=== PATIENT | female | born 1945 | race Caucasian/White ===

== ENCOUNTER 2018-10-23 18:37 | Observation (INO) | payer OTHER ==
--- OUTSIDE RECORDS SUMMARY | 2018-10-23 18:40 | XMS REPORT ---
:1945 [facility] Address [address] [place] [address] [address]. S[address]iqi [address] [place] [address] Care Team Providers Name Role Phone JOSE FRANCISCO WHITLOCK Unavailable Unavailable Problems This patient has no known problems. Allergies, Adverse Reactions, Alerts This patient has no known allergies or adverse reactions. Medications This patient has no known medications. Results Test Description Test Time Test Comments Text Results Atomic Results Result Comments BASIC METABOLIC PANEL 2016-12-08 06:09:00 Test Item Value Reference Range Comments SODIUM (BEAKER) (test 140 meq/L 136-145 pwwd=537) POTASSIUM (BEAKER) (test 4.0 meq/L 3.5-5.1 becy=193) CHLORIDE (BEAKER) (test 106 meq/L 98-107 txru=348) CO2 (BEAKER) (test oqdf=805) 26 meq/L 22-29 BLOOD UREA NITROGEN (BEAKER) 11 mg/dL 7-21 (test gbqz=500) CREATININE (BEAKER) (test 0.87 mg/dL 0.57-1.25 hixf=361) GLUCOSE RANDOM (BEAKER) 85 mg/dL 70-105 (test suax=531) CALCIUM (BEAKER) (test 8.7 mg/dL 8.4-10.2 dkrl=139) EGFR (BEAKER) (test 64 mL/min/1.73 sq m ESTIMATED GFR IS NOT kvbo=5425) ACCURATE CREATININE CLEARANCE IN PREDICTING GLOMERULAR FILTRATION RATE. ESTIMATED GFR IS NOT APPLICABLE FOR DIALYSIS PATIENTS. TSH/FREE T4 IF [id number] 06:06:00 Test Item Value Reference Range Comments THYROID STIMULATING HORMONE (BEAKER) (test 0.78 uIU/mL 0.35-4.94 aoco=636) CBC W/PLT COUNT & AUTO [id number] 05:30:00 Test Item Value Reference Range Comments WHITE BLOOD CELL COUNT (BEAKER) (test tylr=762) 5.9 K/ L 4.0-10.0 RED BLOOD CELL COUNT (BEAKER) (test rsit=131) 3.66 M/ L 4.00-5.00 HEMOGLOBIN (BEAKER) (test ksmy=362) 11.9 GM/DL 12.0-15.0 HEMATOCRIT (BEAKER) (test sdiv=136) 35.5 % 36.0-45.0 MEAN CORPUSCULAR VOLUME (BEAKER) (test fmkm=237) 97.0 fL 82.0-99.0 MEAN CORPUSCULAR HEMOGLOBIN (BEAKER) (test 32.5 pg 27.0-33.0 dynj=575) MEAN CORPUSCULAR HEMOGLOBIN CONC (BEAKER) (test 33.5 GM/DL 32.0-36.0 azwb=855) RED CELL DISTRIBUTION WIDTH (BEAKER) (test 12.5 % 10.3-14.2 oepz=865) PLATELET COUNT (BEAKER) (test qbta=413) 309 K/CU MM 150-430 MEAN PLATELET VOLUME (BEAKER) (test hrvm=259) 6.3 fL 6.5-10.5 NUCLEATED RED BLOOD CELLS (BEAKER) (test 0 /100 WBC 0-0 aisn=538) NEUTROPHILS RELATIVE PERCENT (BEAKER) (test 49 % eppu=354) LYMPHOCYTES RELATIVE PERCENT (BEAKER) (test 33 % bonf=407) MONOCYTES RELATIVE PERCENT (BEAKER) (test 11 % mgga=580) EOSINOPHILS RELATIVE PERCENT (BEAKER) (test 6 % gjmv=895) BASOPHILS RELATIVE PERCENT (BEAKER) (test 1 % tcsw=138) NEUTROPHILS ABSOLUTE COUNT (BEAKER) (test 2.92 K/ L 1.80-8.00 ymsn=915) LYMPHOCYTES ABSOLUTE COUNT (BEAKER) (test 1.93 K/ L 1.48-4.50 fmsb=257) MONOCYTES ABSOLUTE COUNT (BEAKER) (test 0.65 K/ L 0.00-1.30 ppeq=996) EOSINOPHILS ABSOLUTE COUNT (BEAKER) (test 0.34 K/ L 0.00-0.50 pyqy=993) BASOPHILS ABSOLUTE COUNT (BEAKER) (test 0.07 K/ L 0.00-0.20 umkb=143) 0.00SEDIMENTATION [id number] 14:36:00 Test Item Value Reference Range Comments SEDIMENTATION RATE, ERYTHROCYTE (BEAKER) (test 20 mm/HR 0-40 ndsl=926) VITAMIN [id number] 11:02:00 Test Item Value Reference Range Comments VITAMIN B12 (BEAKER) (test nkrm=619) 219 pg/mL 213-816 HEMOGLOBIN [id number] 08:55:00 Test Item Value Reference Range Comments HEMOGLOBIN A1C (BEAKER) (test dncb=915) 5.3 % 4.3-6.1 LIPID [id number] 06:23:00 Test Item Value Reference Range Comments TRIGLYCERIDES (BEAKER) (test jemc=542) 56 mg/dL CHOLESTEROL (BEAKER) (test phgh=882) 140 mg/dL HDL CHOLESTEROL (BEAKER) (test aaoz=664) 56 mg/dL LDL CHOLESTEROL CALCULATED (BEAKER) (test 73 mg/dL rnmj=874) Triglyceride Reference Range: Low Risk <150 Borderline 150- 199 High Risk 200-499 Very High Risk >=500Cholesterol Reference Range: Low Risk <200 Borderline 200-239 High Risk > 240HDL Cholesterol Reference Range: Low Risk >=60 High Risk <40LDL Cholesterol Reference Range: Optimal <100 Near Optimal 100-129 Borderline 130-159 High 160-189 Very High >=190BASIC METABOLIC [id number] 06:23:00 Test Item Value Reference Range Comments SODIUM (BEAKER) (test 139 meq/L 136-145 zddg=328) POTASSIUM (BEAKER) (test 4.0 meq/L 3.5-5.1 jsgd=590) CHLORIDE (BEAKER) (test 108 meq/L 98-107 mvki=292) CO2 (BEAKER) (test 24 meq/L 22-29 roke=136) BLOOD UREA NITROGEN 15 mg/dL 7-21 (BEAKER) (test ezug=414) CREATININE (BEAKER) (test 0.85 mg/dL 0.57-1.25 pjck=523) GLUCOSE RANDOM (BEAKER) 86 mg/dL 70-105 (test thnp=912) CALCIUM (BEAKER) (test 8.6 mg/dL 8.4-10.2 wryw=640) EGFR (BEAKER) (test 66 mL/min/1.73 sq m ESTIMATED GFR IS NOT onxr=4944) ACCURATE CREATININE CLEARANCE IN PREDICTING GLOMERULAR FILTRATION RATE. ESTIMATED GFR IS NOT APPLICABLE FOR DIALYSIS PATIENTS. CBC W/PLT COUNT & AUTO [id number] 06:08:00 Test Item Value Reference Range Comments WHITE BLOOD CELL COUNT (BEAKER) (test krdz=353) 6.8 K/ L 4.0-10.0 RED BLOOD CELL COUNT (BEAKER) (test oiph=122) 4.01 M/ L 4.00-5.00 HEMOGLOBIN (BEAKER) (test wnex=371) 12.3 GM/DL 12.0-15.0 HEMATOCRIT (BEAKER) (test zwga=209) 38.9 % 36.0-45.0 MEAN CORPUSCULAR VOLUME (BEAKER) (test rtxd=281) 97.0 fL 82.0-99.0 MEAN CORPUSCULAR HEMOGLOBIN (BEAKER) (test 30.8 pg 27.0-33.0 dnze=467) MEAN CORPUSCULAR HEMOGLOBIN CONC (BEAKER) (test 31.8 GM/DL 32.0-36.0 rsqx=994) RED CELL DISTRIBUTION WIDTH (BEAKER) (test 12.5 % 10.3-14.2 birz=807) PLATELET COUNT (BEAKER) (test vvzy=185) 322 K/CU MM 150-430 MEAN PLATELET VOLUME (BEAKER) (test crpl=798) 6.5 fL 6.5-10.5 NUCLEATED RED BLOOD CELLS (BEAKER) (test 0 /100 WBC 0-0 lvyr=368) NEUTROPHILS RELATIVE PERCENT (BEAKER) (test 50 % inhr=494) LYMPHOCYTES RELATIVE PERCENT (BEAKER) (test 32 % padl=463) MONOCYTES RELATIVE PERCENT (BEAKER) (test 12 % bktl=459) EOSINOPHILS RELATIVE PERCENT (BEAKER) (test 5 % uoxi=682) BASOPHILS RELATIVE PERCENT (BEAKER) (test 1 % ayce=722) NEUTROPHILS ABSOLUTE COUNT (BEAKER) (test 3.42 K/ L 1.80-8.00 uhql=835) LYMPHOCYTES ABSOLUTE COUNT (BEAKER) (test 2.19 K/ L 1.48-4.50 npha=890) MONOCYTES ABSOLUTE COUNT (BEAKER) (test 0.80 K/ L 0.00-1.30 ggrr=134) EOSINOPHILS ABSOLUTE COUNT (BEAKER) (test 0.33 K/ L 0.00-0.50 djpf=693) BASOPHILS ABSOLUTE COUNT (BEAKER) (test 0.07 K/ L 0.00-0.20 gzxx=672) 0.00
--- OUTSIDE RECORDS SUMMARY | 2018-10-23 18:40 | XMS REPORT | Clinical Summary ---
:1945 Author Organization [facility] Address [address] [place] [address] Care Team Providers Name Role Phone Unavailable Primary Care Provider Unavailable Allergies Active Allergy Reactions Severity Noted Date Comments Codeine 12/07/2016 Pt hallucinates Meperidine 12/07/2016 Pt hallucinates Latex Itching 12/07/2016 Sulfa (Sulfonamide Other (See Comments) 12/07/2016 Pt gets really sick Antibiotics) Diazepam 12/07/2016 Pt tremors Medications Medication Sig Dispensed Refills Start Date End Date Status atorvastatin (LIPITOR) Take 20 mg by 0 Active 20 MG tabletIndications: mouth daily. hyperlipidemia pantoprazole (PROTONIX) Take 40 mg by 0 Active 40 MG tabletIndications: mouth 2 (two) gastroesophageal reflux times daily. disease spironolactone Take 25 mg by 0 Active (ALDACTONE) 25 MG mouth 2 (two) tabletIndications: times daily. hypertension rivaroxaban (XARELTO) 20 Take 20 mg by 0 Active mg Tab mouth daily. tabletIndications: deep venous thrombosis citalopram (CELEXA) 20 Take 20 mg by 0 Active MG tabletIndications: mouth daily. Anxiety with Depression metoprolol (TOPROL-XL) Take 25 mg by 0 Active 25 MG 24 hr mouth 2 (two) tabletIndications: times daily. hypertension cetirizine (ZYRTEC) 10 Take 10 mg by 0 Active MG tabletIndications: mouth daily. Urticaria fluticasone (FLONASE) 50 1 spray by 0 Active mcg/actuation nasal Nasal route 2 sprayIndications: (two) times allergies daily. aspirin 81 MG chewable Take 1 tablet 30 tablet 1 12/08/2016 12/08/2017 tablet (81 mg total) by mouth daily. 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 TIA (transient ischemic attack) 12/07/2016 Atrial flutter 12/07/2016 COPD (chronic obstructive pulmonary disease) 12/07/2016 Vision loss, right eye 12/07/2016 Family History Medical History Relation Name Comments Hyperlipidemia Father Stroke Father Cancer Mother Osteoarthritis Mother Heart failure Sister Hyperlipidemia Sister Thyroid disease Sister Relation Name Status Comments Father Mother Sister Social History Tobacco Use Types Packs/Day Years Used Date Former Smoker Cigarettes Quit: 12/07/2008 Smokeless Tobacco: Never Used Alcohol Use Drinks/Week oz/Week Comments No Sex Assigned at Date Recorded Not on file Job Start Date Occupation Industry Not on file Not on file Not on file Travel History Travel Start Travel End No recent travel history available. Last Filed Vital Signs Not on file Plan of Treatment Not on file Results Not on fileafter 10/22/2017 Insurance Payer Benefit Plan / Group Subscriber ID Type Phone Address [employer] xxxxxxxx Maps Contracted Advance Directives For more information, please contact:[address] [phone] Code Status Date Activated Date Inactivated Comments Full Code 12/07/2016 2:16 AM 12/08/2016 9:06 PM This code status was determined by: Patient
--- NOTE | 2018-10-23 19:42 | RAD REPORT ---
EXAM DESCRIPTION: Tiff Single View10/23/2018 7:32 pm CLINICAL HISTORY: Chest pain COMPARISON: 2016 FINDINGS: The lungs appear clear of acute infiltrate. The heart is borderline enlarged Moderate hiatal hernia IMPRESSION: No acute abnormalities displayed
[2018-10-23 19:58] LABS: Protime INR 1.17
[2018-10-23 20:15] LABS: ALT/SGPT 15 U/L (12-78); AST/SGOT 13 U/L (15-37); Albumin 3.3 g/dL (3.4-5.0); Alkaline Phosphatase 69 U/L (45-117); BUN Blood Urea Nitrogen 18 mg/dL (7-18); Bicarbonate 30 mmol/L (21-32); Bilirubin Direct < 0.1 mg/dL (0-0.2); Bilirubin Total 0.3 mg/dL (0.2-1.0); Glucose Level 92 mg/dL (74-106); Magnesium 2.3 mg/dL (1.8-2.4); NT PRO-BNP 484 pg/mL (<450); Potassium 4.1 mmol/L (3.5-5.1); Protein, Total 6.8 g/dL (6.4-8.2); Sodium Level 143 mmol/L (136-145); Troponin (Emerg Dept Use Only) < 0.02 ng/mL (0.0-0.045)
[2018-10-23 20:19] LABS: Absolute Lymphocytes (CBC) 1.5 K/uL (0.7-4.9); Absolute Monocytes 0.8 K/uL (0.1-1.3); Absolute Neutrophil 3.2 K/uL (1.8-8.0); Basophils % 2.5 % (0-1.3); Eosinophils % 4.2 % (0-4.4); Hematocrit 37.4 % (36.0-45.0); Lymphocytes % 25.3 % (15.3-44.8); MPV 7.5 fL (7.6-11.3); Monocytes % 12.8 % (3.3-12.3); RBC Red Blood Cell Count 4.22 M/uL (3.86-4.86)
--- NOTE | 2018-10-23 20:48 | ER ---
Nurse's Notes [facility] Name: Hina Messina Age: 73 yrs Sex: Female : 1945 Arrival Date: 10/23/2018 Time: 18:38 Bed 5 Private MD: Diagnosis: Chest pain, unspecified;Chronic obstructive pulmonary disease, unspecified Presentation: 10/23 18:38 Presenting complaint: Patient states: SUBSTERNAL CHEST PAIN RADIATING TO LUE FOR 10 bp MINUTES, NOW RESOLVED. Transition of care: patient was not received from another setting of care. Onset of symptoms was October 23, 2018 at 18:00. Risk Assessment: Do you want to hurt yourself or someone else? Patient reports no desire to harm self or others. Initial Sepsis Screen: Does the patient meet any 2 criteria? No. Patient's initial sepsis screen is negative. Does the patient have a suspected source of infection? No. Patient's initial sepsis screen is negative. Care prior to arrival: Glucose check: 126 Oxygen administered. via nasal cannula. 18:38 Method Of Arrival: EMS: [facility] bp 18:38 Acuity: KESHAV 2 bp Triage Assessment: 18:41 General: Appears in no apparent distress. comfortable, Behavior is calm, cooperative, bp appropriate for age. Pain: Denies pain. EENT: No deficits noted. Neuro: Level of Consciousness is awake, alert, obeys commands, Oriented to person, place, time, situation, Appropriate for age. Cardiovascular: No deficits noted. Respiratory: Breath sounds with crackles. GI: No signs and/or symptoms were reported involving the gastrointestinal system. : No signs and/or symptoms were reported regarding the genitourinary system. Derm: No deficits noted. Musculoskeletal: Circulation, motion, and sensation intact. Range of motion: intact in all extremities. Historical: - Allergies: 18:41 Codeine; bp 18:41 Demerol; bp 18:41 Latex, Natural Rubber; bp 18:41 Sulfa (Sulfonamide Antibiotics); bp 18:41 Valium; bp - Home Meds: 18:41 xaralto 20mg [Active]; spironolactone 25 mg Oral tab 1 tab once daily [Active]; bp pantoprazole 40 mg Oral TbEC 1 tab once daily [Active]; metoprolol tartrate 25 mg Oral tab 1 tab 2 times per day [Active]; citalopram 20 mg tab once daily [Active]; cetirizine 10 mg Oral tab 1 tab once daily [Active]; anora 2 puffs BID [Active]; - PMHx: 18:41 Anemia; COPD; GERD; Hyperlipidemia; Hypertension; Microcytic anemia; SVT; Atrial Fib; bp - Immunization history:: Adult Immunizations up to date. - Social history:: Smoking status: Patient/guardian denies using tobacco, but has a distant history of tobacco abuse. - Ebola Screening: : No symptoms or risks identified at this time. Screenin:45 Abuse screen: Denies threats or abuse. Denies injuries from another. Nutritional bp screening: No deficits noted. Tuberculosis screening: No symptoms or risk factors identified. Fall Risk None identified. Assessment: 18:45 General: SEE TRIAGE NOTE. bp 18:51 Pain: Pain does not radiate. Pain began suddenly, 30 min ago. tw2 19:15 General: Appears in no apparent distress. comfortable, Behavior is calm, cooperative, lp1 appropriate for age. Pain: Denies pain. Neuro: Level of Consciousness is awake, alert, obeys commands, Oriented to person, place, time, situation. Cardiovascular: Patient's skin is warm and dry. Respiratory: Airway is patent Respiratory effort is even, unlabored, Respiratory pattern is regular, symmetrical, Breath sounds are clear bilaterally. GI: No signs and/or symptoms were reported involving the gastrointestinal system. : No signs and/or symptoms were reported regarding the genitourinary system. EENT: No signs and/or symptoms were reported regarding the EENT system. Derm: Skin is intact, Skin is dry, Skin is normal. 20:30 Reassessment: Patient appears in no apparent distress at this time. Patient denies pain lp1 at this time. Patient states feeling better. 21:30 Reassessment: No changes from previously documented assessment. Patient aware of lp1 pending admission. Vital Signs: 18:41 BP 113 / 84; Pulse 84; Resp 14; Temp 98; Pulse Ox 98% on 3 lpm NC; bp 18:41 Weight 74.84 kg; Height 5 ft. 3 in. (160.02 cm); bp 19:15 BP 125 / 80; Pulse 77; Resp 20; Pulse Ox 97% on 3 lpm NC; Pain 0/10; lp1 20:00 BP 133 / 89; Pulse 72; Resp 20; Pulse Ox 97% on 3 lpm NC; lp1 21:00 BP 142 / 67; Pulse 68; Resp 17; Pulse Ox 97% on 3 lpm NC; lp1 22:10 BP 144 / 75; Pulse 63; Resp 17; Temp 98.4(O); Pulse Ox 99% on 3 lpm NC; Pain 0/10; lp1 18:41 Body Mass Index 29.23 (74.84 kg, 160.02 cm) bp ED Course: 18:38 Patient arrived in ED. bp 18:39 Triage completed. bp 18:44 Arm band placed on. bp 18:45 Patient has correct armband on for positive identification. Bed in low position. Call bp light in reach. Side rails up X2. Pulse ox on. NIBP on. 18:52 Patient maintains SpO2 saturation greater than 95% on room air. tw2 18:55 EKG done, by ED staff. jb1 18:58 Ez Kaplan, RN is Primary Nurse. bp 19:08 Manjit Up MD is Attending Physician. tw4 19:34 XRAY Chest (1 view) In Process Unspecified. EDMS 19:35 Inserted saline lock: 22 gauge in right antecubital area, using aseptic technique. lp1 Blood collected. 20:18 No provider procedures requiring assistance completed. lp1 20:45 Cristofer Dempsey MD is Hospitalizing Provider. tw4 22:06 Patient admitted, IV remains in place. lp1 Administered Medications: No medications were administered Outcome: 20:47 Decision to Hospitalize by Provider. tw4 22:06 Condition: stable lp1 22:06 Instructed on the need for admit. 22:18 Admitted to Med/surg accompanied by nurse, via wheelchair, room 204, with oxygen, with lp1 chart, Report called to JOEL Anton 22:40 Patient left the ED. lp1 Signatures: Dispatcher [employer] EDMS Alonso Whitley jb1 Felicitas Casillas, RN RN lp1 Franci Aguero RN RN tw2 Ez Kaplan, RN RN Manjit Holcomb MD MD tw4 Corrections: (The following items were deleted from the chart) 23:27 23:27 Patient left the ED. lp1 lp1
--- NOTE | 2018-10-23 20:49 | EDPHYS ---
Physician Documentation [facility] Name: Hina Messina Age: 73 yrs Sex: Female : 1945 Arrival Date: 10/23/2018 Time: 18:38 Bed 5 Private MD: ED Physician Manjit Up HPI: 10/24 06:22 This 73 yrs old Female presents to ER via EMS with complaints of Chest Pain. tw4 06:22 The patient or guardian reports chest pain that is located primarily in the anterior tw4 chest wall, left. Onset: today. The pain radiates to the left arm. Associated signs and symptoms: The patient has no apparent associated signs or symptoms. The chest pain is described as dull, a heaviness. Duration: The patient or guardian reports a single episode, that is now resolved. Modifying factors: The symptoms are alleviated by nothing. the symptoms are aggravated by nothing. Severity of pain: At its worst the pain was moderate in the emergency department the pain has improved. The patient has not experienced similar symptoms in the past. Historical: - Allergies: 10/23 18:41 Codeine; bp 18:41 Demerol; bp 18:41 Latex, Natural Rubber; bp 18:41 Sulfa (Sulfonamide Antibiotics); bp 18:41 Valium; bp - Home Meds: 18:41 xaralto 20mg [Active]; spironolactone 25 mg Oral tab 1 tab once daily [Active]; bp pantoprazole 40 mg Oral TbEC 1 tab once daily [Active]; metoprolol tartrate 25 mg Oral tab 1 tab 2 times per day [Active]; citalopram 20 mg tab once daily [Active]; cetirizine 10 mg Oral tab 1 tab once daily [Active]; anora 2 puffs BID [Active]; - PMHx: 18:41 Anemia; COPD; GERD; Hyperlipidemia; Hypertension; Microcytic anemia; SVT; Atrial Fib; bp - Immunization history:: Adult Immunizations up to date. - Social history:: Smoking status: Patient/guardian denies using tobacco, but has a distant history of tobacco abuse. - Ebola Screening: : No symptoms or risks identified at this time. ROS: 10/24 06:22 Constitutional: Negative for fever, chills, and weight loss, Eyes: Negative for injury, tw4 pain, redness, and discharge, Respiratory: Negative for shortness of breath, cough, wheezing, and pleuritic chest pain, Abdomen/GI: Negative for abdominal pain, nausea, vomiting, diarrhea, and constipation, Back: Negative for injury and pain, MS/Extremity: Negative for injury and deformity, Skin: Negative for injury, rash, and discoloration, Neuro: Negative for headache, weakness, numbness, tingling, and seizure. Cardiovascular: Positive for chest pain, Negative for edema, orthopnea, palpitations, paroxysmal nocturnal dyspnea. Exam: 06:22 Constitutional: This is a well developed, well nourished patient who is awake, alert, tw4 and in no acute distress. Head/Face: Normocephalic, atraumatic. Chest/axilla: Normal chest wall appearance and motion. Nontender with no deformity. No lesions are appreciated. Cardiovascular: Regular rate and rhythm with a normal S1 and S2. No gallops, murmurs, or rubs. Normal PMI, no JVD. No pulse deficits. Respiratory: Lungs have equal breath sounds bilaterally, clear to auscultation and percussion. No rales, rhonchi or wheezes noted. No increased work of breathing, no retractions or nasal flaring. Abdomen/GI: Soft, non-tender, with normal bowel sounds. No distension or tympany. No guarding or rebound. No evidence of tenderness throughout. Back: No spinal tenderness. No costovertebral tenderness. Full range of motion. MS/ Extremity: Pulses equal, no cyanosis. Neurovascular intact. Full, normal range of motion. Neuro: Awake and alert, GCS 15, oriented to person, place, time, and situation. Cranial nerves II-XII grossly intact. Motor strength 5/5 in all extremities. Sensory grossly intact. Cerebellar exam normal. Normal gait. Vital Signs: 0607 18:41 BP 113 / 84; Pulse 84; Resp 14; Temp 98; Pulse Ox 98% on 3 lpm NC; bp 18:41 Weight 74.84 kg; Height 5 ft. 3 in. (160.02 cm); bp 19:15 BP 125 / 80; Pulse 77; Resp 20; Pulse Ox 97% on 3 lpm NC; Pain 0/10; lp1 20:00 BP 133 / 89; Pulse 72; Resp 20; Pulse Ox 97% on 3 lpm NC; lp1 21:00 BP 142 / 67; Pulse 68; Resp 17; Pulse Ox 97% on 3 lpm NC; lp1 22:10 BP 144 / 75; Pulse 63; Resp 17; Temp 98.4(O); Pulse Ox 99% on 3 lpm NC; Pain 0/10; lp1 18:41 Body Mass Index 29.23 (74.84 kg, 160.02 cm) bp MDM: 19:08 Patient medically screened. 10/24 06:22 Differential diagnosis: abnormal EKG, acute myocardial infarction, gastroesophageal tw4 reflux disease (GERD), hiatal hernia, pulmonary embolus. CARLEE Risk Score: 1 - patient's age is greater or equal to 65 years, 1 - Recent [<24hrs] Severe Angina, TOTAL SCORE = 2. Data reviewed: vital signs, nurses notes. Data interpreted: Pulse oximetry: Interpretation: normal. Counseling: I had a detailed discussion with the patient and/or guardian regarding: the historical points, exam findings, and any diagnostic results supporting the discharge/admit diagnosis, lab results, radiology results. Physician consultation: Cristofer Dempsey MD was contacted at 20:10, regarding admission, to the telemetry unit. patient's condition, and will see patient in inpatient room. 10/23 19:08 Order name: Basic Metabolic Panel; Complete Time: 20:42 10/23 20:42 Interpretation: Normal except: CL 109; GFR 64. 10/23 19:08 Order name: CBC with Diff; Complete Time: 20:42 10/23 20:42 Interpretation: Normal except: MCV 88.6; MCH 28.5; PLT 480. 10/23 19:08 Order name: LFT's; Complete Time: 20:42 10/23 20:42 Interpretation: Normal except: AST 13; ALB 3.3; A/G 0.9. 10/23 19:08 Order name: Magnesium; Complete Time: 20:43 10/23 20:43 Interpretation: MG 2.3. 10/23 19:08 Order name: NT PRO-BNP; Complete Time: 20:42 10/23 20:43 Interpretation: Normal except: NT PRO-BNP 484. 10/23 19:08 Order name: PT-INR; Complete Time: 20:43 tw4 10/23 20:43 Interpretation: Normal except: PT 13.7. tw4 10/23 19:08 Order name: Troponin (emerg Dept Use Only); Complete Time: 20:43 tw4 10/23 20:43 Interpretation: Normal except: TROPED < 0.02. tw4 10/23 22:02 Order name: Basic Metabolic Panel EDMS 10/23 22:02 Order name: Basic Metabolic Panel EDMS 10/23 22:02 Order name: CBC with Automated Diff EDMS 10/23 22:02 Order name: CBC with Automated Diff EDMS 10/23 22:02 Order name: Troponin I EDMS 10/23 22:02 Order name: Troponin I EDMS 10/23 22:02 Order name: Troponin I EDMS 10/23 19:08 Order name: XRAY Chest (1 view); Complete Time: 20:43 tw4 10/23 19:08 Order name: EKG; Complete Time: 19:11 tw4 10/23 19:08 Order name: Cardiac monitoring; Complete Time: 19:11 tw4 10/23 19:08 Order name: EKG - Nurse/Tech; Complete Time: 19:11 tw4 10/23 19:08 Order name: IV Saline Lock; Complete Time: 20:18 tw4 10/23 19:08 Order name: Labs collected and sent; Complete Time: 20:19 tw4 10/23 19:08 Order name: O2 Per Protocol; Complete Time: 19:11 tw4 10/23 19:08 Order name: O2 Sat Monitoring; Complete Time: 19:11 tw4 10/23 22:02 Order name: EKG Electrocardiogram EDOH 10/23 22:02 Order name: EKG Electrocardiogram EDOH 10/23 22:02 Order name: EKG Electrocardiogram EDOH 10/23 22:02 Order name: EKG Electrocardiogram EDOH 10/23 22:27 Order name: Heart Healthy EDOH Administered Medications: No medications were administered Disposition: 10/23/18 20:47 Hospitalization ordered by Cristofer Dempsey for Observation. Preliminary diagnosis are Chest pain, unspecified, Chronic obstructive pulmonary disease, unspecified. - Bed requested for Telemetry/MedSurg (Inpatient). - Status is Observation. lp1 - Condition is Stable. - Problem is new. - Symptoms have improved. UTI on Admission? No Signatures: Dispatcher [employer] EDMS Maria Elena Herman RN RN fc Felicitas Casillas, RN RN lp1 Ez Kaplan, RN RN Manjit Up MD MD tw4 Corrections: (The following items were deleted from the chart) 10/23 21:51 20:47 Hospitalization Ordered by Cristofer Dempsey MD for Observation. Preliminary diagnosis fc is Chest pain, unspecified; Chronic obstructive pulmonary disease, unspecified. Bed requested for Telemetry/MedSurg (observation). Status is Observation. Condition is Stable. Problem is new. Symptoms have improved. UTI on Admission? No. tw4 21:55 21:51 10/23/2018 20:47 Hospitalization Ordered by Cristofer Dempsey MD for Observation. fc Preliminary diagnosis is Chest pain, unspecified; Chronic obstructive pulmonary disease, unspecified. Bed requested for Telemetry/MedSurg (observation). Status is Observation. Condition is Stable. Problem is new. Symptoms have improved. UTI on Admission? No. fc 23:27 21:55 10/23/2018 20:47 Hospitalization Ordered by Cristofer Dempsey MD for Observation. lp1 Preliminary diagnosis is Chest pain, unspecified; Chronic obstructive pulmonary disease, unspecified. Bed requested for Telemetry/MedSurg (Inpatient). Status is Observation. Condition is Stable. Problem is new. Symptoms have improved. UTI on Admission? No. fc
[2018-10-23] MEDS ORDERED: ACETAMINOPHEN 500 MG TAB PO PRN (21:51)
[2018-10-23 22:58] VITALS: BMI 30.2
[2018-10-24 00:36] LABS: Urine Appearance CLEAR; Urine Bilirubin NEGATIVE (NEG); Urine Blood NEGATIVE (NEG); Urine Color YELLOW; Urine Glucose NEGATIVE (NEG); Urine Protein NEGATIVE (NEG); Urine Specific Gravity 1.025 (1.005-1.030); Urine Urobilinogen 0.2 mg/dL (0.2-1.0)
[2018-10-24 00:43] LABS: Urine Microscopic Reflex ORDER UMIC
[2018-10-24 01:14] LABS: Urine Bacteria <20 /HPF (<20); Urine Culture Reflex Order REFLEXED; Urine RBC <5 /HPF (NONE SEEN)
[2018-10-24 05:01] LABS: Absolute Lymphocytes (CBC) 1.8 K/uL (0.7-4.9); Absolute Monocytes 0.6 K/uL (0.1-1.3); Absolute Neutrophil 2.5 K/uL (1.8-8.0); Hematocrit 34.1 % (36.0-45.0); Lymphocytes % 33.4 % (15.3-44.8); MPV 7.4 fL (7.6-11.3); Monocytes % 11.7 % (3.3-12.3); RBC Red Blood Cell Count 3.88 M/uL (3.86-4.86)
[2018-10-24 05:11] LABS: Potassium 3.7 mmol/L (3.5-5.1)
[2018-10-24 07:59] VITALS: O2SAT 96
[2018-10-24 08:26] VITALS: BP 124/86; TEMP 97.8
[2018-10-24] MEDS ORDERED: ASPIRIN EC 81 MG TAB PO SCH (09:00)
--- NOTE | 2018-10-24 09:01 | EKG ---
Test Date: 2018-10-23 Test Time: 18:48:54 Tax Manager Public: PRINCESS MEASUREMENT RESULTS: Intervals: Rate: 83 ND: 152 QRSD: 82 QT: 368 QTc: 432 [place]: P: 38 ND: 152 QRS: 2 T: -31 INTERPRETIVE STATEMENTS: Normal sinus rhythm ST & T wave abnormality, consider inferior ischemia ST & T wave abnormality, consider anterolateral ischemia Abnormal ECG Compared to ECG 12/06/2016 19:32:03 No significant changes Electronically Signed On 10-24-18 09:00:40 CDT by Edward Sherwood
[2018-10-24] MEDS ORDERED: HOME MED 1 EA UNK (Albuterol Sulfate [Proair Respiclick] 2 PUFF) IH PRN (10:08)
--- NOTE | 2018-10-24 10:36 | P.SSS ---
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 She was sitting in her chair. Suddenly felt left arm/shoulder pain for 10 min. Stated it was excruciating. Lasted for 10min. The patient has not had any similar pain before. She has not had it since then. However she was scared enough to call EMS. Was brought to the ER. Her pain had resolved. She had no changes on her EKG. She has had 3 negative troponins. The patient states she was recently in Dr. Sherwood's office. Had a echocardiogram. Which he stated was looking good. Allergies codeine [Codeine] Allergy (Mild, Verified 01/29/12 19:01) Hives/Rash diazepam [From Valium] Allergy (Mild, Verified 01/29/12 19:00) Hives/Rash meperidine HCl [From Demerol] Allergy (Mild, Verified 01/29/12 19:01) Hives Sulfa (Sulfonamide Antibiotics) [Sulfa(Sulfonamide Antibiotics)] Allergy (Mild, Verified 01/29/12 19:01) Nausea/Vomiting latex Allergy (Verified 09/24/15 15:49) Hives/Rash Latex, Natural Rubber Allergy (Verified 10/24/18 09:41) Itching codeine Allergy (Uncoded 08/18/14 21:21) Unknown Latex, Natural Allergy (Uncoded 10/31/15 21:18) Unknown Home Medications: Acetaminophen [Tylenol Extra Strength] 500 mg PO BID 10/23/18 Albuterol Sulfate [Proair Respiclick] 2 puff IH Q4HP PRN 10/23/18 Cetirizine HCl [Zyrtec*] 5 mg PO DAILY 10/23/18 Fluticasone [Flonase 50MCG Nasal [place]*] 1 spray JENNY DAILY 10/23/18 Metoprolol Tartrate [Lopressor*] 25 mg PO BID 10/23/18 Rivaroxaban [Xarelto] 20 mg PO BEDTIME 10/23/18 Umeclidinium Brm/Vilanterol Tr [Anoro Ellipta 62.5-25 Mcg INH] 1 puff IH DAILY 10/23/18 Citalopram Hydrobromide [Celexa] 20 mg PO DAILY 10/24/18 - Past Medical/Surgical History Has patient received pneumonia vaccine in the past: Yes Diabetic: No -: HYPERTENSION -: HYPERLIPIDEMIA -: GERD -: RENAL FAILURE -: HYSTERECTOMY -: APPENDECTOMY - Family History Father -: Stroke Mother -: Cancer - Social History Smoking Status: Former smoker Alcohol use: No CD- Drugs: No Caffeine use: Yes Place of Residence: Home Review of Systems 10-point ROS is otherwise unremarkable Respiratory: SOB with Excertion (This is a chronic problem due to copd, she is at baseline) Physical Examination - Vital Signs Temperature: 97.8 F Blood Pressure: 124/86 Pulse: 67 Respirations: 19 Pulse Ox (%): 96 - Physical Exam General: Alert, In no apparent distress HEENT: Atraumatic, PERRLA, Mucous membr. moist/pink, EOMI, Sclerae nonicteric Neck: Supple, 2+ carotid pulse no bruit, No LAD, Without JVD or thyroid abnormality Respiratory: Clear to auscultation bilaterally, Normal air movement Cardiovascular: Regular rate/rhythm, Normal S1 S2 Gastrointestinal: Normal bowel sounds, No tenderness Musculoskeletal: No tenderness Integumentary: No rashes Neurological: Normal gait, Normal speech, Normal strength at 5/5 x4 extr, Normal tone, Normal affect Lymphatics: No axilla or inguinal lymphadenopathy - Studies Laboratory Data (last 24 hrs) 10/23/18 19:35: PT 13.7 H, INR 1.17 10/23/18 19:35: WBC 5.9, Hgb 12.0, Hct 37.4, Plt Count 480 H 10/23/18 19:35: Sodium 143, Potassium 4.1, BUN 18, Creatinine 0.86, Glucose 92, Magnesium 2.3, Total Bilirubin 0.3, AST 13 L, ALT 15, Alkaline Phosphatase 69 - Diagnosis (Problem(s)) (1) Chest pain at rest Current Visit: Yes Status: Acute Plan: Patient is not having an acute event. Will discharge her home. She says she has been having some shoulder and neck pain since a fall a few months ago. Will have her follow up with Dr. Sherwood. If she is cleared by him from a cardiac standpoint. We can refer to PT. This could also be atelectasis or arthritis. (2) Supraventricular tachycardia Onset Date: 09/25/15 Current Visit: No Status: Acute (3) COPD (chronic obstructive pulmonary disease) Onset Date: 11/01/15 Current Visit: No Status: Chronic Plan: she is at her baseline. continue her inhaler. She has not been very active due to her shoulder pain. Will refer to PT and pulmonary rehab after she see's Dr. Sherwood. Qualifiers: Treatment Summary: Placed in observation. She has 3 negative troponins. We can discharge her have her follow up with Dr. Ricketts. For outpatient testing. If cleared she can follow up with me. Will refer to PT and pulmonary rehab as stated above - Disposition Disposition: ROUTINE DISCHARGE Condition: GOOD Diet: Regular Activity: Ad diaz Physician Review: Patient Assessed, Agree with Above Assessment and Plan Critical Care: No Time Spent Managing Pts Care (In Minutes): 40
[2018-10-24] MEDS ORDERED: ACETAMINOPHEN 500 MG TAB PO SCH (21:00)
[2018-10-24] MEDS ORDERED: METOPROLOL TAR 25 MG TAB PO SCH (21:00)
[2018-10-24] MEDS ORDERED: RIVAROXABAN 20 MG TABLET PO SCH (21:00)
[2018-10-25] MEDS ORDERED: CETIRIZINE HCL 5 MG TABLET PO SCH (09:00)
[2018-10-25] MEDS ORDERED: CITALOPRAM 10 MG TABLET PO SCH (09:00)
[2018-10-25] MEDS ORDERED: HOME MED 1 EA UNK (Umeclidinium Brm/Vilanterol Tr [Anoro Ellipta 62.5-25 Mcg Inh] 1 PUFF) IH SCH (09:00)
[2018-10-25] MEDS ORDERED: FLUTICASONE 50MCG NASAL SPRAY NAS SCH (09:00)
== END 2018-10-24 12:03 | disposition home or self-care (01) ==
LOC: ER 18:37 → 2ND 21:46
PROVIDERS: ADMIT Internal Medicine; ATTEND Internal Medicine
DX: R07.9 Chest pain, unspecified (principal); I47.1 Supraventricular tachycardia; J44.9 Chronic obstructive pulmonary disease, unspecified; E78.5 Hyperlipidemia, unspecified; I10 Essential (primary) hypertension; R94.31 Abnormal electrocardiogram [ECG] [EKG]; D64.9 Anemia, unspecified; K21.9 Gastro-esophageal reflux disease without esophagitis; I48.91 Unspecified atrial fibrillation; K44.9 Diaphragmatic hernia without obstruction or gangrene; Z79.01 Long term (current) use of anticoagulants; Z79.899 Other long term (current) drug therapy; Z87.891 Personal history of nicotine dependence
CPT/HCPCS: 93005; 87088; 85025 ×2; 87086; 80048 ×2; 36415; 83735; 85610; 80076; 84484 ×3; 83880; 71045; 99285; G0378 ×2; 81003; 81015

== ENCOUNTER 2019-01-04 12:13 | Emergency (ER) | payer OTHER ==
--- OUTSIDE RECORDS SUMMARY | 2019-01-04 12:20 | XMS REPORT | Clinical Summary ---
:1945 Author Organization [facility] Address [address] [place] [address] Care Team Providers Name Role Phone Unavailable Primary Care Provider Unavailable Allergies Active Allergy Reactions Severity Noted Date Comments Codeine 12/07/2016 Pt hallucinates Meperidine 12/07/2016 Pt hallucinates Latex Itching 12/07/2016 Sulfa (Sulfonamide Other (See Comments) 12/07/2016 Pt gets really sick Antibiotics) Diazepam 12/07/2016 Pt tremors Medications Medication Sig Dispensed Refills Start Date End Date Status atorvastatin (LIPITOR) 20 Take 20 mg by 0 Active MG tabletIndications: mouth daily. hyperlipidemia pantoprazole (PROTONIX) 40 Take 40 mg by 0 Active MG tabletIndications: mouth 2 (two) gastroesophageal reflux times daily. disease spironolactone (ALDACTONE) Take 25 mg by 0 Active 25 MG tabletIndications: mouth 2 (two) hypertension times daily. rivaroxaban (XARELTO) 20 Take 20 mg by 0 Active mg Tab tabletIndications: mouth daily. deep venous thrombosis citalopram (CELEXA) 20 MG Take 20 mg by 0 Active tabletIndications: Anxiety mouth daily. with Depression metoprolol (TOPROL-XL) 25 Take 25 mg by 0 Active MG 24 hr mouth 2 (two) tabletIndications: times daily. hypertension cetirizine (ZYRTEC) 10 MG Take 10 mg by 0 Active tabletIndications: mouth daily. urticaria fluticasone (FLONASE) 50 1 spray by 0 Active mcg/actuation nasal Nasal route 2 sprayIndications: (two) times allergies daily. Active Problems Problem Noted Date Right [...] Not on file Results Not on fileafter 01/03/2018 Insurance Payer Benefit Plan / Group Subscriber ID Type Phone Address [employer] xxxxxxxx Maps Contracted Advance Directives For more information, please contact:[address] [phone] Code Status Date Activated Date Inactivated Comments Full Code 12/07/2016 2:16 AM 12/08/2016 9:06 PM This code status was determined by: Patient
--- OUTSIDE RECORDS SUMMARY | 2019-01-04 12:21 | XMS REPORT ---
:1945 [facility] Address [address] [place] [address] [address]. Siddiqi [address] [place] [address] Care Team Providers Name Role Phone JOSE [...] Comments SODIUM (BEAKER) (test 140 meq/L 136-145 vfvl=285) POTASSIUM (BEAKER) (test 4.0 meq/L 3.5-5.1 xsue=870) CHLORIDE (BEAKER) (test 106 meq/L 98-107 qpep=283) CO2 (BEAKER) (test jzzd=226) 26 meq/L 22-29 BLOOD UREA NITROGEN (BEAKER) 11 mg/dL 7-21 (test vetm=489) CREATININE (BEAKER) (test 0.87 mg/dL 0.57-1.25 accs=643) GLUCOSE RANDOM (BEAKER) 85 mg/dL 70-105 (test whgr=399) CALCIUM (BEAKER) (test 8.7 mg/dL 8.4-10.2 ejch=202) EGFR (BEAKER) (test 64 mL/min/1.73 sq m ESTIMATED GFR IS NOT pgmx=3163) ACCURATE CREATININE CLEARANCE IN PREDICTING GLOMERULAR FILTRATION RATE. ESTIMATED GFR IS NOT APPLICABLE FOR DIALYSIS PATIENTS. TSH/FREE T4 IF [id number] 06:06:00 Test Item Value Reference Range Comments THYROID STIMULATING HORMONE (BEAKER) (test 0.78 uIU/mL 0.35-4.94 xpis=162) CBC W/PLT COUNT & AUTO [id number] 05:30:00 Test Item Value Reference Range Comments WHITE BLOOD CELL COUNT (BEAKER) (test qlwz=886) 5.9 K/ L 4.0-10.0 RED BLOOD CELL COUNT (BEAKER) (test vcoj=844) 3.66 M/ L 4.00-5.00 HEMOGLOBIN (BEAKER) (test dqgf=657) 11.9 GM/DL 12.0-15.0 HEMATOCRIT (BEAKER) (test ksku=727) 35.5 % 36.0-45.0 MEAN CORPUSCULAR VOLUME (BEAKER) (test foxo=482) 97.0 fL 82.0-99.0 MEAN CORPUSCULAR HEMOGLOBIN (BEAKER) (test 32.5 pg 27.0-33.0 xjax=509) MEAN CORPUSCULAR HEMOGLOBIN CONC (BEAKER) (test 33.5 GM/DL 32.0-36.0 vjid=978) RED CELL DISTRIBUTION WIDTH (BEAKER) (test 12.5 % 10.3-14.2 cmzh=303) PLATELET COUNT (BEAKER) (test xstu=973) 309 K/CU MM 150-430 MEAN PLATELET VOLUME (BEAKER) (test bsll=918) 6.3 fL 6.5-10.5 NUCLEATED RED BLOOD CELLS (BEAKER) (test 0 /100 WBC 0-0 lfqu=441) NEUTROPHILS RELATIVE PERCENT (BEAKER) (test 49 % nxrb=880) LYMPHOCYTES RELATIVE PERCENT (BEAKER) (test 33 % mzxx=695) MONOCYTES RELATIVE PERCENT (BEAKER) (test 11 % bhdz=995) EOSINOPHILS RELATIVE PERCENT (BEAKER) (test 6 % iwsz=744) BASOPHILS RELATIVE PERCENT (BEAKER) (test 1 % nvnn=690) NEUTROPHILS ABSOLUTE COUNT (BEAKER) (test 2.92 K/ L 1.80-8.00 bmfy=788) LYMPHOCYTES ABSOLUTE COUNT (BEAKER) (test 1.93 K/ L 1.48-4.50 iycd=835) MONOCYTES ABSOLUTE COUNT (BEAKER) (test 0.65 K/ L 0.00-1.30 qilu=413) EOSINOPHILS ABSOLUTE COUNT (BEAKER) (test 0.34 K/ L 0.00-0.50 xyeg=321) BASOPHILS ABSOLUTE COUNT (BEAKER) (test 0.07 K/ L 0.00-0.20 ywne=941) 0.00SEDIMENTATION [id number] 14:36:00 Test Item Value Reference Range Comments SEDIMENTATION RATE, ERYTHROCYTE (BEAKER) (test 20 mm/HR 0-40 eexw=609) VITAMIN [id number] 11:02:00 Test Item Value Reference Range Comments VITAMIN B12 (BEAKER) (test wfsr=291) 219 pg/mL 213-816 HEMOGLOBIN [id number] 08:55:00 Test Item Value Reference Range Comments HEMOGLOBIN A1C (BEAKER) (test eozf=261) 5.3 % 4.3-6.1 LIPID [id number] 06:23:00 Test Item Value Reference Range Comments TRIGLYCERIDES (BEAKER) (test kjpb=702) 56 mg/dL CHOLESTEROL (BEAKER) (test xpfm=590) 140 mg/dL HDL CHOLESTEROL (BEAKER) (test vzqs=684) 56 mg/dL LDL CHOLESTEROL CALCULATED (BEAKER) (test 73 mg/dL fntz=776) Triglyceride Reference Range: Low Risk <150 Borderline 150- 199 High Risk 200-499 Very High Risk >=500Cholesterol Reference Range: Low Risk <200 Borderline 200-239 High Risk > 240HDL Cholesterol Reference Range: Low Risk >=60 High Risk <40LDL Cholesterol Reference Range: Optimal <100 Near Optimal 100-129 Borderline 130-159 High 160-189 Very High >=190BASIC METABOLIC [id number] 06:23:00 Test Item Value Reference Range Comments SODIUM (BEAKER) (test 139 meq/L 136-145 sclw=326) POTASSIUM (BEAKER) (test 4.0 meq/L 3.5-5.1 qhph=697) CHLORIDE (BEAKER) (test 108 meq/L 98-107 mskz=484) CO2 (BEAKER) (test 24 meq/L 22-29 vkan=527) BLOOD UREA NITROGEN 15 mg/dL 7-21 (BEAKER) (test vzam=100) CREATININE (BEAKER) (test 0.85 mg/dL 0.57-1.25 yfjh=310) GLUCOSE RANDOM (BEAKER) 86 mg/dL 70-105 (test gjza=471) CALCIUM (BEAKER) (test 8.6 mg/dL 8.4-10.2 xjge=060) EGFR (BEAKER) (test 66 mL/min/1.73 sq m ESTIMATED GFR IS NOT pxqw=8391) ACCURATE CREATININE CLEARANCE IN PREDICTING GLOMERULAR FILTRATION RATE. ESTIMATED GFR IS NOT APPLICABLE FOR DIALYSIS PATIENTS. CBC W/PLT COUNT & AUTO [id number] 06:08:00 Test Item Value Reference Range Comments WHITE BLOOD CELL COUNT (BEAKER) (test utqq=090) 6.8 K/ L 4.0-10.0 RED BLOOD CELL COUNT (BEAKER) (test ofii=472) 4.01 M/ L 4.00-5.00 HEMOGLOBIN (BEAKER) (test qojo=754) 12.3 GM/DL 12.0-15.0 HEMATOCRIT (BEAKER) (test pkgr=277) 38.9 % 36.0-45.0 MEAN CORPUSCULAR VOLUME (BEAKER) (test xdyz=020) 97.0 fL 82.0-99.0 MEAN CORPUSCULAR HEMOGLOBIN (BEAKER) (test 30.8 pg 27.0-33.0 shyg=067) MEAN CORPUSCULAR HEMOGLOBIN CONC (BEAKER) (test 31.8 GM/DL 32.0-36.0 vyuv=115) RED CELL DISTRIBUTION WIDTH (BEAKER) (test 12.5 % 10.3-14.2 ttmg=065) PLATELET COUNT (BEAKER) (test ndqx=638) 322 K/CU MM 150-430 MEAN PLATELET VOLUME (BEAKER) (test ekov=726) 6.5 fL 6.5-10.5 NUCLEATED RED BLOOD CELLS (BEAKER) (test 0 /100 WBC 0-0 hzqv=601) NEUTROPHILS RELATIVE PERCENT (BEAKER) (test 50 % soij=235) LYMPHOCYTES RELATIVE PERCENT (BEAKER) (test 32 % wrpf=974) MONOCYTES RELATIVE PERCENT (BEAKER) (test 12 % vqpf=370) EOSINOPHILS RELATIVE PERCENT (BEAKER) (test 5 % sbtu=110) BASOPHILS RELATIVE PERCENT (BEAKER) (test 1 % lwkw=691) NEUTROPHILS ABSOLUTE COUNT (BEAKER) (test 3.42 K/ L 1.80-8.00 vzpn=091) LYMPHOCYTES ABSOLUTE COUNT (BEAKER) (test 2.19 K/ L 1.48-4.50 etxx=771) MONOCYTES ABSOLUTE COUNT (BEAKER) (test 0.80 K/ L 0.00-1.30 dzxn=761) EOSINOPHILS ABSOLUTE COUNT (BEAKER) (test 0.33 K/ L 0.00-0.50 slro=490) BASOPHILS ABSOLUTE COUNT (BEAKER) (test 0.07 K/ L 0.00-0.20 beqg=426) 0.00
--- NOTE | 2019-01-04 13:47 | RAD REPORT ---
EXAM DESCRIPTION: CT - Pelvis Wo Cont - 01/04/2019 1:09 pm CLINICAL HISTORY: Slip and fall, pelvic and hip pain, back pain COMPARISON: CT imaging November 2017 TECHNIQUE: Axial 2 millimeter thick images of the pelvis were obtained. Sagittal and coronal reconst ruction images were generated and reviewed. The CT scan was performed using dose optimization techniques as appropriate to a performed exam incl uding one or more of the following: Automated exposure control, adjustment of the mA and/or kV accord ing to patient size (this includes techniques or standardized protocols for targeted exams where dose is matched to indication/reason for exam) and use of iterative reconstruction technique. FINDINGS: L4 body shows partial compression with concavity to the superior endplate centrally. This pattern appears to be similar to the 2018 study. Direct comparison is somewhat limited. No retropulsi on of the posterior wall. There is mild concavity to the superior endplate L5 also seen as stable. Ad vanced L5-S1 degenerative disc disease is present. L5 pars interarticularis defects are present with less than grade 1 spondylolisthesis. The lumbar findings appear to be stable. No pathologic lower lum bar finding. Prominent L5-S1 facet joint degenerative changes are present. SI joint degenerative torres ges are present along with minimal pubic symphysis degenerative change. No fracture of the bony pelvis. No pathologic process. Degenerative changes are present in each femor al head. No fracture or dislocation of either proximal femur. No skeletal muscle abnormality seen. No hematoma is identified in the soft tissues. No acute finding in the imaged portions of the peritoneal and retroperitoneal spaces. IMPRESSION: No pelvic fracture or acute bone process seen. Prominent degenerative change in the partially imaged lumbar spine. The partial compression of L4 and the degenerative changes seen L4-S1 appear to be stable back to November 2017.
--- NOTE | 2019-01-04 14:15 | ER ---
Nurse's Notes [facility] Name: Hina Messina Age: 73 yrs Sex: Female : 1945 Arrival Date: 01/04/2019 Time: 12:27 Bed 25 Private MD: Diagnosis: Low back pain Presentation: 01/04 12:28 Presenting complaint: EMS states: patient slipped last week and yesterday her back pain mg2 was getting worse and decided to be checked out today. took tylenol 1 tab \T\ 1130 HAND IRONER. Transition of care: patient was not received from another setting of care. Onset of symptoms was January 03, 2019. Risk Assessment: Do you want to hurt yourself or someone else? Patient reports no desire to harm self or others. Initial Sepsis Screen: Does the patient meet any 2 criteria? No. Patient's initial sepsis screen is negative. Does the patient have a suspected source of infection? No. Patient's initial sepsis screen is negative. Care prior to arrival: None. 12:28 Method Of Arrival: EMS: [facility] mg2 12:28 Acuity: KESHAV 3 mg2 Historical: - Allergies: 12:33 Codeine; mg2 12:33 Demerol; mg2 12:33 Latex, Natural Rubber; mg2 12:33 Sulfa (Sulfonamide Antibiotics); mg2 12:33 Valium; mg2 12:33 ambien; mg2 - Home Meds: 13:04 anora 2 puffs BID [Active]; cetirizine 10 mg Oral tab 1 tab once daily [Active]; mg2 citalopram 20 mg tab once daily [Active]; metoprolol tartrate 25 mg Oral tab 1 tab 2 times per day [Active]; pantoprazole 40 mg Oral TbEC 1 tab once daily [Active]; spironolactone 25 mg Oral tab 1 tab once daily [Active]; xaralto 20mg [Active]; - PMHx: 12:33 Anemia; Atrial Fib; COPD; GERD; Hyperlipidemia; Hypertension; Microcytic anemia; SVT; mg2 - PSHx: 12:33 back surgery; Appendectomy; partial hysterectomy; mg2 - Immunization history:: Flu vaccine is up to date. - Social history:: Smoking status: Patient/guardian denies using tobacco, Patient/guardian denies using alcohol, street drugs, IV drugs. - Ebola Screening: : No symptoms or risks identified at this time. Screenin:01 Abuse screen: Denies threats or abuse. Denies injuries from another. Nutritional mg2 screening: No deficits noted. Tuberculosis screening: No symptoms or risk factors identified. Fall Risk None identified. Assessment: 13:02 General: Appears in no apparent distress. comfortable, Behavior is calm, cooperative. mg2 Pain: Complains of pain in back Pain does not radiate. Pain currently is 5 out of 10 on a pain scale. Quality of pain is described as aching, Pain began gradually. Neuro: Level of Consciousness is awake, alert, obeys commands, Oriented to person, place, time, situation. Cardiovascular: Capillary refill < 3 seconds Patient's skin is warm and dry. Respiratory: Airway is patent Respiratory effort is even, unlabored, Respiratory pattern is regular, symmetrical. GI: No signs and/or symptoms were reported involving the gastrointestinal system. : No signs and/or symptoms were reported regarding the genitourinary system. EENT: No signs and/or symptoms were reported regarding the EENT system. Derm: Skin is intact, is healthy with good turgor, Skin is pink, warm \T\ dry. normal. Musculoskeletal: Reports pain in back. Vital Signs: 12:31 BP 131 / 89; Pulse 81; Resp 18; Temp 98.7; Pulse Ox 97% on 2 lpm NC; Weight 77.11 kg; mg2 Height 5 ft. 3 in. (160.02 cm); Pain 5/10; 13:58 BP 147 / 91; Pulse 66; Resp 18; Pulse Ox 98% on R/A; mg2 14:28 BP 144 / 86; Pulse 70; Resp 18; Temp 98.5; Pulse Ox 100% on R/A; mg2 12:31 Body Mass Index 30.11 (77.11 kg, 160.02 cm) mg2 ED Course: 12:27 Patient arrived in ED. iw 12:28 Paco Florian RN is Primary Nurse. mg2 12:31 Triage completed. mg2 12:38 Rebecca Frye FNP-C [facility]. kb 12:38 Bright Zendejas MD is Attending Physician. kb 13:01 Patient has correct armband on for positive identification. Pulse ox on. NIBP on. Door mg2 closed. 13:03 Arm band placed on. mg2 13:03 No provider procedures requiring assistance completed. Patient did not have IV access mg2 during this emergency room visit. 13:10 CT Pelvis wo Cont In Process Unspecified. EDMS 13:58 EKG done, by water supply technician. reviewed by Bright Zendejas MD. sm3 Administered Medications: 14:28 Drug: Ibuprofen 600 mg Route: PO; mg2 14:28 Follow up: Response: No adverse reaction; Medication administered at discharge. mg2 Outcome: 14:15 Discharge ordered by . jania 14:29 Discharged to home via wheelchair, with family. mg2 14:29 Condition: stable 14:29 Discharge instructions given to patient, family, Instructed on discharge instructions, follow up and referral plans. medication usage, Demonstrated understanding of instructions, follow-up care, medications, Prescriptions given X 1. 14:37 Patient left the ED. mg2 Signatures: Dispatcher [employer] EDMS Rebecca Frye, SAP SPECIALIST-C SAP SPECIALIST-Karen Aponte RN JOEL iw Paco Florian RN RN mg2 Floridalma Spence 3
--- NOTE | 2019-01-04 14:16 | EDPHYS ---
Physician Documentation [facility] Name: Hina Messina Age: 73 yrs Sex: Female : 1945 Arrival Date: 01/04/2019 Time: 12:27 Bed 25 Private MD: ED Physician Bright Zendejas HPI: 01/04 13:20 This 73 yrs old Female presents to ER via EMS with complaints of back pain. kb 13:20 The patient presents with pain that is acute. The symptoms are located in the coccyx kb area. Onset: The symptoms/episode began/occurred last week. The pain does not radiate. Associated signs and symptoms: The patient has no apparent associated signs or symptoms. The problem was sustained during a fall, while walking. Modifying factors: The patient symptoms are alleviated by nothing, the patient symptoms are aggravated by any movement. Severity of symptoms: At their worst the symptoms were moderate, in the emergency department the symptoms are unchanged. The patient has not experienced similar symptoms in the past. The patient has not recently seen a physician. Pt reports she fell a week ago and was banged up from that, but thought she would get better with time. Still c/o low back/buttock pain so she wanted to get it checked. Historical: - Allergies: 12:33 Codeine; mg2 12:33 Demerol; mg2 12:33 Latex, Natural Rubber; mg2 12:33 Sulfa (Sulfonamide Antibiotics); mg2 12:33 Valium; mg2 12:33 ambien; mg2 - Home Meds: 13:04 anora 2 puffs BID [Active]; cetirizine 10 mg Oral tab 1 tab once daily [Active]; mg2 citalopram 20 mg tab once daily [Active]; metoprolol tartrate 25 mg Oral tab 1 tab 2 times per day [Active]; pantoprazole 40 mg Oral TbEC 1 tab once daily [Active]; spironolactone 25 mg Oral tab 1 tab once daily [Active]; xaralto 20mg [Active]; - PMHx: 12:33 Anemia; Atrial Fib; COPD; GERD; Hyperlipidemia; Hypertension; Microcytic anemia; SVT; mg2 - PSHx: 12:33 back surgery; Appendectomy; partial hysterectomy; mg2 - Immunization history:: Flu vaccine is up to date. - Social history:: Smoking status: Patient/guardian denies using tobacco, Patient/guardian denies using alcohol, street drugs, IV drugs. - Ebola Screening: : No symptoms or risks identified at this time. ROS: 13:20 Constitutional: Negative for fever, chills, and weight loss, ENT: Negative for injury, kb pain, and discharge, Neck: Negative for injury, pain, and swelling, Cardiovascular: Negative for chest pain, palpitations, and edema, Respiratory: Negative for shortness of breath, cough, wheezing, and pleuritic chest pain, Abdomen/GI: Negative for abdominal pain, nausea, vomiting, diarrhea, and constipation, : Negative for injury, bleeding, discharge, and swelling, MS/Extremity: Negative for injury and deformity, Skin: Negative for injury, rash, and discoloration, Neuro: Negative for headache, weakness, numbness, tingling, and seizure. 13:20 Back: Positive for pain with movement, of the sacrum. Exam: 13:20 Constitutional: This is a well developed, well nourished patient who is awake, alert, kb and in no acute distress. Head/Face: Normocephalic, atraumatic. Chest/axilla: Normal chest wall appearance and motion. Nontender with no deformity. No lesions are appreciated. Cardiovascular: Regular rate and rhythm with a normal S1 and S2. No gallops, murmurs, or rubs. Normal PMI, no JVD. No pulse deficits. Respiratory: Lungs have equal breath sounds bilaterally, clear to auscultation and percussion. No rales, rhonchi or wheezes noted. No increased work of breathing, no retractions or nasal flaring. Abdomen/GI: Soft, non-tender, with normal bowel sounds. No distension or tympany. No guarding or rebound. No evidence of tenderness throughout. Skin: Warm, dry with normal turgor. Normal color with no rashes, no lesions, and no evidence of cellulitis. MS/ Extremity: Pulses equal, no cyanosis. Neurovascular intact. Full, normal range of motion. Neuro: Awake and alert, GCS 15, oriented to person, place, time, and situation. Cranial nerves II-XII grossly intact. Motor strength 5/5 in all extremities. Sensory grossly intact. Cerebellar exam normal. Normal gait. 13:20 Back: pain, that is moderate, of the sacrum, ROM is normal, normal spinal alignment noted, CVA tenderness, that is mild, that is moderate. Vital Signs: 12:31 BP 131 / 89; Pulse 81; Resp 18; Temp 98.7; Pulse Ox 97% on 2 lpm NC; Weight 77.11 kg; mg2 Height 5 ft. 3 in. (160.02 cm); Pain 5/10; 13:58 BP 147 / 91; Pulse 66; Resp 18; Pulse Ox 98% on R/A; mg2 14:28 BP 144 / 86; Pulse 70; Resp 18; Temp 98.5; Pulse Ox 100% on R/A; mg2 12:31 Body Mass Index 30.11 (77.11 kg, 160.02 cm) mg2 MDM: 12:38 Patient medically screened. kb 13:22 Data reviewed: vital signs, nurses notes. Data interpreted: Pulse oximetry: on room air kb is 97 %. Interpretation: normal. 14:14 Counseling: I had a detailed discussion with the patient and/or guardian regarding: the kb historical points, exam findings, and any diagnostic results supporting the discharge/admit diagnosis, radiology results, the need for outpatient follow up, a family practitioner, to return to the emergency department if symptoms worsen or persist or if there are any questions or concerns that arise at home. 01/04 12:49 Order name: CT Pelvis wo Cont; Complete Time: 13:51 kb Administered Medications: 14:28 Drug: Ibuprofen 600 mg Route: PO; mg2 14:28 Follow up: Response: No adverse reaction; Medication administered at discharge. mg2 Disposition: 15:40 Co-signature as Attending Physician, Bright Zendejas MD. rn Disposition: 01/04/19 14:15 Discharged to Home. Impression: Low back pain. - Condition is Stable. - Discharge Instructions: Back Injury Prevention, Eval-vu-Xaim, Back Pain, Adult, Tvoa-fj-Rzbb, Back Exercises, Tqza-qa-Xzyz. - Prescriptions for Prednisone 20 mg Oral Tablet - take 1 tablet by ORAL route once daily for 5 days; 5 tablet. - Medication Reconciliation Form, Thank You Letter, Antibiotic Education, Prescription Opioid Use form. - Follow up: Emergency Department; When: As needed; Reason: Worsening of condition. Follow up: Private Physician; When: 2 - 3 days; Reason: Recheck today's complaints, Continuance of care, Re-evaluation by your physician. Signatures: Dispatcher [employer] EDRebecca Carter, TABLE OPERATOR-C TABLE OPERATOR-Ckb Bright Zendejas MD MD rn Paco Florian RN RN mg2 Corrections: (The following items were deleted from the chart) 14:37 14:15 01/04/2019 14:15 Discharged to Home. Impression: Low back pain. Condition is mg2 Stable. Forms are Medication Reconciliation Form, Thank You Letter, Antibiotic Education, Prescription Opioid Use. Follow up: Emergency Department; When: As needed; Reason: Worsening of condition. Follow up: Private Physician; When: 2 - 3 days; Reason: Recheck today's complaints, Continuance of care, Re-evaluation by your physician. kb
[2019-01-04] MEDS ORDERED: IBUPROFEN 200 MG TAB PO ONE (14:18)
[2019-01-04 14:49] VITALS: BP 144/86; TEMP 98.5; O2SAT 100
--- NOTE | 2019-01-05 07:28 | EKG ---
Test Date: 2019-01-04 Test Time: 12:16:50 Clay Stain Mixer: MICHELLE MEASUREMENT RESULTS: Intervals: Rate: 82 [place]: 162 QRSD: 74 QT: 344 QTc: 401 [place]: P: 33 [place]: 162 QRS: -28 T: -41 INTERPRETIVE STATEMENTS: Normal sinus rhythm ST & T wave abnormality, consider anterolateral ischemia Abnormal ECG Compared to ECG 10/23/2018 18:48:54 No significant changes Electronically Signed On 01-05-19 07:27:13 CDT by Orlando Dhillon
== END 2019-01-04 14:37 | disposition home or self-care (01) ==
LOC: ER 12:13
DX: M54.5 Low back pain (principal); Z88.6 Allergy status to analgesic agent; Z88.2 Allergy status to sulfonamides; Z91.040 Latex allergy status; I10 Essential (primary) hypertension; K21.9 Gastro-esophageal reflux disease without esophagitis; J44.9 Chronic obstructive pulmonary disease, unspecified
CPT/HCPCS: 72192; 93005; 99284

== ENCOUNTER 2019-07-27 16:42 | Observation (INO) | payer OTHER ==
--- OUTSIDE RECORDS SUMMARY | 2019-07-27 16:44 | XMS REPORT ---
:1945 [facility] Address [address] [place] [address] [address]. S[address]iqi [address] [place] [address] Care Team Providers Name Role Phone JOSE [...] Comments SODIUM (BEAKER) (test 140 meq/L 136-145 twdo=024) POTASSIUM (BEAKER) (test 4.0 meq/L 3.5-5.1 prfg=982) CHLORIDE (BEAKER) (test 106 meq/L 98-107 vbjr=907) CO2 (BEAKER) (test uehh=380) 26 meq/L 22-29 BLOOD UREA NITROGEN (BEAKER) 11 mg/dL 7-21 (test msho=299) CREATININE (BEAKER) (test 0.87 mg/dL 0.57-1.25 ohrx=174) GLUCOSE RANDOM (BEAKER) 85 mg/dL 70-105 (test ctlq=696) CALCIUM (BEAKER) (test 8.7 mg/dL 8.4-10.2 keca=618) EGFR (BEAKER) (test 64 mL/min/1.73 sq m ESTIMATED GFR IS NOT fmzd=1402) ACCURATE CREATININE CLEARANCE IN PREDICTING GLOMERULAR FILTRATION RATE. ESTIMATED GFR IS NOT APPLICABLE FOR DIALYSIS PATIENTS. TSH/FREE T4 IF [id number] 06:06:00 Test Item Value Reference Range Comments THYROID STIMULATING HORMONE (BEAKER) (test 0.78 uIU/mL 0.35-4.94 dlhp=400) CBC W/PLT COUNT & AUTO [id number] 05:30:00 Test Item Value Reference Range Comments WHITE BLOOD CELL COUNT (BEAKER) (test hlas=839) 5.9 K/ L 4.0-10.0 RED BLOOD CELL COUNT (BEAKER) (test owzc=363) 3.66 M/ L 4.00-5.00 HEMOGLOBIN (BEAKER) (test khvy=529) 11.9 GM/DL 12.0-15.0 HEMATOCRIT (BEAKER) (test xlut=336) 35.5 % 36.0-45.0 MEAN CORPUSCULAR VOLUME (BEAKER) (test oics=787) 97.0 fL 82.0-99.0 MEAN CORPUSCULAR HEMOGLOBIN (BEAKER) (test 32.5 pg 27.0-33.0 nuoa=388) MEAN CORPUSCULAR HEMOGLOBIN CONC (BEAKER) (test 33.5 GM/DL 32.0-36.0 eyni=787) RED CELL DISTRIBUTION WIDTH (BEAKER) (test 12.5 % 10.3-14.2 kmwf=243) PLATELET COUNT (BEAKER) (test hvqk=388) 309 K/CU MM 150-430 MEAN PLATELET VOLUME (BEAKER) (test qpap=429) 6.3 fL 6.5-10.5 NUCLEATED RED BLOOD CELLS (BEAKER) (test 0 /100 WBC 0-0 pppt=874) NEUTROPHILS RELATIVE PERCENT (BEAKER) (test 49 % spgs=030) LYMPHOCYTES RELATIVE PERCENT (BEAKER) (test 33 % kwwt=010) MONOCYTES RELATIVE PERCENT (BEAKER) (test 11 % azav=701) EOSINOPHILS RELATIVE PERCENT (BEAKER) (test 6 % gsbx=260) BASOPHILS RELATIVE PERCENT (BEAKER) (test 1 % znvw=484) NEUTROPHILS ABSOLUTE COUNT (BEAKER) (test 2.92 K/ L 1.80-8.00 ibll=434) LYMPHOCYTES ABSOLUTE COUNT (BEAKER) (test 1.93 K/ L 1.48-4.50 tohg=098) MONOCYTES ABSOLUTE COUNT (BEAKER) (test 0.65 K/ L 0.00-1.30 brqt=734) EOSINOPHILS ABSOLUTE COUNT (BEAKER) (test 0.34 K/ L 0.00-0.50 urmj=148) BASOPHILS ABSOLUTE COUNT (BEAKER) (test 0.07 K/ L 0.00-0.20 oipc=061) 0.00SEDIMENTATION [id number] 14:36:00 Test Item Value Reference Range Comments SEDIMENTATION RATE, ERYTHROCYTE (BEAKER) (test 20 mm/HR 0-40 fxpa=727) VITAMIN [id number] 11:02:00 Test Item Value Reference Range Comments VITAMIN B12 (BEAKER) (test myjs=261) 219 pg/mL 213-816 HEMOGLOBIN [id number] 08:55:00 Test Item Value Reference Range Comments HEMOGLOBIN A1C (BEAKER) (test ievs=315) 5.3 % 4.3-6.1 LIPID [id number] 06:23:00 Test Item Value Reference Range Comments TRIGLYCERIDES (BEAKER) (test grdl=566) 56 mg/dL CHOLESTEROL (BEAKER) (test esws=419) 140 mg/dL HDL CHOLESTEROL (BEAKER) (test jhkl=849) 56 mg/dL LDL CHOLESTEROL CALCULATED (BEAKER) (test 73 mg/dL tvui=382) Triglyceride Reference Range: Low Risk <150 Borderline 150- 199 High Risk 200-499 Very High Risk >=500Cholesterol Reference Range: Low Risk <200 Borderline 200-239 High Risk > 240HDL Cholesterol Reference Range: Low Risk >=60 High Risk <40LDL Cholesterol Reference Range: Optimal <100 Near Optimal 100-129 Borderline 130-159 High 160-189 Very High >=190BASIC METABOLIC [id number] 06:23:00 Test Item Value Reference Range Comments SODIUM (BEAKER) (test 139 meq/L 136-145 ctoe=936) POTASSIUM (BEAKER) (test 4.0 meq/L 3.5-5.1 omrl=783) CHLORIDE (BEAKER) (test 108 meq/L 98-107 aeox=292) CO2 (BEAKER) (test 24 meq/L 22-29 xuxr=943) BLOOD UREA NITROGEN 15 mg/dL 7-21 (BEAKER) (test ljur=776) CREATININE (BEAKER) (test 0.85 mg/dL 0.57-1.25 eoon=448) GLUCOSE RANDOM (BEAKER) 86 mg/dL 70-105 (test aqem=933) CALCIUM (BEAKER) (test 8.6 mg/dL 8.4-10.2 yxps=752) EGFR (BEAKER) (test 66 mL/min/1.73 sq m ESTIMATED GFR IS NOT hxhy=5896) ACCURATE CREATININE CLEARANCE IN PREDICTING GLOMERULAR FILTRATION RATE. ESTIMATED GFR IS NOT APPLICABLE FOR DIALYSIS PATIENTS. CBC W/PLT COUNT & AUTO [id number] 06:08:00 Test Item Value Reference Range Comments WHITE BLOOD CELL COUNT (BEAKER) (test trqx=891) 6.8 K/ L 4.0-10.0 RED BLOOD CELL COUNT (BEAKER) (test zhih=338) 4.01 M/ L 4.00-5.00 HEMOGLOBIN (BEAKER) (test fdmb=277) 12.3 GM/DL 12.0-15.0 HEMATOCRIT (BEAKER) (test oxlg=094) 38.9 % 36.0-45.0 MEAN CORPUSCULAR VOLUME (BEAKER) (test ejju=450) 97.0 fL 82.0-99.0 MEAN CORPUSCULAR HEMOGLOBIN (BEAKER) (test 30.8 pg 27.0-33.0 bndj=417) MEAN CORPUSCULAR HEMOGLOBIN CONC (BEAKER) (test 31.8 GM/DL 32.0-36.0 xajx=404) RED CELL DISTRIBUTION WIDTH (BEAKER) (test 12.5 % 10.3-14.2 tfpq=390) PLATELET COUNT (BEAKER) (test hzrv=461) 322 K/CU MM 150-430 MEAN PLATELET VOLUME (BEAKER) (test coiq=848) 6.5 fL 6.5-10.5 NUCLEATED RED BLOOD CELLS (BEAKER) (test 0 /100 WBC 0-0 nqny=941) NEUTROPHILS RELATIVE PERCENT (BEAKER) (test 50 % vcob=389) LYMPHOCYTES RELATIVE PERCENT (BEAKER) (test 32 % rwnv=155) MONOCYTES RELATIVE PERCENT (BEAKER) (test 12 % vdpj=131) EOSINOPHILS RELATIVE PERCENT (BEAKER) (test 5 % qsgn=439) BASOPHILS RELATIVE PERCENT (BEAKER) (test 1 % xvus=464) NEUTROPHILS ABSOLUTE COUNT (BEAKER) (test 3.42 K/ L 1.80-8.00 rqjl=839) LYMPHOCYTES ABSOLUTE COUNT (BEAKER) (test 2.19 K/ L 1.48-4.50 oobb=091) MONOCYTES ABSOLUTE COUNT (BEAKER) (test 0.80 K/ L 0.00-1.30 jfwa=756) EOSINOPHILS ABSOLUTE COUNT (BEAKER) (test 0.33 K/ L 0.00-0.50 oszn=747) BASOPHILS ABSOLUTE COUNT (BEAKER) (test 0.07 K/ L 0.00-0.20 tkdo=848) 0.00
--- NOTE | 2019-07-27 17:08 | RAD REPORT ---
EXAM DESCRIPTION: CT - Ct Stroke Brain Wo Cont - 07/27/2019 5:01 pm CLINICAL HISTORY: TIA Headache, drowsiness, CVA symptomology COMPARISON: Head Brain Wo Cont dated 12/06/2016 TECHNIQUE: All CT scans are performed using dose optimization technique as appropriate and may inclu de automated exposure control or mA/KV adjustment according to patient size. FINDINGS: No intracranial hemorrhage, hydrocephalus or extra-axial fluid collection.Moderate general ized brain atrophy is present with mild periventricular and deep white matter chronic microvascular i schemic changes.No areas of brain edema or evidence of midline shift. The paranasal sinuses and mastoids are clear. The calvarium is intact. IMPRESSION: No acute intracranial abnormality. The findings were discussed with Dr. Zendejas On 07/27/2019 at 5:04 p.m. by telephone.
--- NOTE | 2019-07-27 17:13 | ER ---
Nurse's Notes [facility] Name: Hina Messina Age: 74 yrs Sex: Female : 1945 Arrival Date: 07/27/2019 Time: 16:46 Bed 2 Private MD: Diagnosis: Transient cerebral ischemic attack, unspecified;Amaurosis fugax Presentation: 07/26 16:45 Chief complaint: Patient states: reports having a blackout in the right eye, states she em is having a TIA, had a similar incident on , denies numbness or tingling, reports symptoms started about 1 hour ago, symptoms have resolved. 16:45 Method Of Arrival: Wheelchair em 16:45 Coronavirus screen: The patient has NOT traveled to a country currently being monitored em by the [facility] within the last 14 days. The patient has NOT had contact with any known and/or suspected case of coronavirus. Ebola Screen: Patient negative for fever greater than or equal to 101.5 degrees Fahrenheit, and additional compatible Ebola Virus Disease symptoms Patient denies exposure to infectious person. Patient denies travel to an Ebola-affected area in the 21 days before illness onset. No symptoms or risks identified at this time. Initial Sepsis Screen: Does the patient meet any 2 criteria? No. Patient's initial sepsis screen is negative. Does the patient have a suspected source of infection? No. Patient's initial sepsis screen is negative. Risk Assessment: Do you want to hurt yourself or someone else? Patient reports no desire to harm self or others. 16:45 Acuity: KESHAV 2 em 16:45 No acute neurological deficit is noted. Pre-hospital glucose is not applicable to this em patient. Stroke Activation: Physician: Stroke Attending; Name: ; Notified At: ; Arrived At: Physician: Chief Stroke Resident; Name: ; Notified At: ; Arrived At: Physician: Stroke Resident; Name: ; Notified At: ; Arrived At: Physician: ED Attending; Name: Chuy; Notified At: ; Arrived At: Physician: ED Resident; Name: ; Notified At: ; Arrived At: Historical: - Allergies: 17:05 ambien; sv 17:05 Codeine; sv 17:05 Demerol; sv 17:05 Latex, Natural Rubber; sv 17:05 Sulfa (Sulfonamide Antibiotics); sv 17:05 Valium; sv 17:06 ambien; em 17:06 Codeine; em 17:06 Demerol; em 17:06 Latex, Natural Rubber; em 17:06 Valium; em 17:06 Sulfa (Sulfonamide Antibiotics); em - PMHx: 17:05 Anemia; Atrial Fib; COPD; GERD; Hyperlipidemia; Hypertension; Microcytic anemia; SVT; sv - PSHx: 17:05 Appendectomy; back surgery; partial hysterectomy; sv - Immunization history:: Adult Immunizations up to date. - Social history:: Smoking status: Patient denies any tobacco usage or history of. - Family history:: not pertinent. Screenin:04 Abuse screen: Denies threats or abuse. Denies injuries from another. Nutritional sv screening: No deficits noted. Tuberculosis screening: No symptoms or risk factors identified. Fall Risk None identified. Assessment: 16:45 VAN Scoring: Arm Drift: Patients demonstrates NO arm weakness. Patient is VAN Negative. em T-PA (Activase) Screening: Contraindications: Rapidly improving condition or minor deficit: Yes. 16:45 General: Appears in no apparent distress. comfortable, Behavior is calm, cooperative. em Pain: Denies pain. Neuro: Level of Consciousness is awake, alert, obeys commands, Oriented to person, place, time, situation, Appropriate for age Bilingual Student Tutor are equal bilaterally Moves all extremities. Gait is steady, Speech is normal, Facial symmetry appears normal, Pupils are PERRLA, Intact Denies weakness paresthesias numbness diplopia. Cardiovascular: Capillary refill < 3 seconds Patient's skin is warm and dry. Respiratory: Airway is patent Respiratory effort is even, unlabored, Respiratory pattern is regular, symmetrical. GI: Patient currently denies nausea, vomiting. Derm: Skin is intact, is healthy with good turgor, Skin is pink, warm \T\ dry. Musculoskeletal: Capillary refill < 3 seconds, Range of motion: intact in all extremities. 16:46 Reassessment: Code stroke activated. em 16:48 Reassessment: Dr. Vera at bedside. em 16:50 Reassessment: Pt taken to CT via stretcher by William MALDONADO. sv 16:58 Reassessment: Pt back from CT. sv 17:30 Patient has been NPO before screening. The patient is alert, and able to follow em commands. The patient does not exhibit slurred or garbled speech. The patient is not exhibiting difficulty speaking. The patient does not exhibit difficulty understanding words. The patient is able to swallow own secretions with no drooling or need for suction. Patient tolerated one teaspoon of water. No drooling, immediate coughing, gurgling, or clearing of the throat was noted. The patient tolerated 90mL of water. No drooling, immediate coughing, gurgling, or clearing of the throat was noted. The patient passed the bedside swallow screening. Oral medications may be given as ordered. Contact Physician for further diet orders. Provider notified of bedside swallow screening results: Puma Vera MD. 17:32 Reassessment: Dr. Livingston at bedside. em 18:07 Reassessment: Patient appears in no apparent distress at this time. Patient and/or em family updated on plan of care and expected duration. Pain level reassessed. Patient is alert, oriented x 3, equal unlabored respirations, skin warm/dry/pink. pending room assignment. 19:31 General: Appears in no apparent distress. Behavior is calm, cooperative. Pain: Denies ea pain. Neuro: Level of Consciousness is awake, alert, obeys commands, Oriented to person, place, time, situation, Speech is normal, Facial symmetry appears normal. Neuro: Intact. Cardiovascular: Patient's skin is warm and dry. Respiratory: Airway is patent Respiratory effort is even, unlabored, Respiratory pattern is regular, symmetrical. Derm: Skin is pink, warm \T\ dry. 20:27 Reassessment: Patient and/or family updated on plan of care and expected duration. Pain ea level reassessed. Patient is alert, oriented x 3, equal unlabored respirations, skin warm/dry/pink. Pt admitted to second floor, left ED via wheelchair per nurse, pt tolerating well. Vital Signs: 17:02 BP 158 / 85; Pulse 84; Resp 16; Temp 98.2(TE); Pulse Ox 96% ; sv 19:33 BP 168 / 88; Pulse 72; Resp 18; Pulse Ox 98% on R/A; ea NIH Stroke Scale Scores: 16:45 NIHSS Score: 0 em 17:10 NIHSS Score: 0 pau 19:31 NIHSS Score: 0 ea ED Course: 16:46 Patient arrived in ED. em 16:47 William Middleton, RN is Primary Nurse. em 16:47 Puma Vera MD is Attending Physician. pau 17:01 Arm band placed on Patient placed in an exam room, on a stretcher. sv 17:02 Patient has correct armband on for positive identification. Bed in low position. Call sv light in reach. Side rails up X2. Adult w/ patient. Pulse ox on. NIBP on. Door closed. Head of bed elevated. 17:03 CT Stroke Brain w/o Contrast In Process Unspecified. EDMS 17:04 Inserted saline lock: 20 gauge in right antecubital area, using aseptic technique. sv Blood collected. Flushed right antecubital with 5 ml normal saline. 17:05 Triage completed. em 17:11 Hunter Lu MD is Hospitalizing Provider. pau 17:27 EKG done, by ED staff, reviewed by Puma Vera MD. jb1 17:46 XRAY Chest (1 view) In Process Unspecified. EDMS 18:03 CT Head Angio In Process Unspecified. EDMS 19:31 No provider procedures requiring assistance completed. Patient admitted, IV remains in ea place. 20:00 Urine collected: clean catch specimen, clear. sg Administered Medications: 17:30 Drug: NS 0.9% 1000 ml Route: IV; Rate: 1 bolus; Site: right antecubital; em 20:00 Follow up: Response: No adverse reaction; IV Status: Completed infusion; IV Intake: ea 200ml 17:30 Drug: foLIC Acid 1 mg Route: IVPB; Site: right antecubital; em 17:51 Follow up: IV Status: Completed infusion em 19:31 Drug: Rocephin 1 grams Route: IV; Rate: per protocol; Site: right antecubital; ea 19:44 Follow up: Response: No adverse reaction; IV Status: Completed infusion; IV Intake: 10mlea Point of Care Testing: Blood Glucose: 17:01 Blood Glucose: 85 mg/dL; sv Ranges: Intake: 19:44 IV: 10ml; Total: 10ml. ea 20:00 IV: 200ml; Total: 210ml. ea Outcome: 17:12 Decision to Hospitalize by Provider. pau 19:33 Instructed on the need for admit. ea 20:25 Admitted to Med/surg accompanied by nurse, via wheelchair, room 207, with chart, Report ea called to Sarthak MALDONADO 20:25 Condition: stable 20:29 Patient left the ED. NIH Stroke Scale - NIH Stroke Score Date: 07/27/2019 Time: 16:45 Total Score = 0 1a. Level of Consciousness (LOC) - 0(Alert) 1b. Level of Consciousness (LOC) (Year \T\ Age) - 0(Both) 1c. LOC Commands (Open \T\ Closes Eyes/Pipe Stripper) - 0(Both) 2. Best Gaze (Lateral Gaze Paresis) - 0(Normal) 3. Visual Field Loss - 0(No visual loss) 4. Facial Palsy - 0(Normal) 5a. Left Arm: Motor (10-second hold) - 0(No drift) 5b. Right Arm: Motor (10-second hold) - 0(No drift) 6a. Left Leg: Motor (5-second hold - always test supine) - 0(No drift) 6b. Right Leg: Motor (5-second hold - always test supine) - 0(No drift) 7. Limb Ataxia (finger/nose \T\ heel/brown - test with eyes open) - 0(Absent) 8. Sensory Loss (pinprick arms/legs/face) - 0(Normal) 9. Best Language: Aphasia (description/naming/reading) - 0(No aphasia) 10. Dysarthria (speech clarity - read or repeat words) - 0(Normal) 11. Extinction and Inattention (visual/tactile/auditory/spatial/personal) - 0(No abnormality) Initials: NIH Stroke Scale - NIH Stroke Score Date: 07/27/2019 Time: 17:10 Total Score = 0 1a. Level of Consciousness (LOC) - 0(Alert) 1b. Level of Consciousness (LOC) (Year \T\ Age) - 0(Both) 1c. LOC Commands (Open \T\ Closes Eyes/Pipe Stripper) - 0(Both) 2. Best Gaze (Lateral Gaze Paresis) - 0(Normal) 3. Visual Field Loss - 0(No visual loss) 4. Facial Palsy - 0(Normal) 5a. Left Arm: Motor (10-second hold) - 0(No drift) 5b. Right Arm: Motor (10-second hold) - 0(No drift) 6a. Left Leg: Motor (5-second hold - always test supine) - 0(No drift) 6b. Right Leg: Motor (5-second hold - always test supine) - 0(No drift) 7. Limb Ataxia (finger/nose \T\ heel/brown - test with eyes open) - 0(Absent) 8. Sensory Loss (pinprick arms/legs/face) - 0(Normal) 9. Best Language: Aphasia (description/naming/reading) - 0(No aphasia) 10. Dysarthria (speech clarity - read or repeat words) - 0(Normal) 11. Extinction and Inattention (visual/tactile/auditory/spatial/personal) - 0(No abnormality) Initials: pau NIH Stroke Scale - NIH Stroke Score Date: 07/27/2019 Time: 19:31 Total Score = 0 1a. Level of Consciousness (LOC) - 0(Alert) 1b. Level of Consciousness (LOC) (Year \T\ Age) - 0(Both) 1c. LOC Commands (Open \T\ Closes Eyes/Pipe Stripper) - 0(Both) 2. Best Gaze (Lateral Gaze Paresis) - 0(Normal) 3. Visual Field Loss - 0(No visual loss) 4. Facial Palsy - 0(Normal) 5a. Left Arm: Motor (10-second hold) - 0(No drift) 5b. Right Arm: Motor (10-second hold) - 0(No drift) 6a. Left Leg: Motor (5-second hold - always test supine) - 0(No drift) 6b. Right Leg: Motor (5-second hold - always test supine) - 0(No drift) 7. Limb Ataxia (finger/nose \T\ heel/brown - test with eyes open) - 0(Absent) 8. Sensory Loss (pinprick arms/legs/face) - 0(Normal) 9. Best Language: Aphasia (description/naming/reading) - 0(No aphasia) 10. Dysarthria (speech clarity - read or repeat words) - 0(Normal) 11. Extinction and Inattention (visual/tactile/auditory/spatial/personal) - 0(No abnormality) Initials: jazzy Signatures: Dispatcher [employer] Alonso Avelar Stephanie, RN RN sv Gay, Steven, RN RN sg Anderson, Corey, MD MD cha Munoz, Edgar, RN RN em Antunez, Elena, RN RN ea Corrections: (The following items were deleted from the chart) 17:04 17:02 BP 158 / 85; Pulse 84bpm; Resp 16bpm; Pulse Ox 96%; sv sv
--- NOTE | 2019-07-27 17:14 | EDPHYS ---
Physician Documentation [facility] Name: Hina Messina Age: 74 yrs Sex: Female : 1945 Arrival Date: 07/27/2019 Time: 16:46 Bed 2 Private MD: ED Physician Puma Vera HPI: 07/26 17:01 This 74 yrs old Female presents to ER via Unassigned with complaints of lost pau vision, right eye. 17:01 The patient is experiencing lost vision. Onset: The symptoms/episode began/occurred pau just prior to arrival. Duration: the symptoms last a few minutes. Aggravated by nothing. Alleviated by nothing. Associated signs and symptoms: Pertinent positives: None. Pertinent negatives: None. The patient's problem is reported as visual difficulty, unable to see, decreased vision in the right eye. Context: the episode(s) was witnessed, by family, daughter. Historical: - Allergies: 17:05 ambien; sv 17:05 Codeine; sv 17:05 Demerol; sv 17:05 Latex, Natural Rubber; sv 17:05 Sulfa (Sulfonamide Antibiotics); sv 17:05 Valium; sv 17:06 ambien; em 17:06 Codeine; em 17:06 Demerol; em 17:06 Latex, Natural Rubber; em 17:06 Valium; em 17:06 Sulfa (Sulfonamide Antibiotics); em - PMHx: 17:05 Anemia; Atrial Fib; COPD; GERD; Hyperlipidemia; Hypertension; Microcytic anemia; SVT; sv - PSHx: 17:05 Appendectomy; back surgery; partial hysterectomy; sv - Immunization history:: Adult Immunizations up to date. - Social history:: Smoking status: Patient denies any tobacco usage or history of. - Family history:: not pertinent. ROS: 17:03 Constitutional: Negative for fever, chills, and weight loss, ENT: Negative for injury, pau pain, and discharge, Neck: Negative for injury, pain, and swelling, Cardiovascular: Negative for chest pain, palpitations, and edema, Respiratory: Negative for shortness of breath, cough, wheezing, and pleuritic chest pain, Abdomen/GI: Negative for abdominal pain, nausea, vomiting, diarrhea, and constipation, Back: Negative for injury and pain, : Negative for injury, bleeding, discharge, and swelling, MS/Extremity: Negative for injury and deformity, Skin: Negative for injury, rash, and discoloration, Neuro: Negative for headache, weakness, numbness, tingling, and seizure, Psych: Negative for depression, anxiety, suicide ideation, homicidal ideation, and hallucinations, Allergy/Immunology: Negative for hives, rash, and allergies, Endocrine: Negative for neck swelling, polydipsia, polyuria, polyphagia, and marked weight changes, Hematologic/Lymphatic: Negative for swollen nodes, abnormal bleeding, and unusual bruising. 17:03 Eyes: Positive for vision loss, of the iris of right eye. Exam: 17:03 Constitutional: This is a well developed, well nourished patient who is awake, alert, pau and in no acute distress. Head/Face: Normocephalic, atraumatic. Eyes: Pupils equal round and reactive to light, extra-ocular motions intact. Lids and lashes normal. Conjunctiva and sclera are non-icteric and not injected. Cornea within normal limits. Periorbital areas with no swelling, redness, or edema. ENT: Nares patent. No nasal discharge, no septal abnormalities noted. Tympanic membranes are normal and external auditory canals are clear. Oropharynx with no redness, swelling, or masses, exudates, or evidence of obstruction, uvula midline. Mucous membranes moist. Neck: Trachea midline, no thyromegaly or masses palpated, and no cervical lymphadenopathy. Supple, full range of motion without nuchal rigidity, or vertebral point tenderness. No Meningismus. Chest/axilla: Normal chest wall appearance and motion. Nontender with no deformity. No lesions are appreciated. Cardiovascular: Regular rate and rhythm with a normal S1 and S2. No gallops, murmurs, or rubs. Normal PMI, no JVD. No pulse deficits. Respiratory: Lungs have equal breath sounds bilaterally, clear to auscultation and percussion. No rales, rhonchi or wheezes noted. No increased work of breathing, no retractions or nasal flaring. Abdomen/GI: Soft, non-tender, with normal bowel sounds. No distension or tympany. No guarding or rebound. No evidence of tenderness throughout. Back: No spinal tenderness. No costovertebral tenderness. Full range of motion. Female : Normal external genitalia. Skin: Warm, dry with normal turgor. Normal color with no rashes, no lesions, and no evidence of cellulitis. MS/ Extremity: Pulses equal, no cyanosis. Neurovascular intact. Full, normal range of motion. Neuro: Awake and alert, GCS 15, oriented to person, place, time, and situation. Cranial nerves II-XII grossly intact. Motor strength 5/5 in all extremities. Sensory grossly intact. Cerebellar exam normal. Normal gait. Psych: Awake, alert, with orientation to person, place and time. Behavior, mood, and affect are within normal limits. 17:09 Radiologist reports: ct neg, dr tanya mai Vital Signs: 17:02 BP 158 / 85; Pulse 84; Resp 16; Temp 98.2(TE); Pulse Ox 96% ; sv 19:33 BP 168 / 88; Pulse 72; Resp 18; Pulse Ox 98% on R/A; ea NIH Stroke Scale Scores: 16:45 NIHSS Score: 0 em 17:10 NIHSS Score: 0 pau 19:31 NIHSS Score: 0 ea MDM: 16:47 Patient medically screened. [facility] 17:04 Data reviewed: vital signs, nurses notes, lab test result(s), EKG, radiologic studies, [facility] CT scan, plain films, ultrasound. 07/26 16:55 Order name: Basic Metabolic Panel; Complete Time: 19:00 [facility] 07/26 16:55 Order name: CBC with Diff; Complete Time: 19:00 [facility] 07/26 16:55 Order name: LFT's; Complete Time: 19:00 [facility] 07/26 16:55 Order name: Magnesium; Complete Time: 19:00 [facility] 07/26 16:55 Order name: NT PRO-BNP; Complete Time: 19:00 [facility] 07/26 16:55 Order name: PT-INR; Complete Time: 19:00 [facility] 07/26 16:55 Order name: Troponin (emerg Dept Use Only); Complete Time: 19:00 [facility] 07/26 16:55 Order name: Ptt, Activated; Complete Time: 19:00 [facility] 07/26 17:14 Order name: Glucose, Ancillary Testing; Complete Time: 19:00 EDMS 07/26 17:15 Order name: Urine Culture [facility] 07/26 18:21 Order name: CBC with Automated Diff EDMS 07/26 18:21 Order name: CBC with Automated Diff EDMS 07/26 18:21 Order name: Comprehensive Metabolic Panel EDMS 07/26 18:21 Order name: Comprehensive Metabolic Panel [facility] 07/26 16:55 Order name: XRAY Chest (1 view); Complete Time: 19:00 [facility] 07/26 16:55 Order name: EKG; Complete Time: 16:55 [facility] 07/26 16:55 Order name: CT Stroke Brain w/o Contrast; Complete Time: 19:00 [facility] 07/26 16:55 Order name: Carotid Artery Bilateral [facility] 07/26 16:57 Order name: CT Head Angio; Complete Time: 19:00 [facility] 07/26 18:21 Order name: CONS Pharmacy Consult [facility] 07/26 18:21 Order name: Occupational Therapy Consult [facility] 07/26 18:21 Order name: CONS Physician Consult [facility] 07/26 18:21 Order name: Echo with Doppler [facility] 07/26 18:21 Order name: Lipid Profile [facility] 07/26 18:21 Order name: Lipid Profile [facility] 07/26 19:49 Order name: US [facility] 07/26 20:05 Order name: Urine Dipstick--Ancillary (enter results) [facility] 07/26 16:55 Order name: Cardiac monitoring; Complete Time: 17:31 [facility] 07/26 16:55 Order name: EKG - Nurse/Tech; Complete Time: 17:31 [facility] 07/26 16:55 Order name: IV Saline Lock; Complete Time: 17:31 [facility] 07/26 16:55 Order name: Labs collected and sent; Complete Time: 17:31 [facility] 07/26 16:55 Order name: O2 Per Protocol; Complete Time: 17:31 [facility] 07/26 16:55 Order name: O2 Sat Monitoring; Complete Time: 17:31 [facility] 07/26 16:55 Order name: Accucheck; Complete Time: 17:07 [facility] 07/26 16:55 Order name: NPO; Complete Time: 17:07 [facility] 07/26 16:55 Order name: Stroke Swallow Screen; Complete Time: 17:51 [facility] 07/26 17:15 Order name: Urine Dipstick-Ancillary (obtain specimen); Complete Time: 17:51 [facility] 07/26 18:21 Order name: Physical Therapy Consult [facility] 07/26 18:21 Order name: Heart Healthy EDCT Administered Medications: 17:30 Drug: NS 0.9% 1000 ml Route: IV; Rate: 1 bolus; Site: right antecubital; em 20:00 Follow up: Response: No adverse reaction; IV Status: Completed infusion; IV Intake: ea 200ml 17:30 Drug: foLIC Acid 1 mg Route: IVPB; Site: right antecubital; em 17:51 Follow up: IV Status: Completed infusion em 19:31 Drug: Rocephin 1 grams Route: IV; Rate: per protocol; Site: right antecubital; ea 19:44 Follow up: Response: No adverse reaction; IV Status: Completed infusion; IV Intake: 10mlea Point of Care Testing: Blood Glucose: 17:01 Blood Glucose: 85 mg/dL; sv Ranges: Critical Glucose Levels:Adult <50 mg/dl or >400 mg/dl <40 mg/dl or >180 mg/dl Disposition: 07/27/19 17:12 Hospitalization ordered by Hunter Lu for Observation. Preliminary diagnosis are Transient cerebral ischemic attack, unspecified, Amaurosis fugax. - Bed requested for Telemetry/MedSurg (observation). - Status is Observation. ea - Condition is Fair. - Problem is new. - Symptoms have improved. NIH Stroke Scale - NIH Stroke Score Date: 07/27/2019 Time: 16:45 Total Score = 0 1a. Level of Consciousness (LOC) - 0(Alert) 1b. Level of Consciousness (LOC) (Year \T\ Age) - 0(Both) 1c. LOC Commands (Open \T\ Closes Eyes/Urogynaecologist) - 0(Both) 2. Best Gaze (Lateral Gaze Paresis) - 0(Normal) 3. Visual Field Loss - 0(No visual loss) 4. Facial Palsy - 0(Normal) 5a. Left Arm: Motor (10-second hold) - 0(No drift) 5b. Right Arm: Motor (10-second hold) - 0(No drift) 6a. Left Leg: Motor (5-second hold - always test supine) - 0(No drift) 6b. Right Leg: Motor (5-second hold - always test supine) - 0(No drift) 7. Limb Ataxia (finger/nose \T\ heel/brown - test with eyes open) - 0(Absent) 8. Sensory Loss (pinprick arms/legs/face) - 0(Normal) 9. Best Language: Aphasia (description/naming/reading) - 0(No aphasia) 10. Dysarthria (speech clarity - read or repeat words) - 0(Normal) 11. Extinction and Inattention (visual/tactile/auditory/spatial/personal) - 0(No abnormality) Initials: NIH Stroke Scale - NIH Stroke Score Date: 07/27/2019 Time: 17:10 Total Score = 0 1a. Level of Consciousness (LOC) - 0(Alert) 1b. Level of Consciousness (LOC) (Year \T\ Age) - 0(Both) 1c. LOC Commands (Open \T\ Closes Eyes/Urogynaecologist) - 0(Both) 2. Best Gaze (Lateral Gaze Paresis) - 0(Normal) 3. Visual Field Loss - 0(No visual loss) 4. Facial Palsy - 0(Normal) 5a. Left Arm: Motor (10-second hold) - 0(No drift) 5b. Right Arm: Motor (10-second hold) - 0(No drift) 6a. Left Leg: Motor (5-second hold - always test supine) - 0(No drift) 6b. Right Leg: Motor (5-second hold - always test supine) - 0(No drift) 7. Limb Ataxia (finger/nose \T\ heel/brown - test with eyes open) - 0(Absent) 8. Sensory Loss (pinprick arms/legs/face) - 0(Normal) 9. Best Language: Aphasia (description/naming/reading) - 0(No aphasia) 10. Dysarthria (speech clarity - read or repeat words) - 0(Normal) 11. Extinction and Inattention (visual/tactile/auditory/spatial/personal) - 0(No abnormality) Initials: [facility] NIH Stroke Scale - NIH Stroke Score Date: 07/27/2019 Time: 19:31 Total Score = 0 1a. Level of Consciousness (LOC) - 0(Alert) 1b. Level of Consciousness (LOC) (Year \T\ Age) - 0(Both) 1c. LOC Commands (Open \T\ Closes Eyes/Urogynaecologist) - 0(Both) 2. Best Gaze (Lateral Gaze Paresis) - 0(Normal) 3. Visual Field Loss - 0(No visual loss) 4. Facial Palsy - 0(Normal) 5a. Left Arm: Motor (10-second hold) - 0(No drift) 5b. Right Arm: Motor (10-second hold) - 0(No drift) 6a. Left Leg: Motor (5-second hold - always test supine) - 0(No drift) 6b. Right Leg: Motor (5-second hold - always test supine) - 0(No drift) 7. Limb Ataxia (finger/nose \T\ heel/brown - test with eyes open) - 0(Absent) 8. Sensory Loss (pinprick arms/legs/face) - 0(Normal) 9. Best Language: Aphasia (description/naming/reading) - 0(No aphasia) 10. Dysarthria (speech clarity - read or repeat words) - 0(Normal) 11. Extinction and Inattention (visual/tactile/auditory/spatial/personal) - 0(No abnormality) Initials: ea Signatures: Dispatcher [employer] Shira Casey, RN Eda Scott RN RN dw Anderson, Corey, MD MD cha Munoz, Edgar RN Madina Alexander RN RN ea Corrections: (The following items were deleted from the chart) 19:22 17:12 Hospitalization Ordered by Hunter Lu MD for Observation. Preliminary dw diagnosis is Transient cerebral ischemic attack, unspecified; Amaurosis fugax. Bed requested for Telemetry/MedSurg (observation). Status is Observation. Condition is Fair. Problem is new. Symptoms have improved. pau 20:29 19:22 07/27/2019 17:12 Hospitalization Ordered by Hunter Lu MD for ea Observation. Preliminary diagnosis is Transient cerebral ischemic attack, unspecified; Amaurosis fugax. Bed requested for Telemetry/MedSurg (observation). Status is Observation. Condition is Fair. Problem is new. Symptoms have improved. dw
[2019-07-27 17:19] LABS: Absolute Lymphocytes (CBC) 1.2 K/uL (0.7-4.9); Basophils % 1.2 % (0-1.3); Hematocrit 33.5 % (36.0-45.0); Lymphocytes % 14.9 % (15.3-44.8); MPV 7.2 fL (7.6-11.3); RBC Red Blood Cell Count 3.97 M/uL (3.86-4.86)
[2019-07-27] MEDS ORDERED: FOLIC ACID 5 MG/ML VIAL ONE (17:20)
[2019-07-27] MEDS ORDERED: NA CHLORIDE 0.9% 1,000 ML ONE (17:20)
[2019-07-27 17:35] LABS: Protime INR 1.18
[2019-07-27 17:40] LABS: ALT/SGPT 14 U/L (12-78); AST/SGOT 14 U/L (15-37); Albumin 3.2 g/dL (3.4-5.0); Alkaline Phosphatase 68 U/L (45-117); BUN Blood Urea Nitrogen 16 mg/dL (7-18); Bicarbonate 31 mmol/L (21-32); Bilirubin Direct < 0.1 mg/dL (0-0.2); Bilirubin Total 0.3 mg/dL (0.2-1.0); Glucose Level 88 mg/dL (74-106); Magnesium 2.4 mg/dL (1.8-2.4); NT PRO-BNP 396 pg/mL (<450); Potassium 4.1 mmol/L (3.5-5.1); Protein, Total 6.8 g/dL (6.4-8.2); Sodium Level 140 mmol/L (136-145); Troponin (Emerg Dept Use Only) < 0.02 ng/mL (0.0-0.045)
--- NOTE | 2019-07-27 18:07 | RAD REPORT ---
EXAM DESCRIPTION: CT - Head angio - 07/27/2019 6:01 pm CLINICAL HISTORY: TIA Headache, drowsiness, CVA symptomology COMPARISON: Ct Stroke Brain Wo Cont dated 07/27/2019; Head Brain Wo Cont dated 12/06/2016 TECHNIQUE: CT angiography of the head was performed with MIPs. All CT scans are performed using dose optimization technique as appropriate and may include automated exposure control or mA/KV adjustment according to patient size. FINDINGS: No evidence of aneurysm is detected. No flow-limiting stenosis or vascular malformation id entified. Antegrade flow is seen in the vertebral arteries. The vertebral arteries are codominant. The visualized dural venous sinuses are patent. IMPRESSION: No significant flow abnormality is detected.
--- NOTE | 2019-07-27 18:11 | RAD REPORT ---
EXAM DESCRIPTION: RAD - Chest Single View - 07/27/2019 5:45 pm CLINICAL HISTORY: COUGH Chest pain. COMPARISON: Chest Single View dated 10/23/2018; Chest Single View dated 12/06/2016; Chest Single View d ated 11/01/2015; Chest Single View dated 10/31/2015 FINDINGS: Portable technique limits examination quality. The lungs are mildly emphysematous but clear. Moderate hiatal hernia is seen. The heart is mildly pro minent with a tortuous thoracic aorta. No displaced fractures. IMPRESSION: No acute intrathoracic process suspected.
[2019-07-27] MEDS ORDERED: ONDANSETRON 4 MG/2 ML VIAL IV PRN (18:16)
[2019-07-27] MEDS ORDERED: MORPHINE 2 MG/ML SYR IV PRN (18:16)
[2019-07-27] MEDS ORDERED: ALBUTEROL 2.5 MG/3 ML NEB SOL NEB PRN (18:16)
[2019-07-27] MEDS ORDERED: ASPIRIN EC 81 MG TAB PO ONE (18:38)
[2019-07-27] MEDS: NICOTINE 21 MG/PAT TD SCH (19:00)
[2019-07-27] MEDS ORDERED: CEFTRIAXONE/SWI 1gm 1 GM/10 ML SYR ONE (19:26)
--- NOTE | 2019-07-27 19:41 | RAD REPORT ---
EXAM DESCRIPTION: US - CP - 07/27/2019 7:09 pm CLINICAL HISTORY: VISUAL DISTURBANCES Headache, drowsiness, CVA symptomology COMPARISON: No comparisons TECHNIQUE: Real-time sonographic evaluation of both carotid systems was performed. Doppler interroga tion was performed with waveform tracing bilaterally. FINDINGS: Normal high resistance waveforms are noted in both external carotid arteries. The common c arotid arteries and internal carotid arteries show normal low resistance waveforms. No significant plaque formation is seen. Peak systolic and end diastolic velocity values and the ICA/ CCA ratios are in the non-hemodynamically significant range. Antegrade flow seen in both vertebral arteries. IMPRESSION: No significant atherosclerotic changes noted. No evidence of a hemodynamically significant stenosis.
[2019-07-27] MEDS: IPRATROPIUM BROM 0.5MG/2.5ML NEB SCH (20:00)
[2019-07-27 20:42] LABS: Urine Blood NEGATIVE (NEG); Urine Glucose NEGATIVE (NEG); Urine Protein NEGATIVE (NEG); Urine Specific Gravity 1.015 (1.005-1.030); Urine pH 7.5 (5.0-7.0)
[2019-07-27 22:37] VITALS: O2SAT 98
[2019-07-27 23:38] VITALS: BMI 31.0
[2019-07-28] MEDS: IPRATROPIUM BROM 0.5MG/2.5ML NEB SCH ×2 (01:45→07:47)
--- NOTE | 2019-07-28 02:17 | HP ---
Date of Admission: 07/27/2019 Presenting Complaint: Right vision loss. History Of Present Illness: Ms. Hina Messina is a 74-year-old female with history of previous TIAs with leg weakness, multiple DVTs in the past, on chronic anticoagulation with Xarelto. Patient admit to adherence, history of intermittent right vision loss, previously evaluated by Ophth almology and told she has recurrent TIAs. Developed episode again of transient vision loss in the ri ght eye lasting for about 10 minutes one week ago. Symptoms resolved without any issues. She did no t have any associated motor weakness. Symptoms again recalled today while she was sitting down and l asted similar 10 minutes before resolving. She denies any headache prior to event. She denies any a bnormal seizure activity. She denies any loss of consciousness or incontinence. She presented to [facility] ED because of recurrent pattern of symptoms. She states she has not had any recent workup for TIA. 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 She admits to ta zeke a dose of Xarelto last evening. She denies any other symptoms now. Of note, she also has COPD and on chronic home O2. She has been admitted for observation. Initial head CT shows no evidence of acute infarct. Past Medical History: Significant for hypertension, atrial fibrillation, multiple DVTs, SVTs, chroni c anticoagulation with Xarelto, COPD on home O2, GERD, hyperlipidemia, chronic anemia, history of pre vious TIAs. Past Surgical History: Appendectomy, back surgery, partial hysterectomy. Allergies: AMBIEN, CODEINE, DEMEROL, LATEX, SULFA, VALIUM, WELL NATURAL RUBBER. Family History: Noncontributory in this elderly female. Social History: She resides alone. She has caregiver who comes to help 3 times a week. She is full y functional at baseline. Family including her daughters live nearby. She admits to daily tobacco u se, smokes about half a pack per day. She denies any alcohol or illicit drug use. Review of Systems: All systems reviewed x14 were negative except as mentioned above. Physical Examination: Current Vitals: On presentation, blood pressure of 158/85, pulse 84, respiratory rate 16, temperatur e 98, O2 saturation 96 on room air. Current vitals, blood pressure of 141/86, pulse of 76. General: Obese, elderly female, appear at age, not in any distress on nasal cannula O2. Head: Atraumatic, normocephalic. Pupils equal and reactive to light. No asymmetrical symptoms. No periorbital edema. Moist oral mucosa. Neck: No JVD. No carotid bruit. Respiratory: Good air entry. No crepitation. Cardiovascular: S1, S2. Rate and rhythm regular. Symmetrical pulses bilaterally. Abdomen: Full, soft, nontender. Bowel sounds positive. Extremities: No calf tenderness. No pedal edema. Neuro: Patient is alert, conversant. No pronator drift. No neurological focal motor deficit. Laboratory Data: WBC 8.1, hemoglobin 10.7, platelet 444, neutrophils are 76%. INR 1.1, PTT 35, pota ssium 4.1, magnesium 2.4. Rapid troponin less than 0.02 proBNP 396. Albumin 3.2, bicarb 31, creatin ine 0.9. EKG shows low voltage, nonspecific T-wave inversion in anterolateral leads, rate of 65 beat s per minute. Imaging Studies: Brain CT shows no acute intracranial pathology, mild periventricular and deep white matter chronic microvascular ischemic changes. Head CTA shows no evidence of aneurysm. No flow [place] iting stenosis or vascular malformation noted. Anterior grade flow in the vertebral arteries and the y are codominant. Impression: 1.Possible recurrent transient ischemic attack. 2.Possible amaurosis fugax. 3.Hypertension. 4.Chronic anticoagulation. 5.Atrial fibrillation history. Plan: We will admit patient to observation. Given negative CT head as well as CTA, we will obtain c arotid artery ultrasound to rule out carotid stenosis contributing to transient retinal artery blood flow occlusion. We will also obtain echocardiogram to rule out aortic stenosis. We will consult Oph thalmology with Dr. Kamara for evaluation of patient's eye lenses, rule out retinal or papillary edema issues. We will continue patient's home medication regimen. We will obtain lipid panel and initiat e patient on cholesterol medication if elevated. We will obtain UA as needed. DVT prophylaxis, jb ent on anticoagulation. Advanced directives, patient is a full code. Total time spent in review of record, discussion with patient and evaluation greater than 60 minutes. EO/MODL Voice ID: [id number]
[2019-07-28 05:32] LABS: Absolute Lymphocytes (CBC) 1.8 K/uL (0.7-4.9); Basophils % 1.4 % (0-1.3); Hematocrit 30.6 % (36.0-45.0); Lymphocytes % 25.5 % (15.3-44.8); MPV 7.2 fL (7.6-11.3)
[2019-07-28 05:43] LABS: Albumin 2.8 g/dL (3.4-5.0); Bilirubin Total 0.2 mg/dL (0.2-1.0); Potassium 3.5 mmol/L (3.5-5.1); Protein, Total 5.9 g/dL (6.4-8.2)
[2019-07-28] MEDS ORDERED: ASPIRIN EC 81 MG TAB PO SCH (09:00)
[2019-07-28] MEDS: NICOTINE 21 MG/PAT TD SCH (09:00)
--- NOTE | 2019-07-28 09:27 | EKG ---
Test Date: 2019-07-27 Test Time: 17:16:20 [employer] Department: [facility] MEASUREMENT RESULTS: Intervals: Rate: 84 AR: 146 QRSD: 74 QT: 340 QTc: 401 Donovan: P: 28 AR: 146 QRS: 2 T: -67 INTERPRETIVE STATEMENTS: Normal sinus rhythm ST & T wave abnormality, consider inferior ischemia ST & T wave abnormality, consider anterolateral ischemia Abnormal ECG Compared to ECG 01/04/2019 12:16:50 No significant changes Electronically Signed On 07-28-19 09:26:46 CDT by Orlando Dhillon
--- NOTE | 2019-07-28 11:17 | P.DS ---
Admission Date: 07/27/19 Discharge Date: 07/28/19 Disposition: ROUTINE DISCHARGE Discharge Condition: GOOD Brief History of Present Illness: History Of Present Illness: Ms. Hina Messina is a 74-year-old female with history of previous TIAs with leg weakness, multiple DVTs in the past, on chronic anticoagulation with Xarelto. Patient admit to adherence, history of intermittent right vision loss, previously evaluated by Ophthalmology and told she has recurrent TIAs. Developed episode again of transient vision loss in the right eye lasting for about 10 minutes one week ago. Symptoms resolved without any issues. She did not have any associated motor weakness. Symptoms again recalled today while she was sitting down and lasted similar 10 minutes before resolving. She denies any headache prior to event. She denies any abnormal seizure activity. She denies any loss of consciousness or incontinence. She presented to the ED because of recurrent pattern of symptoms. She states she has not had any recent workup for TIA. 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 She admits to taking a dose of Xarelto last evening. She denies any other symptoms now. Of note, she also has COPD and on chronic home O2. She has been admitted for observation. Initial head CT shows no evidence of acute infarct. Past Medical History: Significant for hypertension, atrial fibrillation, multiple DVTs, SVTs, chronic anticoagulation with Xarelto, COPD on home O2, GERD , hyperlipidemia, chronic anemia, history of previous TIAs. Hospital Course: Patient presented for evaluation , at time of presentation her transient right eye blindness has resolved. She was seen very well at the time. Carotid ultrasound shows no evidence of stenosis. Head CT as well as head CT shows no and no recent or acute infarct. Patient reports he history of aortic stenosis. Review of by echo from 2016 shows mild aortic sclerosis with normal ejection fraction. A repeat echo was obtained. Her lipid panel was within target. Patient reports history of aspirin-induced indigestion. Her dose of Protonix was double d to bid . She was started on aspirin in addition to anticoagulation with Pradaxa to minimize recurrent TIA symptoms. However has symptoms seems to fit more with Amaurosis fugax rather than retinal TIA Neurology and Ophthalmology follow-up has been advised Vital Signs/Physical Exam: Temp Pulse Resp BP Pulse Ox 97.3 F 81 20 146/82 H 98 07/28/19 08:00 07/28/19 08:00 07/28/19 08:00 07/28/19 08:00 07/28/19 08:00 General: Alert, In no apparent distress, Oriented x3 HEENT: Atraumatic, Normocephalic Neck: Supple, 2+ carotid pulse no bruit, JVD not distended Respiratory: Clear to auscultation bilaterally, Normal air movement Cardiovascular: Normal pulses, Regular rate/rhythm, Normal S1 S2 Gastrointestinal: Normal bowel sounds, Soft and benign, Non-distended, No tenderness Musculoskeletal: No clubbing, No swelling Neurological: Normal gait, Normal speech, Normal strength at 5/5 x4 extr, Normal tone Laboratory Data at Discharge: WBC 7.0 K/uL (4.3-10.9) 07/28/19 05:13 Hgb 9.7 g/dL (12.0-15.0) L 07/28/19 05:13 Hct 30.6 % (36.0-45.0) L 07/28/19 05:13 Plt Count 343 K/uL (152-406) D 07/28/19 05:13 PT 13.8 SECONDS (9.5-12.5) H 07/27/19 17:04 INR 1.18 07/27/19 17:04 APTT 35.6 SECONDS (24.3-36.9) 07/27/19 17:04 Sodium 143 mmol/L (136-145) 07/28/19 05:13 Potassium 3.5 mmol/L (3.5-5.1) 07/28/19 05:13 BUN 16 mg/dL (7-18) 07/28/19 05:13 Creatinine 0.78 mg/dL (0.55-1.3) 07/28/19 05:13 Glucose 83 mg/dL (74-106) 07/28/19 05:13 Magnesium 2.4 mg/dL (1.8-2.4) 07/27/19 17:04 Total Bilirubin 0.2 mg/dL (0.2-1.0) 07/28/19 05:13 AST 13 U/L (15-37) L 07/28/19 05:13 ALT 11 U/L (12-78) L 07/28/19 05:13 Alkaline Phosphatase 54 U/L (45-117) 07/28/19 05:13 Triglycerides 78 mg/dL (<150) 07/28/19 05:13 Cholesterol 195 mg/dL (<200) 07/28/19 05:13 HDL Cholesterol 80 mg/dL (40-60) H 07/28/19 05:13 Cholesterol/HDL Ratio 2.44 07/28/19 05:13 Home Medications: Acetaminophen [Tylenol Extra Strength] 500 mg PO BID 07/27/19 Albuterol Sulfate [Proair Respiclick] 2 puff IH DAILY PRN 07/27/19 Cetirizine HCl [Zyrtec*] 5 mg PO DAILY 07/27/19 Citalopram Hydrobromide [Citalopram HBr] 20 mg PO DAILY 07/27/19 Fluticasone [Flonase 50MCG Nasal [place]*] 1 sprays NS DAILY PRN 07/27/19 Fluticasone/Umeclidin/Vilanter [Trelegy Ellipta 100-62.5-25] 2 puff IH DAILY 03/07 Metoprolol Tartrate 25 mg PO DAILY 07/27/19 Rivaroxaban [Xarelto] 20 mg PO BEDTIME 07/27/19 predniSONE [Prednisone] 5 mg PO DAILY 07/27/19 Aspirin [Aspirin EC 81 MG] 81 mg PO DAILY #30 tablet. 07/28/19 Pantoprazole [Protonix Tab*] 40 mg PO BID #60 tab 07/28/19 New Medications: Aspirin [Aspirin EC 81 MG] 81 mg PO DAILY #30 tablet. Pantoprazole [Protonix Tab*] 40 mg PO BID #60 tab Diet: Low sodium Activity: Ad diaz Followup: Alphonso Kamara MD [ACTIVE - CAN ADMIT] - 1-2 Days Higinio Monroe MD [ASSOCIATE-ACTIVE - CAN ADMIT] -
--- NOTE | 2019-07-28 12:26 | ECHO ---
HEIGHT: 5 ft 2 in WEIGHT: 169 lb 12.8 oz DATE OF STUDY: 07/28/[address]: Hunter Lu MD 2-DIMENSIONAL: YES M.MODE: YES DOPPLER: YES COLOR FLOW: YES TDS: PORTABLE: DEFINITY: BUBBLE STUDY: DIAGNOSIS: TRANSIENT ISCHEMIC ATTACK/ RULE OUT AORTIC STENOSIS CARDIAC HISTORY: CATHERIZATION: NO SURGERY: NO PROSTHETIC VALVE: NO PACEMAKER: NO MEASUREMENTS (cm) DIASTOLIC (NORMALS) SYSTOLIC (NORMALS) IVSd 1.1 (0.6-1.2) LA Diam 3.6 (1.9-4.0) LVEF 67% LVIDd 4.3 (3.5-5.7) LVIDs 2.7 (2.0-3.5) %FS 37% LVPWd 1.2 (0.6-1.2) Ao Diam 3.1 (2.0-3.7) 2 DIMENSIONAL ASSESSMENT: RIGHT ATRIUM: NORMAL LEFT ATRIUM: DILATED RIGHT VENTRICLE: NORMAL LEFT VENTRICLE: NORMAL TRICUSPID VALVE: NORMAL MITRAL VALVE: MITRAL ANNULAR CALCIFICATION PULMONIC VALVE: NORMAL AORTIC VALVE: STENOSIS PERICARDIAL EFFUSION: NONE AORTIC ROOT: NORMAL LEFT VENTRICULAR WALL MOTION: NORMAL DOPPLER/COLOR FLOW: MODERATE AORTIC STENOSIS. PEAK GRADIENT 30 mmHg/ MEAN GRADIENT 20 mmHg. ESTIMATED AORTIC VALVE AREA 1.2 CENTIMETERS SQUARED. MILD TRICUSPID REGURGITATION. NORMAL RIGHT VENTRICULAR SYSTOLIC PRESSURE. COMMENTS: NORMAL LEFT VENTRICULAR EJECTION FRACTION. DILATED LEFT ATRIUM. MITRAL ANNULAR CALCIFICATION. MODERATE AORTIC STENOSIS. NO AORTIC REGURGITATION. MILD TRICUSPID REGURGITATION. TECHNOLOGIST: RAMU HSIEH
[2019-07-28 12:57] VITALS: BP 140/84; TEMP 98.9
== END 2019-07-28 13:24 | disposition home or self-care (01) ==
LOC: ER 16:42 → ERHOLD 18:17 → 2ND 20:10
PROVIDERS: ADMIT Internal Medicine; ATTEND Internal Medicine
DX: G45.3 Amaurosis fugax (principal); I69.354 Hemiplegia and hemiparesis following cerebral infarction affecting left non-dominant side; I35.0 Nonrheumatic aortic (valve) stenosis; I07.1 Rheumatic tricuspid insufficiency; R94.31 Abnormal electrocardiogram [ECG] [EKG]; I10 Essential (primary) hypertension; I48.91 Unspecified atrial fibrillation; J44.9 Chronic obstructive pulmonary disease, unspecified; K21.9 Gastro-esophageal reflux disease without esophagitis; E78.5 Hyperlipidemia, unspecified; D64.9 Anemia, unspecified; Z79.01 Long term (current) use of anticoagulants; Z79.82 Long term (current) use of aspirin; Z79.52 Long term (current) use of systemic steroids; Z79.899 Other long term (current) drug therapy; Z99.81 Dependence on supplemental oxygen; Z86.718 Personal history of other venous thrombosis and embolism
CPT/HCPCS: 96365; 96361; 93005; 93306; 87088; 85025 ×2; 87086; 80048; 36415; 83735; 85610; 80061; 82947; 80076; 85730; 81003; 84484; 80053; 83880; 70496; 70450; 71045; 93880; 97116; 97161; 96375; 99285; Q9967; J0696; J7030; G0378 ×2

== ENCOUNTER 2019-09-22 13:06 | Emergency (ER) | payer OTHER ==
--- OUTSIDE RECORDS SUMMARY | 2019-09-22 13:09 | XMS REPORT ---
:1945 Author Organization [facility] t Address [address] [place] [address] Care Team Providers Name Role Phone THAI WHITLOCK Unavailable Unavailable Problems This patient has no known problems. Allergies, Adverse Reactions, Alerts This patient has no known allergies or adverse reactions. Medications This patient has no known medications. Results Test Description Test Time Test Comments Text Results Atomic Results Result Comments BASIC METABOLIC PANEL 2016-12-08 06:09:00 Test Item Value Reference Range Comments SODIUM (BEAKER) (test code = 140 meq/L 136-145 381) POTASSIUM (BEAKER) (test 4.0 meq/L 3.5-5.1 code = 379) CHLORIDE (BEAKER) (test code 106 meq/L 98-107 = 382) CO2 (BEAKER) (test code = 26 meq/L 22-29 355) BLOOD UREA NITROGEN (BEAKER) 11 mg/dL 7-21 (test code = 354) CREATININE (BEAKER) (test 0.87 mg/dL 0.57-1.25 code = 358) GLUCOSE RANDOM (BEAKER) 85 mg/dL 70-105 (test code = 652) CALCIUM (BEAKER) (test code 8.7 mg/dL 8.4-10.2 = 697) EGFR (BEAKER) (test code = 64 mL/min/1.73 sq m E STIMATED GFR IS NOT 1092) ACCURATE CREA TININE CLEARANCE IN PRE DICTING GLOMERULAR FILTR ATION RATE. ESTIMATED GFR IS NOT APPLICABLE FOR D IALYSIS PATIENTS. TSH/FREE T4 IF [id number] 06:06:00 Test Item Value Reference Range Comments THYROID STIMULATING HORMONE (BEAKER) (test code 0.78 uIU/mL 0.35-4.94 = 772) CBC W/PLT COUNT & AUTO [id number] 05:30:00 Test Item Value Reference Range Comments WHITE BLOOD CELL COUNT (BEAKER) (test code = 5.9 K/ L 4.0 -10.0 775) RED BLOOD CELL COUNT (BEAKER) (test code = 761) 3.66 M/ L 4.00-5.00 HEMOGLOBIN (BEAKER) (test code = 410) 11.9 GM/DL 12.0-15.0 HEMATOCRIT (BEAKER) (test code = 411) 35.5 % 36.0-45.0 MEAN CORPUSCULAR VOLUME (BEAKER) (test code = 97.0 fL 82 .0-99.0 753) MEAN CORPUSCULAR HEMOGLOBIN (BEAKER) (test code 32.5 pg 27.0-33.0 = 751) MEAN CORPUSCULAR HEMOGLOBIN CONC (BEAKER) (test 33.5 GM/DL 32.0-36.0 code = 752) RED CELL DISTRIBUTION WIDTH (BEAKER) (test code 12.5 % 10.3-14.2 = 412) PLATELET COUNT (BEAKER) (test code = 756) 309 K/CU MM 150-43 0 MEAN PLATELET VOLUME (BEAKER) (test code = 754) 6.3 fL 6.5-10.5 NUCLEATED RED BLOOD CELLS (BEAKER) (test code = 0 /100 WBC 0-0 413) NEUTROPHILS RELATIVE PERCENT (BEAKER) (test code 49 % = 429) LYMPHOCYTES RELATIVE PERCENT (BEAKER) (test code 33 % = 430) MONOCYTES RELATIVE PERCENT (BEAKER) (test code = 11 % 431) EOSINOPHILS RELATIVE PERCENT (BEAKER) (test code 6 % = 432) BASOPHILS RELATIVE PERCENT (BEAKER) (test code = 1 % 437) NEUTROPHILS ABSOLUTE COUNT (BEAKER) (test code = 2.92 K/ L 1.80-8.00 670) LYMPHOCYTES ABSOLUTE COUNT (BEAKER) (test code = 1.93 K/ L 1.48-4.50 414) MONOCYTES ABSOLUTE COUNT (BEAKER) (test code = 0.65 K/ L 0 .00-1.30 415) EOSINOPHILS ABSOLUTE COUNT (BEAKER) (test code = 0.34 K/ L 0.00-0.50 416) BASOPHILS ABSOLUTE COUNT (BEAKER) (test code = 0.07 K/ L 0 .00-0.20 417) 0.00SEDIMENTATION [id number] 14:36:00 Test Item Value Reference Range Comments SEDIMENTATION RATE, ERYTHROCYTE (BEAKER) (test code 20 mm/HR 0-40 = 766) VITAMIN [id number] 11:02:00 Test Item Value Reference Range Comments VITAMIN B12 (BEAKER) (test code = 774) 219 pg/mL 213-816 HEMOGLOBIN [id number] 08:55:00 Test Item Value Reference Range Comments HEMOGLOBIN A1C (BEAKER) (test code = 368) 5.3 % 4.3-6. 1 LIPID [id number] 06:23:00 Test Item Value Reference Range Comments TRIGLYCERIDES (BEAKER) (test code = 540) 56 mg/dL CHOLESTEROL (BEAKER) (test code = 631) 140 mg/dL HDL CHOLESTEROL (BEAKER) (test code = 976) 56 mg/dL LDL CHOLESTEROL CALCULATED (BEAKER) (test code = 73 mg/dL 633) Triglyceride Reference Range: Low Risk <150 Borderline 150-199 High Risk 200-499 Very High Risk >=500Cholesterol Reference Range: Low Risk <200 Borderline 200-239 High Risk >240HDL Cholesterol Reference Range: Low Risk >=60 High Risk <40LDL Cholesterol Reference Range: Optimal <100 Near Optimal 100-129 Borderline 130-159 High 160-189 Very High >=190BASIC METABOLIC [id number] 06:23:00 Test Item Value Reference Range Comments SODIUM (BEAKER) (test 139 meq/L 136-145 code = 381) POTASSIUM (BEAKER) (test 4.0 meq/L 3.5-5.1 code = 379) CHLORIDE (BEAKER) (test 108 meq/L 98-107 code = 382) CO2 (BEAKER) (test code = 24 meq/L 22-29 355) BLOOD UREA NITROGEN 15 mg/dL 7-21 (BEAKER) (test code = 354) CREATININE (BEAKER) (test 0.85 mg/dL 0.57-1.25 code = 358) GLUCOSE RANDOM (BEAKER) 86 mg/dL 70-105 (test code = 652) CALCIUM (BEAKER) (test 8.6 mg/dL 8.4-10.2 code = 697) EGFR (BEAKER) (test code 66 mL/min/1.73 sq m EST IMATED GFR IS NOT = 1092) ACCURATE CREA TININE CLEARANCE IN PRE DICTING GLOMERULAR FILTR ATION RATE. ESTIMATED GFR IS NOT APPLICABLE F OR DIALYSIS PATIENT S. CBC W/PLT COUNT & AUTO [id number] 06:08:00 Test Item Value Reference Range Comments WHITE BLOOD CELL COUNT (BEAKER) (test code = 6.8 K/ L 4.0 -10.0 775) RED BLOOD CELL COUNT (BEAKER) (test code = 761) 4.01 M/ L 4.00-5.00 HEMOGLOBIN (BEAKER) (test code = 410) 12.3 GM/DL 12.0-15.0 HEMATOCRIT (BEAKER) (test code = 411) 38.9 % 36.0-45.0 MEAN CORPUSCULAR VOLUME (BEAKER) (test code = 97.0 fL 82 .0-99.0 753) MEAN CORPUSCULAR HEMOGLOBIN (BEAKER) (test code 30.8 pg 27.0-33.0 = 751) MEAN CORPUSCULAR HEMOGLOBIN CONC (BEAKER) (test 31.8 GM/DL 32.0-36.0 code = 752) RED CELL DISTRIBUTION WIDTH (BEAKER) (test code 12.5 % 10.3-14.2 = 412) PLATELET COUNT (BEAKER) (test code = 756) 322 K/CU MM 150-43 0 MEAN PLATELET VOLUME (BEAKER) (test code = 754) 6.5 fL 6.5-10.5 NUCLEATED RED BLOOD CELLS (BEAKER) (test code = 0 /100 WBC 0-0 413) NEUTROPHILS RELATIVE PERCENT (BEAKER) (test code 50 % = 429) LYMPHOCYTES RELATIVE PERCENT (BEAKER) (test code 32 % = 430) MONOCYTES RELATIVE PERCENT (BEAKER) (test code = 12 % 431) EOSINOPHILS RELATIVE PERCENT (BEAKER) (test code 5 % = 432) BASOPHILS RELATIVE PERCENT (BEAKER) (test code = 1 % 437) NEUTROPHILS ABSOLUTE COUNT (BEAKER) (test code = 3.42 K/ L 1.80-8.00 670) LYMPHOCYTES ABSOLUTE COUNT (BEAKER) (test code = 2.19 K/ L 1.48-4.50 414) MONOCYTES ABSOLUTE COUNT (BEAKER) (test code = 0.80 K/ L 0 .00-1.30 415) EOSINOPHILS ABSOLUTE COUNT (BEAKER) (test code = 0.33 K/ L 0.00-0.50 416) BASOPHILS ABSOLUTE COUNT (BEAKER) (test code = 0.07 K/ L 0 .00-0.20 417) 0.00
--- NOTE | 2019-09-22 14:11 | RAD REPORT ---
EXAM DESCRIPTION: CT - Head Brain Wo Cont - 09/22/2019 2:01 pm CLINICAL HISTORY: Near Syncope Headache, drowsiness COMPARISON: Head angio dated 07/27/2019; Ct Stroke Brain Wo Cont dated 07/27/2019; Head Brain Wo Cont dated 12/06/2016 TECHNIQUE: All CT scans are performed using dose optimization technique as appropriate and may inclu de automated exposure control or mA/KV adjustment according to patient size. FINDINGS: No intracranial hemorrhage, hydrocephalus or extra-axial fluid collection.Mild to moderate generalized brain atrophy.No areas of brain edema or evidence of midline shift. The paranasal sinuses and mastoids are clear. The calvarium is intact. IMPRESSION: No acute intracranial abnormality.
--- NOTE | 2019-09-22 14:30 | RAD REPORT ---
EXAM DESCRIPTION: RAD - Chest Single View - 09/22/2019 2:23 pm CLINICAL HISTORY: near syncope Chest pain. COMPARISON: Chest Single View dated 07/27/2019; Chest Single View dated 10/23/2018; Chest Single View d ated 12/06/2016; Chest Single View dated 11/01/2015 FINDINGS: Portable technique limits examination quality. The lungs are grossly clear. The heart is moderately enlarged. Large hiatal hernia suspected. IMPRESSION: No acute intrathoracic process suspected.
[2019-09-22 14:53] LABS: Protime INR 1.37
[2019-09-22] MEDS ORDERED: ONDANSETRON 4 MG/2 ML VIAL ONE (14:53)
[2019-09-22 15:01] LABS: Absolute Lymphocytes (CBC) 1.4 K/uL (0.7-4.9); Hematocrit 33.7 % (36.0-45.0); Lymphocytes % 13.1 % (15.3-44.8); MPV 7.5 fL (7.6-11.3); RBC Red Blood Cell Count 4.03 M/uL (3.86-4.86)
[2019-09-22 15:10] LABS: ALT/SGPT 14 U/L (12-78); AST/SGOT 9 U/L (15-37); Albumin 3.1 g/dL (3.4-5.0); Alkaline Phosphatase 55 U/L (45-117); BUN Blood Urea Nitrogen 20 mg/dL (7-18); Bicarbonate 33 mmol/L (21-32); Bilirubin Direct < 0.1 mg/dL (0-0.2); Bilirubin Total 0.3 mg/dL (0.2-1.0); Glucose Level 91 mg/dL (74-106); Magnesium 2.2 mg/dL (1.8-2.4); NT PRO-BNP 702 pg/mL (<450); Potassium 3.8 mmol/L (3.5-5.1); Protein, Total 6.6 g/dL (6.4-8.2); Sodium Level 143 mmol/L (136-145); Troponin (Emerg Dept Use Only) < 0.02 ng/mL (0.0-0.045)
--- NOTE | 2019-09-23 03:35 | EDPHYS ---
Physician Documentation [facility] Name: Hina Messina Age: 74 yrs Sex: Female : 1945 Arrival Date: 09/22/2019 Time: 13:16 Bed 7 Private MD: ED Physician Ugo Smith HPI: 09/22 08:06 This 74 yrs old Female presents to ER via EMS with complaints of Near Syncope.kdr 08:06 The patient states that she was sitting in her chair at home when she began to feel kdr dizzy, nauseated and became diaphoretic. She also felt like she was having tunnel vision and was going to pass out. She states that from to time over the past years, she has had similar episodes but not usually this bad. She felt better after a few minutes and on arrival was still only slightly dizzy. She has not other c/o or concerns. Onset: The symptoms/episode began/occurred suddenly, just prior to arrival. Severity of symptoms: At their worst the symptoms were mild in the emergency department the symptoms have resolved. The patient has experienced similar episodes in the past, multiple times, but today's symptoms are worse, lasting longer. The patient has not recently seen a physician. Historical: - Allergies: 09/21 13:25 ambien; ph 13:25 Codeine; ph 13:25 Demerol; ph 13:25 Latex, Natural Rubber; ph 13:25 Sulfa (Sulfonamide Antibiotics); ph 13:25 Valium; ph - Home Meds: 13:25 metoprolol tartrate 25 mg Oral tab 1 tab 2 times per day [Active]; citalopram 20 mg tab ph once daily [Active]; pantoprazole 40 mg Oral TbEC 1 tab once daily [Active]; xaralto 20mg nightly [Active]; cetirizine 10 mg Oral tab 1 tab once daily [Active]; anora 2 puffs BID [Active]; prednisone 5 mg Oral tab once daily [Active]; - PMHx: 13:25 Anemia; Atrial Fib; COPD; GERD; Hyperlipidemia; Hypertension; Microcytic anemia; SVT; ph - Immunization history:: Adult Immunizations unknown. - Social history:: Smoking status: Patient denies any tobacco usage or history of. ROS: 09/22 08:06 Constitutional: Negative for fever, chills, and weight loss, Eyes: Negative for injury, kdr pain, redness, and discharge, ENT: Negative for injury, pain, and discharge, Neck: Negative for injury, pain, and swelling, Cardiovascular: Negative for chest pain, palpitations, and edema, Respiratory: Negative for shortness of breath, cough, wheezing, and pleuritic chest pain, Abdomen/GI: Negative for abdominal pain, nausea, vomiting, diarrhea, and constipation, Back: Negative for injury and pain, : Negative for injury, bleeding, discharge, and swelling, MS/Extremity: Negative for injury and deformity, Skin: Negative for injury, rash, and discoloration, Psych: Negative for depression, anxiety, suicide ideation, homicidal ideation, and hallucinations, Allergy/Immunology: Negative for hives, rash, and allergies, Endocrine: Negative for neck swelling, polydipsia, polyuria, polyphagia, and marked weight changes, Hematologic/Lymphatic: Negative for swollen nodes, abnormal bleeding, and unusual bruising. Neuro: Positive for dizziness, With associated nausea and felt near syncopal . Exam: 08:06 Constitutional: This is a well developed, well nourished patient who is awake, alert, kdr and in no acute distress. Head/Face: Normocephalic, atraumatic. Eyes: Pupils equal round and reactive to light, extra-ocular motions intact. Lids and lashes normal. Conjunctiva and sclera are non-icteric and not injected. Cornea within normal limits. Periorbital areas with no swelling, redness, or edema. Neck: Trachea midline, no thyromegaly or masses palpated, and no cervical lymphadenopathy. Supple, full range of motion without nuchal rigidity, or vertebral point tenderness. No Meningismus. Chest/axilla: Normal chest wall appearance and motion. Nontender with no deformity. No lesions are appreciated. Cardiovascular: Regular rate and rhythm with a normal S1 and S2. No gallops or rubs - mild murmur. Normal PMI, no JVD. No pulse deficits. Respiratory: Lungs have equal breath sounds bilaterally, clear to auscultation and percussion. No rales, rhonchi or wheezes noted. No increased work of breathing, no retractions or nasal flaring. Abdomen/GI: Soft, non-tender, with normal bowel sounds. No distension or tympany. No guarding or rebound. No evidence of tenderness throughout. Back: No spinal tenderness. No costovertebral tenderness. Full range of motion. Skin: Warm, dry with normal turgor. Normal color with no rashes, no lesions, and no evidence of cellulitis. MS/ Extremity: Pulses equal, no cyanosis. Neurovascular intact. Full, normal range of motion. Neuro: Awake and alert, GCS 15, oriented to person, place, time, and situation. Cranial nerves II-XII grossly intact. Motor strength 5/5 in all extremities. Sensory grossly intact. Cerebellar exam normal. Normal gait. Psych: Awake, alert, with orientation to person, place and time. Behavior, mood, and affect are within normal limits. Vital Signs: 09/21 13:17 BP 111 / 68; Pulse 63; Resp 18; Temp 97.8; Pulse Ox 97% on 2 lpm NC; ph 14:30 BP 133 / 70; Pulse 68; Resp 15; Pulse Ox 97% on R/A; hb 15:30 BP 128 / 87; Pulse 66; Resp 15; Pulse Ox 99% on R/A; hb 16:30 BP 143 / 72; Pulse 66; Resp 17; Pulse Ox 99% on R/A; hb 18:13 BP 134 / 75; Pulse 64; Resp 16; Pulse Ox 100% on R/A; hb 19:53 BP 148 / 75; Pulse 68; Resp 19 S; Pulse Ox 99% on 2 lpm NC; jd3 MDM: 18:34 Patient medically screened. kdr 18:36 Data reviewed: vital signs, nurses notes, lab test result(s), EKG, radiologic studies. kdr Counseling: I had a detailed discussion with the patient and/or guardian regarding: the historical points, exam findings, and any diagnostic results supporting the discharge/admit diagnosis, lab results, radiology results, the need for outpatient follow up. ED course: D/w patient all findings. She refused the MRI stating she had had one about two months ago. She is afraid of catching the [place] Virus and did not want to stay stating that she would follow-up with Dr. Singh. 09/21 13:25 Order name: Basic Metabolic Panel; Complete Time: 18:35 kdr 09/21 13:25 Order name: CBC with Diff; Complete Time: 18:35 kdr 09/21 13:25 Order name: LFT's; Complete Time: 18:35 [facility] 09/21 13:25 Order name: Magnesium; Complete Time: 18:35 [facility] 09/21 13:25 Order name: NT PRO-BNP; Complete Time: 18:35 [facility] 09/21 13:25 Order name: PT-INR; Complete Time: 18:35 [facility] 09/21 13:25 Order name: Troponin (emerg Dept Use Only); Complete Time: 18:35 [facility] 09/21 13:25 Order name: XRAY Chest (1 view); Complete Time: 18:35 [facility] 09/21 13:25 Order name: EKG; Complete Time: 13:27 [facility] 09/21 13:25 Order name: CT Head Brain wo Cont; Complete Time: 14:18 [facility] 09/21 13:25 Order name: Cardiac monitoring; Complete Time: 13:51 [facility] 09/21 13:25 Order name: EKG - Nurse/Tech; Complete Time: 17:21 [facility] 09/21 13:25 Order name: IV Saline Lock; Complete Time: 13:51 [facility] 09/21 13:25 Order name: Labs collected and sent; Complete Time: 14:41 [facility] 09/21 13:25 Order name: O2 Per Protocol; Complete Time: 13:51 [facility] 09/21 13:25 Order name: O2 Sat Monitoring; Complete Time: 13:51 kdr Administered Medications: 14:53 Drug: Zofran (Ondansetron) 4 mg Route: IVP; Site: right antecubital; ph 19:02 Follow up: Response: No adverse reaction ph 14:53 CANCELLED (Duplicate Order): Zofran (Ondansetron) 4 mg IVP once; over 2 minutes hb Disposition: 09/22/19 18:34 Discharged to Home. Impression: Dizziness and giddiness, Syncope and collapse - Near Syncope. - Condition is Stable. - Discharge Instructions: Syncope, [id number], Vertigo, Sdtc-[id number], Dizziness, [id number]. - Prescriptions for Meclizine 25 mg Oral Tablet - take 1 tablet by ORAL route every 8 hours As needed; 30 tablet. - Medication Reconciliation Form, Thank You Letter form. - Follow up: Private Physician; When: 2 - 3 days; Reason: If symptoms return, Further diagnostic work-up, Recheck today's complaints, Continuance of care, Re-evaluation by your physician. - Problem is new. - Symptoms have improved. Signatures: Dispatcher [employer] EDMS Ugo Smith MD MD [facility] Hina Samuel RN RN Briseida Booth, RN RN Jermaine Pate RN RN jd3 Corrections: (The following items were deleted from the chart) 14:53 14:53 Zofran (Ondansetron) 4 mg IVP once; over 2 minutes ordered. [facility] 19:54 18:34 09/22/2019 18:34 Discharged to Home. Impression: Dizziness and giddiness; Syncope jd3 and collapse - Near Syncope. Condition is Stable. Forms are Medication Reconciliation Form, Thank You Letter, Antibiotic Education, Prescription Opioid Use. Follow up: Private Physician; When: 2 - 3 days; Reason: If symptoms return, Further diagnostic work-up, Recheck today's complaints, Continuance of care, Re-evaluation by your physician. Problem is new. Symptoms have improved. kdr
--- NOTE | 2019-09-23 03:35 | ER ---
Nurse's Notes [facility] Name: Hina Messina Age: 74 yrs Sex: Female : 1945 Arrival Date: 09/22/2019 Time: 13:16 Bed 7 Private MD: Diagnosis: Dizziness and giddiness;Syncope and collapse-Near Syncope Presentation: 09/21 13:17 Chief complaint: EMS states: Pt reports sitting in chair at home when suddenly began to ph have dizziness, nausea, sweating and tunnel vision, felt as if she may pass out but did not, VSS HR 60s, use oxygen at home for end stage COPD, negative orthostatics, BGL 71, IV initiated to R hand and 4 zofran given, pt continues to c/o dizziness and nausea, denies chest pain. Coronavirus screen: Patient denies a cough. Patient denies shortness of breath or difficulty breathing. Patient denies measured and/or subjective temperature greater than 100.4F prior to today's visit. Patient denies travel on a cruise ship or to a country the [facility] currently lists as an affected area. Patient denies contact with known and/or suspected case of COVID-19. Ebola Screen: No symptoms or risks identified at this time. Initial Sepsis Screen: Does the patient meet any 2 criteria? No. Patient's initial sepsis screen is negative. Does the patient have a suspected source of infection? No. Patient's initial sepsis screen is negative. Risk Assessment: Do you want to hurt yourself or someone else? Patient reports desire/thoughts of hurting themselves or someone else. Provider notified. Onset of symptoms was September 22, 2019. 13:17 Method Of Arrival: EMS: [facility] ph 13:17 Acuity: KSE[facility] 3 ph Historical: - Allergies: 13:25 ambien; ph 13:25 Codeine; ph 13:25 Demerol; ph 13:25 Latex, Natural Rubber; ph 13:25 Sulfa (Sulfonamide Antibiotics); ph 13:25 Valium; ph - Home Meds: 13:25 metoprolol tartrate 25 mg Oral tab 1 tab 2 times per day [Active]; citalopram 20 mg tab ph once daily [Active]; pantoprazole 40 mg Oral TbEC 1 tab once daily [Active]; xaralto 20mg nightly [Active]; cetirizine 10 mg Oral tab 1 tab once daily [Active]; anora 2 puffs BID [Active]; prednisone 5 mg Oral tab once daily [Active]; - PMHx: 13:25 Anemia; Atrial Fib; COPD; GERD; Hyperlipidemia; Hypertension; Microcytic anemia; SVT; ph - Immunization history:: Adult Immunizations unknown. - Social history:: Smoking status: Patient denies any tobacco usage or history of. Screenin:29 Abuse screen: Denies threats or abuse. Denies injuries from another. Nutritional ph screening: No deficits noted. Tuberculosis screening: No symptoms or risk factors identified. Fall Risk No fall in past 12 months (0 pts). No secondary diagnosis (0 pts). IV access (20 points). Ambulatory Aid- None/Bed Rest/Nurse Assist (0 pts). Gait- Weak (10 pts.). Mental Status- Oriented to own ability (0 pts). Total Damico Fall Scale indicates Low Risk Score (25-44 pts). Fall prevention measures have been instituted. Side Rails Up X 2 Placed close to Nursing Station Frequent Obs/Assesments occuring As available Patient and Family Educated on Fall Prevention Program and strategies. Assessment: 13:27 General: Appears in no apparent distress. comfortable, well groomed, Behavior is calm, ph cooperative, appropriate for age, Denies fever, feeling ill. Pain: Denies pain. Neuro: Level of Consciousness is awake, alert, obeys commands, Oriented to person, place, time, situation, Moves all extremities. Full function Speech is normal, Facial symmetry appears normal, Reports dizziness. Cardiovascular: Reports diaphoresis, lightheadedness, nausea, Denies chest pain, vomiting. Respiratory: Airway is patent Respiratory effort is even, unlabored, Respiratory pattern is regular, symmetrical. GI: Reports nausea, Patient currently denies abdominal pain, diarrhea, vomiting. : No signs and/or symptoms were reported regarding the genitourinary system. Derm: Skin is intact, Skin is pink, warm \T\ dry. 14:30 Reassessment: Patient appears in no apparent distress at this time. No changes from hb previously documented assessment. Patient and/or family updated on plan of care and expected duration. Pain level reassessed. 15:30 Reassessment: Patient appears in no apparent distress at this time. Patient and/or hb family updated on plan of care and expected duration. Pain level reassessed. Patient is alert, oriented x 3, equal unlabored respirations, skin warm/dry/pink. 16:30 Reassessment: Patient appears in no apparent distress at this time. No changes from previously documented assessment. Patient and/or family updated on plan of care and expected duration. Pain level reassessed. Patient is alert, oriented x 3, equal unlabored respirations, skin warm/dry/pink. 17:30 Reassessment: Patient appears in no apparent distress at this time. Patient and/or hb family updated on plan of care and expected duration. Pain level reassessed. Patient is alert, oriented x 3, equal unlabored respirations, skin warm/dry/pink. 18:13 Reassessment: Patient appears in no apparent distress at this time. No changes from previously documented assessment. Patient and/or family updated on plan of care and expected duration. Pain level reassessed. 19:10 Reassessment: Patient appears in no apparent distress at this time. Patient and/or ph family updated on plan of care and expected duration. Pain level reassessed. Patient is alert, oriented x 3, equal unlabored respirations, skin warm/dry/pink. Pt from senior apartments and is oxygen dependent so will require a ride home, charge nurse notified and will facilitate transportation. 19:50 Reassessment: Patient states feeling better. General: Appears in no apparent distress. jd3 comfortable, Behavior is calm, cooperative, appropriate for age. Pain: Denies pain. Neuro: Level of Consciousness is awake, alert, obeys commands, Oriented to person, place, time, situation, Moves all extremities. Full function Speech Facial symmetry appears normal, Denies dizziness. Respiratory: Airway is patent Respiratory effort is even, unlabored, Respiratory pattern is regular, symmetrical. GI: No signs and/or symptoms were reported involving the gastrointestinal system. : No signs and/or symptoms were reported regarding the genitourinary system. EENT: No signs and/or symptoms were reported regarding the EENT system. Derm: Skin is intact, Skin is dry, Skin is normal, Skin temperature is warm. Vital Signs: 13:17 BP 111 / 68; Pulse 63; Resp 18; Temp 97.8; Pulse Ox 97% on 2 lpm NC; ph 14:30 BP 133 / 70; Pulse 68; Resp 15; Pulse Ox 97% on R/A; hb 15:30 BP 128 / 87; Pulse 66; Resp 15; Pulse Ox 99% on R/A; hb 16:30 BP 143 / 72; Pulse 66; Resp 17; Pulse Ox 99% on R/A; hb 18:13 BP 134 / 75; Pulse 64; Resp 16; Pulse Ox 100% on R/A; hb 19:53 BP 148 / 75; Pulse 68; Resp 19 S; Pulse Ox 99% on 2 lpm NC; jd3 ED Course: 13:16 Patient arrived in ED. ph 13:21 Triage completed. ph 13:25 Ugo Smith MD is Attending Physician. kdr 13:30 Patient has correct armband on for positive identification. Bed in low position. Call ph light in reach. Side rails up X2. special day class teacher on. Pulse ox on. NIBP on. Door closed. Noise minimized. Warm blanket given. Pillow given. 13:30 Arm band placed on Patient placed in an exam room. ph 13:32 Hina Samuel RN is Primary Nurse. ph 14:02 CT Head Brain wo Cont In Process Unspecified. EDMS 14:23 XRAY Chest (1 view) In Process Unspecified. EDMS 14:42 Maintain EMS IV. Gauge \T\ site: 20 R hand. ph 17:21 EKG done, by ED staff, reviewed by Ugo Smith MD. dh3 18:46 No provider procedures requiring assistance completed. ph 19:53 Primary Nurse role handed off by Hina Samuel, JOEL jd3 19:53 Jermaine Pate RN is Primary Nurse. jd3 21:13 IV discontinued, intact, bleeding controlled, No redness/swelling at site. Pressure jd3 dressing applied. Administered Medications: 14:53 Drug: Zofran (Ondansetron) 4 mg Route: IVP; Site: right antecubital; ph 19:02 Follow up: Response: No adverse reaction ph 14:53 CANCELLED (Duplicate Order): Zofran (Ondansetron) 4 mg IVP once; over 2 minutes hb Outcome: 18:34 Discharge ordered by . kdr 19:50 Discharged to home via wheelchair, with family. jd3 19:50 Condition: stable 19:50 Discharge instructions given to patient, Instructed on discharge instructions, follow up and referral plans. medication usage, Demonstrated understanding of instructions, follow-up care, medications, Prescriptions given X 1. 19:54 Patient left the ED. jd3 Signatures: Dispatcher [employer] EDMS Ugo Smith MD MD kdr Hall, Patricia RN RN Briseida Price RN [place] [id number] Jermaine Pate RN RN jd3
--- NOTE | 2019-09-23 13:01 | EKG ---
Test Date: 2019-09-22 Test Time: 17:18:12 Doorperson: YUMIKO MEASUREMENT RESULTS: Intervals: Rate: 65 CO: 148 QRSD: 76 QT: 394 QTc: 409 [place]: P: 25 CO: 148 QRS: 16 T: -76 INTERPRETIVE STATEMENTS: Normal sinus rhythm ST & T wave abnormality, consider inferior ischemia ST & T wave abnormality, consider anterolateral ischemia Abnormal ECG Compared to ECG 07/27/2019 17:16:20 No significant changes Electronically Signed On 09-23-19 12:58:26 CDT by Edward Sherwood
[2019-09-23 16:56] VITALS: TEMP 97.8
[2019-09-23 17:30] VITALS: BP 148/75; O2SAT 99
== END 2019-09-22 19:54 | disposition home or self-care (01) ==
LOC: ER 13:06
DX: R55 Syncope and collapse (principal); I10 Essential (primary) hypertension; E78.5 Hyperlipidemia, unspecified; I48.91 Unspecified atrial fibrillation; J44.9 Chronic obstructive pulmonary disease, unspecified; Z79.01 Long term (current) use of anticoagulants; Z88.2 Allergy status to sulfonamides; Z88.5 Allergy status to narcotic agent; Z88.8 Allergy status to other drugs, medicaments and biological substances; Z91.040 Latex allergy status
CPT/HCPCS: 93005; 85025; 80048; 36415; 83735; 85610; 80076; 84484; 83880; 70450; 71045; 96374; 99284; J2405

== ENCOUNTER 2020-01-24 13:04 | Emergency (ER) | payer OTHER ==
--- OUTSIDE RECORDS SUMMARY | 2020-01-24 13:06 | XMS REPORT | Clinical Summary ---
:1945 Author Organization [facility] Address [address] [place] [address] Care Team Providers Name Role Phone Unavailable Primary Care Provider Unavailable Allergies Active Allergy Reactions Severity Noted Date Comments Codeine 12/07/2016 Pt hallucinates Meperidine 12/07/2016 Pt hallucinates Latex Itching 12/07/2016 Sulfa (Sulfonamide Other (See Comments) 12/07/2016 P t gets really sick Antibiotics) Diazepam 12/07/2016 Pt tremors Medications Medication Sig Dispensed Refills Start Date End Date Status atorvastatin (LIPITOR) 20 Take 20 mg by 0 Active MG tabletIndications: mouth daily. excessive fat in the blood pantoprazole (PROTONIX) 40 Take 40 mg by 0 Active MG tabletIndications: mouth 2 (two) gastroesophageal reflux times daily. disease spironolactone (ALDACTONE) Take 25 mg by 0 Active 25 MG tabletIndications: mouth 2 (two) high blood pressure times daily. rivaroxaban (XARELTO) 20 Take 20 mg by 0 Active mg Tab tabletIndications: mouth daily. blood clot in a deep vein of the extremities citalopram (CELEXA) 20 MG Take 20 mg by 0 Active tabletIndications: mouth daily. anxiousness associated with depression metoprolol (TOPROL-XL) 25 Take 25 mg by 0 Active MG 24 hr mouth 2 (two) tabletIndications: high times daily. blood pressure cetirizine (ZYRTEC) 10 MG Take 10 mg by 0 Active tabletIndications: hives mouth daily. fluticasone (FLONASE) 50 1 spray by 0 Active mcg/actuation nasal Nasal route 2 sprayIndications: (two) times allergies daily. 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 TIA (transient ischemic attack) 12/07/2016 Atrial flutter 12/07/2016 COPD (chronic obstructive pulmonary disease) 7 Vision loss, right eye 12/07/2016 Family History Medical History Relation Name Comments Hyperlipidemia Father Stroke Father Cancer Mother Osteoarthritis Mother Heart failure Sister Hyperlipidemia Sister Thyroid disease Sister Relation Name Status Comments Father Mother Sister Social History Tobacco Use Types Packs/Day Years Used Date Former Smoker Cigarettes Quit: 12/08/19 09 Smokeless Tobacco: Never Used Alcohol Use Drinks/Week oz/Week Comments No Sex Assigned at Date Recorded Not on file Job Start Date Occupation Industry Not on file Not on file Not on file Travel History Travel Start Travel End No recent travel history available. Last Filed Vital Signs Not on file Plan of Treatment Not on file Results Not on fileafter 01/23/2019 Insurance Payer Benefit Plan / Group Subscriber ID Type Phone A ddress [employer] xxxxxxxx Maps Contracted Advance Directives For more information, please contact:[address] [phone] Code Status Date Activated Date Inactivated Comments Full Code 12/07/2016 2:16 AM 12/08/2016 9:06 PM This code status was determined by: Patient
--- OUTSIDE RECORDS SUMMARY | 2020-01-24 13:06 | XMS REPORT | Continuity of Care Document ---
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 00 Center aneurysm aneurysm TIA TIA Disease Active [facility] (transient (transient 12-07 Mariana kes - ischemic ischemic 00:00: Medica l attack) attack) 00 [facility] Atrial Atrial Disease Active [facility] flutter flutter 12-07 [facility] - 00:[facility]: Medical 00 [facility] COPD COPD Disease Active [facility] (chronic (chronic 12-07 [facility] - obstructiv obstructiv 00:00: Me dical e e 00 Center pulmonary pulmonary disease) disease) Vision Vision Disease Active [facility] loss, loss, 12-07 [facility] - right eye right eye 00:00: Medi ruiz 00 Center Allergies, Adverse Reactions, Alerts Allergy Allergy Status Severity Reaction(s) Onset Inactive Treating Comm ents Source Name Type Date Date Clinician Codeine Drug Active Pt [facility] Allergy 12-07 [facility]ina [facility] Meperidi Drug Active Pt [facility] ne Allergy 12-07 hallucina [facility] Latex Drug Active Itching [facility] Allergy 12-07 [facility] Sulfa Drug Active Other (See [facility] gets [facility] (Sulfona Allergy Comments) 12-07 really [facility] - mide 00:00: [facility] Medical Antibiot 00 [facility] ics) Diazepam Drug Active Pt [facility] Allergy 12-07 tremors [facility] - 00:[facility]: Medical 00 [facility] Family History Family Member Diagnosis Comments Start Date Stop Date Source Natural father Hyperlipidemia [facility] Natural father Stroke [facility] Natural mother Cancer [facility] Natural mother Osteoarthritis [facility] Natural sister Heart failure [facility] Natural sister Hyperlipidemia [facility] Natural sister Thyroid disease [facility] S t [facility] Social History Social Habit Start Date Stop Date Quantity Comments Source Sex Assigned At [facility] History of tobacco 2008-12-07 Current smoker I [facility] - use 00:00:00 [facility] Smoking Status Start Date Stop Date Source Former smoker 2016-12-07 00:00:00 2016-12-07 00:00:00 [facility] Medications Ordered Filled Start Stop Current Ordering Indication Dosage Frequency Signature Comments Components Source Medication Medication Date Date Medication? Clinician (SIG) Name Name metoprolol Yes high blood 25mg Q.5D Take [address] [facility] (TOPROL-XL) 12-07 pressure by mouth 2 [facility] - 25 MG 24 hr 01:57: (two) Medic al tablet 06 times Center daily. cetirizine Yes hives 10mg QD Take [address] [facility] (ZYRTEC) 10 12-07 by mouth [facility] - MG tablet 01:57: daily. Medica l 06 [place] fluticasone Yes 1{spray Q.5D [address] [facility] (FLONASE) 12-07 } Nasal [facility] - 50 01:57: route 2 Medical mcg/actuati 06 (two) Center on nasal times spray daily. atorvastati Yes excessive 20mg QD Take [address] [facility] n (LIPITOR) 12-07 fat in the by mouth [facility] - 20 MG 01:57: blood daily. Medical tablet 05 [place] pantoprazol Yes gastroesoph 40mg Q.5D Take [address] [facility] e 12-07 ageal by mouth 2 [facility] - (PROTONIX) 01:57: reflux (two) Medi ruiz 40 MG 05 disease times Center tablet daily. spironolact Yes high blood 25mg Q.5D Take [address] [facility] one 7-22 pressure by mouth 2 [facility] - (ALDACTONE) 01:57: (two) Medic al 25 MG 05 times Center tablet daily. rivaroxaban Yes blood clot 20mg QD Take [address] [facility] (XARELTO) 7-22 in a deep by mouth [facility] - 20 mg Tab 01:57: vein of the daily. Medical tablet 05 extremities Center citalopram Yes anxiousness 20mg QD Take [address] [facility] (CELEXA) 20 7-22 associated by mouth [facility] - MG tablet 01:57: with daily. Medica l 05 depression Center Procedures This patient has no known procedures. Results Test Description Test Time Test Comments Results Result Comments Source BASIC METABOLIC PANEL 2016-12-08 06:09:00 Test Item Value Reference Range Interpretation Comme nts SODIUM (BEAKER) (test code 140 meq/L 136-145 = 381) POTASSIUM (BEAKER) (test 4.0 meq/L 3.5-5.1 code = 379) CHLORIDE (BEAKER) (test 106 meq/L 98-107 code = 382) CO2 (BEAKER) (test code = 26 meq/L 22-29 355) BLOOD UREA NITROGEN 11 mg/dL 7-21 (BEAKER) (test code = 354) CREATININE (BEAKER) (test 0.87 mg/dL 0.57-1.25 code = 358) GLUCOSE RANDOM (BEAKER) 85 mg/dL 70-105 (test code = 652) CALCIUM (BEAKER) (test code 8.7 mg/dL 8.4-10.2 = 697) EGFR (BEAKER) (test code = 64 mL/min/1.73 sq m ESTIMATED GFR IS NOT 1092) ACCURATE CRE ATININE CLEARANCE IN NC EDICTING GLOMERULAR FILT RATION RATE. ESTIMATED GFR IS NOT APPLICABLE FOR DIALYSIS PATIENTS. TSH/FREE T4 IF [id number] 06:06:00 Test Item Value Reference Range Interpretation Comments THYROID STIMULATING HORMONE 0.78 uIU/mL 0.35-4.94 (BEAKER) (test code = 772) CBC W/PLT COUNT & AUTO [id number] 05:30:00 Test Item Value Reference Range Interpretation Comments WHITE BLOOD CELL COUNT (BEAKER) 5.9 K/ L 4.0-10.0 (test code = 775) RED BLOOD CELL COUNT (BEAKER) 3.66 M/ L 4.00-5.00 L (test code = 761) HEMOGLOBIN (BEAKER) (test code = 11.9 GM/DL 12.0-15.0 L 410) HEMATOCRIT (BEAKER) (test code = 35.5 % 36.0-45.0 L 411) MEAN CORPUSCULAR VOLUME (BEAKER) 97.0 fL 82.0-99.0 (test code = 753) MEAN CORPUSCULAR HEMOGLOBIN 32.5 pg 27.0-33.0 (BEAKER) (test code = 751) MEAN CORPUSCULAR HEMOGLOBIN CONC 33.5 GM/DL 32.0-36.0 (BEAKER) (test code = 752) RED CELL DISTRIBUTION WIDTH 12.5 % 10.3-14.2 (BEAKER) (test code = 412) PLATELET COUNT (BEAKER) (test 309 K/CU MM 150-430 code = 756) MEAN PLATELET VOLUME (BEAKER) 6.3 fL 6.5-10.5 L (test code = 754) NUCLEATED RED BLOOD CELLS 0 /100 WBC 0-0 (BEAKER) (test code = 413) NEUTROPHILS RELATIVE PERCENT 49 % (BEAKER) (test code = 429) LYMPHOCYTES RELATIVE PERCENT 33 % (BEAKER) (test code = 430) MONOCYTES RELATIVE PERCENT 11 % (BEAKER) (test code = 431) EOSINOPHILS RELATIVE PERCENT 6 % (BEAKER) (test code = 432) BASOPHILS RELATIVE PERCENT 1 % (BEAKER) (test code = 437) NEUTROPHILS ABSOLUTE COUNT 2.92 K/ L 1.80-8.00 (BEAKER) (test code = 670) LYMPHOCYTES ABSOLUTE COUNT 1.93 K/ L 1.48-4.50 (BEAKER) (test code = 414) MONOCYTES ABSOLUTE COUNT (BEAKER) 0.65 K/ L 0.00-1.30 (test code = 415) EOSINOPHILS ABSOLUTE COUNT 0.34 K/ L 0.00-0.50 (BEAKER) (test code = 416) BASOPHILS ABSOLUTE COUNT (BEAKER) 0.07 K/ L 0.00-0.20 (test code = 417) 0.00SEDIMENTATION [id number] 14:36:00 Test Item Value Reference Range Interpretation Comments SEDIMENTATION RATE, ERYTHROCYTE 20 mm/HR 0-40 (BEAKER) (test code = 766) VITAMIN [id number] 11:02:00 Test Item Value Reference Range Interpretation Comments VITAMIN B12 (BEAKER) (test code = 219 pg/mL 213-816 774) HEMOGLOBIN [id number] 08:55:00 Test Item Value Reference Range Interpretation Comments HEMOGLOBIN A1C (BEAKER) (test code = 5.3 % 4.3-6.1 368) LIPID [id number] 06:23:00 Test Item Value Reference Range Interpretation Comments TRIGLYCERIDES (BEAKER) (test code = 56 mg/dL 540) CHOLESTEROL (BEAKER) (test code = 140 mg/dL 631) HDL CHOLESTEROL (BEAKER) (test code 56 mg/dL = 976) LDL CHOLESTEROL CALCULATED (BEAKER) 73 mg/dL (test code = 633) Triglyceride Reference Range: Low Risk <150 Borderline 150-199 High Risk 200-499 Very High Risk >=500Cholesterol Reference Range: Low Risk <200 Borderline 200-239 High Risk >240HDL Cholesterol Reference Range: Low Risk >=60 High Risk <40LDL Cholesterol Reference Range: Optimal <100 Near Optimal 100-129 Borderline 130-159 High 160-189 Very High >=190BASIC METABOLIC [id number] 06:23:00 Test Item Value Reference Range Interpretation Comments SODIUM (BEAKER) 139 meq/L 136-145 (test code = 381) POTASSIUM (BEAKER) 4.0 meq/L 3.5-5.1 (test code = 379) CHLORIDE (BEAKER) 108 meq/L 98-107 H (test code = 382) CO2 (BEAKER) (test 24 meq/L 22-29 code = 355) BLOOD UREA NITROGEN 15 mg/dL 7-21 (BEAKER) (test code = 354) CREATININE (BEAKER) 0.85 mg/dL 0.57-1.25 (test code = 358) GLUCOSE RANDOM 86 mg/dL 70-105 (BEAKER) (test code = 652) CALCIUM (BEAKER) 8.6 mg/dL 8.4-10.2 (test code = 697) EGFR (BEAKER) (test 66 mL/min/1.73 ESTIMA LOIS GFR IS code = 1092) sq m NOT ACCURATE CREATININE CLEARANCE IN PREDICTING GLOMERULAR FILTRATION RATE . ESTIMATED GFR I S NOT APPLICABLE FOR DIALYSIS PATIEN TS. CBC W/PLT COUNT & AUTO [id number] 06:08:00 Test Item Value Reference Range Interpretation Comments WHITE BLOOD CELL COUNT (BEAKER) 6.8 K/ L 4.0-10.0 (test code = 775) RED BLOOD CELL COUNT (BEAKER) 4.01 M/ L 4.00-5.00 (test code = 761) HEMOGLOBIN (BEAKER) (test code = 12.3 GM/DL 12.0-15.0 410) HEMATOCRIT (BEAKER) (test code = 38.9 % 36.0-45.0 411) MEAN CORPUSCULAR VOLUME (BEAKER) 97.0 fL 82.0-99.0 (test code = 753) MEAN CORPUSCULAR HEMOGLOBIN 30.8 pg 27.0-33.0 (BEAKER) (test code = 751) MEAN CORPUSCULAR HEMOGLOBIN CONC 31.8 GM/DL 32.0-36.0 L (BEAKER) (test code = 752) RED CELL DISTRIBUTION WIDTH 12.5 % 10.3-14.2 (BEAKER) (test code = 412) PLATELET COUNT (BEAKER) (test 322 K/CU MM 150-430 code = 756) MEAN PLATELET VOLUME (BEAKER) 6.5 fL 6.5-10.5 (test code = 754) NUCLEATED RED BLOOD CELLS 0 /100 WBC 0-0 (BEAKER) (test code = 413) NEUTROPHILS RELATIVE PERCENT 50 % (BEAKER) (test code = 429) LYMPHOCYTES RELATIVE PERCENT 32 % (BEAKER) (test code = 430) MONOCYTES RELATIVE PERCENT 12 % (BEAKER) (test code = 431) EOSINOPHILS RELATIVE PERCENT 5 % (BEAKER) (test code = 432) BASOPHILS RELATIVE PERCENT 1 % (BEAKER) (test code = 437) NEUTROPHILS ABSOLUTE COUNT 3.42 K/ L 1.80-8.00 (BEAKER) (test code = 670) LYMPHOCYTES ABSOLUTE COUNT 2.19 K/ L 1.48-4.50 (BEAKER) (test code = 414) MONOCYTES ABSOLUTE COUNT (BEAKER) 0.80 K/ L 0.00-1.30 (test code = 415) EOSINOPHILS ABSOLUTE COUNT 0.33 K/ L 0.00-0.50 (BEAKER) (test code = 416) BASOPHILS ABSOLUTE COUNT (BEAKER) 0.07 K/ L 0.00-0.20 (test code = 417) 0.00
[2020-01-24] MEDS ORDERED: ALPRAZOLAM 1 MG TABLET ONE (14:48)
[2020-01-24 15:18] LABS: Absolute Lymphocytes (CBC) 1.1 K/uL (0.7-4.9); Basophils % 1.2 % (0-1.3); Hematocrit 32.6 % (36.0-45.0); Lymphocytes % 11.1 % (15.3-44.8); MPV 7.3 fL (7.6-11.3); RBC Red Blood Cell Count 4.21 M/uL (3.86-4.86)
[2020-01-24 15:29] LABS: Albumin 3.4 g/dL (3.4-5.0); Bilirubin Total 0.3 mg/dL (0.2-1.0); Potassium 3.9 mmol/L (3.5-5.1); Protein, Total 6.7 g/dL (6.4-8.2)
--- NOTE | 2020-01-24 15:47 | ER ---
Nurse's Notes [facility] Name: Hina Messina Age: 74 yrs Sex: Female : 1945 Arrival Date: 01/24/2020 Time: 13:07 Bed 7 Private MD: Maliha Morocho Diagnosis: Manic episode, unspecified Presentation: 01/23 13:22 Chief complaint: Patient states: Doubled paxil 2 weeks ago for possible anxiety. ll1 Caregiver noticed she seemed manic so she they backed her back down to 20mg. Ever since then she is anxious, can't sleep. paranoria, delusions, and "psychotic". Coronavirus screen: Client denies travel out of the [place] in the last 14 days. At this time, the client does not indicate any symptoms associated with coronavirus-19. Ebola Screen: Patient denies travel to an Ebola-affected area in the 21 days before illness onset. Initial Sepsis Screen: Does the patient meet any 2 criteria? No. Patient's initial sepsis screen is negative. Risk Assessment: Do you want to hurt yourself or someone else? Patient reports no desire to harm self or others. Onset of symptoms was January 11, 2020. 13:22 Method Of Arrival: Wheelchair ll1 13:22 Acuity: KESHAV 3 ll1 Historical: - Allergies: 13:27 ambien; ll1 13:27 Codeine; ll1 13:27 Demerol; ll1 13:27 Latex, Natural Rubber; ll1 13:27 Sulfa (Sulfonamide Antibiotics); ll1 13:27 Valium; ll1 - PMHx: 13:27 Anemia; GERD; Hyperlipidemia; Hypertension; COPD; Atrial Fib; Microcytic anemia; SVT; ll1 - Immunization history:: Flu vaccine is up to date. - Social history:: Smoking status: Patient/guardian denies using tobacco, the patient reports quitting approximately 3 years ago, Patient/guardian denies using alcohol, street drugs, Patient/guardian denies using The patient lives with family. - Family history:: not pertinent. Screenin:15 Abuse screen: Denies threats or abuse. Denies injuries from another. Nutritional jr10 screening: No deficits noted. Tuberculosis screening: No symptoms or risk factors identified. Fall Risk None identified. Assessment: 15:10 General: Appears in no apparent distress. Behavior is appropriate for age. General: jr10 Reports pt reports hx of bipolar, daughter at bedside states that for the past two weeks mother has been manic having visual and auditory hallucinations with paranoia, states that her medications were increased per psychiatrist and then decreased again when hallucinations started; at present pt alert and oriented, admits to paranoia stating "right now I'm in my right state of mind but I didn't realize before that I was having these hallucinations and paraniod. Pain: Denies pain. Neuro: No deficits noted. Cardiovascular: No deficits noted. Respiratory: No deficits noted. GI: No deficits noted. No signs and/or symptoms were reported involving the gastrointestinal system. : No deficits noted. No signs and/or symptoms were reported regarding the genitourinary system. EENT: No deficits noted. No signs and/or symptoms were reported regarding the EENT system. Derm: No deficits noted. No signs and/or symptoms reported regarding the dermatologic system. Musculoskeletal: No deficits noted. No signs and/or symptoms reported regarding the musculoskeletal system. Vital Signs: 13:22 BP 112 / 72; Pulse 78; Resp 20; Temp 98.5; Pulse Ox 97% on 3 lpm NC; Pain 0/10; ll1 14:41 BP 127 / 74; Pulse 77; Resp 18; Pulse Ox 98% on R/A; jr10 16:34 BP 120 / 83; Pulse 75; Resp 17; Temp 98.4(O); Pulse Ox 99% on R/A; mh5 ED Course: 13:07 Patient arrived in ED. mr 13:07 Maliha Morocho MD is Private Physician. mr 13:27 Triage completed. ll1 13:28 Arm band placed on. ll1 13:59 Guadalupe Cho MD is Attending Physician. ma2 14:29 Yareli Sebastian, JOEL is Primary Nurse. jr10 14:43 Chest Single View XRAY - STROKE In Process Unspecified. EDMS 16:33 Patient has correct armband on for positive identification. Bed in low position. Call mh5 light in reach. Side rails up X2. Adult w/ patient. Warm blanket given. Pillow given. Pulse ox on. NIBP on. 16:33 Urine collected: clean catch specimen, clear. mh5 17:06 No provider procedures requiring assistance completed. Patient did not have IV access jr10 during this emergency room visit. Administered Medications: 15:10 Drug: ALPRAZolam Tablet 1 mg Route: PO; jr10 16:37 Follow up: Response: No adverse reaction jr10 Outcome: 15:47 Discharge ordered by . xavi 17:05 Discharged to home via wheelchair, with family. jr10 17:05 Condition: improved 17:05 Discharge instructions given to patient, Instructed on discharge instructions, follow up and referral plans. Demonstrated understanding of instructions, follow-up care, medications, Prescriptions given X 1. 17:06 Patient left the ED. jr10 Signatures: Dispatcher [employer] Almita Best WalterEloisa [facility] Guadalupe Cho MD MD ma2 Rosas Kim RN RN ll1 Yareli Sebastian RN RN jr10
--- NOTE | 2020-01-24 15:47 | EDPHYS ---
Physician Documentation [facility] Name: Hina Messina Age: 74 yrs Sex: Female : 1945 Arrival Date: 01/24/2020 Time: 13:07 Bed 7 Private MD: Maliha Morocho ED Physician Guadalupe Cho HPI: 01/23 15:00 This 74 yrs old Female presents to ER via Wheelchair with complaints of ma2 Mental Evaluation. 15:00 anxiety and unable to sleep . Onset: The symptoms/episode began/occurred gradually, 3 ma2 day(s) ago. Severity of symptoms: At their worst the symptoms were mild in the emergency department the symptoms have improved. The patient has experienced similar episodes in the past. Historical: - Allergies: 13:27 ambien; ll1 13:27 Codeine; ll1 13:27 Demerol; ll1 13:27 Latex, Natural Rubber; ll1 13:27 Sulfa (Sulfonamide Antibiotics); ll1 13:27 Valium; ll1 - PMHx: 13:27 Anemia; GERD; Hyperlipidemia; Hypertension; COPD; Atrial Fib; Microcytic anemia; SVT; ll1 - Immunization history:: Flu vaccine is up to date. - Social history:: Smoking status: Patient/guardian denies using tobacco, the patient reports quitting approximately 3 years ago, Patient/guardian denies using alcohol, street drugs, Patient/guardian denies using The patient lives with family. - Family history:: not pertinent. ROS: 15:00 Constitutional: Negative for fever, chills, and weight loss. ma2 15:00 All other systems are negative. Exam: 15:00 Constitutional: This is a well developed, well nourished patient who is awake, alert, ma2 and in no acute distress. Head/Face: Normocephalic, atraumatic. Eyes: Pupils equal round and reactive to light, extra-ocular motions intact. Lids and lashes normal. Conjunctiva and sclera are non-icteric and not injected. Cornea within normal limits. Periorbital areas with no swelling, redness, or edema. ENT: Nares patent. No nasal discharge, no septal abnormalities noted. Tympanic membranes are normal and external auditory canals are clear. Oropharynx with no redness, swelling, or masses, exudates, or evidence of obstruction, uvula midline. Mucous membranes moist. Neck: Trachea midline, no thyromegaly or masses palpated, and no cervical lymphadenopathy. Supple, full range of motion without nuchal rigidity, or vertebral point tenderness. No Meningismus. Chest/axilla: Normal chest wall appearance and motion. Nontender with no deformity. No lesions are appreciated. Cardiovascular: Regular rate and rhythm with a normal S1 and S2. No gallops, murmurs, or rubs. Normal PMI, no JVD. No pulse deficits. Respiratory: Lungs have equal breath sounds bilaterally, clear to auscultation and percussion. No rales, rhonchi or wheezes noted. No increased work of breathing, no retractions or nasal flaring. Abdomen/GI: Soft, non-tender, with normal bowel sounds. No distension or tympany. No guarding or rebound. No evidence of tenderness throughout. Skin: Warm, dry with normal turgor. Normal color with no rashes, no lesions, and no evidence of cellulitis. MS/ Extremity: Pulses equal, no cyanosis. Neurovascular intact. Full, normal range of motion. Neuro: Awake and alert, GCS 15, oriented to person, place, time, and situation. Cranial nerves II-XII grossly intact. Motor strength 5/5 in all extremities. Sensory grossly intact. Cerebellar exam normal. Normal gait. Psych: Awake, alert, with orientation to person, place and time. Behavior, mood, and affect are within normal limits. Vital Signs: 13:22 BP 112 / 72; Pulse 78; Resp 20; Temp 98.5; Pulse Ox 97% on 3 lpm NC; Pain 0/10; ll1 14:41 BP 127 / 74; Pulse 77; Resp 18; Pulse Ox 98% on R/A; jr10 16:34 BP 120 / 83; Pulse 75; Resp 17; Temp 98.4(O); Pulse Ox 99% on R/A; mh5 MDM: 13:59 Patient medically screened. [facility] 15:00 Differential Diagnosis depression anxiety vs acute psychosis vs schezophrenia . or2 15:46 Data reviewed: vital signs, nurses notes. Counseling: I had a detailed discussion with ma2 the patient and/or guardian regarding: the historical points, exam findings, and any diagnostic results supporting the discharge/admit diagnosis, the presence of at least one elevated blood pressure reading (>120/80) during this emergency department visit, the need for outpatient follow up. Response to treatment: the patient's symptoms have markedly improved after treatment. 01/23 14:28 Order name: CMP; Complete Time: 15:37 [facility] 01/23 14:28 Order name: CBC with Diff; Complete Time: 15:37 [facility] 01/23 14:28 Order name: Urine Dipstick-Ancillary (obtain specimen); Complete Time: 16:33 [facility] 01/23 14:28 Order name: Chest Single View XRAY - STROKE [facility] 01/23 17:01 Order name: Urine Dipstick--Ancillary (enter results) eb Administered Medications: 15:10 Drug: ALPRAZolam Tablet 1 mg Route: PO; [facility] 16:37 Follow up: Response: No adverse reaction [facility] Disposition: 01/24/20 15:47 Discharged to Home. Impression: Manic episode, unspecified. - Condition is Stable. - Discharge Instructions: Generalized Anxiety Disorder. - Prescriptions for Xanax 1 mg Oral Tablet - take 1 tablet by ORAL route every 8 hours As needed; 20 tablet. - Medication Reconciliation Form, Thank You Letter, Antibiotic Education, Prescription Opioid Use form. - Follow up: Private Physician; When: Tomorrow; Reason: Continuance of care. Signatures: Dispatcher [employer] EDMS Guadalupe Cho MD MD ma2 Rosas Kim RN RN ll1 Yareli Sebastian RN RN jr10 Corrections: (The following items were deleted from the chart) 17:06 15:47 01/24/2020 15:47 Discharged to Home. Impression: Manic episode, unspecified. jr10 Condition is Stable. Prescriptions for Xanax 1 mg Oral Tablet - take 1 tablet by ORAL route every 8 hours As needed; 20 tablet. and Forms are Medication Reconciliation Form, Thank You Letter, Antibiotic Education, Prescription Opioid Use. Follow up: Private Physician; When: Tomorrow; Reason: Continuance of care. ma2
--- NOTE | 2020-01-24 15:49 | RAD REPORT ---
EXAM DESCRIPTION: Tiff Single View01/24/2020 2:45 pm CLINICAL HISTORY: Congestion COMPARISON: September 2019 FINDINGS: The lungs appear clear of acute infiltrate. The heart is mildly enlarged. Large hiatal he rnia IMPRESSION: No acute abnormalities displayed
[2020-01-24 18:00] LABS: Urine Blood NEGATIVE (NEG); Urine Glucose NEGATIVE (NEG); Urine Protein 1+ (NEG); Urine Specific Gravity 1.025 (1.005-1.030)
[2020-01-25 04:16] VITALS: BP 120/83; TEMP 98.4; O2SAT 99
== END 2020-01-24 17:06 | disposition home or self-care (01) ==
LOC: ER 13:04
DX: F30.9 Manic episode, unspecified (principal); I10 Essential (primary) hypertension; Z88.2 Allergy status to sulfonamides; Z88.5 Allergy status to narcotic agent; Z91.040 Latex allergy status; Z91.048 Other nonmedicinal substance allergy status
CPT/HCPCS: 36415; 71045; 80053; 81003; 85025; 99284

== ENCOUNTER 2020-02-08 15:30 | Emergency (ER) | payer OTHER ==
--- OUTSIDE RECORDS SUMMARY | 2020-02-08 15:32 | XMS REPORT | Clinical Summary ---
:1945 Author Organization [facility] Address [address] [place] [address] Care Team Providers Name Role Phone Unavailable [...] Not on file Results Not on fileafter 02/07/2019 Insurance Payer Benefit Plan / Group Subscriber ID Type Phone A ddress [employer] xxxxxxxx Maps Contracted Advance Directives For more information, please contact:[address] [phone] Code Status Date Activated Date Inactivated Comments Full Code 12/07/2016 2:16 AM 12/08/2016 9:06 PM This code status was determined by: Patient
--- OUTSIDE RECORDS SUMMARY | 2020-02-08 15:33 | XMS REPORT | Continuity of Care Document ---
:1945 Author Organization [facility] t Address [address] [place] [address] Care Team Providers Name Role Phone THAI [...] ischemic 00:00: Medica l attack) attack) 00 [place] Atrial Atrial Disease Active [facility] fl[facility] flutter 12-07 [facility] - 00:00: Medical 00 [place] COPD COPD Disease Active [facility] (chronic [...] 12-07 really [facility] - mide 00:00: [facility] Medical Antibiot 00 [place] ics) Diazepam Drug Active Pt [facility] Allergy 12-07 tremors [facility] - 00:[facility]: [facility] 00 [place] Family History Family Member Diagnosis Comments Start Date Stop Date Source Natural father Hyperlipidemia [facility] Natural father Stroke [facility] Natural mother Cancer [facility] Natural mother Osteoarthritis [facility] Natural sister Heart failure [facility] Natural sister Hyperlipidemia [facility] Natural sister Thyroid disease [facility] S t [facility] Social History Social Habit Start Date Stop Date Quantity Comments Source Sex Assigned At [facility] History of tobacco 2008-12-07 Current smoker [facility] - use 00:00:00 [facility] Smoking Status Start Date Stop Date Source Former smoker 2016-12-07 00:00:00 2016-12-07 00:00:00 [facility] Medications Ordered Filled Start Stop Current [...] MG tablet 01:57: daily. Medica l 06 [place] fluticasone Yes 1{spray Q.5D [address] [facility] (FLONASE) 12-07 } Nasal [facility] - 50 01:57: route 2 Medical mcg/actuati 06 (two) Center on nasal times spray daily. atorvastati Yes excessive 20mg QD Take [address] [facility] n (LIPITOR) 12-07 fat in the by mouth [facility] - 20 MG 01:57: blood daily. Medical tablet 05 [place] pantoprazol Yes gastroesoph 40mg Q.5D Take 40 [...] NOT 1092) ACCURATE CRE ATININE CLEARANCE IN [place] EDICTING GLOMERULAR FILT RATION RATE. ESTIMATED GFR IS NOT APPLICABLE FOR DIALYSIS PATIENTS. TSH/FREE T4 IF [id number] 06:06:00 Test Item Value Reference Range Interpretation Comments THYROID STIMULATING HORMONE 0.78 uIU/mL 0.35-4.94 (BEAKER) (test code = 772) CBC W/PLT COUNT & AUTO [id number] 05:30:00 Test Item Value Reference Range Interpretation [...] L 0.00-0.20 (test code = 417) 0.00SEDIMENTATION [id number] 14:36:00 Test Item Value Reference Range Interpretation Comments SEDIMENTATION RATE, ERYTHROCYTE 20 mm/HR 0-40 (BEAKER) (test code = 766) VITAMIN [id number] 11:02:00 Test Item Value Reference Range Interpretation Comments VITAMIN B12 (BEAKER) (test code = 219 pg/mL [phone]) HEMOGLOBIN [id number] 08:55:00 Test Item Value Reference Range Interpretation Comments HEMOGLOBIN A1C (BEAKER) (test code = 5.3 % 4.3-6.1 368) LIPID [id number] 06:23:00 Test Item Value Reference Range Interpretation [...] 130-159 High 160-189 Very High >=190BASIC METABOLIC [id number] 06:23:00 Test Item Value Reference Range Interpretation [...] PATIEN TS. CBC W/PLT COUNT & AUTO [id number] 06:08:00 Test Item Value Reference Range Interpretation [...]
[2020-02-08 16:41] LABS: Absolute Lymphocytes (CBC) 1.1 K/uL (0.7-4.9); Basophils % 1.3 % (0-1.3); Hematocrit 29.2 % (36.0-45.0); Lymphocytes % 10.9 % (15.3-44.8); MPV 6.9 fL (7.6-11.3); RBC Red Blood Cell Count 3.84 M/uL (3.86-4.86)
--- NOTE | 2020-02-08 16:44 | RAD REPORT ---
EXAM DESCRIPTION: CT - Head Brain Wo Cont - 02/08/2020 4:32 pm CLINICAL HISTORY: right arm and leg spasm Headache, drowsiness COMPARISON: Head Brain Wo Cont dated 09/22/2019; Head angio dated 07/27/2019 TECHNIQUE: All CT scans are performed using dose optimization technique as appropriate and may inclu de automated exposure control or mA/KV adjustment according to patient size. FINDINGS: No intracranial hemorrhage, hydrocephalus or extra-axial fluid collection.Mild generalized brain atrophy.No areas of brain edema or evidence of midline shift. The paranasal sinuses and mastoids are clear. The calvarium is intact. IMPRESSION: No acute intracranial abnormality.
[2020-02-08 16:45] LABS: Protime INR 1.89
[2020-02-08] MEDS ORDERED: NA CHLORIDE 0.9% 500 ML ONE (16:45)
[2020-02-08 17:17] LABS: Urine Blood NEGATIVE (NEG); Urine Glucose NEGATIVE (NEG); Urine Protein TRACE (NEG); Urine Specific Gravity 1.025 (1.005-1.030); Urine pH 6.5 (5.0-7.0)
--- NOTE | 2020-02-08 17:20 | EDPHYS ---
Physician Documentation [facility] Name: Hina Messina Age: 74 yrs Sex: Female : 1945 Arrival Date: 02/08/2020 Time: 15:32 Bed 20 Private MD: Raul [facility] ED Physician Bright Zendejas HPI: 02/07 17:11 This 74 yrs old Female presents to ER via Ambulatory with complaints of rn uncontrollable movements of RUE/RLE. 17:11 The complaints affect the. Onset: The symptoms/episode began/occurred 2 day(s) ago. rn Associated signs and symptoms:. Severity of symptoms: At their worst the symptoms were moderate, in the emergency department the symptoms have improved. The patient has not experienced similar symptoms in the past. Family reports noticed "restless right arm and leg", for 2 days, intermittent, seems better now, no fever. + manic episode for 2 weeks. No gross change in medication recently. No weakness/numbness/change in speech or vision. Movements are jerky and rapid, intermittent, and has never had before. No headache. . Historical: - Allergies: 15:43 Demerol; em 15:43 Codeine; em 15:43 ambien; em 15:43 Latex, Natural Rubber; em 15:43 Sulfa (Sulfonamide Antibiotics); em 15:43 Valium; em - PMHx: 15:43 Anemia; Microcytic anemia; Hypertension; COPD; Atrial Fib; GERD; Hyperlipidemia; SVT; em DVT; - PSHx: 15:43 Appendectomy; partial appendectomy; em - Immunization history:: Adult Immunizations up to date. - Social history:: Smoking status: Patient/guardian denies using tobacco, but has a distant history of tobacco abuse. - Family history:: not pertinent. - Hospitalizations: : No recent hospitalization is reported. ROS: 17:11 Constitutional: Negative for fever, chills, and weight loss, Eyes: Negative for injury, rn pain, redness, and discharge, Neck: Negative for injury, pain, and swelling, Cardiovascular: Negative for chest pain, palpitations, and edema, Respiratory: Negative for shortness of breath, cough, wheezing, and pleuritic chest pain, Abdomen/GI: Negative for abdominal pain, nausea, vomiting, diarrhea, and constipation, MS/Extremity: Negative for injury and deformity, Skin: Negative for injury, rash, and discoloration, Neuro: Negative for headache, weakness, numbness, tingling, and seizure. Exam: 17:11 Constitutional: This is a well developed, well nourished patient who is awake, alert, rn and in no acute distress. Head/Face: Normocephalic, atraumatic. Eyes: Pupils equal round and reactive to light, extra-ocular motions intact. Lids and lashes normal. Conjunctiva and sclera are non-icteric and not injected. Cornea within normal limits. Periorbital areas with no swelling, redness, or edema. Cardiovascular: Regular rate and rhythm. No pulse deficits. Respiratory: Speaking full sentences. No increased work of breathing, no retractions or nasal flaring. Abdomen/GI: Soft, non-tender Skin: Warm, dry MS/ Extremity: Pulses equal, no cyanosis. Neurovascular intact. Full, normal range of motion. Equal circumference. Neuro: Awake and alert, GCS 15, oriented to person, place, time, and situation. Cranial nerves II-XII grossly intact. Motor strength 5/5 in all extremities. Sensory grossly intact. + jerky movements of RUE and RLE, does not seem to bother her, and able to keep right arm comfortably behind head. No drift or sensory changes. Speech clear. Vital Signs: 15:37 BP 90 / 72; Pulse 84; Resp 18; Temp 98.6(O); Pulse Ox 98% on 3 lpm NC; Weight 73.94 kg; em Height 5 ft. 6 in. (167.64 cm); Pain 0/10; 16:43 BP 114 / 72; Pulse 88; Resp 18 S; Pulse Ox 100% on R/A; ll2 15:37 Body Mass Index 26.31 (73.94 kg, 167.64 cm) em MDM: 15:51 Patient medically screened. rn 17:11 Differential diagnosis: hemiballismus, movement disorder, medication reaction, CVA. rn Data reviewed: vital signs, nurses notes, lab test result(s), radiologic studies, CT scan, and as a result, I will discharge patient. Counseling: I had a detailed discussion with the patient and/or guardian regarding: the historical points, exam findings, and any diagnostic results supporting the discharge/admit diagnosis, lab results, radiology results, the need for outpatient follow up, to return to the emergency department if symptoms worsen or persist or if there are any questions or concerns that arise at home. Special discussion: I discussed with the patient/guardian in detail that at this point there is no indication for admission to the hospital. It is understood, however, that if the symptoms persist or worsen the patient needs to return immediately for re-evaluation. Based on the history and exam findings, there is no indication for further emergent testing or inpatient evaluation. I discussed with the patient/guardian the need to see the neurologist for further evaluation of the symptoms. ED course: Consulted with Dr. Monroe, states can try pramipexole, but not emergent to start it. Can f/u as outpt for outpt EEG and further testing. Also recommends psychiatric f/u. Spoke with patient and daughter, do not want initiation of new medication right now, and will f/u with both Shelbi Carter and Dr. Monroe. . 02/07 16:14 Order name: CBC with Diff; Complete Time: 16:51 rn 02/07 16:14 Order name: Basic Metabolic Panel; Complete Time: 17:00 rn 02/07 16:14 Order name: Protime (+inr); Complete Time: 16:51 02/07 16:14 Order name: Ptt, Activated; Complete Time: 16:51 rn 02/07 16:14 Order name: Urine Microscopic Only rn 02/07 17:10 Order name: Urine Dipstick--Ancillary (enter results); Complete Time: 17:20 bd 02/07 16:14 Order name: CT Head Brain wo Cont; Complete Time: 16:51 rn 02/07 16:14 Order name: IV Start; Complete Time: 16:34 rn Administered Medications: 16:42 Drug: NS 0.9% 500 ml Route: IV; Rate: bolus; Site: right antecubital; ll2 17:38 Follow up: Response: No adverse reaction; IV Status: Completed infusion ll2 Disposition: 02/08/20 17:19 Discharged to Home. Impression: Abnormal involuntary movements - right arm and right leg, Manic episode. - Condition is Stable. - Medication Reconciliation Form, Thank You Letter, Antibiotic Education, Prescription Opioid Use form. - Follow up: Private Physician; When: As needed; Reason: Recheck today's complaints, Re-evaluation by your physician. - Problem is new. - Symptoms have improved. Signatures: Dispatcher [employer] EDWilliam Meeks, RN Bright Agosto MD MD rn [place], Lacie, RN RN ll2 Corrections: (The following items were deleted from the chart) 16:17 16:15 Head Brain Wo Cont+CT.RAD.BRZ ordered. EDWA EDMS 16:23 16:22 Head Brain Wo Cont+CT.RAD.BRZ ordered. EDWA EDWA 17:19 17:19 02/08/2020 17:19 Discharged to Home. Impression: Abnormal involuntary movements - rn right arm and right leg. Condition is Stable. Forms are Medication Reconciliation Form, Thank You Letter, Antibiotic Education, Prescription Opioid Use. Follow up: Private Physician; When: As needed; Reason: Recheck today's complaints, Re-evaluation by your physician. Problem is new. Symptoms have improved. rn 17:37 17:19 02/08/2020 17:19 Discharged to Home. Impression: Abnormal involuntary movements - ll2 right arm and right leg; Manic episode. Condition is Stable. Forms are Medication Reconciliation Form, Thank You Letter, Antibiotic Education, Prescription Opioid Use. Follow up: Private Physician; When: As needed; Reason: Recheck today's complaints, Re-evaluation by your physician. Problem is new. Symptoms have improved. rn
--- NOTE | 2020-02-08 17:20 | ER ---
Nurse's Notes [facility] Name: Hina Messina Age: 74 yrs Sex: Female : 1945 Arrival Date: 02/08/2020 Time: 15:32 Bed 20 Private MD: Martin Carter Diagnosis: Abnormal involuntary movements-right arm and right leg;Manic episode Presentation: 02/07 15:37 Chief complaint: Patient's son or daughter states: was seen 2-3 weeks ago for em manic/hallucinations, discharged home to follow up neuro/psych doctors, also reports right arm and leg restless, talked to Dr. Monroe and was told to come get checked out, reports visual hallucinations. Coronavirus screen: Client denies travel out of the [place] in the last 14 days. Ebola Screen: Patient negative for fever greater than or equal to 101.5 degrees Fahrenheit, and additional compatible Ebola Virus Disease symptoms Patient denies exposure to infectious person. Patient denies travel to an Ebola-affected area in the 21 days before illness onset. No symptoms or risks identified at this time. Initial Sepsis Screen: Does the patient meet any 2 criteria? No. Patient's initial sepsis screen is negative. Does the patient have a suspected source of infection? No. Patient's initial sepsis screen is negative. Risk Assessment: Do you want to hurt yourself or someone else? Patient reports no desire to harm self or others. Onset of symptoms was January 18, 2020. 15:37 Method Of Arrival: Ambulatory em 15:37 Acuity: KESHAV 2 em Triage Assessment: 17:37 General: Behavior is calm, cooperative, appropriate for age. ll2 Historical: - Allergies: 15:43 Demerol; em 15:43 Codeine; em 15:43 ambien; em 15:43 Latex, Natural Rubber; em 15:43 Sulfa (Sulfonamide Antibiotics); em 15:43 Valium; em - PMHx: 15:43 Anemia; Microcytic anemia; Hypertension; COPD; Atrial Fib; GERD; Hyperlipidemia; SVT; em DVT; - PSHx: 15:43 Appendectomy; partial appendectomy; em - Immunization history:: Adult Immunizations up to date. - Social history:: Smoking status: Patient/guardian denies using tobacco, but has a distant history of tobacco abuse. - Family history:: not pertinent. - Hospitalizations: : No recent hospitalization is reported. Screenin:15 Abuse screen: Denies threats or abuse. Nutritional screening: No deficits noted. ll2 Tuberculosis screening: No symptoms or risk factors identified. Fall Risk IV access (20 points). Ambulatory Aid- Crutches/Cane/Walker (15 pts). Gait- Weak (10 pts.). Mental Status- Oriented to own ability (0 pts). Total Damico Fall Scale indicates High Risk Score (45 or more points). Assessment: 16:55 General: Appears in no apparent distress. comfortable. Pain: Denies pain. Neuro: Level ll2 of Consciousness is awake, alert, obeys commands, Oriented to person, place, time, situation, Financial Services Manager are equal bilaterally Speech is normal. Cardiovascular: Capillary refill < 3 seconds Patient's skin is warm and dry. Respiratory: Airway is patent Respiratory effort is even, unlabored, Respiratory pattern is regular, symmetrical. GI: No signs and/or symptoms were reported involving the gastrointestinal system. : No signs and/or symptoms were reported regarding the genitourinary system. Denies burning with urination, urinary frequency. EENT: No signs and/or symptoms were reported regarding the EENT system. Derm: Skin is intact, is healthy with good turgor, Skin is dry, Skin is pink, warm \T\ dry. Skin temperature is warm. Musculoskeletal: Circulation, motion, and sensation intact. Range of motion: intact in all extremities. Vital Signs: 15:37 BP 90 / 72; Pulse 84; Resp 18; Temp 98.6(O); Pulse Ox 98% on 3 lpm NC; Weight 73.94 kg; em Height 5 ft. 6 in. (167.64 cm); Pain 0/10; 16:43 BP 114 / 72; Pulse 88; Resp 18 S; Pulse Ox 100% on R/A; ll2 15:37 Body Mass Index 26.31 (73.94 kg, 167.64 cm) em ED Course: 15:32 Patient arrived in ED. ag5 15:33 Martin Carter DO is Private Physician. ag5 15:42 Triage completed. em 15:43 Arm band placed on. em 15:51 Bright Zendejas MD is Attending Physician. rn 16:28 Inserted saline lock: 20 gauge in right antecubital area, using aseptic technique. jd3 Blood collected. 16:31 CT Head Brain wo Cont In Process Unspecified. EDMS 16:42 Jessica Junior, RN is Primary Nurse. ll2 17:15 Patient has correct armband on for positive identification. Bed in low position. Call ll2 light in reach. Side rails up X 1. Pulse ox on. NIBP on. 17:36 No provider procedures requiring assistance completed. IV discontinued, intact, ll2 bleeding controlled, No redness/swelling at site. Pressure dressing applied. Administered Medications: 16:42 Drug: NS 0.9% 500 ml Route: IV; Rate: bolus; Site: right antecubital; ll2 17:38 Follow up: Response: No adverse reaction; IV Status: Completed infusion ll2 Outcome: 17:19 Discharge ordered by . rn 17:37 Discharged to home via wheelchair, with family. ll2 17:37 Condition: stable 17:37 Discharge instructions given to patient, family, Instructed on discharge instructions, follow up and referral plans. Demonstrated understanding of instructions, follow-up care. 17:37 Patient left the ED. ll2 Signatures: Dispatcher [employer] EDAZ William Middleton, RN RN Bright Swain MD MD rn Davies, Jonathon, RN RN Zechariah Umana [facility] Jessica Junior, RN RN ll2
[2020-02-08 18:21] LABS: Urine Bacteria 20-50 /HPF (<20); Urine Culture Reflex Order REFLEXED; Urine Mucus 1+ /HPF (NONE SEEN); Urine RBC <5 /HPF (NONE SEEN)
== END 2020-02-08 17:37 | disposition home or self-care (01) ==
LOC: ER 15:30
DX: F30.9 Manic episode, unspecified (principal); I10 Essential (primary) hypertension; Z88.2 Allergy status to sulfonamides; Z88.5 Allergy status to narcotic agent; Z88.8 Allergy status to other drugs, medicaments and biological substances; Z91.040 Latex allergy status; Z91.048 Other nonmedicinal substance allergy status
CPT/HCPCS: 87088; 85025; 87086; 80048; 36415; 85610; 85730; 70450; 96360; 99284; J7040; 81003; 81015

== ENCOUNTER 2020-02-26 18:56 | Emergency (ER) | payer OTHER ==
--- OUTSIDE RECORDS SUMMARY | 2020-02-26 18:59 | XMS REPORT | Continuity of Care Document ---
:1945 Author Organization [facility] t Address [address] [place] [address] Care Team Providers Name Role Phone THAI [...] ischemic 00:00: Medica l attack) attack) 00 [place] Atrial Atrial Disease Active [facility] 12-07 [facility]: [facility] 00 [place] COPD COPD Disease Active [facility] (chronic [...] 12-07 really [facility] - mide 00:00: [facility] Medical Antibiot 00 [place] ics) Diazepam Drug Active Pt [facility] Allergy 12-07 tremors [facility]: [facility] 00 [place] Family History Family Member Diagnosis Comments Start Date Stop Date Source Natural father Hyperlipidemia [facility] Natural father Stroke [facility] Natural mother Cancer [facility] Natural mother Osteoarthritis [facility] Natural sister Heart failure [facility] Natural sister Hyperlipidemia [facility] Natural sister Thyroid disease [facility] Social History Social Habit Start Date Stop Date Quantity Comments Source Sex Assigned At [facility] Tobacco use and 2016-12-07 2016-12-07 Never used [facility] - exposure 00:00:00 00:00:00 [facility] Alcohol intake 2016-12-07 2016-12-07 Current [facility] - 00:00:00 00:00:00 non-drinker of Medical nter alcohol (finding) History of 2008-12-07 Current smoker [facility] - tobacco use [facility] Smoking Status Start Date Stop Date Source Former smoker 2016-12-07 00:00:00 2016-12-07 00:00:00 [facility] Medications Ordered Filled Start Stop Current Ordering Indication Dosage Frequency Signature Comments Components Source Medication Medication Date Date Medication? Clinician (SIG) Name Name atorvastati Yes hyperlipide 20mg QD Take [address] [facility] n (LIPITOR) 12-08 huyen by mouth [facility] - 20 MG 19:06: daily. Medical tablet 07 [place] pantoprazol Yes gastroesoph 40mg Q.5D Take [address] [facility] e 12-08 ageal by mouth 2 [facility] - (PROTONIX) 19:06: reflux (two) Medi ruiz 40 MG 07 disease times Center tablet daily. spironolact Yes hypertensio 25mg Q.5D Take [address] [facility] one 7-23 n by mouth 2 [facility] - (ALDACTONE) 19:06: (two) Medic al 25 MG 07 times Center tablet daily. rivaroxaban 2017-0 Yes deep venous 20mg QD Take [address] [facility] (XARELTO) 12-08 thrombosis by mouth [facility] - 20 mg Tab 19:06: daily. Medica l tablet 07 Center citalopram Yes anxiety 20mg QD Take [address] [facility] (CELEXA) 20 12-08 with by mouth [facility] - MG tablet 19:06: depression daily. Medical Center metoprolol Yes hypertensio 25mg Q.5D Take [address] [facility] (TOPROL-XL) 12-08 n by mouth 2 Mariana kes - 25 MG 24 hr 19:06: (two) Medic al tablet 07 times Center daily. cetirizine Yes urticaria 10mg QD Take [address] [facility] (ZYRTEC) 10 12-08 by mouth [facility] - MG tablet 19:06: daily. Medica l [address] [place] [address] fluticasone Yes 1{spray Q.5D [address] [facility] (FLONASE) 12-08 } Nasal [facility] - 50 19:06: route 2 Medical mcg/actuati 07 (two) Center on nasal times spray daily. Procedures This patient has no known procedures. [...] NOT 1092) ACCURATE CRE ATININE CLEARANCE IN CT EDICTING GLOMERULAR FILT RATION RATE. ESTIMATED GFR IS NOT APPLICABLE FOR DIALYSIS PATIENTS. TSH/FREE T4 IF [id number] 06:06:00 Test Item Value Reference Range Interpretation Comments THYROID STIMULATING HORMONE 0.78 uIU/mL 0.35-4.94 (BEAKER) (test code = 772) CBC W/PLT COUNT & AUTO [id number] 05:30:00 Test Item Value Reference Range Interpretation [...] L 0.00-0.20 (test code = 417) 0.00SEDIMENTATION [id number] 14:36:00 Test Item Value Reference Range Interpretation Comments SEDIMENTATION RATE, ERYTHROCYTE 20 mm/HR 0-40 (BEAKER) (test code = 766) VITAMIN [id number] 11:02:00 Test Item Value Reference Range Interpretation Comments VITAMIN B12 (BEAKER) (test code = 219 pg/mL [phone]) HEMOGLOBIN [id number] 08:55:00 Test Item Value Reference Range Interpretation Comments HEMOGLOBIN A1C (BEAKER) (test code = 5.3 % 4.3-6.1 368) LIPID [id number] 06:23:00 Test Item Value Reference Range Interpretation [...] 130-159 High 160-189 Very High >=190BASIC METABOLIC [id number] 06:23:00 Test Item Value Reference Range Interpretation [...] PATIEN TS. CBC W/PLT COUNT & AUTO [id number] 06:08:00 Test Item Value Reference Range Interpretation [...]
--- OUTSIDE RECORDS SUMMARY | 2020-02-26 18:59 | XMS REPORT | Clinical Summary ---
:1945 Author Organization [facility] Address [address] [place] [address] Care Team Providers Name Role Phone Unavailable [...] Take 20 mg by 0 Active tabletIndications: anxiety mouth daily. with depression metoprolol (TOPROL-XL) 25 Take 25 [...] Assigned at Date Recorded Not on file Last Filed Vital Signs Not on file Plan of Treatment Not on file Results Not on fileafter 02/25/2019 Insurance Payer Benefit Plan / Subscriber ID Effective Phone Address T ype Group Dates CIGNA CIGNA [id number] 2016-Pre [employer] ALL sent Contracted Advance Directives For more information, please contact: [phone] Code Status Date Activated Date Inactivated Comments Full Code 12/07/2016 2:16 AM 12/08/2016 9:06 PM This code status was determined by: Patient
[2020-02-26] MEDS ORDERED: LORazepam 2 MG/ML VIAL ONE ×2 (19:57→20:17)
[2020-02-26 21:19] LABS: Urine Appearance CLOUDY; Urine Bilirubin NEGATIVE (NEG); Urine Blood NEGATIVE (NEG); Urine Color YELLOW; Urine Glucose NEGATIVE (NEG); Urine Microscopic Reflex NO UMIC; Urine Protein NEGATIVE (NEG); Urine Urobilinogen 0.2 mg/dL (0.2-1.0); Urine pH 7.5 (5.0-7.0)
[2020-02-26 21:21] LABS: Urine Bacteria 20-50 /HPF (<20); Urine Culture Reflex Order REFLEXED; Urine RBC NONE SEEN /HPF (NONE SEEN)
[2020-02-26 21:31] LABS: Barbiturates NEGATIVE (NEGATIVE); Benzodiazepines POSITIVE (NEGATIVE); Cocaine NEGATIVE (NEGATIVE); METHAMPHETAM NEGATIVE (NEGATIVE); Methadone NEGATIVE (NEGATIVE); Opiates NEGATIVE (NEGATIVE); Phencyclidine NEGATIVE (NEGATIVE); THC Cannibis NEGATIVE (NEGATIVE)
[2020-02-26 21:56] LABS: Absolute Lymphocytes (CBC) 1.4 K/uL (0.7-4.9); Basophils % 1.5 % (0-1.3); Hematocrit 30.2 % (36.0-45.0); Lymphocytes % 15.5 % (15.3-44.8); MPV 7.5 fL (7.6-11.3); RBC Red Blood Cell Count 3.94 M/uL (3.86-4.86)
[2020-02-26 22:13] LABS: Albumin 3.5 g/dL (3.4-5.0); Bilirubin Direct 0.2 mg/dL (0-0.2); Bilirubin Total 0.7 mg/dL (0.2-1.0); Potassium 4.3 mmol/L (3.5-5.1); Protein, Total 7.1 g/dL (6.4-8.2)
[2020-02-27] MEDS ORDERED: LORazepam 2 MG/ML VIAL ONE (06:01)
--- NOTE | 2020-02-27 11:39 | RAD REPORT ---
EXAM DESCRIPTION: Tiff Single View02/27/2020 11:33 am CLINICAL HISTORY: Shortness of breath COMPARISON: 2019 FINDINGS: The lungs appear clear of acute infiltrate. The heart is mildly enlarged. Moderate hiatal hernia IMPRESSION: No acute abnormalities displayed
[2020-02-27 12:50] LABS: C-Reactive Protein 5.49 mg/L (<3.00); Ferritin 19.6 ng/mL (8-388)
--- NOTE | 2020-02-27 18:03 | EDPHYS ---
Physician Documentation [facility] Name: Hina Messina Age: 74 yrs Sex: Female : 1945 Arrival Date: 02/26/2020 Time: 19:05 Bed 6 Private MD: ED Physician Puma Vera HPI: 02/25 19:44 This 74 yrs old Female presents to ER via EMS with complaints of Won't Eat. tw4 19:44 The patient presents to the emergency department with paranoia, psychosis, has tw4 delusions. Onset: The symptoms/episode began/occurred 1 week(s) ago. Past psychiatric history: Prior diagnosis: dementia. Associated signs and symptoms: The patient has no apparent associated signs or symptoms. Severity of symptoms: At their worst the symptoms were moderate in the emergency department the symptoms are unchanged. The patient has not experienced similar symptoms in the past. Historical: - Allergies: 19:13 ambien; sv 19:13 Codeine; sv 19:13 Demerol; sv 19:13 Latex, Natural Rubber; sv 19:13 Sulfa (Sulfonamide Antibiotics); sv 19:13 Valium; sv - Home Meds: 02/27 12:07 xaralto 20mg nightly [Active]; Ventolin HFA 90 mcg/actuation Nebulizer HFAA [Active]; jl7 propranolol 40 mg Oral tab [Active]; cetirizine 10 mg Oral tab 1 tab once daily [Active]; URIMAR-T 120-0.12-10.8 mg oral tab [Active]; prednisone 5 mg Oral tab once daily [Active]; pantoprazole 40 mg Oral TbEC 1 tab once daily [Active]; risperidone 0.25 mg oral tab [Active]; clonazepam 0.5 mg Oral tab [Active]; citalopram 20 mg tab once daily [Active]; - PMHx: 02/25 19:13 Anemia; DVT; Atrial Fib; COPD; GERD; Hyperlipidemia; Hypertension; Microcytic anemia; sv SVT; 02/27 12:07 Depression; Anxiety; manic episode; Dementia; aortic stenosis; IBS; Osteoporosis; jl7 Glaucoma; - PSHx: 02/25 19:13 Appendectomy; sv 02/27 12:07 Hysterectomy; jl7 - Immunization history:: Adult Immunizations. - Social history:: Smoking status: . ROS: 02/25 19:44 Constitutional: Negative for fever, chills, and weight loss, Eyes: Negative for injury, tw4 pain, redness, and discharge, Cardiovascular: Negative for chest pain, palpitations, and edema, Respiratory: Negative for shortness of breath, cough, wheezing, and pleuritic chest pain, Abdomen/GI: Negative for abdominal pain, nausea, vomiting, diarrhea, and constipation, Back: Negative for injury and pain, Neuro: Negative for headache, weakness, numbness, tingling, and seizure. Psych: Positive for paranoia. Exam: 19:44 Constitutional: This is a well developed, well nourished patient who is awake, alert, tw4 and in no acute distress. Head/Face: Normocephalic, atraumatic. Chest/axilla: Normal chest wall appearance and motion. Nontender with no deformity. No lesions are appreciated. Cardiovascular: Regular rate and rhythm with a normal S1 and S2. No gallops, murmurs, or rubs. Normal PMI, no JVD. No pulse deficits. Respiratory: Lungs have equal breath sounds bilaterally, clear to auscultation and percussion. No rales, rhonchi or wheezes noted. No increased work of breathing, no retractions or nasal flaring. Abdomen/GI: Soft, non-tender, with normal bowel sounds. No distension or tympany. No guarding or rebound. No evidence of tenderness throughout. MS/ Extremity: Pulses equal, no cyanosis. Neurovascular intact. Full, normal range of motion. Neuro: Awake and alert, GCS 15, oriented to person, place, time, and situation. Cranial nerves II-XII grossly intact. Motor strength 5/5 in all extremities. Sensory grossly intact. Cerebellar exam normal. Normal gait. 19:44 Psych: Behavior/mood is aggressive, uncooperative, delirious, Affect is animated, Oriented to person, Patient has no thoughts/intents to harm self or others. Judgement / Insight is impaired. Vital Signs: 19:05 BP 136 / 95; Pulse 99; Resp 20; Temp 98; Pulse Ox 95% ; sv 20:55 BP 138 / 85; Pulse 98; Resp 18; Pulse Ox 100% ; ea 21:52 BP 116 / 98; Pulse 80; Resp 18; Pulse Ox 98% on 2 lpm NC; ea 10/11 00:02 BP 96 / 67; Pulse 74; Resp 18; Pulse Ox 98% on R/A; ea 01:30 BP 120 / 68; Pulse 70; Resp 18; Pulse Ox 98% ; ea 07:30 BP 102 / 73; Pulse 91; Resp 14; Pulse Ox 95% on R/A; hb 09:30 BP 90 / 53; Pulse 87; Resp 15; Pulse Ox 98% on R/A; hb 12:30 BP 112 / 62; Pulse 92; Resp 16; Pulse Ox 97% on R/A; hb 16:09 BP 119 / 72; Pulse 88; Resp 15; Pulse Ox 96% on R/A; hb 21:36 BP 138 / 88; Pulse 112; Resp 18; Temp 98.4(O); Pulse Ox 99% on 3 lpm NC; jb4 23:04 Pulse 95; Resp 16; Pulse Ox 98% on 3 lpm NC; jb4 23:50 BP 146 / 88; Pulse 119; Resp 16; Pulse Ox 99% on 3 lpm NC; Pain 0/10; jb4 02/27 02:00 BP 131 / 97; Pulse 110; Resp 16; Pulse Ox 99% on 3 lpm NC; jb4 04:36 BP 126 / 76; Pulse 96; Resp 16; Pulse Ox 96% on 3 lpm NC; jb4 07:41 BP 104 / 68; Pulse 99; Resp 15; Pulse Ox 100% ; jl7 12:26 BP 143 / 97; Pulse 138; Resp 19 S; Temp 98.2(O); Pulse Ox 100% on 2 lpm NC; jl7 14:16 Pulse 87; jl7 16:40 BP 136 / 83; Pulse 86; Resp 15; Pulse Ox 100% on 2 lpm NC; jl7 MDM: 02/25 19:10 Patient medically screened. tw4 02/26 07:17 ED course: Patient signed out at shift change per Dr. Up. Reported aggressive and ps1 to be admitted to Geropsychiatry. . 18:02 Data reviewed: vital signs, nurses notes, lab test result(s), and as a result, I will ps1 transfer patient to [facility]. . 02/27 14:20 Differential diagnosis: acute psychotic break, depression. ED course: pt continues to pau talk randomly, episodes of psychosis, agrees to sign and be treated at [facility], Dr. Cortes explained the case, agrees to accept the patient in transfer, explained to the daughter and patient the plan. we will as a courtesy attempt to transfer to [facility] if they will accepte without an FELICE, THIS IS THE FAMILY'S REQUEST. 14:24 Data interpreted: residential monitor: rate is 90 beats/min, rhythm is Pulse oximetry: on pau 2L(s) per nasal canula, is 96 %. Test interpretation: by ED physician or midlevel provider: ECG, plain radiologic studies. Counseling: I had a detailed discussion with the patient and/or guardian regarding: the historical points, exam findings, and any diagnostic results supporting the discharge/admit diagnosis, lab results, radiology results, the need to transfer to another facility, for higher level of care, [facility] does not immediately have the required specialist. Response to treatment: the patient's symptoms have markedly improved after treatment, patient is well hydrated. 02/25 19:15 Order name: Basic Metabolic Panel; Complete Time: 07:24 tw4 02/25 19:15 Order name: CBC with Diff; Complete Time: 07:24 tw4 02/25 19:15 Order name: Hepatic Function; Complete Time: 07:24 tw4 02/25 19:15 Order name: Lipase; Complete Time: 07:24 tw4 02/25 19:48 Order name: Urine Microscopic Only; Complete Time: 07:24 tw4 02/25 20:34 Order name: UDS; Complete Time: 07:24 tw4 02/25 21:19 Order name: Urinalysis; Complete Time: 07:24 EDMS 02/25 21:22 Order name: Urine Culture; Complete Time: 10:01 EDMS 02/25 22:59 Order name: ETOH Level; Complete Time: 07:24 tt3 02/26 10:41 Order name: Ferritin; Complete Time: 13:18 ss 02/26 10:41 Order name: D-Dimer; Complete Time: 13:18 ss 02/26 10:41 Order name: LDH; Complete Time: 13:18 ss 02/26 10:41 Order name: XRAY Chest (1 view); Complete Time: 11:45 ss 02/26 10:41 Order name: CRP; Complete Time: 13:18 ss 02/26 12:38 Order name: SARS-COV-2 RT PCR; Complete Time: 14:24 EDMS 02/27 12:58 Order name: Troponin I; Complete Time: 13:55 pau 02/25 19:15 Order name: Labs collected and sent; Complete Time: 21:53 tw4 02/25 19:48 Order name: Urine Dipstick-Ancillary (obtain specimen); Complete Time: 21:53 tw4 02/26 10:41 Order name: EKG; Complete Time: 10:42 ss 02/26 10:41 Order name: EKG - Nurse/Tech; Complete Time: 11:06 ss 02/26 12:27 Order name: Labs - recollect needed: blue top recollect not filled; Complete Time: 13:00dh3 02/26 16:24 Order name: Diet Regular; Complete Time: 16:24 ph 02/27 12:58 Order name: EKG - Nurse/Tech; Complete Time: 13:02 pau 02/27 12:58 Order name: EKG; Complete Time: 12:59 pau Administered Medications: 02/25 19:55 Drug: Ativan 1 mg Route: IM; Site: left deltoid; ea 21:53 Follow up: Response: No adverse reaction ea 23:21 Not Given (Patient Refused): NS 0.9% 1000 ml IV at 1 bolus Per protocol; 1000 mL bolus ea 02/26 06:01 Drug: Ativan 1 mg Route: IM; Site: right deltoid; ea 07:15 Follow up: Response: No adverse reaction hb 20:13 Drug: Tylenol 500 mg Route: PO; jb4 21:39 Follow up: Response: No adverse reaction; Pain is decreased jb4 23:51 Drug: NS 0.9% 500 ml Route: IV; Rate: bolus; Site: right antecubital; 4 02/27 02:44 Follow up: Response: No adverse reaction; IV Status: Completed infusion jb4 04:35 Drug: Ativan 0.5 mg Route: IVP; Site: right forearm; jb4 07:00 Follow up: Response: No adverse reaction jl7 13:31 Drug: SOLU-Medrol 125 mg Route: IVP; Site: right forearm; jl7 13:31 Drug: Xopenex 1.25 mg Route: Inhalation; jl7 13:31 Drug: AtroVENT Aerosol 0.5 mg Route: Inhalation; jl7 14:16 Drug: Ativan 0.5 mg Route: IVP; Site: right forearm; jl7 Disposition: 02/27/20 18:01 Transfer ordered to Other Acute Care Facility. Diagnosis is Delusional disorders. - Reason for transfer: Higher level of care. - Accepting physician is Roly. - Condition is Stable. - Problem is new. - Symptoms have improved. Signatures: Dispatcher [employer] EDMS Shira Couch, RN RN Puma Heaton MD MD cha Smirch, Shelby, RN RN ss Bryson, James, JOEL MALDONADO jb4 Tasha Wilkins RN RN jl7 Rebecca Lopez 3 Madina Sullivan RN RN Chad Gonsalez MD MD ps1 Manjit Up MD MD tw4 Briseida Booth RN Corrections: (The following items were deleted from the chart) 02/25 21:19 21:16 URINE DIPSTICK--ANCILLARY+U.LAB.BRZ ordered. EDTN EDTN 02/26 03:08 02:32 Chest Pa And Lat (2 Views)+RAD.RAD.BRZ ordered. EDTN EDTN 05:05 02/25 19:15 IV Saline Lock ordered. 4 ea 02/26 12:38 10:41 CORONAVIRUS+MR.LAB.BRZ ordered. EDTN EDTN 02/27 12:15 02/25 19:13 PSHx: partial appendectomy; jl7 02/27 20:18 02/26 18:01 02/27/2020 18:01 Transfer ordered to Other Acute Care Facility. Diagnosis ea is Delusional disorders. Reason for transfer: Higher level of care. Accepting physician is Roly. Condition is Stable. Problem is new. Symptoms have improved. ps1
--- NOTE | 2020-02-27 18:03 | ER ---
Nurse's Notes [facility] Name: Hina Messina Age: 74 yrs Sex: Female : 1945 Arrival Date: 02/26/2020 Time: 19:05 Bed 6 Private MD: Diagnosis: Delusional disorders Presentation: 02/25 19:05 Chief complaint: EMS states: called out by the daughter who stated to EMS that she is sv refusing to eat. Pt moved in to [facility] on the independent side today. Daughter stated pt started having franklin since this summer and was placed on Celexa and then was placed on an antidepressant. Coronavirus screen: Client denies travel out of the [place] in the last 14 days. At this time, the client does not indicate any symptoms associated with coronavirus-19. Ebola Screen: No symptoms or risks identified at this time. Initial Sepsis Screen: Does the patient meet any 2 criteria? HR > 90 bpm. No. Patient's initial sepsis screen is negative. Does the patient have a suspected source of infection? No. Patient's initial sepsis screen is negative. Risk Assessment: Do you want to hurt yourself or someone else? Patient reports no desire to harm self or others. Onset of symptoms is unknown. 19:05 Method Of Arrival: EMS: [facility] sv 19:05 Acuity: KESHAV 3 sv Triage Assessment: 19:13 General: Appears in no apparent distress. comfortable, unkempt, Behavior is agitated, sv uncooperative. Pain: Denies pain. Neuro: Level of Consciousness is awake, alert, obeys commands, Oriented to person, place, time, situation, Moves all extremities. Respiratory: Airway is patent Respiratory effort is even, unlabored, Respiratory pattern is regular, symmetrical. Derm: Skin is normal. Historical: - Allergies: 19:13 ambien; sv 19:13 Codeine; sv 19:13 Demerol; sv 19:13 Latex, Natural Rubber; sv 19:13 Sulfa (Sulfonamide Antibiotics); sv 19:13 Valium; sv - Home Meds: 02/27 12:07 xaralto 20mg nightly [Active]; Ventolin HFA 90 mcg/actuation Nebulizer HFAA [Active]; jl7 propranolol 40 mg Oral tab [Active]; cetirizine 10 mg Oral tab 1 tab once daily [Active]; URIMAR-T 120-0.12-10.8 mg oral tab [Active]; prednisone 5 mg Oral tab once daily [Active]; pantoprazole 40 mg Oral TbEC 1 tab once daily [Active]; risperidone 0.25 mg oral tab [Active]; clonazepam 0.5 mg Oral tab [Active]; citalopram 20 mg tab once daily [Active]; - PMHx: 02/25 19:13 Anemia; DVT; Atrial Fib; COPD; GERD; Hyperlipidemia; Hypertension; Microcytic anemia; sv SVT; 02/27 12:07 Depression; Anxiety; manic episode; Dementia; aortic stenosis; IBS; Osteoporosis; jl7 Glaucoma; - PSHx: 02/25 19:13 Appendectomy; sv 02/27 12:07 Hysterectomy; jl7 - Immunization history:: Adult Immunizations. - Social history:: Smoking status: . Screenin/10 20:05 Abuse screen: Denies threats or abuse. Nutritional screening: No deficits noted. ea Tuberculosis screening: No symptoms or risk factors identified. Fall Risk None identified. Assessment: 19:14 Reassessment: Pt refusing to place her name bracelet. Pt wants to know why her daughter sv is doing this to her. Pt wants the police to come talk to her. 19:20 General: Appears in no apparent distress. Behavior is anxious, restless, Pt is ea paranoid, states "my daughter is trying to kill me". Pain: Denies pain. Neuro: Level of Consciousness is awake, alert, obeys commands, Oriented to person, place, time, situation. Cardiovascular: Patient's skin is warm and dry. Respiratory: Airway is patent Respiratory effort is even, unlabored, Respiratory pattern is regular, symmetrical. Derm: Skin is pink, warm \\T\\ dry. 20:04 Reassessment: Pt refusing care, states "they are trying to kill me". Pt refusing oxygen ea states "it has stuff in it I am not using that". 21:40 Reassessment: pt agreed on blood draw lab at bedside obtaining sample. ea 21:52 Reassessment: Patient and/or family updated on plan of care and expected duration. Pain ea level reassessed. Pt resting with eyes closed, respirations even and unlabored. Chest expansions even and symmetrical. 02/26 00:01 Reassessment: Patient and/or family updated on plan of care and expected duration. Pain ea level reassessed. Pt resting with eyes closed, respirations even and unlabored. Chest expansions even and symmetrical. 00:16 Reassessment: Patient and/or family updated on plan of care and expected duration. Pain ea level reassessed. Pt resting with eyes closed, respirations even and unlabored. Chest expansions even and symmetrical. 01:55 Reassessment: Patient and/or family updated on plan of care and expected duration. Pain ea level reassessed. Patient is alert, oriented x 3, equal unlabored respirations, skin warm/dry/pink. 02:30 Reassessment: Patient and/or family updated on plan of care and expected duration. Pain ea level reassessed. Patient is alert, oriented x 3, equal unlabored respirations, skin warm/dry/pink. Pt went to radiology. 03:53 Reassessment: Patient and/or family updated on plan of care and expected duration. Pain ea level reassessed. Patient is alert, oriented x 3, equal unlabored respirations, skin warm/dry/pink. 04:53 Reassessment: Patient and/or family updated on plan of care and expected duration. Pain ea level reassessed. Patient is alert, oriented x 3, equal unlabored respirations, skin warm/dry/pink. Awaiting for accepting facility. 05:42 Reassessment: Patient and/or family updated on plan of care and expected duration. Pain ea level reassessed. Patient is alert, oriented x 3, equal unlabored respirations, skin warm/dry/pink. Pt continues to have paranoid behavior, refuses to eat states " I'm hungry but I just don't trust the food honey" Pt refuses oxygen states "there is something in it". 06:00 General: Behavior is agitated, anxious, restless, Pt states "I don't want to eat or ea drink anything because my daughter is trying to kill me" Pt refusing vital signs. 06:02 Reassessment: Patient and/or family updated on plan of care and expected duration. Pain ea level reassessed. Patient is alert, oriented x 3, equal unlabored respirations, skin warm/dry/pink. 06:47 Reassessment: Patient and/or family updated on plan of care and expected duration. Pain ea level reassessed. Patient is alert, oriented x 3, equal unlabored respirations, skin warm/dry/pink. Pt is ambulating, reports she is able to complete ADLs, ambulates without assist. Pt requested a drink and crackers. Pt tolerated well. 07:30 Reassessment: Patient appears in no apparent distress at this time. Patient and/or hb family updated on plan of care and expected duration. Pain level reassessed. Pt in bed resting with eyes closed, respirations even and unlabored. VSS. Sitter remains at bedside. 08:30 Reassessment: Patient appears in no apparent distress at this time. No changes from hb previously documented assessment. Patient and/or family updated on plan of care and expected duration. Pain level reassessed. 09:30 Reassessment: Patient appears in no apparent distress at this time. No changes from hb previously documented assessment. Patient and/or family updated on plan of care and expected duration. Pain level reassessed. 10:30 Reassessment: Patient appears in no apparent distress at this time. No changes from hb previously documented assessment. Patient and/or family updated on plan of care and expected duration. Pain level reassessed. Patient is alert, oriented x 3, equal unlabored respirations, skin warm/dry/pink. 10:30 Reassessment: Spoke with Paco Chanel RN with [facility] who reports that they ss do have bed availability and are willing to accept patient, but are still needing results for EKG, COVID-19 swab, Feratin, LDH, D-DIMER and CRP obtained and resulted prior to accepting the patient. 10:30 Reassessment: DDimer recollected and sent to lab. Awaiting results. JOEL Antonio called ss and updated. 11:10 Reassessment: Unable to draw blood, charge nurse Tyra MALDONADO aware, inside lab called for hb blood draw. Sitter remains at bedside. 11:27 Reassessment: Inside lab at bedside for blood draw. hb 12:02 Reassessment: Inside lab unable to draw blood. Charge nurse Jose Miguel MALDONADO notified. hb 12:07 Reassessment: Berna MALDONADO at bedside for blood draw. hb 12:29 Reassessment: [facility] declined patient due to medical history. ss 12:43 Reassessment: Tyra MALDONADO at bedside for blood recollect. hb 13:00 Reassessment: Patient appears in no apparent distress at this time. Patient and/or hb family updated on plan of care and expected duration. Pain level reassessed. Patient is alert, oriented x 3, equal unlabored respirations, skin warm/dry/pink. 14:00 Reassessment: Patient appears in no apparent distress at this time. Patient and/or hb family updated on plan of care and expected duration. Pain level reassessed. Patient is alert, oriented x 3, equal unlabored respirations, skin warm/dry/pink. Awaiting acceptance at psych facility. Sitter remains at bedside. 14:32 Reassessment: Faxed all results to [facility] and call Paco who states we ss should be getting a phone call back within the next 30 minutes or so. 15:42 Reassessment: Left voicemail with Paco at [phone], to get an update regarding sv transfer to [facility]. 16:00 Reassessment: Patient appears in no apparent distress at this time. Pt resting with hb eyes closed. Respirations even and unlabored. Sitter remains at bedside. 16:07 Reassessment: Spoke with Libertad at [facility], she requested we obtain an FELICE, explained hb to [place] that we can not get an FELICE on a voluntary patient. Awaiting call back after she speaks with her case florencio. 16:26 Reassessment: Called Lacho Camacho's dept with [employer] to get a hold of the mental health deputy to get assistance. 16:38 Reassessment: Spoke with Lacho Owens [facility] deput and informed her of the pt's sv situation and that we are attempting to get the pt transferred. Roman stated that they are unable to write an FELICE because the pt is voluntary at this time. 16:53 Reassessment: Spoke with Paco from [facility] and informed her that I spoke with our Mental health deputy Roman. Informed her that the mental health deputy is unable to write an FELICE because the patient is voluntary. Paco stated that their psychiatrist is requiring an FELICE before acceptance because she has Dementia. Asked Paco if our mental [facility] deputy is able to call her and inform them of that. She stated that would be ok. 16:55 Reassessment: Called Roman mental health deputy, and left a voicemail to have her call us back. 17:00 Reassessment: Patient appears in no apparent distress at this time. Patient and/or hb family updated on plan of care and expected duration. Pain level reassessed. Patient is alert, oriented x 3, equal unlabored respirations, skin warm/dry/pink. Pt cooperative and cheerful, visiting with sitter at bedside. Awaiting acceptance at psych facility at this time. 17:39 Reassessment: Nurse to nurse called to Susan at [facility]. hb 17:44 Reassessment: Attempted to call [facility] deputy, but sent to voicemail. sv Will try to call again later. 18:41 Reassessment: Daughter and son in law updated on plan of care via telephone. Pt remains hb cooperative, talking with sitter at bedside. Awaiting acceptance at psych facility at this time. 19:17 Reassessment: Patient appears in no apparent distress at this time. Patient and/or jb4 family updated on plan of care and expected duration. Pain level reassessed. Patient is alert, oriented x 3, equal unlabored respirations, skin warm/dry/pink. Sitter at the bedside. Pt conversing pleasantly with sitter. 20:10 Reassessment: Pt is resting in bed, reports rib soarness and gas pain. Requesting 500mg jb4 tylenol for pain. Provider notified, see MAR for orders. 21:02 Reassessment: Patient and/or family updated on plan of care and expected duration. Pain jb4 level reassessed. Pt is resting peacefully in bed with eyes closed, Respirations are even and unlabored with no s/s of pain or distress noted. Pt's daughter (Trudy Esteves, ) called and updated on pt's status and current plan of care. 22:02 Reassessment: attempted to call Mental health deputy to obtain FELICE for pt to be jb4 transferred to [facility]. Mental health refused stating that they cannot write an FELICE while the pt is in a voluntary state. 22:15 Reassessment: Pt's daughter states " If the police will take my mothers word for it jb4 that she is voluntary over mine then the hospital can too, I will not make a decision for her if her word is good enough. I refuse to give consent for her to be transferred to a facility where she will be allowed to leave while having a psychotic break.". 22:43 Reassessment: spoke to EDP who states if family is unwilling to consent to placement of bb pt with accepting psychiatric facility pt must be discharged home. [facility] deputy refuses to write an FELICE for a voluntary patient and the facility the family wishes pt be admitted to [facility] will not accept the pt without an FELICE therefore we are unable to place pt with a facility for further evaluation and or treatment. 22:50 Reassessment: Spoke with Pt's daughter and informed her of current situation after jb4 consulting the charge nurse and physician. Informed her that the only options we have left are for her to give consent to transfer the patient to an accepting psychiatric facility or for the pt to be discharged back to the daughter for her to take her to a psychiatric hospital of her choice. Daughter states "I will [facility] the [facility] that you [facility] and ask about their policies and give you a call back. 23:49 Reassessment: Pt is awake and alert. Is pleasant, was assisted to bedside commode by jb4 sitter, it was noted that the patients heart rate is elevated at 119 when active, provider notified, see MAR for orders. 02/27 00:08 Reassessment: Patient appears in no apparent distress at this time. Patient and/or jb4 family updated on plan of care and expected duration. Pain level reassessed. Patient is alert, oriented x 3, equal unlabored respirations, skin warm/dry/pink. Pt's daughter called stating " I called all of the facilities that we talked about. None of them said that they would accept her for various reasons. She cannot perform all of her ADL's on her own. [facility] is still willing to take her with the only requirement left being that she has and FELICE. With that being said I refuse to give permission for her to be transferred anywhere tonight. My and I need to get some sleep and will not be coming to get her tonight. We will arrange for her to be taken to [facility] in the morning and see if they can write her an FELICE with their officer like they mentioned. We do not feel it would be safe for her to come home tonight because it would end up involving police and EMS and she would be right back in the ER.". 02:43 Reassessment: Patient appears in no apparent distress at this time. Patient and/or jb4 family updated on plan of care and expected duration. Pain level reassessed. Patient is alert, oriented x 3, equal unlabored respirations, skin warm/dry/pink. Pt conversing pleasantly with sitter. 02:50 Reassessment: Provider notified that the heart rate while at rest is unchanged after jb4 500ml bolus. No new orders at this time. 04:30 Reassessment: Patient appears in no apparent distress at this time. Patient and/or jb4 family updated on plan of care and expected duration. Pain level reassessed. Patient is alert, oriented x 3, equal unlabored respirations, skin warm/dry/pink. Pt becoming more anxious, provider notified, see MAR for orders. 07:00 Reassessment: Dr. Up gave VO for 0.5 mg Ativan IVP if pt becomes agitated once she jl7 wake up. 07:41 Reassessment: Pt laying in bed with eyes closed, respirations even and unlabored, no jl7 signs of distress noted at this time. Awaiting transportation home. 09:08 Reassessment: Attempted to call daughter, no answer and mailbox is full. jl7 09:40 Reassessment: Patient appears in no apparent distress at this time. Neuro: Level of jl7 Consciousness is awake, alert, obeys commands, confused, Oriented to person, time. Cardiovascular: Patient's skin is warm and dry. Respiratory: Airway is patent Respiratory effort is even, unlabored, Respiratory pattern is regular, symmetrical. Derm: Skin is pink, warm \\T\\ dry. 10:00 Reassessment: Pt hard to follow during conversation, at one point reports she thought jl7 she was here as "the last step" and to "be placed in the ground." Reassured pt that she is not going to be put to and that she is safe. ERD notified. 10:15 Reassessment: Pt provided with breakfast tray, reports unable to eat but did drink jl7 orange juice from tray. 11:03 Reassessment: Spoke with Officer Gianni who states that they cannot issue an FELICE dm5 because the patient does not meet criteria, if not eating is the only thing she is doing to harm herself. 11:15 Reassessment: Spoke to daughter, Trudy, and she reports she will not sign for pt to be jl7 transferred without an FELICE. Trudy reports she does hold a POA but the paperwork is in a box somewhere and it will take hours to be able to produce the paperwork. 12:00 Reassessment: Dr. Vera at bedside. jl7 12:15 Reassessment: Daughter at bedside. Pt taking her daily medications per [facility], Xarelto, jl7 Propranolol, and Pepcid. 13:00 Reassessment: Dr. Vera at bedside. jl7 14:00 Reassessment: Pt reports increasing anxiety, Dr. Vera notified, see MAR for orders. jl7 Daughter remains at bedside. 14:30 Reassessment: Pt's daughter able to feed her a few bites of chicken spaghetti. jl7 15:37 Reassessment: Voluntary admission form signed by pt and faxed to [address] per their request. . 16:01 Reassessment: Daughter left facility, pt's medications and belongings left at nursing jl7 station, awaiting transportation. 16:39 Reassessment: Daughter returned, pt laying in bed with eyes closed, respirations even jl7 and unlabored, no signs of distress noted at this time. 17:37 Reassessment: Nurse to Nurse with JOEL Tobin from [facility]. 7 18:13 Reassessment: Transfer to [facility] cancelled. Pt accepted to [address], pt and pt's daughter notified. Awaiting EMS for transfer, pt's daughter and pt notified of wait time. . 19:41 Reassessment: Patient and/or family updated on plan of care and expected duration. Pain ll2 level reassessed. Patient is alert, oriented x 3, equal unlabored respirations, skin warm/dry/pink. 20:23 Reassessment: Patient and/or family updated on plan of care and expected duration. Pain ll2 level reassessed. Patient is alert, oriented x 3, equal unlabored respirations, skin warm/dry/pink. pt left via stretcher per [facility], pt tolerated well. Vital Signs: 02/25 19:05 BP 136 / 95; Pulse 99; Resp 20; Temp 98; Pulse Ox 95% ; sv 20:55 BP 138 / 85; Pulse 98; Resp 18; Pulse Ox 100% ; ea 21:52 BP 116 / 98; Pulse 80; Resp 18; Pulse Ox 98% on 2 lpm NC; ea 02/26 00:02 BP 96 / 67; Pulse 74; Resp 18; Pulse Ox 98% on R/A; ea 01:30 BP 120 / 68; Pulse 70; Resp 18; Pulse Ox 98% ; ea 07:30 BP 102 / 73; Pulse 91; Resp 14; Pulse Ox 95% on R/A; hb 09:30 BP 90 / 53; Pulse 87; Resp 15; Pulse Ox 98% on R/A; hb 12:30 BP 112 / 62; Pulse 92; Resp 16; Pulse Ox 97% on R/A; hb 16:09 BP 119 / 72; Pulse 88; Resp 15; Pulse Ox 96% on R/A; hb 21:36 BP 138 / 88; Pulse 112; Resp 18; Temp 98.4(O); Pulse Ox 99% on 3 lpm NC; jb4 23:04 Pulse 95; Resp 16; Pulse Ox 98% on 3 lpm NC; jb4 23:50 BP 146 / 88; Pulse 119; Resp 16; Pulse Ox 99% on 3 lpm NC; Pain 0/10; jb4 02/27 02:00 BP 131 / 97; Pulse 110; Resp 16; Pulse Ox 99% on 3 lpm NC; jb4 04:36 BP 126 / 76; Pulse 96; Resp 16; Pulse Ox 96% on 3 lpm NC; jb4 07:41 BP 104 / 68; Pulse 99; Resp 15; Pulse Ox 100% ; jl7 12:26 BP 143 / 97; Pulse 138; Resp 19 S; Temp 98.2(O); Pulse Ox 100% on 2 lpm NC; jl7 14:16 Pulse 87; jl7 16:40 BP 136 / 83; Pulse 86; Resp 15; Pulse Ox 100% on 2 lpm NC; jl7 ED Course: 02/25 19:05 Patient arrived in ED. sv 19:10 Manjit Up MD is Attending Physician. tw4 19:12 Triage completed. sv 19:13 Arm band placed on. sv 19:24 Madina Sullivan, JOEL is Primary Nurse. ea 20:05 Bed in low position. Call light in reach. Adult w/ patient. ea 02/26 01:12 Contacted [facility] for screening. Screener called back but ultimately did not need to tt3 screen pt. Stated we could start the transfer process and that she had enough information for her charting. 01:13 Faxed patient chart to [facility], [facility] ([facility]), tt3 [facility] ([facility]), [facility] and [facility] ([facility]). 03:08 Followed up with [facility] to see if chart was received. Was told "Not clinically tt3 appropriate.". 03:11 Attempted to follow up with [facility] but the number provided isn't tt3 working. 03:12 Followed up with [facility] for [facility] and was told they no tt3 longer have psych and haven't had it for approximately 6 years. 03:16 Followed up with [facility] and was told they were checking the faxes and would call tt3 back, currently very busy. 03:20 Followed up with [facility]. Was told that [facility] was closed. tt3 03:32 Tia from [facility] called and denied due to no beds. tt3 03:33 Faxed chart to remaining psych facilities on list. Will call [facility] to initiate tt3 transfer. 03:53 No provider procedures requiring assistance completed. ea 05:42 [facility] called and denied due to no beds. tt3 06:44 Rosmery from [facility] requests the exclusionary form to be faxed over. eb 06:54 faxed over exclusionary form as requested to [facility]. eb 07:18 Attending Physician role handed off by Manjit Up MD ps1 07:18 Chad Sewell MD is Attending Physician. ps1 11:01 EKG done, by ED staff, reviewed by Chad Sewell MD. dh3 11:33 XRAY Chest (1 view) In Process Unspecified. EDMS 12:55 Inserted saline lock: 22 gauge in right antecubital area, using aseptic technique. 3 Blood collected. 13:02 D-Dimer Sent. 3 17:33 connected Susan Maldonado from [facility] with Briseida Maldonado for patient eb transfer consultation. 18:00 Dr. Sewell called and spoke with Dr. Dunham the psychiatrist cable television technician for [facility] at [phone]. 19:43 Rosmery from [facility] called and asked for a copy of the covid screening for pt. tt3 20:02 Called [facility] back and left a message. tt3 22:03 Followed up with [facility] and per Mario he is the only person there and it is busy and he tt3 is going to go through faxes momentarily. He said to call back in approximately 30 minutes. 22:05 Followed up with [facility] and was told there were no beds. tt3 22:28 Initiated transfer at [facility] with Joan. She asked for the chart and [facility] tt3 exclusionary to be faxed. 23:02 Faxed patient chart and [facility] exclusionary to per Joan's request. tt3 23:13 Joan called back and stated some of the chart didn't fax over. Faxing over the tt3 missing pieces. 1012 00:11 Called [facility] to cancel transfer and spoke with Yolis. tt3 05:57 [facility] called to do doc to doc. Informed them that family was tt3 coming to get pt this morning to take them to another facility. 07:00 child monitor on. Pulse ox on. NIBP on. jl7 07:35 Primary Nurse role handed off by Madina Sullivan, RN bd 07:41 Tasha Wilkins, RN is Primary Nurse. jl7 08:00 Warm blanket given. Diet tray given. jl7 09:23 Attending Physician role handed off by Chad Sewell MD pau 09:23 Puma Vera MD is Attending Physician. pau 10:[address] to at [facility] with dr Sonja Arauz. bd 10:06 faxed ekg to [facility] as requested by Dr Arauz. bd 11:43 re initiated transfer to [facility]. bd 13:11 pt accepted at [facility] by Dr Arauz, admin approval given by Jose. bd 15:50 faxed voluntary admit form to [facility]. bd 16:12 attempted to call [facility], call [phone] and [phone], [employer] are working at this time. 20:09 IV discontinued, intact, bleeding controlled, No redness/swelling at site. Pressure ea dressing applied. Administered Medications: 02/25 19:55 Drug: Ativan 1 mg Route: IM; Site: left deltoid; ea 21:53 Follow up: Response: No adverse reaction ea 23:21 Not Given (Patient Refused): NS 0.9% 1000 ml IV at 1 bolus Per protocol; 1000 mL bolus ea 02/26 06:01 Drug: Ativan 1 mg Route: IM; Site: right deltoid; ea 07:15 Follow up: Response: No adverse reaction hb 20:13 Drug: Tylenol 500 mg Route: PO; jb4 21:39 Follow up: Response: No adverse reaction; Pain is decreased jb4 23:51 Drug: NS 0.9% 500 ml Route: IV; Rate: bolus; Site: right antecubital; jb4 02/27 02:44 Follow up: Response: No adverse reaction; IV Status: Completed infusion jb4 04:35 Drug: Ativan 0.5 mg Route: IVP; Site: right forearm; jb4 07:00 Follow up: Response: No adverse reaction jl7 13:31 Drug: SOLU-Medrol 125 mg Route: IVP; Site: right forearm; jl7 13:31 Drug: Xopenex 1.25 mg Route: Inhalation; jl7 13:31 Drug: AtroVENT Aerosol 0.5 mg Route: Inhalation; jl7 14:16 Drug: Ativan 0.5 mg Route: IVP; Site: right forearm; jl7 Outcome: 02/26 18:01 ER care complete, transfer ordered by . ps1 02/27 20:09 Condition: stable ea 20:09 Instructed on the need for transfer. ea 20:16 Transferred by ground EMS to other acute care facility: [facility]. Transfer form ea completed. 20:18 Patient left the ED. ea Signatures: Dispatcher [employer] EDMS Davina Jimenez Deana RN RN dm5 Shira Couch RN Puma Coffman MD MD cha Ballard, Brenda, RN RN bb Viktoriya Jain RN RN aa5 Tyra Kimble RN RN ss Briseida Booth RN RN Omid Madrid RN RN jb4 Tasha Wilkins RN RN jl7 Rebecca Lopez 3 Madina Sullivan, RN Chad Beckwith ea, MD MD ps1 Wadley, Terrence, MD MD tw4 Britney Mcclendon Lacie, RN RN ll2 Silvano Lloyd tt3 Corrections: (The following items were deleted from the chart) 02/26 02:32 02:30 Reassessment: Patient and/or family updated on plan of care and expected ea duration. Pain level reassessed. Patient is alert, oriented x 3, equal unlabored respirations, skin warm/dry/pink. ea 04:53 04:53 Reassessment: Patient and/or family updated on plan of care and expected ea duration. Pain level reassessed. Patient is alert, oriented x 3, equal unlabored respirations, skin warm/dry/pink. ea 06:01 06:00 Ativan 1 mg IM in right gluteus ea ea 06:09 06:00 General: Behavior is agitated, anxious, restless, Pt states "I don't want to eat ea or drink anything because my daughter is trying to kill me" . ea 11:13 11:12 IV discontinued, intact, bleeding controlled, No redness/swelling at site. Pressure dressing applied, 11:13 11:12 Discharged to home [facility] 11:13 11:12 Condition: good [facility] 11:13 11:12 Discharge instructions given to patient, Instructed on discharge instructions, ss follow up and referral plans. Demonstrated understanding of instructions, follow-up care, 12:38 11:07 CORONAVIRUS+ drawn and sent. [facility] EDMS 02/27 04:36 02:00 BP 131 / 97; Pulse 110bpm; Resp 16bpm; Pulse Ox 99% RA; jb4 jb4 12:15 02/25 19:13 PSHx: partial appendectomy; sv jl7 02/27 12:26 11:48 Reassessment: [facility] 16:40 16:01 Reassessment: Daughter left facility, pt's medications and belongings left at [facility] nursing station, awaiting reansportation [facility]
[2020-02-27] MEDS ORDERED: ACETAMINOPHEN 500 MG TAB ONE (20:21)
[2020-02-27] MEDS ORDERED: NA CHLORIDE 0.9% 500 ML ONE (23:58)
[2020-02-28] MEDS ORDERED: LORazepam 2 MG/ML VIAL ONE ×3 (04:37→19:29)
--- NOTE | 2020-02-28 07:43 | EKG ---
Test Date: 2020-02-27 Test Time: 11:01:36 Escort Vehicle Driver: YUMIKO MEASUREMENT RESULTS: Intervals: Rate: 115 [place]: 144 QRSD: 74 QT: 324 QTc: 448 [place]: P: 39 [place]: 144 QRS: -4 T: -76 INTERPRETIVE STATEMENTS: Sinus tachycardia ST & T wave abnormality, consider inferior ischemia ST & T wave abnormality, consider anterolateral ischemia Abnormal ECG Compared to ECG 09/22/2019 17:18:12 Sinus rhythm no longer present ST (T wave) deviation still present Possible ischemia still present Electronically Signed On 02-28-20 07:42:51 CDT by Edward Sherwood
[2020-02-28] MEDS ORDERED: LEVALBUTEROL 1.25 MG/3 ML NEB ONE (13:33)
[2020-02-28] MEDS ORDERED: IPRATROPIUM BROM 0.5MG/2.5ML ONE (13:33)
[2020-02-28] MEDS ORDERED: METHYLPREDNISOLONE 125 MG INJ ONE (13:33)
[2020-02-28 21:30] VITALS: O2SAT 100
[2020-02-28 21:32] VITALS: TEMP 98.2
[2020-02-28 21:35] VITALS: BP 136/83
--- NOTE | 2020-03-01 07:18 | EKG ---
Test Date: 2020-02-28 Test Time: 12:54:54 [employer] Worker: TESSA MEASUREMENT RESULTS: Intervals: Rate: 90 MS: 140 QRSD: 78 QT: 370 QTc: 452 [place]: P: 44 MS: 140 QRS: 15 T: -13 INTERPRETIVE STATEMENTS: Normal sinus rhythm Nonspecific ST and T wave abnormality Abnormal ECG Compared to ECG 02/28/2020 12:10:55 Sinus tachycardia no longer present ST (T wave) deviation still present Electronically Signed On 03-01-20 07:15:18 CDT by Edward Sherwood
== END 2020-02-28 20:18 ==
LOC: ER 18:56
DX: F22 Delusional disorders (principal); I10 Essential (primary) hypertension; E78.5 Hyperlipidemia, unspecified; I48.91 Unspecified atrial fibrillation; F03.90 Unspecified dementia, unspecified severity, without behavioral disturbance, psychotic disturbance, mood disturbance, and anxiety; F32.9 Major depressive disorder, single episode, unspecified; J44.9 Chronic obstructive pulmonary disease, unspecified; Z79.01 Long term (current) use of anticoagulants; Z88.2 Allergy status to sulfonamides; Z88.5 Allergy status to narcotic agent; Z88.8 Allergy status to other drugs, medicaments and biological substances; Z91.040 Latex allergy status
CPT/HCPCS: 96361; 93005 ×3; 87088; 85025; 87086; 80048; 36415 ×2; 80320; 80076; 80307 ×8; 84484; 83690; 71045; 96375; 96372; 96374; 99285; J7040; J2930; 81003; 81015

== ENCOUNTER 2020-04-02 00:31 | Emergency (ER) | payer OTHER ==
--- OUTSIDE RECORDS SUMMARY | 2020-04-02 00:33 | XMS REPORT | Clinical Summary ---
:1945 Author Organization [facility] Address [address] [place] [address] Care Team Providers Name Role Phone Unavailable [...] Not on file Results Not on fileafter 04/02/2019 Insurance Payer Benefit Plan / Subscriber ID Effective Phone Address T ype Group Dates CIGNA CIGNA [id number] 2016-Pre [employer] ALL sent Contracted Advance Directives For more information, please contact: [phone] Code Status Date Activated Date Inactivated Comments Full Code 12/07/2016 2:16 AM 12/08/2016 9:06 PM This code status was determined by: Patient
--- OUTSIDE RECORDS SUMMARY | 2020-04-02 00:35 | XMS REPORT | Continuity of Care Document ---
:1945 Author Organization [facility] t Address [facility] [address] [place] [address] Care Team Providers Name Role Phone DR WESTON Attending Clinician Unavailable DR Pedro Luis MARSHALL Attending Clinician Unavailable THAI WHITLOCK Attending Clinician Unavailable DR WESTON Admitting Clinician Unavailable DR Pedro Luis MARSHALL Admitting Clinician Unavailable THAI WHITLOCK Admitting Clinician Unavailable [...] ischemic 00:00: Medica l attack) attack) 00 Center Atrial Atrial Disease Active [facility]07 [facility] 00 [place] COPD COPD Disease Active [facility] (chronic [...] 12-07 really [facility] - mide 00:00: [facility] Medical Antibiot 00 Center ics) Diazepam Drug Active Pt [facility] Allergy 12-07 tremors [facility] Family History Family Member Diagnosis Comments Start Date Stop Date Source Natural father Hyperlipidemia [facility] Natural father Stroke [facility] Natural mother Cancer [facility] Natural mother Osteoarthritis [facility] Natural sister Heart failure [facility] Natural sister Hyperlipidemia [facility] Natural sister Thyroid disease [facility] S t [facility] Social History Social Habit Start Date Stop Date Quantity Comments Source Sex Assigned At [facility] Tobacco use and 2016-12-07 2016-12-07 Never used [facility] - exposure 00:00:00 00:00:00 [facility] Alcohol intake 2016-12-07 2016-12-07 Current [facility] - 00:00:00 00:00:00 non-drinker of Medical nter alcohol (finding) History of 2008-12-07 Current smoker [facility] Status Start Date Stop Date Source Former smoker 2016-12-07 00:00:00 2016-12-07 00:00:00 [facility] Medications Ordered Filled Start Stop Current Ordering Indication Dosage Frequency Signature Comments Components Source Medication Medication Date Date Medication? Clinician (SIG) Name Name atorvastati Yes hyperlipide 20mg QD Take [address] [facility] (LIPITOR) 12-08 huyen by mouth Luke s - 20 MG 19:06: daily. Medical tablet 07 [place] pantoprazol Yes gastroesoph 40mg Q.5D Take [address] [facility] - ageal by mouth 2 [facility] - (PROTONIX) 19:06: reflux (two) Medi ruiz 40 MG 07 disease times Center tablet daily. spironolact Yes hypertensio 25mg Q.5D Take [address] [facility] one 12-08 n by mouth 2 [facility] - (ALDACTONE) 19:06: (two) Medic al 25 MG 07 times Center tablet daily. rivaroxaban Yes deep venous 20mg QD Take 20 [...] - MG tablet 19:06: daily. Medica l [address] [place] [address] fluticasone Yes 1{spray Q.5D [address] [facility] [address] (FLONASE) 12-08 } Nasal [facility] - 50 19:06: route 2 Medical mcg/actuati 07 (two) Center on nasal times spray daily. Procedures This patient has no known procedures. Encounters Start End Encounter Admission Attending Care Care Encounter Source Date/Time Date/Time Type Type Clinicians Facility Department ID 2020-03-19 2020-03-31 [id number] [place] 22:48:00 17:50:00 [facility] 2020-03-18 2020-03-19 Outpatient [facility] TELE [id number] [place] 20:35:00 22:30:00 [facility] 2020-02-28 2020-03-18 [facility] [id number] [place] 19:45:00 21:24:00 [facility] Results Test Description Test Time Test Comments Results Result Comments Source LIPID PANEL 2020-03-23 05:59:00 Test Item Value Reference Range Interpretation Comme nts CHOLESTROL (test code = 44A) 142 mg/dL 140-200 TRIGLYCERI (test code = 42B) 59 mg/dL <=149 HDL (test code = 83D) 47.0 mg/dL 40.0-60.0 LDL (test code = 34B) 78 mg/dL <=99 CHL/HDL (test code = CHR) 3.0 0.0-3.4 VALPROIC ACID (DEPAKENE)2020-03-23 05:50:00 Test Item Value Reference Range Interpretation Comments VALP ACID (test code = 95A) 60.8 ug/mL 50.0-100.0 URINE [id number] 09:57:00 Test Item Value Reference Range Interpretation Comments Culture Observations THREE OR MORE SPECIES (test code = COB1) OF BACTERIA ISOLATED. PROBABLE CONTAMINATION. Culture Observations IDENTIFICATION AND (test code = COB17) SUSCEPTIBILITY NOT INDICATED. RECOLLECTION RECOMMENDED BASIC METABOLIC [id number] 14:15:00 Test Item Value Reference Range Interpretation Comments GLUCOSE (test code = 102 mg/dL 75-100 H 06D) SODIUM (test code = 138 mmol/L 136-145 01A) POTASSIUM (test code = 4.0 mmol/L 3.6-5.1 01B) CHLORIDE (test code = 102 mmol/L 98-107 04A) CO2 (test code = 02A) 30 mmol/L 22-32 ANION GAP (test code = 10.0 mmol/L ANG) BUN (test code = 05D) 15 mg/dL 7-18 CREATININE (test code 0.9 mg/dL 0.4-1.1 = 03E) GFR (test code = GFR) 60 mL/min/1.73m\S\2 >=90 L GFR 70 mL/min/1.73m\S\2 >=90 L (test code = GFRAA) EGFR (test code = eGFR BY CKD-EPI EGFR) CALCULATION IS NOT RECOMMENDED FOR PATIENTS UNDER 18 YEARS OF AGE. BUN/CREA (test code = 16 12-20 BCR) CALCIUM (test code = 8.5 mg/dL 8.3-9.5 09D) CBC (INCLUDES AUTOMATED DIFFERENTIAL)2020-03-19 13:04:00 Test Item Value Reference Range Interpretation Comments WBC (test code = WBC) 8.3 10\S\3/uL 4.5-11.0 RBC (test code = RBC) 3.91 10\S\6/uL 3.80-5.80 HGB (test code = HBG) 10.0 g/dL 12.0-15.5 L HCT (test code = HCT) 33.3 % 35.0-44.0 L MCV (test code = MCV) 85.2 fL 81.0-99.0 MCH (test code = MCH) 25.6 pg 27.0-31.0 L MCHC (test code = MCHC) 30.0 g/dL 32.0-36.0 L RDW (test code = RDW) 16.8 % 11.5-14.5 H PLT (test code = PLT) 414 10\S\3/uL 130-400 H MPV (test code = MPV) 8.9 fL 9.4-12.4 L NEUTROP # (test code = NE#) 6.3 10\S\3/uL 1.6-8.0 LYMPH # (test code = LY#) 0.8 10\S\3/uL 1.1-3.5 L MONOCYTE # (test code = MO#) 0.9 10\S\3/uL 0.0-1.1 EOSINOPH # (test code = EO#) 0.2 10\S\3/uL 0.0-0.7 BASOPHIL # (test code = BA#) 0.1 10\S\3/uL 0.0-0.3 IG # (test code = IG#) 0.04 10\S\3/uL 0.00-0.06 NRBC # (test code = NRBC#) 0.00 10\S\3/uL 0.00-0.01 NEUTROPH % (test code = NE%) 76.3 % 35.0-73.0 H LYMPH % (test code = LY%) 10.1 % 20.0-55.0 L MONO % (test code = MO%) 10.5 % 2.5-10.0 H EOSINOPH % (test code = EO%) 1.9 % 0.0-5.0 BASOPHIL % (test code = BA%) 0.7 % 0.0-2.0 IG % (test code = IG%) 0.5 % 0.0-0.8 NRBC% (test code = NRBC%) 0.0 % 0.0-0.2 MANDIFF (test code = MDIFF) NO RBC MORPH (test code = RBCMOR) NORMAL CBC WITH [id number] 19:44:00 Test Item Value Reference Range Interpretation Comments WBC (test code = WBC) 7.0 10\S\3/uL 4.5-11.0 RBC (test code = RBC) 3.06 10\S\6/uL 3.80-5.80 L HGB (test code = HBG) 7.3 g/dL 12.0-15.5 LL HCT (test code = HCT) 27.5 % 35.0-44.0 L MCV (test code = MCV) 89.9 fL 81.0-99.0 MCH (test code = MCH) 23.9 pg 27.0-31.0 L MCHC (test code = MCHC) 26.5 g/dL 32.0-36.0 L RDW (test code = RDW) 18.6 % 11.5-14.5 H PLT (test code = PLT) 354 10\S\3/uL 130-400 MPV (test code = MPV) 10.4 fL 9.4-12.4 NEUTROP # (test code = NE#) 5.2 10\S\3/uL 1.6-8.0 LYMPH # (test code = LY#) 0.9 10\S\3/uL 1.1-3.5 L MONOCYTE # (test code = 0.8 10\S\3/uL 0.0-1.1 MO#) EOSINOPH # (test code = 0.0 10\S\3/uL 0.0-0.7 EO#) BASOPHIL # (test code = 0.1 10\S\3/uL 0.0-0.3 BA#) IG # (test code = IG#) 0.04 10\S\3/uL 0.00-0.06 NRBC # (test code = NRBC#) 0.02 10\S\3/uL 0.00-0.01 H NEUTROPH % (test code = 73.9 % 35.0-73.0 H NE%) LYMPH % (test code = LY%) 13.0 % 20.0-55.0 L MONO % (test code = MO%) 11.5 % 2.5-10.0 H EOSINOPH % (test code = 0.3 % 0.0-5.0 EO%) BASOPHIL % (test code = 0.7 % 0.0-2.0 BA%) IG % (test code = IG%) 0.6 % 0.0-0.8 NRBC% (test code = NRBC%) 0.3 % 0.0-0.2 H PLT EST (test code = ADEQUATE ADEQUATE PLTEST) PLT MORPH (test code = NORMAL (1.5-3 um) NORMAL PLTMOR) ANISO (test code = ANISO) 1+ NONE A HYPOCHROM (test code = 1+ NONE A HYPOC) POLYCHROM (test code = 1+ NONE A POLY) TARGET (test code = TARG) 1+ NONE A OVALOCYTES (test code = 1+ NONE A OVA) TEAR DROP (test code = TD) 1+ NONE A BASIC METABOLIC [id number] 19:31:00 Test Item Value Reference Range Interpretation Comments GLUCOSE (test code = 128 mg/dL 75-100 H 06D) SODIUM (test code = 134 mmol/L 136-145 L 01A) POTASSIUM (test code = 4.3 mmol/L 3.6-5.1 01B) CHLORIDE (test code = 100 mmol/L 98-107 04A) CO2 (test code = 02A) 27 mmol/L 22-32 ANION GAP (test code = 11.3 mmol/L ANG) BUN (test code = 05D) 19 mg/dL 7-18 H CREATININE (test code 0.9 mg/dL 0.4-1.1 = 03E) GFR (test code = GFR) 62 mL/min/1.73m\S\2 >=90 L GFR 72 mL/min/1.73m\S\2 >=90 L (test code = GFRAA) EGFR (test code = eGFR BY CKD-EPI EGFR) CALCULATION IS NOT RECOMMENDED FOR PATIENTS UNDER 18 YEARS OF AGE. BUN/CREA (test code = 21 12-20 H BCR) CALCIUM (test code = 8.8 mg/dL 8.3-9.5 09D) URINALYSIS WITH [id number] 13:30:00 Test Item Value Reference Range Interpretation Comments COLOR (test code = COLU) Yellow YELLOW CLARITY (test code = CLA) Cloudy CLEAR GLUCOSE UR (test code = UA Negative NEGATIVE GLUCOSE) BILI UR (test code = BILE) 2+ NEGATIVE A KETONES UR (test code = INES) 3+ NEGATIVE A SP GRAVITY (test code = SPGR) 1.025 1.005-1.030 PH UR (test code = PH) 6.0 4.5-8.0 PROTEIN UR (test code = PU) 1+ NEGATIVE A UROBIL UR (test code = UROQ) 1.0 EU/dL 0.2-1.0 NITRITE UR (test code = Negative NEGATIVE NITRITE) BLOOD UR (test code = UA BLOOD) Negative NEGATIVE LEUK ES UR (test code = LEUK) 1+ NEGATIVE A WBC UR (test code = UWBC) 5 /HPF 0-5 RBC UR (test code = URBC) 0 /HPF 0-2 EPITH UR (test code = UEPC) MODERATE /LPF FEW A BACTERIA UR (test code = UBACT) FEW /HPF NONE A CAST UR (test code = CAST) /LPF NONE CRYSTAL UR (test code = CRYU) / LPF NONE MUCUS UR (test code = MUC) FEW / HPF NONE A AMORPH UR (test code = ZOFIA) / HPF NONE TRICH UR (test code = UTRICH) /HPF NONE YEAST UR (test code = UY) /HPF NONE SPERM UR (test code = USPERM) /HPF NONE SARS-CoV (RAPID ANTIGEN)2020-03-16 16:14:00 Test Item Value Reference Range Interpretation Comments SARS-CoV (ANTIGEN) NEGATIVE NEGATIVE (test code = COVAG) COVID AG (test This test has been code = COVAGC) marketed under the FDA Emergency Use Authorization (EUA) to meet challenges of the COVID-19 pandemic. The validation standards normally enforced by the FDA and the [employer] (CAP) are more stringent than those required for this test. Therefore, the result should be interpreted with caution and close attention to other clinical and epidemiological data VALPROIC ACID (DEPAKENE)2020-03-10 07:20:00 Test Item Value Reference Range Interpretation Comments VALP ACID (test code = 95A) 72.7 ug/mL 50.0-100.0 URINE [id number] 10:02:00 Test Item Value Reference Range Interpretation Comments Culture Observations THREE OR MORE SPECIES (test code = COB1) OF BACTERIA ISOLATED. PROBABLE CONTAMINATION. Culture Observations IDENTIFICATION AND (test code = COB17) SUSCEPTIBILITY NOT INDICATED. RECOLLECTION RECOMMENDED VALPROIC ACID (DEPAKENE)2020-03-06 06:28:00 Test Item Value Reference Range Interpretation Comments VALP ACID (test code = 95A) 38.0 ug/mL 50.0-100.0 LL PRO TIME AND [id number] 06:23:00 Test Item Value Reference Range Interpretation Comments PT (test code = 17.4 s 9.8-13.6 H TT) INR (test code = 1.5 INR) INRH (test code = SUGGESTED INRH) THERAPEUTIC RANGE FOR INR: 2.5 - 3.5 For Patients with Prosthetic Valves or Patients with recurrent Thromboembolic Events 2.0 - 3.0 For Most Other Applications PTT (test code = 30.9 s 20.2-38.0 PTT) PTTH (test code = To monitor the PTTH) effectiveness of heparin, we offer the Anti-Xa (Heparin Assay). It can be used for either unfractionated or LMW Heparin. Order Code is ANTI-XA URINALYSIS WITH [id number] 19:30:00 Test Item Value Reference Range Interpretation Comments COLOR (test code = COLU) DK YELLOW YELLOW A CLARITY (test code = CLA) CLOUDY CLEAR A GLUCOSE UR (test code = UA NEGATIVE NEGATIVE GLUCOSE) BILI UR (test code = BILE) 1+ NEGATIVE A KETONES UR (test code = INES) 1+ NEGATIVE A SP GRAVITY (test code = SPGR) 1.024 1.005-1.030 PH UR (test code = PH) 6.0 4.5-8.0 PROTEIN UR (test code = PU) TRACE NEGATIVE A UROBIL UR (test code = UROQ) 1.0 EU/dL 0.2-1.0 NITRITE UR (test code = NEGATIVE NEGATIVE NITRITE) BLOOD UR (test code = UA NEGATIVE NEGATIVE BLOOD) LEUK ES UR (test code = LEUK) NEGATIVE NEGATIVE WBC UR (test code = UWBC) 0 /HPF 0-5 RBC UR (test code = URBC) 0 /HPF 0-2 EPITH UR (test code = UEPC) NONE /LPF FEW A BACTERIA UR (test code = FEW /HPF NONE A UBACT) CAST UR (test code = CAST) /LPF NONE CRYSTAL UR (test code = CRYU) / LPF NONE MUCUS UR (test code = MUC) MODERATE / HPF NONE A AMORPH UR (test code = ZOFIA) / HPF NONE TRICH UR (test code = UTRICH) /HPF NONE YEAST UR (test code = UY) /HPF NONE SPERM UR (test code = USPERM) /HPF NONE CBC WITH [id number] 15:46:00 Test Item Value Reference Range Interpretation Comments WBC (test code = WBC) 12.3 10\S\3/uL 4.5-11.0 H RBC (test code = RBC) 3.18 10\S\6/uL 3.80-5.80 L HGB (test code = HBG) 7.6 g/dL 12.0-15.5 L HCT (test code = HCT) 26.5 % 35.0-44.0 L MCV (test code = MCV) 83.3 fL 81.0-99.0 MCH (test code = MCH) 23.9 pg 27.0-31.0 L MCHC (test code = MCHC) 28.7 g/dL 32.0-36.0 L RDW (test code = RDW) 18.7 % 11.5-14.5 H PLT (test code = PLT) 375 10\S\3/uL 130-400 MPV (test code = MPV) 9.7 fL 9.4-12.4 NEUTROP # (test code = NE#) 9.8 10\S\3/uL 1.6-8.0 H LYMPH # (test code = LY#) 0.9 10\S\3/uL 1.1-3.5 L MONOCYTE # (test code = 1.5 10\S\3/uL 0.0-1.1 H MO#) EOSINOPH # (test code = 0.1 10\S\3/uL 0.0-0.7 EO#) BASOPHIL # (test code = 0.1 10\S\3/uL 0.0-0.3 BA#) IG # (test code = IG#) 0.08 10\S\3/uL 0.00-0.06 H NRBC # (test code = NRBC#) 0.02 10\S\3/uL 0.00-0.01 H NEUTROPH % (test code = 79.2 % 35.0-73.0 H NE%) LYMPH % (test code = LY%) 6.9 % 20.0-55.0 L MONO % (test code = MO%) 11.9 % 2.5-10.0 H EOSINOPH % (test code = 1.0 % 0.0-5.0 EO%) BASOPHIL % (test code = 0.4 % 0.0-2.0 BA%) IG % (test code = IG%) 0.6 % 0.0-0.8 NRBC% (test code = NRBC%) 0.2 % 0.0-0.2 PLT EST (test code = ADEQUATE ADEQUATE PLTEST) PLT MORPH (test code = NORMAL (1.5-3 um) NORMAL PLTMOR) POLYCHROM (test code = 1+ NONE A POLY) [id number] 06:09:00 Test Item Value Reference Range Interpretation Comments FOLATE (test code = A75) 7.4 ng/mL 3.1-17.5 [id number] 06:07:00 Test Item Value Reference Range Interpretation Comments MAGNESIUM (test code = 48A) 2.3 mg/dL 1.8-2.4 [id number] 06:06:00 Test Item Value Reference Range Interpretation Comments PREALBUMIN (test code = 08E) 13 mg/dL 18-38 L THYROID PANEL/SCREEN (TSH)2020-03-01 06:05:00 Test Item Value Reference Range Interpretation Comments TSH (test code = A57) 0.470 uIU/mL 0.358-3.740 LIPID [id number] 06:04:00 Test Item Value Reference Range Interpretation Comments CHOLESTROL (test code = 44A) 179 mg/dL 140-200 TRIGLYCERI (test code = 42B) 84 mg/dL <=149 HDL (test code = 83D) 66.0 mg/dL 40.0-60.0 H LDL (test code = 34B) 99 mg/dL <=99 CHL/HDL (test code = CHR) 2.7 0.0-3.4 [id number] 11:34:00 Test Item Value Reference Range Interpretation Comments Hb A1C % (test code 5.4 % 3.8-6.4 = HBA) A1C % (test code = HbA1c (% ) A1C) Reference Range Normal <5.7 Prediabetes 5.7-6.4 Diabetic >=6.5 CBC WITH [id number] 11:13:00 Test Item Value Reference Range Interpretation Comments WBC (test code = WBC) 14.2 10\S\3/uL 4.5-11.0 H RBC (test code = RBC) 3.55 10\S\6/uL 3.80-5.80 L HGB (test code = HBG) 8.3 g/dL 12.0-15.5 L HCT (test code = HCT) 29.0 % 35.0-44.0 L MCV (test code = MCV) 81.7 fL 81.0-99.0 MCH (test code = MCH) 23.4 pg 27.0-31.0 L MCHC (test code = MCHC) 28.6 g/dL 32.0-36.0 L RDW (test code = RDW) 18.3 % 11.5-14.5 H PLT (test code = PLT) 638 10\S\3/uL 130-400 H MPV (test code = MPV) 9.6 fL 9.4-12.4 NEUTROP # (test code = NE#) 11.9 10\S\3/uL 1.6-8.0 H LYMPH # (test code = LY#) 1.0 10\S\3/uL 1.1-3.5 L MONOCYTE # (test code = 1.2 10\S\3/uL 0.0-1.1 H MO#) EOSINOPH # (test code = 0.0 10\S\3/uL 0.0-0.7 EO#) BASOPHIL # (test code = 0.0 10\S\3/uL 0.0-0.3 BA#) IG # (test code = IG#) 0.09 10\S\3/uL 0.00-0.06 H NRBC # (test code = NRBC#) 0.02 10\S\3/uL 0.00-0.01 H NEUTROPH % (test code = 83.4 % 35.0-73.0 H NE%) LYMPH % (test code = LY%) 7.2 % 20.0-55.0 L MONO % (test code = MO%) 8.5 % 2.5-10.0 EOSINOPH % (test code = 0.1 % 0.0-5.0 EO%) BASOPHIL % (test code = 0.2 % 0.0-2.0 BA%) IG % (test code = IG%) 0.6 % 0.0-0.8 NRBC% (test code = NRBC%) 0.1 % 0.0-0.2 PLT EST (test code = INCREASED ADEQUATE A PLTEST) PLT MORPH (test code = NORMAL (1.5-3 um) NORMAL PLTMOR) ANISO (test code = ANISO) 1+ NONE A HYPOCHROM (test code = 2+ NONE A HYPOC) TARGET (test code = TARG) 1+ NONE A BASIC METABOLIC [id number] 06:09:00 Test Item Value Reference Range Interpretation Comments SODIUM (BEAKER) 140 meq/L 136-145 (test code = 381) POTASSIUM (BEAKER) 4.0 meq/L 3.5-5.1 (test code = 379) CHLORIDE (BEAKER) 106 meq/L 98-107 (test code = 382) CO2 (BEAKER) (test 26 meq/L 22-29 code = 355) BLOOD UREA NITROGEN 11 mg/dL 7-21 (BEAKER) (test code = 354) CREATININE (BEAKER) 0.87 mg/dL 0.57-1.25 (test code = 358) GLUCOSE RANDOM 85 mg/dL 70-105 (BEAKER) (test code = 652) CALCIUM (BEAKER) 8.7 mg/dL 8.4-10.2 (test code = 697) EGFR (BEAKER) (test 64 mL/min/1.73 ESTIMA LOIS GFR IS code = 1092) sq m NOT ACCURATE CREATININE CLEARANCE IN PREDICTING GLOMERULAR FILTRATION RATE . ESTIMATED GFR I S NOT APPLICABLE FOR DIALYSIS PATIEN TS. TSH/FREE T4 IF [id number] 06:06:00 Test Item Value Reference Range Interpretation Comments THYROID STIMULATING HORMONE 0.78 uIU/mL 0.35-4.94 (BEAKER) (test code = 772) CBC W/PLT COUNT & AUTO [id number] 05:30:00 Test Item Value Reference Range Interpretation [...] L 0.00-0.20 (test code = 417) 0.00SEDIMENTATION [id number] 14:36:00 Test Item Value Reference Range Interpretation Comments SEDIMENTATION RATE, ERYTHROCYTE 20 mm/HR 0-40 (BEAKER) (test code = 766) VITAMIN [id number] 11:02:00 Test Item Value Reference Range Interpretation Comments VITAMIN B12 (BEAKER) (test code = 219 pg/mL 213-816 774) HEMOGLOBIN [id number] 08:55:00 Test Item Value Reference Range Interpretation Comments HEMOGLOBIN A1C (BEAKER) (test code = 5.3 % 4.3-6.1 368) LIPID [id number] 06:23:00 Test Item Value Reference Range Interpretation [...] 130-159 High 160-189 Very High >=190BASIC METABOLIC [id number] 06:23:00 Test Item Value Reference Range Interpretation [...] PATIEN TS. CBC W/PLT COUNT & AUTO [id number] 06:08:00 Test Item Value Reference Range Interpretation [...]
[2020-04-02 01:28] LABS: Protime INR 2.49
[2020-04-02 01:33] LABS: Absolute Lymphocytes (CBC) 1.7 K/uL (0.7-4.9); Basophils % 1.2 % (0-1.3); Hematocrit 36.4 % (36.0-45.0); Lymphocytes % 21.1 % (15.3-44.8); MPV 7.4 fL (7.6-11.3); RBC Red Blood Cell Count 4.42 M/uL (3.86-4.86)
[2020-04-02 01:44] LABS: ALT/SGPT 44 U/L (12-78); AST/SGOT 25 U/L (15-37); Albumin 3.2 g/dL (3.4-5.0); Alkaline Phosphatase 107 U/L (45-117); BUN Blood Urea Nitrogen 13 mg/dL (7-18); Bicarbonate 29 mmol/L (21-32); Bilirubin Direct 0.2 mg/dL (0-0.2); Bilirubin Total 0.5 mg/dL (0.2-1.0); Glucose Level 94 mg/dL (74-106); NT PRO-BNP 525 pg/mL (<450); Potassium 3.9 mmol/L (3.5-5.1); Protein, Total 6.6 g/dL (6.4-8.2); Sodium Level 135 mmol/L (136-145); Troponin (Emerg Dept Use Only) < 0.02 ng/mL (0.0-0.045)
[2020-04-02 02:33] LABS: Blood Morphology Comment NOTED (NOT SEEN); Ovalocytes 2+; Platelet Estimate ADEQ
--- NOTE | 2020-04-02 04:05 | ER ---
Nurse's Notes [facility] Name: Hina Messina Age: 74 yrs Sex: Female : 1945 Arrival Date: 04/02/2020 Time: 00:32 Bed 5 Private MD: Luis Alfredo Singh K; Patel, Mitesh Diagnosis: COPD Exacerbation Presentation: 04/02 00:33 Chief complaint: EMS states: pt complaining of SOB to [facility] staff. pt saturation sg reported to be 95 percent on NC, up to 100 percent on Albuterol/Atrovent Neb, denies N/V/D/Fever at this time. Coronavirus screen: Client denies travel out of the [place] in the last 14 days. shortness of breath. Ebola Screen: Patient negative for fever greater than or equal to 101.5 degrees Fahrenheit, and additional compatible Ebola Virus Disease symptoms Patient denies exposure to infectious person. Patient denies travel to an Ebola-affected area in the 21 days before illness onset. No symptoms or risks identified at this time. Initial Sepsis Screen: Does the patient meet any 2 criteria? RR > 20 per min. Does the patient have a suspected source of infection? No. Patient's initial sepsis screen is negative. Risk Assessment: Do you want to hurt yourself or someone else? Patient reports no desire to harm self or others. Onset of symptoms was April 02, 2020. Care prior to arrival: Medication(s) given: Solu Medrol 125 mg Med neb given. Oxygen administered. via nasal cannula. Transition of care: patient was received from another setting of care (long-term care facility), [facility] 00:33 Acuity: KESHAV 3 sg 00:33 Method Of Arrival: EMS: [facility] sg 00:33 Note RT at bedside. sg Historical: - Allergies: 00:36 ambien; sg 00:36 Codeine; sg 00:36 Demerol; sg 00:36 Latex, Natural Rubber; sg 00:36 Sulfa (Sulfonamide Antibiotics); sg 00:36 Valium; sg - PMHx: 00:36 Anemia; Anxiety; Aortic Stenosis; Atrial Fib; COPD; Dementia; Depression; DVT; GERD; sg Glaucoma; Hyperlipidemia; Hypertension; ibs; manic episode; Microcytic anemia; Osteoporosis; SVT; - PSHx: 00:36 Appendectomy; Hysterectomy; sg - Immunization history:: Adult Immunizations up to date. - Social history:: Smoking status: . Screenin:43 Abuse screen: Denies threats or abuse. Denies injuries from another. Nutritional mg2 screening: No deficits noted. Tuberculosis screening: No symptoms or risk factors identified. Fall Risk IV access (20 points). Assessment: 00:43 General: Appears in no apparent distress. comfortable, Behavior is calm, cooperative. mg2 Pain: Complains of pain in back. Neuro: Level of Consciousness is awake, alert, obeys commands, Oriented to person, place, time, situation. Cardiovascular: Capillary refill < 3 seconds Patient's skin is warm and dry. Respiratory: Reports shortness of breath cough that is dry. GI: No signs and/or symptoms were reported involving the gastrointestinal system. : No signs and/or symptoms were reported regarding the genitourinary system. EENT: No signs and/or symptoms were reported regarding the EENT system. Derm: Skin is intact, is healthy with good turgor, Skin is pink, warm \T\ dry. normal. Musculoskeletal: Circulation, motion, and sensation intact. Capillary refill < 3 seconds, Swelling present in left foot. 02:26 Reassessment: Patient and/or family updated on plan of care and expected duration. Pain ea level reassessed. Patient is alert, oriented x 3, equal unlabored respirations, skin warm/dry/pink. 03:18 Reassessment: Patient and/or family updated on plan of care and expected duration. Pain ea level reassessed. Pt resting with eyes closed respirations even and unlabored. Chest expansions even and symmetrical. 04:21 Reassessment: Patient appears in no apparent distress at this time. mg2 04:24 Reassessment: patient informed about the plan for dc and she understood. mg2 04:45 Reassessment: report called to Marvin of [employer] and said she will call back about mg2 the transportation. 05:09 Reassessment: spoke to JOEL Tavarez of [employer] and she said we need to arrange mg2 for transportation. tried calling family member but no answer. called [employer] and spoke to Vincent and said they dont have transportation during weekends. Vital Signs: 00:44 BP 130 / 96; Pulse 129; Resp 22; Temp 97.9; Pulse Ox 92% on R/A; mg2 02:26 BP 119 / 92; Pulse 112; Resp 18; Pulse Ox 99% ; ea 03:54 BP 124 / 77; Pulse 109; Resp 18; Pulse Ox 98% on 3 lpm NC; mg2 04:56 BP 151 / 97; Pulse 109; Resp 18; Pulse Ox 98% on 3 lpm NC; mg2 ED Course: 00:32 Patient arrived in ED. sg 00:32 Luis Alfredo Singh MD is Private Physician. sg 00:32 Maliha Morocho MD is Private Physician. sg 00:32 Martin Carter DO is Private Physician. sg 00:33 Arm band placed on. sg 00:35 Triage completed. sg 00:36 Kevin Hay MD is Attending Physician. [facility] 00:42 Paco Florian, RN is Primary Nurse. mg2 00:43 No provider procedures requiring assistance completed. Maintain EMS IV. Site clean \T\ mg2 dry. Gauge \T\ site: 20 RAC. 00:44 Patient has correct armband on for positive identification. mg2 00:57 XRAY Chest (1 view) In Process Unspecified. EDMS 01:10 Inserted saline lock: 22 gauge in left hand, using aseptic technique. Blood collected. mg2 04:03 Luis Alfredo Singh MD is Referral Physician. 7 05:35 IV discontinued, intact, bleeding controlled, No redness/swelling at site. Pressure ea dressing applied. Administered Medications: No medications were administered Outcome: 04:04 Discharge ordered by . mh7 05:39 Discharged to [facility] ea 05:39 Condition: stable 05:39 Discharge instructions given to patient, EMS, Instructed on discharge instructions, follow up and referral plans. Demonstrated understanding of instructions, follow-up care. 05:40 Patient left the ED. ea Signatures: Dispatcher [employer] EDMS Alexander Campo RN RN sg Antunez, Elena, RN RN ea Gardose, Michele, RN RN mg2 Holmes, Maurice, MD MD [facility] Corrections: (The following items were deleted from the chart) 01:38 00:33 Care prior to arrival: Med neb given. Oxygen administered. via nasal cannula, [facility]
--- NOTE | 2020-04-02 04:05 | EDPHYS ---
Physician Documentation [facility] Name: Hina Messina Age: 74 yrs Sex: Female : 1945 Arrival Date: 04/02/2020 Time: 00:32 Bed 5 Private MD: Luis Alfredo Singh K; Patel, Mitesh ED Physician Kevin Hay HPI: 04/02 01:00 This 74 yrs old Female presents to ER via EMS with complaints of COPD mh7 Exacerbation. 01:00 The patient has shortness of breath at rest. Onset: The symptoms/episode began/occurred mh7 yesterday. Duration: The symptoms are intermittent, with no pattern. The patient's shortness of breath is aggravated by coughing, is alleviated by nebulizer treatment. Associated signs and symptoms: Pertinent positives: non-productive cough, nausea, Pertinent negatives: chest pain, productive cough, diaphoresis, dizziness, fever, hemoptysis, loss of consciousness, numbness in extremities, visual changes, vomiting. Severity of symptoms: At their worst the symptoms were moderate today, in the emergency department the symptoms have improved markedly. The patient has experienced similar episodes in the past, multiple times. 01:00 Patient reports having SOB, cough, wheezing that started yesterday. She has a h/o COPD mh7 and is on supplemental oxygen. EMS brought patient from [facility] and gave Albuterol/Atrovent nebulizer treatment and Solu-Medrol en route to hospital. Patient reports significant improvement after treatment. Denies fever, chest pain, abdominal pain, dizziness, numbness/tingling, or weakness.. Historical: - Allergies: 00:36 ambien; sg 00:36 Codeine; sg 00:36 Demerol; sg 00:36 Latex, Natural Rubber; sg 00:36 Sulfa (Sulfonamide Antibiotics); sg 00:36 Valium; sg - PMHx: 00:36 Anemia; Anxiety; Aortic Stenosis; Atrial Fib; COPD; Dementia; Depression; DVT; GERD; sg Glaucoma; Hyperlipidemia; Hypertension; ibs; manic episode; Microcytic anemia; Osteoporosis; SVT; - PSHx: 00:36 Appendectomy; Hysterectomy; sg - Immunization history:: Adult Immunizations up to date. - Social history:: Smoking status: . ROS: 01:00 Constitutional: Negative for fever, chills, and weight loss, Eyes: Negative for injury, mh7 pain, redness, and discharge, ENT: Negative for injury, pain, and discharge, Neck: Negative for injury, pain, and swelling, Cardiovascular: Negative for chest pain, palpitations, and edema, Back: Negative for injury and pain, : Negative for injury, bleeding, discharge, and swelling, MS/Extremity: Negative for injury and deformity, Skin: Negative for injury, rash, and discoloration, Neuro: Negative for headache, weakness, numbness, tingling, and seizure, Psych: Negative for depression, anxiety, suicide ideation, homicidal ideation, and hallucinations, Allergy/Immunology: Negative for hives, rash, and allergies, Endocrine: Negative for neck swelling, polydipsia, polyuria, polyphagia, and marked weight changes, Hematologic/Lymphatic: Negative for swollen nodes, abnormal bleeding, and unusual bruising. Exam: 01:00 Constitutional: This is a well developed, well nourished patient who is awake, alert, mh7 and in no acute distress. Head/Face: Normocephalic, atraumatic. Eyes: Pupils equal round and reactive to light, extra-ocular motions intact. Lids and lashes normal. Conjunctiva and sclera are non-icteric and not injected. Cornea within normal limits. Periorbital areas with no swelling, redness, or edema. Neck: Trachea midline, no thyromegaly or masses palpated, and no cervical lymphadenopathy. Supple, full range of motion without nuchal rigidity, or vertebral point tenderness. No Meningismus. Chest/axilla: Normal chest wall appearance and motion. Nontender with no deformity. No lesions are appreciated. 01:00 Abdomen/GI: Soft, non-tender, with normal bowel sounds. No distension or tympany. No guarding or rebound. No evidence of tenderness throughout. Back: No spinal tenderness. No costovertebral tenderness. Full range of motion. Skin: Warm, dry with normal turgor. Normal color with no rashes, no lesions, and no evidence of cellulitis. MS/ Extremity: Pulses equal, no cyanosis. Neurovascular intact. Full, normal range of motion. Neuro: Awake and alert, GCS 15, oriented to person, place, time, and situation. Cranial nerves II-XII grossly intact. Motor strength 5/5 in all extremities. Sensory grossly intact. Cerebellar exam normal. Normal gait. Psych: Awake, alert, with orientation to person, place and time. Behavior, mood, and affect are within normal limits. 01:00 Cardiovascular: Rate: tachycardic, Rhythm: regular, Pulses: no pulse deficits are appreciated, Heart sounds: normal, normal S1and S2, Edema: is not appreciated, JVD: is not appreciated. 01:00 Respiratory: the patient does not display signs of respiratory distress, Respirations: prolonged exhalation, that is mild, Breath sounds: rhonchi, that are mild, are scattered, Respiratory rate: 20 Vital Signs: 00:44 BP 130 / 96; Pulse 129; Resp 22; Temp 97.9; Pulse Ox 92% on R/A; mg2 02:26 BP 119 / 92; Pulse 112; Resp 18; Pulse Ox 99% ; ea 03:54 BP 124 / 77; Pulse 109; Resp 18; Pulse Ox 98% on 3 lpm NC; mg2 04:56 BP 151 / 97; Pulse 109; Resp 18; Pulse Ox 98% on 3 lpm NC; mg2 MDM: 00:42 Patient medically screened. [facility] 04:01 Differential diagnosis: Anemia Anxiety Reaction asthma, Bronchitis CHF exacerbation, mh7 Chronic Obstructive Pulmonary Disease Myocardial Infarction pneumonia, Pneumothorax pulmonary edema, reactive airway disease. Data reviewed: vital signs, nurses notes, EMS record, old medical records, lab test result(s), cardiac enzymes, CBC, electrolytes, urinalysis, EKG, radiologic studies, plain films. Data interpreted: Pulse oximetry: on 3L(s) per nasal canula, is 98 %. Interpretation: acceptable. Counseling: I had a detailed discussion with the patient and/or guardian regarding: the historical points, exam findings, and any diagnostic results supporting the discharge/admit diagnosis, lab results, radiology results. Response to treatment: the patient's symptoms have resolved after treatment, the patient's blood pressure is in an acceptable range, mental status has returned to baseline, the patient no longer shows bradycardia, the patient is not short of breath, wheezing has resolved, the patient is not tachycardic, the patient's pain is gone, the patient's temperature has normalized. Refusal of service: The patient/guardian displays adequate decision making capability and despite a detailed discussion of alternatives, benefits, risks, and consequences refuses: Admission to the hospital for further work-up and treatment. 04/02 00:37 Order name: Basic Metabolic Panel; Complete Time: 02:17 [facility] 04/02 00:37 Order name: CBC with Diff; Complete Time: 03:16 7 04/02 00:37 Order name: LFT's; Complete Time: 02:17 7 04/02 00:37 Order name: Magnesium; Complete Time: 02:17 [facility] 04/02 00:37 Order name: NT PRO-BNP; Complete Time: 02:17 [facility] 04/02 00:37 Order name: PT-INR; Complete Time: 01:36 [facility] 04/02 00:37 Order name: Troponin (emerg Dept Use Only); Complete Time: 02:17 [facility] 04/02 00:37 Order name: XRAY Chest (1 view) [facility] 04/02 00:37 Order name: EKG; Complete Time: 00:38 7 04/02 00:37 Order name: Cardiac monitoring; Complete Time: 00:42 [facility] 04/02 00:37 Order name: EKG - Nurse/Tech; Complete Time: 00:42 [facility] 04/02 00:37 Order name: IV Saline Lock; Complete Time: 00:42 [facility] 04/02 00:38 Order name: Influenza Screen (a \T\ B); Complete Time: 02:17 [facility] 04/02 01:36 Order name: Manual Differential; Complete Time: 03:16 EDMS 04/02 00:37 Order name: Labs collected and sent; Complete Time: 00:42 [facility] 04/02 00:37 Order name: O2 Per Protocol; Complete Time: 00:42 [facility] 04/02 00:37 Order name: O2 Sat Monitoring; Complete Time: 00:42 mh7 Administered Medications: No medications were administered Disposition: 04/02/20 04:04 Discharged to Home. Impression: COPD Exacerbation. - Condition is Stable. - Discharge Instructions: Chronic Obstructive Pulmonary Disease Exacerbation, [id number]. - Prescriptions for Albuterol Sulfate 2.5 mg /3 mL (0.083 %) Inhalation Solution for Nebulization - inhale 1 unit by NEBULIZATION route every 8 hours As needed; 1 box. Prednisone 20 mg Oral Tablet - take 2 tablet by ORAL route once daily for 5 days; 10 tablet. Albuterol Sulfate 90 mcg/actuation - inhale 1-2 puff by INHALATION route every 4-6 hours; 1 Inhaler. - Medication Reconciliation Form, Thank You Letter, Antibiotic Education, Prescription Opioid Use form. - Follow up: Private Physician; When: 1 - 2 days; Reason: Worsening of condition, Recheck today's complaints, Continuance of care, Re-evaluation by your physician. Follow up: Luis Alfredo Singh MD; When: 1 - 2 days; Reason: Worsening of condition, Recheck today's complaints. - Problem is an acute exacerbation. - Symptoms have improved. Signatures: Dispatcher [employer] EDMS Alexander Campo RN RN Madina Villarreal RN RN Kevin Ferraro MD MD mh7 Corrections: (The following items were deleted from the chart) 05:40 04:04 04/02/2020 04:04 Discharged to Home. Impression: COPD Exacerbation. Condition is ea Stable. Forms are Medication Reconciliation Form, Thank You Letter, Antibiotic Education, Prescription Opioid Use. Follow up: Private Physician; When: 1 - 2 days; Reason: Worsening of condition, Recheck today's complaints, Continuance of care, Re-evaluation by your physician. Follow up: Luis Alfredo Singh; When: 1 - 2 days; Reason: Worsening of condition, Recheck today's complaints. Problem is an acute exacerbation. Symptoms have improved. mh7
--- NOTE | 2020-04-02 07:41 | EKG ---
Test Date: 2020-04-02 Test Time: 00:38:00 [employer] Plant Operator: MEASUREMENT RESULTS: Intervals: Rate: 132 [place]: 134 QRSD: 70 QT: 300 QTc: 444 [place]: P: 38 [place]: 134 QRS: -35 T: 63 INTERPRETIVE STATEMENTS: Sinus tachycardia Left axis deviation Nonspecific ST and T wave abnormality Abnormal ECG Compared to ECG 02/28/2020 12:54:54 Left-axis deviation now present Sinus rhythm no longer present ST (T wave) deviation still present Electronically Signed On 04-02-20 07:40:26 JOB RECRUITER by Edward Sherwood
[2020-04-02 08:25] VITALS: TEMP 97.9
[2020-04-02 08:29] VITALS: O2SAT 98
[2020-04-02 08:31] VITALS: BP 151/97
--- NOTE | 2020-04-03 11:44 | RAD REPORT ---
EXAM DESCRIPTION: RAD - Chest Single View - 04/02/2020 12:56 am CLINICAL HISTORY: SOB COMPARISON: None. FINDINGS: Single frontal radiograph view of the chest. Cardiomediastinal silhouette: Atherosclerotic calcification of the thoracic aorta. Heart is not enlar ged. Lungs: Chronic appearing interstitial opacities may represent obstructive lung disease. No pneumothor ax, focal consolidation, or large effusion. Bones: Degenerative change of the spine. Upper abdomen: No abnormality identified. IMPRESSION: 1. No acute pneumonic process identified. Electronically signed by: Abad Xavier 04/02/2020 2:46 AM INPATIENT CODER Due to temporary technical issues with the PACS/Fluency reporting system, reports are being signed by the in house radiologist without review as a courtesy to ensure prompt reporting. The interpreting r adiologist is fully responsible for the content of the report.
== END 2020-04-02 05:40 | disposition home or self-care (01) ==
LOC: ER 00:31
DX: J44.1 Chronic obstructive pulmonary disease with (acute) exacerbation (principal); Z88.6 Allergy status to analgesic agent; Z88.2 Allergy status to sulfonamides; Z91.040 Latex allergy status
CPT/HCPCS: 36415; 71045; 80048; 80076; 83735; 83880; 84484; 85025; 85610; 87804; 93005; 99284

== ENCOUNTER 2020-04-26 05:21 | Emergency (ER) | payer OTHER ==
[2012-02-04 08:37] VITALS: BP 141/96
--- OUTSIDE RECORDS SUMMARY | 2020-04-26 05:24 | XMS REPORT | Clinical Summary ---
:1945 Author Organization [facility] Address [address] [place] [address] Care Team Providers Name Role Phone Unavailable [...] Not on file Results Not on fileafter 04/26/2019 Insurance Payer Benefit Plan / Subscriber ID Effective Phone Address T ype Group Dates CIGNA CIGNA [id number] 2016-Pre [employer] ALL sent Contracted Advance Directives For more information, please contact: [phone] Code Status Date Activated Date Inactivated Comments Full Code 12/07/2016 2:16 AM 12/08/2016 9:06 PM This code status was determined by: Patient
--- OUTSIDE RECORDS SUMMARY | 2020-04-26 05:25 | XMS REPORT | Continuity of Care Document ---
:1945 Author Organization [facility] t Address [facility] Angus Siddiqi [address] [place] [address] Care Team Providers Name Role Phone DR [...] flutter 12-07 [facility] 00 [place] COPD COPD Disease Active [facility] (chronic [...] 12-07 really [facility] - mide 00:00: [facility] Medical Antibiot 00 Center ics) Diazepam Drug Active Pt [facility] Allergy 12-07 tremors [facility] Family History Family Member Diagnosis Comments Start Date Stop Date Source Natural father Hyperlipidemia [facility] Natural father Stroke [facility] Natural mother Cancer [facility] Natural mother Osteoarthritis [facility] Natural sister Heart failure [facility] Natural sister Hyperlipidemia [facility] Natural sister Thyroid disease [facility] S t [facility] Social History Social Habit Start Date Stop Date Quantity Comments Source Sex Assigned At [facility] Tobacco use and 2016-12-07 2016-12-07 Never used [facility] - exposure 00:00:00 00:00:00 [facility] Alcohol intake 2016-12-07 2016-12-07 Current [facility] - 00:00:00 00:00:00 non-drinker of Medical nter alcohol (finding) History of 2008-12-07 Current smoker [facility] Status Start Date Stop Date Source Former smoker 2016-12-07 00:00:00 2016-12-07 00:00:00 [facility] Medications Ordered Filled Start Stop Current Ordering Indication Dosage Frequency Signature Comments Components Source Medication Medication Date Date Medication? Clinician (SIG) Name Name atorvastati Yes hyperlipide 20mg QD Take [address] [facility] (LIPITOR) 12-08 huyen by mouth Luke [facility] - 20 MG 19:06: daily. Medical tablet 07 [place] pantoprazol Yes gastroesoph 40mg Q.5D Take 40 [...] - MG tablet 19:06: daily. Medica l [address] [place] [address] fluticasone Yes 1{spray Q.5D [address] [facility] (FLONASE) 12-08 } Nasal [facility] - 50 19:06: route 2 Medical mcg/actuati 07 (two) Center on nasal times spray daily. Procedures This patient has no known procedures. Encounters Start End Encounter Admission Attending Care Care Encounter Source Date/Time Date/Time Type Type Clinicians Facility Department ID 2020-03-19 2020-03-31 [id number] [place] 22:48:00 17:50:00 [facility] 2020-03-18 2020-03-19 Outpatient [facility] [place] [id number] [place] 20:35:00 22:30:00 [facility] 2020-02-28 2020-03-18 [facility] [id number] [place] 19:45:00 21:24:00 [facility] Results Test Description Test Time Test Comments [...] code = 95A) 60.8 ug/mL 50.0-100.0 URINE [id number] 09:57:00 Test Item Value Reference Range Interpretation Comments Culture Observations THREE OR MORE SPECIES (test code = COB1) OF BACTERIA ISOLATED. PROBABLE CONTAMINATION. Culture Observations IDENTIFICATION AND (test code = COB17) SUSCEPTIBILITY NOT INDICATED. RECOLLECTION RECOMMENDED BASIC METABOLIC [id number] 14:15:00 Test Item Value Reference Range Interpretation [...] (test code = RBCMOR) NORMAL CBC WITH [id number] 19:44:00 Test Item Value Reference Range Interpretation [...] = TD) 1+ NONE A BASIC METABOLIC [id number] 19:31:00 Test Item Value Reference Range Interpretation [...] = 8.8 mg/dL 8.3-9.5 09D) URINALYSIS WITH [id number] 13:30:00 Test Item Value Reference Range Interpretation [...] the FDA and the [employer] (CAP) are more stringent than those required for this test. Therefore, the result should be interpreted with caution and close attention to other clinical and epidemiological data VALPROIC ACID (DEPAKENE)2020-03-10 07:20:00 Test Item Value Reference Range Interpretation Comments VALP ACID (test code = 95A) 72.7 ug/mL 50.0-100.0 URINE [id number] 10:02:00 Test Item Value Reference Range Interpretation Comments Culture Observations THREE OR MORE SPECIES (test code = COB1) OF BACTERIA ISOLATED. PROBABLE CONTAMINATION. Culture Observations IDENTIFICATION AND (test code = COB17) SUSCEPTIBILITY NOT INDICATED. RECOLLECTION RECOMMENDED VALPROIC ACID (DEPAKENE)2020-03-06 06:28:00 Test Item Value Reference Range Interpretation Comments VALP ACID (test code = 95A) 38.0 ug/mL 50.0-100.0 LL PRO TIME AND [id number] 06:23:00 Test Item Value Reference Range Interpretation [...] Heparin. Order Code is ANTI-XA URINALYSIS WITH [id number] 19:30:00 Test Item Value Reference Range Interpretation [...] code = USPERM) /HPF NONE CBC WITH [id number] 15:46:00 Test Item Value Reference Range Interpretation [...] (test code = 1+ NONE A POLY) [id number] 06:09:00 Test Item Value Reference Range Interpretation Comments FOLATE (test code = A75) 7.4 ng/mL 3.1-17.5 [id number] 06:07:00 Test Item Value Reference Range Interpretation Comments MAGNESIUM (test code = 48A) 2.3 mg/dL 1.8-2.4 [id number] 06:06:00 Test Item Value Reference Range Interpretation Comments PREALBUMIN (test code = 08E) 13 mg/dL 18-38 L THYROID PANEL/SCREEN (TSH)2020-03-01 06:05:00 Test Item Value Reference Range Interpretation Comments TSH (test code = A57) 0.470 uIU/mL 0.358-3.740 LIPID [id number] 06:04:00 Test Item Value Reference Range Interpretation Comments CHOLESTROL (test code = 44A) 179 mg/dL 140-200 TRIGLYCERI (test code = 42B) 84 mg/dL <=149 HDL (test code = 83D) 66.0 mg/dL 40.0-60.0 H LDL (test code = 34B) 99 mg/dL <=99 CHL/HDL (test code = CHR) 2.7 0.0-3.4 [id number] 11:34:00 Test Item Value Reference Range Interpretation Comments Hb A1C % (test code 5.4 % 3.8-6.4 = HBA) A1C % (test code = HbA1c (% ) A1C) Reference Range Normal <5.7 Prediabetes 5.7-6.4 Diabetic >=6.5 CBC WITH [id number] 11:13:00 Test Item Value Reference Range Interpretation [...] = TARG) 1+ NONE A BASIC METABOLIC [id number] 06:09:00 Test Item Value Reference Range Interpretation [...] FOR DIALYSIS PATIEN TS. TSH/FREE T4 IF [id number] 06:06:00 Test Item Value Reference Range Interpretation Comments THYROID STIMULATING HORMONE 0.78 uIU/mL 0.35-4.94 (BEAKER) (test code = 772) CBC W/PLT COUNT & AUTO [id number] 05:30:00 Test Item Value Reference Range Interpretation [...] L 0.00-0.20 (test code = 417) 0.00SEDIMENTATION [id number] 14:36:00 Test Item Value Reference Range Interpretation Comments SEDIMENTATION RATE, ERYTHROCYTE 20 mm/HR 0-40 (BEAKER) (test code = 766) VITAMIN [id number] 11:02:00 Test Item Value Reference Range Interpretation Comments VITAMIN B12 (BEAKER) (test code = 219 pg/mL 213-816 774) HEMOGLOBIN [id number] 08:55:00 Test Item Value Reference Range Interpretation Comments HEMOGLOBIN A1C (BEAKER) (test code = 5.3 % 4.3-6.1 368) LIPID [id number] 06:23:00 Test Item Value Reference Range Interpretation [...] 130-159 High 160-189 Very High >=190BASIC METABOLIC [id number] 06:23:00 Test Item Value Reference Range Interpretation [...] PATIEN TS. CBC W/PLT COUNT & AUTO [id number] 06:08:00 Test Item Value Reference Range Interpretation [...]
[2020-04-26] MEDS ORDERED: NA CHLORIDE 0.9% 500 ML ONE (06:51)
[2020-04-26] MEDS ORDERED: CEFTRIAXONE/SWI 1gm 0 GM/0 ML SYR ONE (06:51)
[2020-04-26] MEDS ORDERED: NA CHLORIDE 0.9% 1,000 ML ONE (06:51)
[2020-04-26] MEDS ORDERED: FAMOTIDINE 20 MG/2 ML VIAL IV ONE (06:51)
--- NOTE | 2020-04-26 07:09 | EKG ---
Test Date: 2020-04-26 Test Time: 06:09:45 Private Banker: JOAQUÍN MEASUREMENT RESULTS: Intervals: Rate: 96 ND: 142 QRSD: 74 QT: 338 QTc: 427 [place]: P: 50 ND: 142 QRS: -20 T: -33 INTERPRETIVE STATEMENTS: Sinus rhythm with occasional premature ventricular complexes ST & T wave abnormality, consider inferior ischemia Abnormal ECG Compared to ECG 04/02/2020 00:38:00 Ventricular premature complex(es) now present Possible ischemia now present Sinus tachycardia no longer present Left-axis deviation no longer present ST (T wave) deviation still present Electronically Signed On 04-26-20 07:08:53 QUARTER TRIMMER by Edward Sherwood
[2020-04-26 07:32] LABS: Protime INR 0.97
[2020-04-26 07:33] LABS: Lipase 70 U/L (73-393); Troponin (Emerg Dept Use Only) < 0.02 ng/mL (0.0-0.045)
[2020-04-26 07:46] LABS: Absolute Lymphocytes (CBC) 1.4 K/uL (0.7-4.9); Basophils % 1.1 % (0-1.3); Hematocrit 39.4 % (36.0-45.0); Lymphocytes % 18.8 % (15.3-44.8); MPV 7.7 fL (7.6-11.3); RBC Red Blood Cell Count 4.55 M/uL (3.86-4.86)
[2020-04-26 07:51] LABS: ALT/SGPT 33 U/L (12-78); AST/SGOT 21 U/L (15-37); Albumin 3.2 g/dL (3.4-5.0); Alkaline Phosphatase 105 U/L (45-117); BUN Blood Urea Nitrogen 15 mg/dL (7-18); Bicarbonate 36 mmol/L (21-32); Bilirubin Direct < 0.1 mg/dL (0-0.2); Bilirubin Total 0.5 mg/dL (0.2-1.0); Glucose Level 88 mg/dL (74-106); Magnesium 1.9 mg/dL (1.8-2.4); NT PRO-BNP 359 pg/mL (<450); Potassium 3.4 mmol/L (3.5-5.1); Protein, Total 6.5 g/dL (6.4-8.2); Sodium Level 137 mmol/L (136-145)
--- NOTE | 2020-04-26 07:52 | ER ---
Nurse's Notes [facility] Name: Hina Messina Age: 74 yrs Sex: Female : 1945 Arrival Date: 04/26/2020 Time: 05:25 Bed 8 Private MD: Diagnosis: Cystitis, unspecified without hematuria Presentation: 04/26 05:26 Chief complaint: EMS states: Reports pt complaining of dizziness and nausea that ea started when she got up this AM. EMS reported orthostatic BPs were positive. Coronavirus screen: At this time, the client does not indicate any symptoms associated with coronavirus-19. Ebola Screen: No symptoms or risks identified at this time. Initial Sepsis Screen: Does the patient meet any 2 criteria? No. Patient's initial sepsis screen is negative. Does the patient have a suspected source of infection? No. Patient's initial sepsis screen is negative. Risk Assessment: Do you want to hurt yourself or someone else? Patient reports no desire to harm self or others. Onset of symptoms was April 26, 2020. 05:26 Method Of Arrival: EMS: [facility] ea 05:26 Acuity: KESHAV 3 ea Triage Assessment: 05:35 General: Appears in no apparent distress. Behavior is calm, cooperative, appropriate ea for age. Pain: Denies pain. Neuro: Level of Consciousness is awake, alert, obeys commands, Oriented to person, place, time, situation. Cardiovascular: Patient's skin is warm and dry. Respiratory: Airway is patent Respiratory effort is even, unlabored, Respiratory pattern is regular, symmetrical. Derm: Skin is pink, warm \T\ dry. Historical: - Allergies: 05:38 ambien; ea 05:38 Codeine; ea 05:38 Demerol; ea 05:38 Latex, Natural Rubber; ea 05:38 Sulfa (Sulfonamide Antibiotics); ea 05:38 Valium; ea - Home Meds: 05:38 xaralto 20mg nightly [Active]; Ventolin HFA 90 mcg/actuation Nebulizer HFAA [Active]; ea URIMAR-T 120-0.12-10.8 mg Oral tab [Active]; risperidone 0.25 mg Oral tab [Active]; propranolol 40 mg Oral tab [Active]; prednisone 5 mg Oral tab once daily [Active]; pantoprazole 40 mg Oral TbEC 1 tab once daily [Active]; clonazepam 0.5 mg Oral tab [Active]; citalopram 20 mg tab once daily [Active]; cetirizine 10 mg Oral tab 1 tab once daily [Active]; - PMHx: 05:38 manic episode; SVT; Osteoporosis; Microcytic anemia; ibs; Hypertension; Hyperlipidemia; ea Glaucoma; DVT; Depression; GERD; Atrial Fib; Aortic Stenosis; Anxiety; COPD; Anemia; Dementia; - PSHx: 05:38 Hysterectomy; Appendectomy; ea - Immunization history:: Adult Immunizations up to date. - Social history:: Smoking status: Patient denies any tobacco usage or history of. - Family history:: not pertinent. Screenin:34 Abuse screen: Denies threats or abuse. Nutritional screening: No deficits noted. ea Tuberculosis screening: No symptoms or risk factors identified. Fall Risk None identified. Assessment: 05:36 Reassessment: see triage assessment. ea 06:47 Reassessment: Patient and/or family updated on plan of care and expected duration. Pain ea level reassessed. Patient is alert, oriented x 3, equal unlabored respirations, skin warm/dry/pink. 07:30 Reassessment: Patient appears in no apparent distress at this time. Patient and/or em family updated on plan of care and expected duration. Pain level reassessed. Patient is alert, oriented x 3, equal unlabored respirations, skin warm/dry/pink. 09:50 Reassessment: Patient appears in no apparent distress at this time. Patient and/or em family updated on plan of care and expected duration. Pain level reassessed. Patient is alert, oriented x 3, equal unlabored respirations, skin warm/dry/pink. 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 Vital Signs: 05:26 BP 111 / 83; Pulse 97; Resp 20; Temp 97.6; Pulse Ox 96% on 1 lpm NC; Weight 63.5 kg; ea Height 5 ft. 3 in. (160.02 cm); 06:47 BP 119 / 84; Pulse 90; Resp 20; Pulse Ox 95% on 1 lpm NC; ea 10:00 BP 132 / 81 Supine; Pulse 98; em 10:00 BP 122 / 87 Sitting; Pulse 103; em 10:00 BP 113 / 73 Standing; Pulse 113; em 05:26 Body Mass Index 24.80 (63.50 kg, 160.02 cm) ea NIH Stroke Scale Scores: 07:35 NIHSS Score: 0 [facility] ED Course: 05:25 Patient arrived in ED. ea 05:25 Puma Vera MD is Attending Physician. pau 05:34 Triage completed. ea 05:34 Arm band placed on right wrist. Patient placed in an exam room, on a stretcher, on ea oxygen, on athletic monitor, on pulse oximetry. 05:35 Patient has correct armband on for positive identification. Bed in low position. Call ea light in reach. Side rails up X2. athletic monitor on. Pulse ox on. NIBP on. 05:59 XRAY Chest (1 view) In Process Unspecified. EDMS 06:10 Missed attempt(s): 24 gauge hand. Bleeding controlled, band aid applied, catheter tip rv intact. 06:17 Missed attempt(s): 22 gauge in right forearm. Bleeding controlled, band aid applied, rv catheter tip intact. 06:30 Inserted saline lock: 22 gauge in left forearm, using aseptic technique. rv 06:35 Initial lab(s) drawn, by ga, sent to lab. Inserted saline lock: 20 gauge in right rv forearm, using aseptic technique. Blood collected. 07:20 William Middleton, RN is Primary Nurse. em 07:51 Braden Zendejas MD is Hospitalizing Provider. pau 08:11 CT Head Brain wo Cont In Process Unspecified. EDMS 08:50 Attending Physician role handed off by Puma Vera MD ma2 08:50 Guadalupe Cho MD is Attending Physician. ma2 12:21 No provider procedures requiring assistance completed. IV discontinued, intact, em bleeding controlled, No redness/swelling at site. Pressure dressing applied. Administered Medications: 06:46 Drug: NS 0.9% 1000 ml Route: IV; Rate: 125 ml/hr; Site: right forearm; ea 12:20 Follow up: IV Status: Completed infusion; IV Intake: 1000ml em 06:46 Drug: Pepcid 20 mg Route: IVP; Site: right forearm; ea 07:27 Follow up: Response: No adverse reaction em 06:46 Drug: NS 0.9% 500 ml Route: IV; Rate: bolus; Site: right forearm; ea 07:27 Follow up: IV Status: Completed infusion; IV Intake: 500ml em 06:46 Drug: Rocephin 1 grams Route: IV; Rate: per protocol; Site: right forearm; ea 07:27 Follow up: Response: No adverse reaction; IV Status: Completed infusion; IV Intake: 10mlem 08:23 Drug: Potassium Effervescent Tablet 25 mEq Route: PO; em 09:30 Follow up: Response: No adverse reaction em 10:19 Drug: SOLU-Medrol 125 mg Route: IVP; Site: right antecubital; em 12:20 Follow up: Response: No adverse reaction em 10:19 Drug: Albuterol - atroVENT (3:1) (2.5 mg - 0.5 mg) 3 ml Route: Nebulizer; em 12:20 Follow up: Response: No adverse reaction em Intake: 07:27 IV: 500ml; Total: 500ml. em 07:27 IV: 10ml; Total: 510ml. em 12:20 IV: 1000ml; Total: 1510ml. em Outcome: 07:52 Decision to Hospitalize by Provider. pau 10:59 Discharge ordered by MD. hurley 14:00 Patient left the ED. hb NIH Stroke Scale - NIH Stroke Score Date: 04/26/2020 Time: 07:35 Total Score = 0 1a. Level of Consciousness (LOC) - 0(Alert) 1b. Level of Consciousness (LOC) (Year \T\ Age) - 0(Both) 1c. LOC Commands (Open \T\ Closes Eyes/Shopping Centre Manager) - 0(Both) 2. Best Gaze (Lateral Gaze Paresis) - 0(Normal) 3. Visual Field Loss - 0(No visual loss) 4. Facial Palsy - 0(Normal) 5a. Left Arm: Motor (10-second hold) - 0(No drift) 5b. Right Arm: Motor (10-second hold) - 0(No drift) 6a. Left Leg: Motor (5-second hold - always test supine) - 0(No drift) 6b. Right Leg: Motor (5-second hold - always test supine) - 0(No drift) 7. Limb Ataxia (finger/nose \T\ heel/brown - test with eyes open) - 0(Absent) 8. Sensory Loss (pinprick arms/legs/face) - 0(Normal) 9. Best Language: Aphasia (description/naming/reading) - 0(No aphasia) 10. Dysarthria (speech clarity - read or repeat words) - 0(Normal) 11. Extinction and Inattention (visual/tactile/auditory/spatial/personal) - 0(No abnormality) Initials: pau Addendum: 04/30/2020 15:05 Addendum: Culture Results: Positive urine culture. Spoke to pt's daughter and aa5 pt's daughter reports pt lives at [facility] assisted living facility, reports pt has improving of burning with urination but continues having suprapubic pain. Spoke to Nancy (med aid) at [facility] and order faxed to d/c cefpodoxime and to administer Macrobid 100mg PO BID x 10 days per Yousif Aponte NP. Signatures: Dispatcher [employer] Puma Miramontes MD MD cha Munoz, Edgar RN Viktoriya Rosales RN RN aa5 Briseida Booth RN RN hb Antunez, Elena, RN RN ea Alzahri, Mohammad, MD MD ma2 Cesar Everett RN RN rv
--- NOTE | 2020-04-26 07:52 | EDPHYS ---
Physician Documentation [facility] Name: Hina Messina Age: 74 yrs Sex: Female : 1945 Arrival Date: 04/26/2020 Time: 05:25 Bed 8 Private MD: ED Physician Guadalupe Cho HPI: 04/26 05:34 This 74 yrs old Female presents to ER via EMS with complaints of Dizziness. pau 05:34 The patient presents with dizziness, feeling faint, generalized weakness, pau lightheadedness. Onset: The symptoms/episode began/occurred just prior to arrival, this morning. Context: occurred at a halfway or assisted living facility. Modifying factors: The symptoms are alleviated by nothing, the symptoms are aggravated by nothing. Associated signs and symptoms: Pertinent positives: nausea, near-syncope. Severity of symptoms: At their worst the symptoms were mild moderate in the emergency department the symptoms have improved mildly. Patient's baseline: Neuro: alert and fully oriented. The patient has experienced similar episodes in the past, a few times. Historical: - Allergies: 05:38 ambien; ea 05:38 Codeine; ea 05:38 Demerol; ea 05:38 Latex, Natural Rubber; ea 05:38 Sulfa (Sulfonamide Antibiotics); ea 05:38 Valium; ea - Home Meds: 05:38 xaralto 20mg nightly [Active]; Ventolin HFA 90 mcg/actuation Nebulizer HFAA [Active]; ea URIMAR-T 120-0.12-10.8 mg Oral tab [Active]; risperidone 0.25 mg Oral tab [Active]; propranolol 40 mg Oral tab [Active]; prednisone 5 mg Oral tab once daily [Active]; pantoprazole 40 mg Oral TbEC 1 tab once daily [Active]; clonazepam 0.5 mg Oral tab [Active]; citalopram 20 mg tab once daily [Active]; cetirizine 10 mg Oral tab 1 tab once daily [Active]; - PMHx: 05:38 manic episode; SVT; Osteoporosis; Microcytic anemia; ibs; Hypertension; Hyperlipidemia; ea Glaucoma; DVT; Depression; GERD; Atrial Fib; Aortic Stenosis; Anxiety; COPD; Anemia; Dementia; - PSHx: 05:38 Hysterectomy; Appendectomy; ea - Immunization history:: Adult Immunizations up to date. - Social history:: Smoking status: Patient denies any tobacco usage or history of. - Family history:: not pertinent. ROS: 05:34 Constitutional: Negative for fever, chills, and weight loss, Eyes: Negative for injury, pau pain, redness, and discharge, ENT: Negative for injury, pain, and discharge, Neck: Negative for injury, pain, and swelling, Cardiovascular: Negative for chest pain, palpitations, and edema, Respiratory: Negative for shortness of breath, cough, wheezing, and pleuritic chest pain, Abdomen/GI: Negative for abdominal pain, nausea, vomiting, diarrhea, and constipation, Back: Negative for injury and pain, : Negative for injury, bleeding, discharge, and swelling, MS/Extremity: Negative for injury and deformity, Psych: Negative for depression, anxiety, suicide ideation, homicidal ideation, and hallucinations, Allergy/Immunology: Negative for hives, rash, and allergies, Endocrine: Negative for neck swelling, polydipsia, polyuria, polyphagia, and marked weight changes, Hematologic/Lymphatic: Negative for swollen nodes, abnormal bleeding, and unusual bruising. 05:34 Abdomen/GI: Positive for black/tarry stool. 05:34 Skin: Positive for pallor. 05:34 Neuro: Positive for weakness. Exam: 05:34 Constitutional: This is a well developed, well nourished patient who is awake, alert, pau and in no acute distress. Head/Face: Normocephalic, atraumatic. Eyes: Pupils equal round and reactive to light, extra-ocular motions intact. Lids and lashes normal. Conjunctiva and sclera are non-icteric and not injected. Cornea within normal limits. Periorbital areas with no swelling, redness, or edema. ENT: Nares patent. No nasal discharge, no septal abnormalities noted. Tympanic membranes are normal and external auditory canals are clear. Oropharynx with no redness, swelling, or masses, exudates, or evidence of obstruction, uvula midline. Mucous membranes moist. Neck: Trachea midline, no thyromegaly or masses palpated, and no cervical lymphadenopathy. Supple, full range of motion without nuchal rigidity, or vertebral point tenderness. No Meningismus. Chest/axilla: Normal chest wall appearance and motion. Nontender with no deformity. No lesions are appreciated. Cardiovascular: Regular rate and rhythm with a normal S1 and S2. No gallops, murmurs, or rubs. Normal PMI, no JVD. No pulse deficits. Respiratory: Lungs have equal breath sounds bilaterally, clear to auscultation and percussion. No rales, rhonchi or wheezes noted. No increased work of breathing, no retractions or nasal flaring. Back: No spinal tenderness. No costovertebral tenderness. Full range of motion. Female : Normal external genitalia. MS/ Extremity: Pulses equal, no cyanosis. Neurovascular intact. Full, normal range of motion. Neuro: Awake and alert, GCS 15, oriented to person, place, time, and situation. Cranial nerves II-XII grossly intact. Motor strength 5/5 in all extremities. Sensory grossly intact. Cerebellar exam normal. Normal gait. Psych: Awake, alert, with orientation to person, place and time. Behavior, mood, and affect are within normal limits. 05:34 Abdomen/GI: Inspection: abdomen appears normal, Bowel sounds: normal, Rectal exam: is unremarkable, rectal tone normal, Stool: guaiac negative, hemorrhoid(s), are not appreciated, mass, is not appreciated, swelling, is not appreciated, tenderness, is not appreciated, Liver: no appreciated palpable abnormalities, Hernia: not appreciated. 06:15 ECG was reviewed by the Attending Physician. pau 07:35 Neuro: Orientation: is normal, appropriate for stated age, no acute changes, Mentation: pau is normal, appropriate for stated age, no acute changes, Memory: is normal, appropriate for stated age, no acute changes, Cranial nerves: grossly normal, is grossly normal based on the patient's age, no acute changes, CN II- XII are normal as tested, extraocular movements are intact, Facial palsy and sensory deficits are absent. Nystagmus is absent. Cerebellar function: is grossly normal based on the patient's age, no acute changes, Motor: is grossly normal based on the patient's age, no acute changes, moves all fours, strength is 5/5 in all extremities, Sensation: is normal, no obvious gross deficits, appropriate no acute changes, Gait: not tested. Deep tendon reflexes are 2+ (normal) in the bilateral brachioradialis, bicep, tricep and patellar and Achilles tendons, Babinski testing is normal. Vital Signs: 05:26 BP 111 / 83; Pulse 97; Resp 20; Temp 97.6; Pulse Ox 96% on 1 lpm NC; Weight 63.5 kg; ea Height 5 ft. 3 in. (160.02 cm); 06:47 BP 119 / 84; Pulse 90; Resp 20; Pulse Ox 95% on 1 lpm NC; ea 10:00 BP 132 / 81 Supine; Pulse 98; em 10:00 BP 122 / 87 Sitting; Pulse 103; em 10:00 BP 113 / 73 Standing; Pulse 113; em 05:26 Body Mass Index 24.80 (63.50 kg, 160.02 cm) ea NIH Stroke Scale Scores: 07:35 NIHSS Score: 0 pau MDM: 05:25 Patient medically screened. pau 05:37 Differential diagnosis: generalized weakness, GI bleed, hypovolemia, idiopathic pau dizziness, near-syncope, syncope, TIA. Data reviewed: vital signs, nurses notes, lab test result(s), EKG, radiologic studies, plain films. Data interpreted: tongue presser: rate is 97 beats/min, Pulse oximetry: on room air is 96 %. Test interpretation: by ED physician or midlevel provider: ECG, plain radiologic studies. Counseling: I had a detailed discussion with the patient and/or guardian regarding: the historical points, exam findings, and any diagnostic results supporting the discharge/admit diagnosis, lab results, radiology results, the need for further work-up and treatment in the hospital. 10:52 ED course: signed out to me by dr. Vera at end of shift as lightheartedness and ma2 near syncope, pending labs and urine analysis. Also was signed out to dr. Braden Cintron, hospitalist as possible anticipated admission if lightheartedness persisted. all lab and urine resulted, patient did had positive orthostatics and UTI, she does have dysuria and was given IVF and antibiotics in ER. her vs are all wnl and her wbc is normal, no SIRS. she feels better and her orthostatics are negative after ivf. she would like to go home.. discussed with dr. Cintron and he evaluated the patient and agreed with this plan . 04/26 05:33 Order name: Basic Metabolic Panel; Complete Time: 07:56 pau 04/26 05:33 Order name: CBC with Diff pau 04/26 05:33 Order name: LFT's pau 04/26 05:33 Order name: Magnesium [facility] 04/26 05:33 Order name: NT PRO-BNP [facility] 04/26 05:33 Order name: PT-INR [facility] 04/26 05:33 Order name: Troponin (emerg Dept Use Only) [facility] 04/26 05:33 Order name: Lipase [facility] 04/26 05:33 Order name: Urine Culture [facility] 04/26 07:33 Order name: Troponin (Emerg Dept Use Only); Complete Time: 07:34 EDMS 04/26 07:33 Order name: Lipase; Complete Time: 07:34 EDMS 04/26 07:46 Order name: Protime (+INR); Complete Time: 07:50 EDMS 04/26 07:51 Order name: Liver (Hepatic) Function; Complete Time: 07:56 EDNM 04/26 07:51 Order name: NT PRO-BNP; Complete Time: 07:56 EDMS 04/26 05:33 Order name: XRAY Chest (1 view); Complete Time: 09:27 [facility] 04/26 05:33 Order name: EKG; Complete Time: 05:35 [facility] 04/26 07:51 Order name: CT Head Brain wo Cont; Complete Time: 08:23 [facility] 04/26 07:51 Order name: Magnesium; Complete Time: 07:56 EDMS 04/26 07:57 Order name: ABG [facility] 04/26 08:06 Order name: CBC with Automated Diff EDNM 04/26 09:57 Order name: Urine Dipstick--Ancillary (enter results) 04/26 10:23 Order name: ABG Arterial Blood Gas EDNM 04/26 11:52 Order name: Urine Dipstick-Ancillary [facility] 04/26 05:33 Order name: Cardiac monitoring; Complete Time: 06:17 [facility] 04/26 05:33 Order name: EKG - Nurse/Tech; Complete Time: 06:17 [facility] 04/26 05:33 Order name: IV Saline Lock; Complete Time: 06:47 [facility] 04/26 05:33 Order name: Labs collected and sent; Complete Time: 06:47 [facility] 04/26 05:33 Order name: O2 Per Protocol; Complete Time: 06:17 [facility] 04/26 05:33 Order name: O2 Sat Monitoring; Complete Time: 06:17 [facility] 04/26 05:33 Order name: Urine Dipstick-Ancillary (obtain specimen); Complete Time: 12:20 pau 04/26 09:29 Order name: Straight Cath - Urine; Complete Time: :58 ma2 04/26 09:30 Order name: Orthostatic Blood Pressure: and HR please; Complete Time: :58 ma2 EC:15 Rate is 96 beats/min. Rhythm is regular. QRS [place] is Normal. RI interval is normal. QRS pau interval is normal. QT interval is normal. No Q waves. T waves are Normal. No ST changes noted. Clinical impression: NSR w/ Non-specific ST/T Changes. Interpreted by me. Reviewed by me. Administered Medications: 06:46 Drug: NS 0.9% 1000 ml Route: IV; Rate: 125 ml/hr; Site: right forearm; ea 12:20 Follow up: IV Status: Completed infusion; IV Intake: 1000ml em 06:46 Drug: Pepcid 20 mg Route: IVP; Site: right forearm; ea 07:27 Follow up: Response: No adverse reaction em 06:46 Drug: NS 0.9% 500 ml Route: IV; Rate: bolus; Site: right forearm; ea 07:27 Follow up: IV Status: Completed infusion; IV Intake: 500ml em 06:46 Drug: Rocephin 1 grams Route: IV; Rate: per protocol; Site: right forearm; ea 07:27 Follow up: Response: No adverse reaction; IV Status: Completed infusion; IV Intake: 10mlem 08:23 Drug: Potassium Effervescent Tablet 25 mEq Route: PO; em 09:30 Follow up: Response: No adverse reaction em 10:19 Drug: SOLU-Medrol 125 mg Route: IVP; Site: right antecubital; em 12:20 Follow up: Response: No adverse reaction em 10:19 Drug: Albuterol - atroVENT (3:1) (2.5 mg - 0.5 mg) 3 ml Route: Nebulizer; em 12:20 Follow up: Response: No adverse reaction em Disposition: 04/26/20 10:59 Discharged to Home. Impression: Cystitis, unspecified without hematuria. - Condition is Stable. - Discharge Instructions: Urinary Tract Infection, Adult. - Prescriptions for cefpodoxime 100 mg Oral Tablet - take 1 tablet by ORAL route every 12 hours for 10 days take with food; 20 tablet. - Medication Reconciliation Form, Thank You Letter, Antibiotic Education, Prescription Opioid Use form. - Follow up: Private Physician; When: Tomorrow; Reason: Continuance of care. NIH Stroke Scale - NIH Stroke Score Date: 04/26/2020 Time: 07:35 Total Score = 0 1a. Level of Consciousness (LOC) - 0(Alert) 1b. Level of Consciousness (LOC) (Year \T\ Age) - 0(Both) 1c. LOC Commands (Open \T\ Closes Eyes/Main Galley [place]) - 0(Both) 2. Best Gaze (Lateral Gaze Paresis) - 0(Normal) 3. Visual Field Loss - 0(No visual loss) 4. Facial Palsy - 0(Normal) 5a. Left Arm: Motor (10-second hold) - 0(No drift) 5b. Right Arm: Motor (10-second hold) - 0(No drift) 6a. Left Leg: Motor (5-second hold - always test supine) - 0(No drift) 6b. Right Leg: Motor (5-second hold - always test supine) - 0(No drift) 7. Limb Ataxia (finger/nose \T\ heel/brown - test with eyes open) - 0(Absent) 8. Sensory Loss (pinprick arms/legs/face) - 0(Normal) 9. Best Language: Aphasia (description/naming/reading) - 0(No aphasia) 10. Dysarthria (speech clarity - read or repeat words) - 0(Normal) 11. Extinction and Inattention (visual/tactile/auditory/spatial/personal) - 0(No abnormality) Initials: pau Signatures: Dispatcher [employer] Puma Miramontes MD MD cha Munoz, Edgar, RN RN em Baxter, Heather, RN RN hb Antunez, Elena, RN RN ea Alzahri, Mohammad, MD MD ma2 Corrections: (The following items were deleted from the chart) 07:57 07:52 Hospitalization Ordered by Braden Zendejas MD for Observation. Preliminary pau diagnosis is Dizziness and giddiness; Syncope and collapse - near. Bed requested for Telemetry/MedSurg (observation). Status is Observation. Condition is Fair. Problem is new. Symptoms have improved. pau 08:26 07:57 04/26/2020 07:52 Hospitalization Ordered by Braden Zendejas MD for pau Observation. Preliminary diagnosis is Dizziness and giddiness; Syncope and collapse - near; Hypokalemia. Bed requested for Telemetry/MedSurg (observation). Status is Observation. Condition is Fair. Problem is new. Symptoms have improved. [facility] 10:59 08:26 04/26/2020 07:52 Hospitalization Ordered by Braden Zendejas MD for ma2 Observation. Preliminary diagnosis is Dizziness and giddiness; Syncope and collapse - near; Hypokalemia; Chronic obstructive pulmonary disease, unspecified. Bed requested for Telemetry/MedSurg (observation). Status is Observation. Condition is Fair. Problem is new. Symptoms have improved. [facility] 14:00 10:59 04/26/2020 10:59 Discharged to Home. Impression: Cystitis, unspecified hb without hematuria. Condition is Stable. Forms are Medication Reconciliation Form, Thank You Letter, Antibiotic Education, Prescription Opioid Use. Follow up: Private Physician; When: Tomorrow; Reason: Continuance of care. ma2
--- NOTE | 2020-04-26 08:19 | RAD REPORT ---
EXAM DESCRIPTION: CT - Head Brain Wo Cont - 04/26/2020 8:11 am CLINICAL HISTORY: DIZZINESS, nausea COMPARISON: Head Brain Wo Cont dated 02/08/2020 TECHNIQUE: Axial 5 mm thick images of the head were obtained without IV contrast. All CT scans are performed using dose optimization technique as appropriate and may include automated exposure control or mA/KV adjustment according to patient size. FINDINGS: No intracranial hemorrhage, mass, edema or shift of mid-line structures. No acute infarcti on changes seen. No abnormal extra-axial fluid collections. Moderate severity atrophy changes are pre sent similar to comparison. Ventricles are in proportion to the volume loss. Chronic ischemic changes are present but relatively mild in degree. Arterial tree calcifications are present. Mastoid air cells and visualized portions of the paranasal sinuses are clear. No acute bony findings. IMPRESSION: Atrophy and chronic ischemic change similar to February 07 imaging. No acute intracranial findings identifiable. Chronic ischemic changes can mask nonhemorrhagic acute infarction. MR brain followup can be obtained if there is ongoing concern for acute ischemia.
[2020-04-26] MEDS ORDERED: POTASSIUM 25 MEQ EFFERV TAB ONE (08:33)
--- NOTE | 2020-04-26 09:14 | RAD REPORT ---
EXAM DESCRIPTION: RAD - Chest Single View - 04/26/2020 5:57 am CLINICAL HISTORY: COUGH COMPARISON: April 02 chest film, November 2017 CT abdomen TECHNIQUE: AP portable chest image was obtained 04/26/2020 5:57 am . FINDINGS: Baseline fibrotic lung pattern present matching comparison. No peripheral mass or consolid ation. Midline lower lung mass density is corresponds to the patient's known hiatal hernia. Heart and vasculature are normal. No measurable pleural effusion and no pneumothorax. No acute bony abnormalit y seen. No acute aortic findings suspected. IMPRESSION: No acute cardiopulmonary process. Chronic fibrotic lung pattern matches comparison.
[2020-04-26 10:21] LABS: Arterial Blood Carboxyhemoglob 1.5 % (0-1.5); Blood O2 Saturation 88.9 % (92-98.5)
[2020-04-26] MEDS ORDERED: IPRATROPIUM BROM 0.5MG/2.5ML ONE (10:25)
[2020-04-26] MEDS ORDERED: METHYLPREDNISOLONE 125 MG INJ ONE (10:25)
[2020-04-26] MEDS ORDERED: CEFTRIAXONE/SWI 1gm 1 GM/10 ML SYR ONE (10:25)
[2020-04-26] MEDS ORDERED: ALBUTEROL 2.5 MG/3 ML NEB SOL ONE (10:25)
--- NOTE | 2020-04-26 10:57 | P.CNS ---
Date of Consult: 04/26/20 Reason for Consult: near-syncope, possible admission Requesting Physician: Puma Vera Chief Complaint: dizzy, lightheaded History of Present Illness: 74yo female, presented to ED due to lightheadedness / feeling as though she was going to pass out this morning at ~4am. This occurred after patient sat up from laying in bed. She did not lose consciousness /pass out, didn't fall. She felt dizzy and tried to call family/friends but everyone she tried was asleep, so she called 911. In the ED, CBC/CMP were rather unremarkable except for mild hypokalemia, CT brain was negative for acute findings. I was consulted for possible admission for further evaluation. After discussion with the patient, she reported 1 week of dysuria and foul smelling urine. She otherwise denied fever/chills, nausea/vomiting, abdominal or new lower back pain. I discussed with ED physician and recommended obtaining UA and orthostatics. Allergies codeine [Codeine] Allergy (Mild, Verified 07/27/19 22:34) Hives/Rash diazepam [From Valium] Allergy (Mild, Verified 07/27/19 22:34) Hives/Rash meperidine HCl [From Demerol] Allergy (Mild, Verified 07/27/19 22:34) Hives Sulfa (Sulfonamide Antibiotics) [Sulfa(Sulfonamide Antibiotics)] Allergy (Mild, Verified 07/27/19 22:34) Nausea/Vomiting latex Allergy (Verified 07/27/19 22:34) Hives/Rash Latex, Natural Rubber Allergy (Verified 07/27/19 22:34) Itching Home Medications: Acetaminophen [Tylenol Extra Strength] 500 mg PO BID 07/27/19 Albuterol Sulfate [Proair Respiclick] 2 puff IH DAILY PRN 07/27/19 Cetirizine HCl [Zyrtec*] 5 mg PO DAILY 07/27/19 Citalopram Hydrobromide [Citalopram HBr] 20 mg PO DAILY 07/27/19 Fluticasone [Flonase 50MCG Nasal [place]*] 1 sprays NS DAILY PRN 07/27/19 Fluticasone/Umeclidin/Vilanter [Trelegy Ellipta 100-62.5-25] 2 puff IH DAILY 07/27/19 Metoprolol Tartrate 25 mg PO DAILY 07/27/19 Rivaroxaban [Xarelto] 20 mg PO BEDTIME 07/27/19 predniSONE [Prednisone] 5 mg PO DAILY 07/27/19 Aspirin [Aspirin EC 81 MG] 81 mg PO DAILY #30 tablet. 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 -: HYSTERECTOMY -: APPENDECTOMY - Family History Father Medical History: Stroke Mother Medical History: Cancer - Social History Smoking Status: Former smoker Alcohol use: No CD- Drugs: No Caffeine use: Yes Review of Systems 10-point ROS is otherwise unremarkable Physical Examination General: Alert, In no apparent distress, Oriented x3 HEENT: Sclerae nonicteric Respiratory: Other (diminished throughout, on 2LNC (chronic)) Cardiovascular: No edema, Regular rate/rhythm Gastrointestinal: Soft and benign, Non-distended, No tenderness Musculoskeletal: Other (no CVA tenderness) Integumentary: No rashes, No erythema Neurological: Normal speech, Normal strength at 5/5 x4 extr, Normal affect Laboratory Data (last 24 hrs) 04/26/20 06:35: Lipase 70 L 04/26/20 06:35: PT 11.5, INR 0.97 04/26/20 06:35: WBC 7.3, Hgb 12.5, Hct 39.4, Plt Count 352 04/26/20 06:35: Sodium 137, Potassium 3.4 L, BUN 15, Creatinine 0.87, Glucose 88, Magnesium 1.9, Total Bilirubin 0.5, AST 21, ALT 33, Alkaline Phosphatase 105 Physician Review Additional Text: 74yo female presented to ED due to dizziness / lightheadedness when sitting up from laying position. -likely dehydrated in setting of UTI - acute uncomplicated cystitis -exam is nonfocal for any new stroke findings -recommend obtaining orthostatics, IVF as needed, has received some already -patient reports feeling better -UA positive for UTI, urine culture sent -pt does not appear septic, this appears to be uncomplicated cystitis -discussed with ED physician, agree that patient can be discharged back to assisted living facility with appropriate treatment for UTI, pt in agreement with plan -pt can return to ED if symptoms worsen Time Spent Managing Pts care (In Minutes): 55
[2020-04-26 11:05] LABS: Anisocytosis 2+; Blood Morphology Comment NOTED (NOT SEEN); Ovalocytes 1+; Platelet Estimate ADEQ; Poikilocytosis 1+; Polychromasia 1+; White Blood Cell Scan OK (OK)
[2020-04-26 11:52] LABS: Urine Blood NEGATIVE (NEG); Urine Glucose NEGATIVE (NEG); Urine Protein NEGATIVE (NEG); Urine pH 7.5 (5.0-7.0)
== END 2020-04-26 14:00 | disposition home or self-care (01) ==
LOC: ER 05:21
DX: N30.90 Cystitis, unspecified without hematuria (principal); I10 Essential (primary) hypertension; E78.5 Hyperlipidemia, unspecified; F41.8 Other specified anxiety disorders; I48.91 Unspecified atrial fibrillation; F03.90 Unspecified dementia, unspecified severity, without behavioral disturbance, psychotic disturbance, mood disturbance, and anxiety; Z79.01 Long term (current) use of anticoagulants; Z88.2 Allergy status to sulfonamides; Z88.5 Allergy status to narcotic agent; Z91.040 Latex allergy status; Z91.048 Other nonmedicinal substance allergy status
CPT/HCPCS: 93005; 87088; 85025; 87086; 80048; 36415; 83735; 85610; 80076; 87077; 87186; 81003; 84484; 83690; 83880; 70450; 71045; 82805; 99285; J0696; J7040; J7030; J2930

== ENCOUNTER 2020-06-10 07:10 | Emergency (ER) | payer OTHER ==
--- OUTSIDE RECORDS SUMMARY | 2020-06-10 07:32 | XMS REPORT | Clinical Summary ---
:1945 Author Organization [facility] Address [address] [place] [address] Care Team Providers Name Role Phone Unavailable [...] Not on file Results Not on fileafter 06/10/2019 Insurance Payer Benefit Plan / Subscriber ID Effective Phone Address T ype Group Dates CIGNA CIGNA [id number] 2016-Pre [facility] [employer] ALL sent Contracted Advance Directives For more information, please contact: [phone] Code Status Date Activated Date Inactivated Comments Full Code 12/07/2016 2:16 AM 12/08/2016 9:06 PM This code status was determined by: Patient
--- OUTSIDE RECORDS SUMMARY | 2020-06-10 07:32 | XMS REPORT | Continuity of Care Document ---
:1945 Author Organization [facility] t Address [address] [place] [address] Care Team Providers Name Role Phone DR [...] ischemic 00:00: Medica l attack) attack) 00 [facility] Atrial Atrial Disease Active [facility]: [facility] 00 [facility] COPD COPD Disease Active [facility] (chronic [...] 00:00: [facility] Medical Antibiot 00 Center ics) Diazepam Drug Active Pt [facility] Allergy 12-07 tremors [facility] - [facility]: [facility] 00 [facility] Family History Family Member Diagnosis Comments Start Date Stop Date Source Natural father Hyperlipidemia [facility] Natural father Stroke [facility] Natural mother Cancer [facility] Natural mother Osteoarthritis [facility] Natural sister Heart failure [facility] Natural sister Hyperlipidemia [facility] Natural sister Thyroid disease [facility] S t [facility] Social History Social Habit Start Date Stop Date Quantity Comments Source Sex Assigned At [facility] Tobacco use and 2016-12-07 2016-12-07 Never used [facility] - exposure 00:00:00 00:00:00 [facility] Alcohol intake 2016-12-07 2016-12-07 Current [facility] - 00:00:00 00:00:00 non-drinker of Medical nter alcohol (finding) History of 2008-12-07 Current smoker [facility] Sm[facility] Status Start Date Stop Date Source Former smoker 2016-12-07 00:00:00 2016-12-07 00:00:00 [facility] Medications Ordered Filled Start Stop Current Ordering Indication Dosage Frequency Signature Comments Components Source Medication Medication Date Date Medication? Clinician (SIG) Name Name atorvastati Yes hyperlipide 20mg QD Take [address] [facility] (LIPITOR) 12-08 huyen by mouth [facility] - 20 MG 19:06: daily. Medical tablet 07 [facility] pantoprazol Yes gastroesoph 40mg Q.5D Take [address] [facility] - ageal by mouth 2 [facility] - (PROTONIX) 19:06: reflux (two) Medi ruiz 40 MG 07 disease times Center tablet daily. spironolact Yes hypertensio 25mg Q.5D Take [address] [facility] one - n by mouth 2 [facility] - (ALDACTONE) [...] - MG tablet 19:06: daily. Medica l [address] [place] [address] fluticasone Yes 1{spray Q.5D [address] [facility] (FLONASE) 12-08 } Nasal [facility] - 50 19:06: route 2 Medical mcg/actuati 07 (two) Center on nasal times spray daily. Procedures This patient has no known procedures. Encounters Start End Encounter Admission Attending Care Care Encounter Source Date/Time Date/Time Type Type Clinicians Facility Department ID 2020-03-19 2020-03-31 [facility] [id number] [place] 22:48:00 17:50:00 [facility] 2020-03-18 2020-03-19 Outpatient C [facility] TELE 001 [id number] [place] 20:35:00 22:30:00 [facility] 2020-02-28 2020-03-18 [facility] [id number] [place] 19:45:00 21:24:00 [facility] Results Test Description Test Time Test [...] code = 95A) 60.8 ug/mL 50.0-100.0 URINE [id number] 09:57:00 Test Item Value Reference Range Interpretation Comments Culture Observations THREE OR MORE SPECIES (test code = COB1) OF BACTERIA ISOLATED. PROBABLE CONTAMINATION. Culture Observations IDENTIFICATION AND (test code = COB17) SUSCEPTIBILITY NOT INDICATED. RECOLLECTION RECOMMENDED BASIC METABOLIC [id number] 14:15:00 Test Item Value Reference Range Interpretation [...] (test code = RBCMOR) NORMAL CBC WITH [id number] 19:44:00 Test Item Value Reference Range Interpretation [...] = TD) 1+ NONE A BASIC METABOLIC [id number] 19:31:00 Test Item Value Reference Range Interpretation [...] = 8.8 mg/dL 8.3-9.5 09D) URINALYSIS WITH [id number] 13:30:00 Test Item Value Reference Range Interpretation [...] the FDA and the [employer] (CAP) are more stringent than those required for this test. Therefore, the result should be interpreted with caution and close attention to other clinical and epidemiological data VALPROIC ACID (DEPAKENE)2020-03-10 07:20:00 Test Item Value Reference Range Interpretation Comments VALP ACID (test code = 95A) 72.7 ug/mL 50.0-100.0 URINE [id number] 10:02:00 Test Item Value Reference Range Interpretation Comments Culture Observations THREE OR MORE SPECIES (test code = COB1) OF BACTERIA ISOLATED. PROBABLE CONTAMINATION. Culture Observations IDENTIFICATION AND (test code = COB17) SUSCEPTIBILITY NOT INDICATED. RECOLLECTION RECOMMENDED VALPROIC ACID (DEPAKENE)2020-03-06 06:28:00 Test Item Value Reference Range Interpretation Comments VALP ACID (test code = 95A) 38.0 ug/mL 50.0-100.0 LL PRO TIME AND [id number] 06:23:00 Test Item Value Reference Range Interpretation [...] Heparin. Order Code is ANTI-XA URINALYSIS WITH [id number] 19:30:00 Test Item Value Reference Range Interpretation [...] code = USPERM) /HPF NONE CBC WITH [id number] 15:46:00 Test Item Value Reference Range Interpretation [...] (test code = 1+ NONE A POLY) [id number] 06:09:00 Test Item Value Reference Range Interpretation Comments FOLATE (test code = A75) 7.4 ng/mL 3.1-17.5 [id number] 06:07:00 Test Item Value Reference Range Interpretation Comments MAGNESIUM (test code = 48A) 2.3 mg/dL 1.8-2.4 [id number] 06:06:00 Test Item Value Reference Range Interpretation Comments PREALBUMIN (test code = 08E) 13 mg/dL 18-38 L THYROID PANEL/SCREEN (TSH)2020-03-01 06:05:00 Test Item Value Reference Range Interpretation Comments TSH (test code = A57) 0.470 uIU/mL 0.358-3.740 LIPID [id number] 06:04:00 Test Item Value Reference Range Interpretation Comments CHOLESTROL (test code = 44A) 179 mg/dL 140-200 TRIGLYCERI (test code = 42B) 84 mg/dL <=149 HDL (test code = 83D) 66.0 mg/dL 40.0-60.0 H LDL (test code = 34B) 99 mg/dL <=99 CHL/HDL (test code = CHR) 2.7 0.0-3.4 [id number] 11:34:00 Test Item Value Reference Range Interpretation Comments Hb A1C % (test code 5.4 % 3.8-6.4 = HBA) A1C % (test code = HbA1c (% ) A1C) Reference Range Normal <5.7 Prediabetes 5.7-6.4 Diabetic >=6.5 CBC WITH [id number] 11:13:00 Test Item Value Reference Range Interpretation [...] = TARG) 1+ NONE A BASIC METABOLIC [id number] 06:09:00 Test Item Value Reference Range Interpretation [...] FOR DIALYSIS PATIEN TS. TSH/FREE T4 IF [id number] 06:06:00 Test Item Value Reference Range Interpretation Comments THYROID STIMULATING HORMONE 0.78 uIU/mL 0.35-4.94 (BEAKER) (test code = 772) CBC W/PLT COUNT & AUTO [id number] 05:30:00 Test Item Value Reference Range Interpretation [...] L 0.00-0.20 (test code = 417) 0.00SEDIMENTATION [id number] 14:36:00 Test Item Value Reference Range Interpretation Comments SEDIMENTATION RATE, ERYTHROCYTE 20 mm/HR 0-40 (BEAKER) (test code = 766) VITAMIN [id number] 11:02:00 Test Item Value Reference Range Interpretation Comments VITAMIN B12 (BEAKER) (test code = 219 pg/mL 213-816 774) HEMOGLOBIN [id number] 08:55:00 Test Item Value Reference Range Interpretation Comments HEMOGLOBIN A1C (BEAKER) (test code = 5.3 % 4.3-6.1 368) LIPID [id number] 06:23:00 Test Item Value Reference Range Interpretation [...] 130-159 High 160-189 Very High >=190BASIC METABOLIC [id number] 06:23:00 Test Item Value Reference Range Interpretation [...] PATIEN TS. CBC W/PLT COUNT & AUTO [id number] 06:08:00 Test Item Value Reference Range Interpretation [...]
[2020-06-10 07:59] LABS: Absolute Lymphocytes (CBC) 1.2 K/uL (0.7-4.9); Basophils % 2.2 % (0-1.3); Hematocrit 35.8 % (36.0-45.0); Lymphocytes % 17.7 % (15.3-44.8); MPV 6.9 fL (7.6-11.3); RBC Red Blood Cell Count 3.95 M/uL (3.86-4.86)
[2020-06-10 08:01] LABS: Protime INR 1.31
[2020-06-10 08:59] LABS: Anisocytosis SLIGHT; Blood Morphology Comment NOTED (NOT SEEN); Platelet Estimate ADEQ
[2020-06-10 09:28] LABS: Potassium 3.6 mmol/L (3.5-5.1)
--- NOTE | 2020-06-10 10:23 | RAD REPORT ---
EXAM DESCRIPTION: CT - Head C Spine Binu Brito - 06/10/2020 9:54 am CLINICAL HISTORY: Head and neck injury with chest and abdominal pain status post fall. Head and neck pain . TECHNIQUE: Computed axial tomography of the head and cervical spine was obtained Computed axial tomography of the chest, abdomen and pelvis was obtained. 100 cc Isovue-300 was given intravenously coronal and sagittal reconstruction was performed. All CT scans are performed using dose optimization technique as appropriate and may include automated exposure control or mA/KV adjustment according to patient size. COMPARISON: CT April 2020 and 2017 FINDINGS: An intracranial bleed is not seen. The ventricles are normal in caliber. An extra-axial fl uid collection is not noted. Fluid within the sinuses/mastoids is not present A cervical fracture is not seen. No dislocation is seen. A mediastinal hematoma is not noted. A pleural effusion is not present. A lung contusion is not seen. The liver, spleen, pancreas, adrenals, kidneys and bladder do not demonstrate a traumatic injury A chmv-ag-zreixrpg compression deformity involves the T12 vertebral body which appears acute/ subacut e. No significant retropulsion of bony fragment into spinal canal. Several old appearing mild compression fractures thoracic spine. Mild old compression fracture L1 vertebral body. Moderate indeterminate compression fracture L4 vertebral body. Moderate hiatal hernia. Marked wall thickening sigmoid colon with mild stranding in the adjacent fat. Diverticulosis Ascending thoracic aorta AP diameter 4 centimeters IMPRESSION: 1. No acute intracranial abnormality is seen 2. A cervical fracture is not visualized. If the patient continues have symptoms to suggest intracran ial/spinal cord pathology then MRI would be recommended. 3. Mild to moderate acute/subacute compression fracture T12 vertebral body 4. Marked wall thickening sigmoid colon with mild stranding in the adjacent fat probably a mild diver ticulitis. A mass has a similar appearance and followup is recommended
--- NOTE | 2020-06-10 10:28 | EDPHYS ---
Physician Documentation [facility] Name: Hina Messina Age: 74 yrs Sex: Female : 1945 Arrival Date: 06/10/2020 Time: 07:15 Bed 18 Private MD: ED Physician Bright Zendejas HPI: 06/10 08:52 This 74 yrs old Female presents to ER via EMS with complaints of Fall Injury. rn 08:52 Details of fall: The patient fell from an upright position, while standing. Onset: The rn symptoms/episode began/occurred just prior to arrival. Associated injuries: The patient sustained injury to the head, upper back injury, injury to the low back. Severity of symptoms: At their worst the symptoms were mild, in the emergency department the symptoms are unchanged. The patient has experienced similar episodes in the past. The patient has not recently seen a physician. Reports multiple falls recently, fell backward, thinks hit head, but no LOC, remembers all events, reports mild pain to mid and lower back. Denies injury or pain to extremities. Denies recent illness, chest pain/sob/abd pain/vomiting. . Historical: - Allergies: 07:22 ambien; aa5 07:22 Codeine; aa5 07:22 Demerol; aa5 07:22 Valium; aa5 07:22 Latex, Natural Rubber; aa5 07:22 Sulfa (Sulfonamide Antibiotics); aa5 - PMHx: 07:22 Anemia; Anxiety; Aortic Stenosis; Atrial Fib; COPD; Dementia; Depression; DVT; GERD; aa5 Glaucoma; Hyperlipidemia; Hypertension; ibs; manic episode; Microcytic anemia; Osteoporosis; SVT; - PSHx: 07:22 Hysterectomy; Appendectomy; aa5 - Immunization history:: Adult Immunizations unknown. - Social history:: Smoking status: Patient denies any tobacco usage or history of. - Immunization history: Last tetanus immunization: unknown. - Family history:: not pertinent. - Hospitalizations: : No recent hospitalization is reported. ROS: 08:52 Constitutional: Negative for fever, chills, and weight loss, Eyes: Negative for injury, rn pain, redness, and discharge, Neck: Negative for injury, pain, and swelling, Cardiovascular: Negative for chest pain, palpitations, and edema, Respiratory: Negative for shortness of breath, cough, wheezing, and pleuritic chest pain, Abdomen/GI: Negative for abdominal pain, nausea, vomiting, diarrhea, and constipation, Back: + mid and lower back pain MS/Extremity: Negative for injury and deformity, Skin: Negative for injury, rash, and discoloration, Neuro: Negative for headache, weakness, numbness, tingling, and seizure. Exam: 09:15 Constitutional: This is a well developed, well nourished patient who is awake, alert, rn and in no acute distress. Head/Face: Normocephalic, atraumatic. Neck: No midline tenderness Chest/axilla: Normal chest wall appearance and motion. Nontender with no deformity. Cardiovascular: Regular rate and rhythm. No pulse deficits. Respiratory: No increased work of breathing, no retractions or nasal flaring. Abdomen/GI: soft, non-tender Back: No spinal tenderness. MS/ Extremity: Pulses equal, no cyanosis. Neurovascular intact. Full, normal range of motion. Equal circumference. Neuro: Awake and alert, GCS 15, oriented to person, place, time, and situation. Cranial nerves II-XII grossly intact. Motor strength 4/5 in all extremities. Sensory grossly intact. Vital Signs: 07:16 BP 110 / 70; Pulse 80; Resp 18 S; Temp 98.2(O); Pulse Ox 94% on 2 lpm NC; aa5 07:45 BP 115 / 65; Pulse 79; Resp 18 S; Pulse Ox 97% on 2 lpm NC; aa5 08:30 BP 115 / 71; Pulse 76; Resp 18 S; Pulse Ox 97% on 2 lpm NC; aa5 09:11 BP 118 / 67; Pulse 72; Resp 16 S; Pulse Ox 98% on R/A; iw 11:00 BP 119 / 65; Pulse 72; Resp 18; Pulse Ox 98% ; rb3 Ephraim Coma Score: 07:16 Eye Response: spontaneous(4). Verbal Response: oriented(5). Motor Response: obeys aa5 commands(6). Total: 15. 07:45 Eye Response: spontaneous(4). Verbal Response: oriented(5). Motor Response: obeys aa5 commands(6). Total: 15. Trauma Score (Adult): 07:16 Eye Response: spontaneous(1); Verbal Response: oriented(1); Motor Response: obeys aa5 commands(2); Systolic BP: > 89 mm Hg(4); Respiratory Rate: 10 to 29 per min(4); Friendship Score: 15; Trauma Score: 12 07:45 Eye Response: spontaneous(1); Verbal Response: oriented(1); Motor Response: obeys aa5 commands(2); Systolic BP: > 89 mm Hg(4); Respiratory Rate: 10 to 29 per min(4); Friendship Score: 15; Trauma Score: 12 08:30 Eye Response: spontaneous(1); Verbal Response: oriented(1); Motor Response: obeys aa5 commands(2); Systolic BP: > 89 mm Hg(4); Respiratory Rate: 10 to 29 per min(4); Ephraim Score: 15; Trauma Score: 12 MDM: 07:18 Patient medically screened. rn 10:25 Differential diagnosis: closed head injury, contusion, fracture, sprain, strain. Data rn reviewed: vital signs, nurses notes, lab test result(s), radiologic studies, CT scan, and as a result, I will discharge patient. Counseling: I had a detailed discussion with the patient and/or guardian regarding: the historical points, exam findings, and any diagnostic results supporting the discharge/admit diagnosis, lab results, radiology results, the need for outpatient follow up, to return to the emergency department if symptoms worsen or persist or if there are any questions or concerns that arise at home. Response to treatment: the patient's symptoms have mildly improved after treatment, and as a result, I will discharge patient. Special discussion: I discussed with the patient/guardian in detail that at this point there is no indication for admission to the hospital. It is understood, however, that if the symptoms persist or worsen the patient needs to return immediately for re-evaluation. Based on the history and exam findings, there is no indication for further emergent testing or inpatient evaluation. I discussed with the patient/guardian the need to see the back specialist for further evaluation of the symptoms. I discussed with the patient/guardian the need to see the pastrycook for further evaluation of the symptoms. ED course: CT shows acute/subacute compression fracture T12, no other injuries, incidental inflammation of sigmoid colon, possible diverticulitis vs mass, will dc with abx, and urged to f/u with GI for colonoscopy and further eval. . 06/10 07:25 Order name: Basic Metabolic Panel; Complete Time: 09:34 rn 06/10 07:25 Order name: CBC with Diff; Complete Time: 09:12 rn 06/10 07:25 Order name: CT Traumagram (Head C Spine CAP W Con); Complete Time: 10:24 rn 06/10 07:25 Order name: PT-INR; Complete Time: 09:12 rn 06/10 07:25 Order name: Ptt, Activated; Complete Time: 09:12 rn 06/10 08:00 Order name: Manual Differential; Complete Time: 09:12 EDMS 06/10 07:25 Order name: Labs collected and sent; Complete Time: 07:49 rn Administered Medications: No medications were administered Disposition: 06/10/20 10:27 Discharged to Home. Impression: Wedge compression fracture of T11-T12 vertebra, Diverticulitis of large intestine without perforation or abscess without bleeding. - Condition is Stable. - Discharge Instructions: Spinal Compression Fracture, Diverticulitis, Colonoscopy. - Prescriptions for Flagyl 500 mg Oral Tablet - take 1 tablet by ORAL route every 8 hours for 10 days; 30 tablet. Cipro 500 mg Oral Tablet - take 1 tablet by ORAL route every 12 hours for 10 days; 20 tablet. - Medication Reconciliation Form, Thank You Letter, Antibiotic Education, Prescription Opioid Use form. - Follow up: Amol Rosado MD; When: 5 - 6 days; Reason: Recheck today's complaints, Re-evaluation by your physician. - Problem is new. - Symptoms have improved. Signatures: Dispatcher [employer] EDMS Bright Zendejas MD MD rn Calderon, Audri RN RN aa5 Alma Rueda, RN RN rb3 Corrections: (The following items were deleted from the chart) 09:15 08:52 Constitutional: Negative for fever, chills, and weight loss, Eyes: Negative for rn injury, pain, redness, and discharge, Neck: Negative for injury, pain, and swelling, Cardiovascular: Negative for chest pain, palpitations, and edema, Respiratory: Negative for shortness of breath, cough, wheezing, and pleuritic chest pain, Abdomen/GI: Negative for abdominal pain, nausea, vomiting, diarrhea, and constipation, MS/Extremity: Negative for injury and deformity, Skin: Negative for injury, rash, and discoloration, Neuro: Negative for headache, weakness, numbness, tingling, and seizure, rn 11:11 10:27 06/10/2020 10:27 Discharged to Home. Impression: Wedge compression fracture of rb3 T11-T12 vertebra; Diverticulitis of large intestine without perforation or abscess without bleeding. Condition is Stable. Forms are Medication Reconciliation Form, Thank You Letter, Antibiotic Education, Prescription Opioid Use. Follow up: Amol Rosado; When: 5 - 6 days; Reason: Recheck today's complaints, Re-evaluation by your physician. Problem is new. Symptoms have improved. rn
--- NOTE | 2020-06-10 10:28 | ER ---
Nurse's Notes [facility] Name: iHna Messina Age: 74 yrs Sex: Female : 1945 Arrival Date: 06/10/2020 Time: 07:15 Bed 18 Private MD: Diagnosis: Wedge compression fracture of T11-T12 vertebra;Diverticulitis of large intestine without perforation or abscess without bleeding Presentation: 06/10 07:15 Chief complaint: EMS states: fell into the shower this morning, unwitnessed fall. Pt aa5 c/o back pain. Negative LOC. Pt lives at [facility] living facility. Takes Xarelto. 07:15 Care prior to arrival: None. Mechanism of Injury: Fall from standing position. Trauma aa5 event details: Injury occurred in the [facility], Injury occurred: at home. Injury occurred: June 10, 2020. 07:15 Acuity: KESHAV 3 aa5 07:15 Method Of Arrival: EMS: [facility] aa5 07:15 Coronavirus screen: Client denies travel out of the [place] in the last 14 days. At this aa5 time, the client does not indicate any symptoms associated with coronavirus-19. Ebola Screen: Patient negative for fever greater than or equal to 101.5 degrees Fahrenheit, and additional compatible Ebola Virus Disease symptoms. Initial Sepsis Screen: Does the patient meet any 2 criteria? No. Patient's initial sepsis screen is negative. Does the patient have a suspected source of infection? No. Patient's initial sepsis screen is negative. Risk Assessment: Do you want to hurt yourself or someone else? Patient reports no desire to harm self or others. Onset of symptoms was June 10, 2020. Trauma Activation: Alert Physician: ED Physician; Name: ; Notified At: ; Arrived At: Physician: General Surgeon; Name: ; Notified At: ; Arrived At: Physician: Radiology; Name: ; Notified At: ; Arrived At: Physician: Respiratory; Name: ; Notified At: ; Arrived At: Physician: Lab; Name: ; Notified At: ; Arrived At: Historical: - Allergies: 07:22 ambien; aa5 07:22 Codeine; aa5 07:22 Demerol; aa5 07:22 Valium; aa5 07:22 Latex, Natural Rubber; aa5 07:22 Sulfa (Sulfonamide Antibiotics); aa5 - PMHx: 07:22 Anemia; Anxiety; Aortic Stenosis; Atrial Fib; COPD; Dementia; Depression; DVT; GERD; aa5 Glaucoma; Hyperlipidemia; Hypertension; ibs; manic episode; Microcytic anemia; Osteoporosis; SVT; - PSHx: 07:22 Hysterectomy; Appendectomy; aa5 - Immunization history:: Adult Immunizations unknown. - Social history:: Smoking status: Patient denies any tobacco usage or history of. - Immunization history: Last tetanus immunization: unknown. - Family history:: not pertinent. - Hospitalizations: : No recent hospitalization is reported. Screenin:45 Abuse screen: Denies threats or abuse. Nutritional screening: No deficits noted. aa5 Tuberculosis screening: No symptoms or risk factors identified. Fall Risk Fall in past 12 months (25 points). Secondary diagnosis (15 points) dementia, IV access (20 points). Total [place] Fall Scale indicates High Risk Score (45 or more points). Fall prevention measures have been instituted. Side Rails Up X 2 Placed Close to Nursing Station. Primary Survey: 07:15 NO uncontrolled hemorrhage observed. A: The patient is alert. Airway: patent. aa5 Breathing/Chest: Chest inspection: symmetrical rise and fall of the chest. Circulation: Skin color: pink. Disability Alert. Exposure/Environment: A warming method has been applied: A warm blanket has been provided to the patient. 07:35 Reassessment Airway Airway Patent Breathing/Chest Chest inspection Symmetrical aa5 Circulation Color [place] Disability Alert. Secondary Survey: 07:15 HEENT: No deficits noted. Gastrointestinal: No deficits noted. : No signs and/or aa5 symptoms were reported regarding the genitourinary system. Musculoskeletal: Reports pain in back. Assessment: 07:16 General: Appears comfortable, Behavior is calm, cooperative. Pain: Complains of pain in aa5 lumbar area, left low back and right low back Pain currently is 8 out of 10 on a pain scale. Quality of pain is described as aching, sharp, Pain began post fall Is intermittent, Aggravated by repositioning. Neuro: Level of Consciousness is awake, alert, obeys commands, Oriented to person, place, time, situation, Appropriate for age Moves all extremities. EENT: No signs and/or symptoms were reported regarding the EENT system. Cardiovascular: Patient's skin is warm and dry. Respiratory: Airway is patent Respiratory effort is even, unlabored, Respiratory pattern is regular, symmetrical. GI: Abdomen is round non-distended, Abd is soft and non tender X 4 quads. : Brief noted. Derm: Skin is pink, warm \T\ dry. skin tear noted to right FA, measuring approximately 0.5in long, no active bleeding noted, cleaned with saline, dressed with gauze and tape. Musculoskeletal: Reports pain in back. 07:45 Reassessment: Patient is alert, oriented x 3, equal unlabored respirations, skin aa5 warm/dry/pink. Pt notified of wait time for lab results and for radiology. . 09:03 Reassessment: Patient appears in no apparent distress at this time. Patient and/or iw family updated on plan of care and expected duration. Pain level reassessed. awaiting lab results and CT. 09:17 Reassessment: Called lab regarding the BMP to see about the creatinine level. It has no rb3 gone through the machine, as soon as it comes up they will call with the creatinine results. 10:00 Reassessment: Patient appears in no apparent distress at this time. Patient and/or rb3 family updated on plan of care and expected duration. Pain level reassessed. Patient is alert, oriented x 3, equal unlabored respirations, skin warm/dry/pink. 10:44 Reassessment: Gave report to Nancy sanchez [facility]. Information from the [facility] was rb3 given. All questions asked and answered. They want us to provide transportation back to the facility due to them not having anyone to come and get the pt. [employer] notified. 11:00 Reassessment: Patient appears in no apparent distress at this time. No changes from rb3 previously documented assessment. 11:06 Reassessment: Gave report to [facility]. Information from the [facility] was given. All rb3 questions asked and answered. Discharge packet with the prescriptions were given to EMS. Vital Signs: 07:16 BP 110 / 70; Pulse 80; Resp 18 S; Temp 98.2(O); Pulse Ox 94% on 2 lpm NC; aa5 07:45 BP 115 / 65; Pulse 79; Resp 18 S; Pulse Ox 97% on 2 lpm NC; aa5 08:30 BP 115 / 71; Pulse 76; Resp 18 S; Pulse Ox 97% on 2 lpm NC; aa5 09:11 BP 118 / 67; Pulse 72; Resp 16 S; Pulse Ox 98% on R/A; iw 11:00 BP 119 / 65; Pulse 72; Resp 18; Pulse Ox 98% ; rb3 [place] Coma Score: 07:16 Eye Response: spontaneous(4). Verbal Response: oriented(5). Motor Response: obeys aa5 commands(6). Total: 15. 07:45 Eye Response: spontaneous(4). Verbal Response: oriented(5). Motor Response: obeys aa5 commands(6). Total: 15. Trauma Score (Adult): 07:16 Eye Response: spontaneous(1); Verbal Response: oriented(1); Motor Response: obeys aa5 commands(2); Systolic BP: > 89 mm Hg(4); Respiratory Rate: 10 to 29 per min(4); [place] Score: 15; Trauma Score: 12 07:45 Eye Response: spontaneous(1); Verbal Response: oriented(1); Motor Response: obeys aa5 commands(2); Systolic BP: > 89 mm Hg(4); Respiratory Rate: 10 to 29 per min(4); [place] Score: 15; Trauma Score: 12 08:30 Eye Response: spontaneous(1); Verbal Response: oriented(1); Motor Response: obeys aa5 commands(2); Systolic BP: > 89 mm Hg(4); Respiratory Rate: 10 to 29 per min(4); [place] Score: 15; Trauma Score: 12 ED Course: 07:15 Patient arrived in ED. em1 07:15 Arm band placed on Patient placed in an exam room, on a stretcher. aa5 07:15 Patient has correct armband on for positive identification. Placed in gown. Bed in low aa5 position. Call light in reach. Side rails up X2. 07:15 Oxygen administration via nasal cannula \T\ 2L/min. Thermoregulation: warm blanket given aa5 to patient. 07:18 Bright Zendejas MD is Attending Physician. rn 07:20 Triage completed. aa5 07:28 Viktoriya Jain, RN is Primary Nurse. aa5 07:42 Initial lab(s) drawn, by me, sent to lab. Inserted saline lock: 22 gauge in right aa5 forearm, using aseptic technique. Blood collected. 09:54 CT Traumagram (Head C Spine CAP W Con) In Process Unspecified. EDMS 10:26 Amol Rosado MD is Referral Physician. rn 11:08 No provider procedures requiring assistance completed. IV discontinued, intact, rb3 bleeding controlled, No redness/swelling at site. Pressure dressing applied. Administered Medications: No medications were administered Outcome: :27 Discharge ordered by MD. rn 11:08 Discharged to [facility] rb3 11:08 Condition: stable 11:08 Discharge instructions given to EMS, Instructed on discharge instructions, follow up and referral plans. medication usage, Demonstrated understanding of instructions, follow-up care, medications, Prescriptions given X 2. 11:11 Patient left the ED. rb3 Signatures: Dispatcher [employer] EDMS Karen Elder, RN Bright Quevedo MD MD rn Martinez, Eric em1 Viktoriya Jain RN RN aa5 Alma Rueda, RN RN rb3 Corrections: (The following items were deleted from the chart) 09:31 07:45 BP 115 / 65; Pulse 79bpm; Resp 18bpm; Spontaneous; Pulse Ox 97% RA; aa5 aa5
[2020-06-10 11:20] VITALS: TEMP 98.2
[2020-06-10 11:24] VITALS: O2SAT 98
[2020-06-10 11:25] VITALS: BP 119/65
== END 2020-06-10 11:11 | disposition home or self-care (01) ==
LOC: ER 07:10
DX: S22.080A Wedge compression fracture of T11-T12 vertebra, initial encounter for closed fracture (principal); K57.32 Diverticulitis of large intestine without perforation or abscess without bleeding; W18.30XA Fall on same level, unspecified, initial encounter; Y93.9 Activity, unspecified; Y92.9 Unspecified place or not applicable; I10 Essential (primary) hypertension; Z88.2 Allergy status to sulfonamides; Z88.5 Allergy status to narcotic agent; Z91.040 Latex allergy status; Z91.048 Other nonmedicinal substance allergy status
CPT/HCPCS: 85025; 80048; 36415; 85610; 85730; 70450; 72125; 71260; 74177; 99284; Q9967; G0390

== ENCOUNTER 2020-06-27 16:09 | Emergency (ER) | payer OTHER ==
--- NOTE | 2020-06-27 17:05 | RAD REPORT ---
EXAM DESCRIPTION: RAD - Chest Single View - 06/27/2020 4:55 pm CLINICAL HISTORY: syncope COMPARISON: Portable April 26, 2001 TECHNIQUE: AP portable chest image was obtained 06/27/2020 4:55 pm . FINDINGS: Lungs are clear. Lungs are fibrotic. No peripheral mass or consolidation. No failure or vo lume overload pattern. The interstitial pattern matches comparison. Patient is kyphotic with the head and neck overlying the midline upper chest. No measurable pleural effusion and no pneumothorax. No a cute bony abnormality seen. No acute aortic findings suspected. IMPRESSION: Chronic interstitial lung disease similar to comparison. No acute findings seen.
[2020-06-27 17:48] LABS: Absolute Lymphocytes (CBC) 0.9 K/uL (0.7-4.9); Basophils % 1.1 % (0-1.3); Hematocrit 37.9 % (36.0-45.0); Lymphocytes % 16.7 % (15.3-44.8); MPV 6.9 fL (7.6-11.3); RBC Red Blood Cell Count 4.11 M/uL (3.86-4.86)
[2020-06-27 18:01] LABS: Protime INR 1.03
[2020-06-27 18:09] LABS: ALT/SGPT 12 U/L (12-78); AST/SGOT 19 U/L (15-37); Albumin 3.2 g/dL (3.4-5.0); Alkaline Phosphatase 62 U/L (45-117); BUN Blood Urea Nitrogen 7 mg/dL (7-18); Bicarbonate 37 mmol/L (21-32); Bilirubin Direct 0.1 mg/dL (0-0.2); Bilirubin Total 0.4 mg/dL (0.2-1.0); Glucose Level 87 mg/dL (74-106); Magnesium 1.8 mg/dL (1.8-2.4); NT PRO-BNP 1480 pg/mL (<450); Potassium 4.1 mmol/L (3.5-5.1); Protein, Total 6.9 g/dL (6.4-8.2); Sodium Level 141 mmol/L (136-145); Troponin (Emerg Dept Use Only) < 0.02 ng/mL (0.0-0.045)
--- NOTE | 2020-06-27 18:22 | RAD REPORT ---
EXAM DESCRIPTION: CT - CTHCSPWOC - 06/27/2020 5:48 pm CLINICAL HISTORY: syncope, multiple falls, head and neck injury COMPARISON: Head C Spine Cap W Con dated 06/10/2020 TECHNIQUE: Axial 5 mm thick images of the head were obtained. Axial 2 mm thick images of the cervic al spine were obtained with sagittal and coronal reconstruction images generated and reviewed. All CT scans are performed using dose optimization technique as appropriate and may include automated exposure control or mA/KV adjustment according to patient size. FINDINGS: No intracranial hemorrhage, mass, edema or acute intracranial finding. No suspicion for ac [place] infarction. No cortical edema or sulcal effacement. Prominent atrophy changes are present. Ventri cles are in proportion to the volume loss. Chronic ischemic changes are present milder in severity. M astoid air cells and paranasal sinuses are clear. No globe or orbit abnormality seen. Cervical bodies are normal in height and normal in AP alignment. There is a left lateral tilt that ma y be part of a cervicothoracic scoliosis. Slight wedging of the T1 body is stable. Degenerative disc disease is present in all levels except C2-3. Significant disc space narrowing present at C4-5, C5-6 and C6-7. Facet joint degenerative changes are present. No fracture or acute bony abnormality. Centr al canal detail is inherently limited. No paraspinal mass or hematoma. IMPRESSION: Prominent atrophy and chronic ischemic changes are present matching prior imaging. No ac [place] intracranial finding seen. Cervical spine degenerative changes are present without acute finding. Pattern is stable from prior i maging.
--- NOTE | 2020-06-27 18:51 | EDPHYS ---
Physician Documentation [facility] Name: Hina Messina Age: 74 yrs Sex: Female : 1945 Arrival Date: 06/27/2020 Time: 16:14 Bed 7 Private MD: ED Physician Puma Vera HPI: 06/27 16:20 This 74 yrs old Female presents to ER via EMS with complaints of Fall Injury. cp 16:20 Details of fall: The patient fell from an upright position, while standing. cp 16:20 Onset: The symptoms/episode began/occurred today. Associated injuries: The patient cp sustained no obvious injury. Historical: - Allergies: 16:16 ambien; sv 16:16 Codeine; sv 16:16 Demerol; sv 16:16 Latex, Natural Rubber; sv 16:16 Sulfa (Sulfonamide Antibiotics); sv 16:16 Valium; sv - PMHx: 16:16 DVT; COPD; Dementia; Atrial Fib; Anxiety; Depression; Glaucoma; Hyperlipidemia; GERD; sv manic episode; Osteoporosis; Hypertension; Aortic Stenosis; Anemia; ibs; Microcytic anemia; SVT; - PSHx: 16:16 Hysterectomy; Appendectomy; sv ROS: 16:25 Constitutional: Negative for body aches, chills, fever, poor PO intake. cp 16:25 Eyes: Negative for injury, pain, redness, and discharge. cp 16:25 Neck: Negative for pain with movement, pain at rest, stiffness. 16:25 Cardiovascular: Negative for chest pain. 16:25 Respiratory: Negative for cough, shortness of breath, wheezing. 16:25 Abdomen/GI: Negative for abdominal pain, nausea, vomiting, and diarrhea. 16:25 Back: Negative for pain at rest, pain with movement. 16:25 Neuro: Negative for altered mental status, headache, loss of consciousness. 16:25 All other systems are negative. Exam: 16:30 Constitutional: The patient appears in no acute distress, alert, awake, cp non-diaphoretic, non-toxic, well developed, frail. 16:30 Head/Face: Normocephalic, atraumatic. cp 16:30 Eyes: Periorbital structures: appear normal, Pupils: equal, round, and reactive to light and accomodation, Extraocular movements: intact throughout, Sclera: no appreciated abnormality, Lids and lashes: appear normal, bilaterally. 16:30 ENT: External ear(s): are unremarkable, Ear canal(s): are normal, clear, TM's: dullness, bilaterally, Nose: is normal, Mouth: Lips: moist, Oral mucosa: moist, Posterior pharynx: Airway: no evidence of obstruction, patent, erythema, is not appreciated, exudate, is not appreciated. 16:30 Neck: C-spine: vertebral tenderness, is not appreciated, crepitus, is not appreciated, ROM/movement: is normal, is supple, without pain, no range of motions limitations. 16:30 Chest/axilla: Inspection: normal, Palpation: is normal, no crepitus, no tenderness. 16:30 Cardiovascular: Rate: normal, Rhythm: regular, Edema: is not appreciated, JVD: is not appreciated. 16:30 Respiratory: the patient does not display signs of respiratory distress, Respirations: normal, no use of accessory muscles, no retractions, labored breathing, is not present, Breath sounds: are clear throughout, no decreased breath sounds, no stridor, no wheezing. 16:30 Abdomen/GI: Inspection: abdomen appears normal, Palpation: abdomen is soft and non-tender, in all quadrants. 16:30 Back: pain, is absent, ROM is normal. 16:30 Skin: cellulitis, is not appreciated, no rash present. 16:30 Neuro: Orientation: to person, situation, Mentation: able to follow commands, Motor: moves all fours, strength is normal. 18:44 ECG was reviewed by the Attending Physician. Vital Signs: 16:58 BP 106 / 79; Pulse 83; Resp 24; Pulse Ox 98% ; sv 18:09 BP 141 / 85; Pulse 77; Resp 18; Pulse Ox 97% ; sv 19:43 BP 131 / 81 LA Supine; Pulse 82; oe 19:45 BP 133 / 84 LA Sitting; Pulse 87; oe 19:47 BP 138 / 84 LA Standing; Pulse 87; oe 21:10 BP 130 / 70; Pulse 80; Resp 18; Pulse Ox 99% ; ea MDM: 16:17 Patient medically screened. cp 17:00 Differential diagnosis: closed head injury, contusion, fracture, multiple trauma. cp 20:00 Data reviewed: vital signs, nurses notes, lab test result(s), EKG, radiologic studies, cp CT scan, plain films. 20:00 Counseling: I had a detailed discussion with the patient and/or guardian regarding: the cp historical points, exam findings, and any diagnostic results supporting the discharge/admit diagnosis, lab results, radiology results, the need for outpatient follow up, a rn military, to return to the emergency department if symptoms worsen or persist or if there are any questions or concerns that arise at home. 20:00 ED course: VSS. Discussed results of labs, EKG and radiology studies with daughter who cp reports no observed syncopal episodes to indicate cause of falls. EKG changes non-specific and recommendation is outpatient f/u with cardiology after consult with Martín Perrin hospitalist.. 06/27 16:17 Order name: Basic Metabolic Panel 06/27 16:17 Order name: CBC with Diff 06/27 16:17 Order name: LFT's 06/27 16:17 Order name: Magnesium 06/27 16:17 Order name: NT PRO-BNP 06/27 16:17 Order name: PT-INR; Complete Time: 18:23 06/27 16:17 Order name: Troponin (emerg Dept Use Only); Complete Time: 18:23 06/27 16:17 Order name: Urine Microscopic Only 06/27 16:17 Order name: Basic Metabolic Panel; Complete Time: 18:23 EDMS 06/27 18:23 Interpretation: Normal except: CO2 37; GFR 63. 06/27 16:17 Order name: CBC with Automated Diff; Complete Time: 18:23 EDMS 06/27 18:23 Interpretation: Normal except: RDW 18.0; MPV 6.9; MN% 14.1. 06/27 16:17 Order name: Liver (Hepatic) Function; Complete Time: 18:23 EDMS 02 19:58 Interpretation: Normal except: ALB 3.2; GLOB 3.7; A/G 0.9. 06/27 16:17 Order name: Magnesium; Complete Time: 18:23 EDMS 06/27 16:17 Order name: NT PRO-BNP; Complete Time: 18:23 EDMS 06/27 19:58 Interpretation: Abnormal: NT PRO-BNP 1480. 06/27 16:17 Order name: XRAY Chest (1 view); Complete Time: 18:23 cp 06/27 16:17 Order name: EKG; Complete Time: 16:18 cp 06/27 16:17 Order name: Cardiac monitoring; Complete Time: 17:01 cp 06/27 16:17 Order name: IV Saline Lock; Complete Time: 17:51 cp 06/27 16:17 Order name: Labs collected and sent; Complete Time: 17:51 cp 06/27 16:17 Order name: O2 Per Protocol; Complete Time: 17:01 cp 06/27 16:17 Order name: O2 Sat Monitoring; Complete Time: 17:01 cp 06/27 16:17 Order name: CT Head C Spine; Complete Time: 18:23 cp 06/27 18:24 Interpretation: Reviewed report. cp 06/27 16:17 Order name: Urine Dipstick-Ancillary (obtain specimen); Complete Time: 20:12 cp 06/27 18:26 Order name: SARS-COV-2 RT PCR; Complete Time: 18:27 EDMS 06/27 18:40 Order name: Orthostatics; Complete Time: 20:12 cp 06/27 19:05 Order name: Depakote; Complete Time: 19:55 cp 06/27 19:49 Order name: Urine Dipstick--Ancillary (enter results) mw2 06/27 19:50 Order name: Urine Dipstick-Ancillary; Complete Time: 19:55 EDMS 06/27 19:56 Interpretation: Normal except: UKET 1+. cp 06/27 20:04 Order name: Urine Culture EDMS 06/27 19:13 Order name: Cath; Complete Time: 19:50 cp EC:44 Rate is 77 beats/min. Rhythm is regular. [place] interval is normal. QRS interval is normal. cp QT interval is normal. T waves are Inverted in leads III, aVF, V3, V4, V5. Interpreted by me. Reviewed by me. Administered Medications: No medications were administered Disposition: 06/28 07:52 Co-signature as Attending Physician, Puma Vera MD I agree with the assessment and pau plan of care. Disposition: 06/27/20 19:57 Discharged to Home. Impression: Fall on same level from slipping, tripping and stumbling. - Condition is Stable. - Discharge Instructions: Fall Prevention in the Home. - Medication Reconciliation Form, Thank You Letter, Antibiotic Education, Prescription Opioid Use form. - Follow up: Edward Sherwood MD; When: 2 - 3 days; Reason: Recheck today's complaints. - Problem is new. - Symptoms have improved. Signatures: Dispatcher [employer] EDDE Shira Couch, RN Puma Coffman MD MD cha Roszak, Josh, PA PA [id number] Puma Sylvester PA PA cp Antunez, Elena, RN RN ea Corrections: (The following items were deleted from the chart) 06/27 17:34 16:51 CORONAVIRUS+MR.LAB.BRZ ordered. [facility] EDDE 19:06 18:51 Hospitalization Ordered by Clyde Garcia for Observation. Preliminary diagnosis cp is Syncope and collapse; Abnormal electrocardiogram [ECG] [EKG]. Bed requested for Telemetry/MedSurg (observation). Status is Observation. Condition is Fair. Problem is new. Symptoms have improved. cp 21:11 19:57 06/27/2020 19:57 Discharged to Home. Impression: Fall on same level from ea slipping, tripping and stumbling. Condition is Stable. Forms are Medication Reconciliation Form, Thank You Letter, Antibiotic Education, Prescription Opioid Use. Follow up: Edward Sherwood; When: 2 - 3 days; Reason: Recheck today's complaints. Problem is new. Symptoms have improved. cp
--- NOTE | 2020-06-27 18:51 | ER ---
Nurse's Notes [facility] Name: Hina Messina Age: 74 yrs Sex: Female : 1945 Arrival Date: 06/27/2020 Time: 16:14 Bed 7 Private MD: Diagnosis: Fall on same level from slipping, tripping and stumbling Presentation: 06/27 16:14 Risk Assessment: Do you want to hurt yourself or someone else? Patient reports no sv desire to harm self or others. Onset of symptoms was June 27, 2020. 16:14 Method Of Arrival: EMS: [facility] sv 16:15 Chief complaint: EMS states: Increased falls over the past 4 weeks. Pt reportedly fell ss from a standing position today for unknown reason(s). Pt has no complaints at this time. EMS reports they brought her in for evaluation because she is on blood thinners Xarelto. Care prior to arrival:. Mechanism of Injury: Fall from standing position. Trauma event details: Injury occurred in the [facility], Injury occurred: [place] Injury occurred: June 27, 2020. 16:15 Acuity: KESHAV 3 ss Trauma Activation: Not Applicable Physician: ED Physician; Name: ; Notified At: ; Arrived At: Physician: General Surgeon; Name: ; Notified At: ; Arrived At: Physician: Radiology; Name: ; Notified At: ; Arrived At: Physician: Respiratory; Name: ; Notified At: ; Arrived At: Physician: Lab; Name: ; Notified At: ; Arrived At: Historical: - Allergies: 16:16 ambien; sv 16:16 Codeine; sv 16:16 Demerol; sv 16:16 Latex, Natural Rubber; sv 16:16 Sulfa (Sulfonamide Antibiotics); sv 16:16 Valium; sv - PMHx: 16:16 DVT; COPD; Dementia; Atrial Fib; Anxiety; Depression; Glaucoma; Hyperlipidemia; GERD; sv manic episode; Osteoporosis; Hypertension; Aortic Stenosis; Anemia; ibs; Microcytic anemia; SVT; - PSHx: 16:16 Hysterectomy; Appendectomy; sv Screenin:01 Abuse screen: Denies threats or abuse. Denies injuries from another. Nutritional sv screening: No deficits noted. Tuberculosis screening: No symptoms or risk factors identified. Fall Risk None identified. Assessment: 20:30 Reassessment: Patient and/or family updated on plan of care and expected duration. Pain ea level reassessed. Pt alert oriented to self and place. Respirations even and unlabored, chest expansions even and symmetrical. 21:08 Reassessment: Patient and/or family updated on plan of care and expected duration. Pain ea level reassessed. Patient is alert, oriented x 3, equal unlabored respirations, skin warm/dry/pink. Discharge instruction given to family, verbalized the understanding of instruction. Pt left ED ambulatory tolerating well. Vital Signs: 16:58 BP 106 / 79; Pulse 83; Resp 24; Pulse Ox 98% ; sv 18:09 BP 141 / 85; Pulse 77; Resp 18; Pulse Ox 97% ; sv 19:43 BP 131 / 81 LA Supine; Pulse 82; oe 19:45 BP 133 / 84 LA Sitting; Pulse 87; oe 19:47 BP 138 / 84 LA Standing; Pulse 87; oe 21:10 BP 130 / 70; Pulse 80; Resp 18; Pulse Ox 99% ; ea ED Course: 16:14 Patient arrived in ED. sv 16:14 Arm band placed on. sv 16:15 Puma Sylvester PA is PHCP. cp 16:15 Puma Vera MD is Attending Physician. cp 16:15 Tyra Kimble RN is Primary Nurse. ss 16:20 Triage completed. ss 16:20 Patient has correct armband on for positive identification. Bed in low position. Call sv light in reach. Side rails up X2. air sampling and monitoring on. Pulse ox on. NIBP on. 16:55 XRAY Chest (1 view) In Process Unspecified. EDMS 17:00 Missed attempt(s): 20 gauge in right antecubital area. Bleeding controlled, band aid dh3 applied, catheter tip intact. 17:15 Missed attempt(s): 24 gauge in right hand. Bleeding controlled, band aid applied, dh3 catheter tip intact. 17:30 Missed attempt(s): 22 gauge in right forearm. Bleeding controlled, band aid applied, sv catheter tip intact. 17:40 Inserted saline lock: 20 gauge in right antecubital area, using aseptic technique. sv Blood collected. Flushed right antecubital with 5 ml normal saline. 17:48 CT Head C Spine In Process Unspecified. EDMS 17:50 NT PRO-BNP Sent. sv 17:51 Magnesium Sent. sv 17:51 LFT's Sent. sv 17:51 CBC with Diff Sent. sv 17:51 Basic Metabolic Panel Sent. sv 17:53 Patient moved back from CT. sv 18:50 Clyde Garcia is Hospitalizing Provider. cp 18:50 EKG done, by ED staff, reviewed by Puma ANGELES. [facility] 19:22 Primary Nurse role handed off by Tyra Kimble, RN mw2 19:30 Omid Madrid, RN is Primary Nurse. júnior 19:56 Edward Sherwood MD is Referral Physician. cp 21:10 No provider procedures requiring assistance completed. IV discontinued, intact, ea bleeding controlled, No redness/swelling at site. Pressure dressing applied. Administered Medications: No medications were administered Outcome: 18:51 Decision to Hospitalize by Provider. cp 19:57 Discharge ordered by MD. cp 21:11 Discharged to home via wheelchair, with family. ea 21:11 Condition: stable 21:11 Discharge instructions given to patient, Instructed on discharge instructions, follow up and referral plans. Demonstrated understanding of instructions, follow-up care. 21:11 Patient left the ED. ea Signatures: Dispatcher [employer] EDMS Shira Couch RN RN Tyra Kimble, RN RN Puma Rico PA PA cp Omid Madrid, RN RN jbJean-Claude El Deanna [facility] Madina Sullivan RN RN ea [place], MyKena 2
[2020-06-27 19:53] LABS: Urine Blood NEGATIVE (NEG); Urine Glucose NEGATIVE (NEG); Urine Protein NEGATIVE (NEG)
[2020-06-27 20:03] LABS: Urine Amorphous Sediment 1+ /HPF (NONE SEEN); Urine Bacteria 20-50 /HPF (<20); Urine RBC NONE SEEN /HPF (NONE SEEN)
[2020-06-27 21:21] VITALS: BP 130/70; O2SAT 99
--- NOTE | 2020-06-28 11:55 | EKG ---
Test Date: 2020-06-27 Test Time: 18:35:32 [employer]: YUMIKO MEASUREMENT RESULTS: Intervals: Rate: 77 IA: 146 QRSD: 78 QT: 350 QTc: 396 [place]: P: 52 IA: 146 QRS: 3 T: -80 INTERPRETIVE STATEMENTS: Normal sinus rhythm ST & T wave abnormality, consider inferior ischemia ST & T wave abnormality, consider anterolateral ischemia Abnormal ECG Compared to ECG 04/26/2020 06:09:45 Ventricular premature complex(es) no longer present ST (T wave) deviation still present Possible ischemia still present Electronically Signed On 06-28-20 11:53:26 CHILDCARE AIDE by Edward Sherwood
--- OUTSIDE RECORDS SUMMARY | 2020-06-28 12:00 | XMS REPORT | Clinical Summary ---
:1945 Author Organization [facility] Address [address] [place] [address] Care Team Providers Name Role Phone Unavailable [...] Not on file Results Not on fileafter 06/27/2019 Insurance Payer Benefit Plan / Subscriber ID Effective Phone Address T ype Group Dates CIGNA CIGNA [id number] 2016-Pre [facility] [employer] [place]uk[place] ALL sent Contracted Advance Directives For more information, please contact: [phone] Code Status Date Activated Date Inactivated Comments Full Code 12/07/2016 2:16 AM 12/08/2016 9:06 PM This code status was determined by: Patient
--- OUTSIDE RECORDS SUMMARY | 2020-06-28 12:01 | XMS REPORT | Continuity of Care Document ---
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 TIA TIA Disease Active [facility] (transient (transient 12-07 [facility] k[facility] - ischemic ischemic 00:00: Medica l attack) attack) 00 Center Atrial Atrial Disease Active [facility] flutter flutter 12-07 [facility] 00 [facility] COPD COPD Disease Active [facility] (chronic [...] hallucina [facility]: [facility] 00 [place] Meperidi Drug Active Pt [facility] ne Allergy 12-07 hallucina [facility]: [facility] 00 [place] Latex Drug Active Itching [facility] Allergy 12-07 [facility] 00:[facility]: Medical 00 [place] Sulfa Drug Active Other (See Pt gets [facility] (Sulfona Allergy Comments) 12-07 really [facility] - mide 00:00: [facility] Antibiot 00 Center ics) Diazepam Drug Active Pt [facility] Allergy 12-07 tremors [facility] - 00:[facility]: Medical 00 [place] Family History Family Member Diagnosis Comments Start Date Stop Date Source Natural mother Cancer [facility] Natural mother Osteoarthritis [facility] Natural sister Heart failure [facility] Natural sister Hyperlipidemia [facility] Natural sister Thyroid disease [facility] S t [facility] Natural father Hyperlipidemia [facility] Natural father Stroke [facility] Social History Social Habit Start Date Stop Date Quantity Comments Source Sex Assigned At [facility] Tobacco use and 2016-12-07 2016-12-07 Never used [facility] exposure 00:00:00 00:00:00 [facility] Alcohol intake 2016-12-07 2016-12-07 Current [facility] - 00:00:00 00:00:00 non-drinker of Medical nter alcohol (finding) History of 2008-12-07 Current smoker [facility] - tobacco use 00:00:00 [facility] Smoking Status Start Date Stop Date Source Former smoker 2016-12-07 00:00:00 2016-12-07 00:00:00 [facility] Medications Ordered Filled Start Stop Current Ordering Indication Dosage Frequency Signature Comments Components Source Medication Medication Date Date Medication? Clinician (SIG) Name Name atorvastati Yes hyperlipide 20mg QD Take [address] [facility] (LIPITOR) 12-08 huyen by mouth [facility] - 20 MG 19:06: daily. Medical tablet [address] [place] [address] pantoprazol Yes gastroesoph 40mg Q.5D Take [address] [facility] e 7-23 ageal by mouth 2 [facility] - (PROTONIX) 19:06: reflux (two) Medi ruiz 40 MG 07 disease times Center tablet daily. spironolact 2017 Yes hypertensio 25mg Q.5D Take [address] [facility] one 7-23 n by mouth 2 [facility] - (ALDACTONE) 19:06: (two) Medic al 25 MG 07 times Center tablet daily. rivaroxaban Yes deep venous 20mg QD Take [address] [facility] (XARELTO) 7-23 thrombosis by mouth [facility] - 20 mg Tab 19:06: daily. Medica l tablet 07 Center citalopram Yes anxiety 20mg QD Take [address] [facility] (CELEXA) 20 723 with by mouth [facility] - MG tablet 19:06: depression daily. Medical [address] [place] [address] metoprolol Yes hypertensio 25mg Q.5D Take [address] [facility] (TOPROL-XL) 7-23 n by mouth 2 [facility]iana kes - 25 MG 24 hr 19:06: (two) Medic al tablet 07 times Center daily. cetirizine Yes urticaria 10mg QD Take [address] [facility] (ZYRTEC) 10 23 by mouth Luke [facility] - MG tablet 19:06: daily. Medica l [address] [place] [address] fluticasone Yes 1{spray Q.5D [address] [facility] (FLONASE) 12-08 } Nasal [facility] - 50 19:06: route 2 Medical mcg/actuati 07 (two) Center on nasal times spray daily. Procedures This patient has no known procedures. Encounters Start End Encounter Admission Attending Care Care Encounter Source Date/Time Date/Time Type Type Clinicians Facility Department ID 2020-06-15 2020-06-15 Emergency Fareed Antony [facility] [id number] 15:18:00 21:42:00 Eun Rodriguez [id number] [place] [id number] [place] [id number] 2020-03-19 2020-03-31 Inpatient Zack ONTIVEROS [facility] [place] SCU [id number] [place] 22:48:00 17:50:00 GERTRUDE Gonzaleza l [place] 2020-03-18 2020-03-19 Outpatient KINGSLEY SHAFFER [facility] [place] TELE [id number] [place] 20:35:00 22:30:00 Medica l Center 2020-02-28 2020-03-18 Inpatient [place] [facility] [place] [id number] [place] 19:45:00 21:24:00 GERTRUDE [facility] Results Test Description Test Time Test [...] code = 95A) 60.8 ug/mL 50.0-100.0 URINE [id number] 09:57:00 Test Item Value Reference Range Interpretation Comments Culture Observations THREE OR MORE SPECIES (test code = COB1) OF BACTERIA ISOLATED. PROBABLE CONTAMINATION. Culture Observations IDENTIFICATION AND (test code = COB17) SUSCEPTIBILITY NOT INDICATED. RECOLLECTION RECOMMENDED BASIC METABOLIC [id number] 14:15:00 Test Item Value Reference Range Interpretation [...] (test code = RBCMOR) NORMAL CBC WITH [id number] 19:44:00 Test Item Value Reference Range Interpretation [...] = TD) 1+ NONE A BASIC METABOLIC [id number] 19:31:00 Test Item Value Reference Range Interpretation [...] = 8.8 mg/dL 8.3-9.5 09D) URINALYSIS WITH [id number] 13:30:00 Test Item Value Reference Range Interpretation [...] the FDA and the [employer] [place] [employer] (CAP) are more stringent than those required for this test. Therefore, the result should be interpreted with caution and close attention to other clinical and epidemiological data VALPROIC ACID (DEPAKENE)2020-03-10 07:20:00 Test Item Value Reference Range Interpretation Comments VALP ACID (test code = 95A) 72.7 ug/mL 50.0-100.0 URINE [id number] 10:02:00 Test Item Value Reference Range Interpretation Comments Culture Observations THREE OR MORE SPECIES (test code = COB1) OF BACTERIA ISOLATED. PROBABLE CONTAMINATION. Culture Observations IDENTIFICATION AND (test code = COB17) SUSCEPTIBILITY NOT INDICATED. RECOLLECTION RECOMMENDED VALPROIC ACID (DEPAKENE)2020-03-06 06:28:00 Test Item Value Reference Range Interpretation Comments VALP ACID (test code = 95A) 38.0 ug/mL 50.0-100.0 LL PRO TIME AND [id number] 06:23:00 Test Item Value Reference Range Interpretation [...] Heparin. Order Code is ANTI-XA URINALYSIS WITH [id number] 19:30:00 Test Item Value Reference Range Interpretation [...] code = USPERM) /HPF NONE CBC WITH [id number] 15:46:00 Test Item Value Reference Range Interpretation [...] (test code = 1+ NONE A POLY) [id number] 06:09:00 Test Item Value Reference Range Interpretation Comments FOLATE (test code = A75) 7.4 ng/mL 3.1-17.5 [id number] 06:07:00 Test Item Value Reference Range Interpretation Comments MAGNESIUM (test code = 48A) 2.3 mg/dL 1.8-2.4 [id number] 06:06:00 Test Item Value Reference Range Interpretation Comments PREALBUMIN (test code = 08E) 13 mg/dL 18-38 L THYROID PANEL/SCREEN (TSH)2020-03-01 06:05:00 Test Item Value Reference Range Interpretation Comments TSH (test code = A57) 0.470 uIU/mL 0.358-3.740 LIPID [id number] 06:04:00 Test Item Value Reference Range Interpretation Comments CHOLESTROL (test code = 44A) 179 mg/dL 140-200 TRIGLYCERI (test code = 42B) 84 mg/dL <=149 HDL (test code = 83D) 66.0 mg/dL 40.0-60.0 H LDL (test code = 34B) 99 mg/dL <=99 CHL/HDL (test code = CHR) 2.7 0.0-3.4 [id number] 11:34:00 Test Item Value Reference Range Interpretation Comments Hb A1C % (test code 5.4 % 3.8-6.4 = HBA) A1C % (test code = HbA1c (% ) A1C) Reference Range Normal <5.7 Prediabetes 5.7-6.4 Diabetic >=6.5 CBC WITH [id number] 11:13:00 Test Item Value Reference Range Interpretation [...] = TARG) 1+ NONE A BASIC METABOLIC [id number] 06:09:00 Test Item Value Reference Range Interpretation [...] FOR DIALYSIS PATIEN TS. TSH/FREE T4 IF [id number] 06:06:00 Test Item Value Reference Range Interpretation Comments THYROID STIMULATING HORMONE 0.78 uIU/mL 0.35-4.94 (BEAKER) (test code = 772) CBC W/PLT COUNT & AUTO [id number] 05:30:00 Test Item Value Reference Range Interpretation [...] L 0.00-0.20 (test code = 417) 0.00SEDIMENTATION [id number] 14:36:00 Test Item Value Reference Range Interpretation Comments SEDIMENTATION RATE, ERYTHROCYTE 20 mm/HR 0-40 (BEAKER) (test code = 766) VITAMIN [id number] 11:02:00 Test Item Value Reference Range Interpretation Comments VITAMIN B12 (BEAKER) (test code = 219 pg/mL 213-816 774) HEMOGLOBIN [id number] 08:55:00 Test Item Value Reference Range Interpretation Comments HEMOGLOBIN A1C (BEAKER) (test code = 5.3 % 4.3-6.1 368) LIPID [id number] 06:23:00 Test Item Value Reference Range Interpretation [...] 130-159 High 160-189 Very High >=190BASIC METABOLIC [id number] 06:23:00 Test Item Value Reference Range Interpretation [...] PATIEN TS. CBC W/PLT COUNT & AUTO [id number] 06:08:00 Test Item Value Reference Range Interpretation [...]
--- OUTSIDE RECORDS SUMMARY | 2020-06-28 12:01 | XMS REPORT | Summary of Care ---
:1945 Author Organization [facility] Address [address] [place] [address] Care Team Providers Name Role Phone Estrada Padilla MD Primary Care Provider Reason for Referral Radiology Services (STAT) Status Reason Specialty Diagnoses / Referred By Referred To Procedures Contact Contact New Request Diagnostic Diagnoses Falls frequently Fareed Napoles Radiology Procedures XR CHEST 1 PAULINO Haq, PAC [address] [place], [place] [address] Reason for Visit Reason Comments Back Pain Auth/Cert Status Reason Specialty Diagnoses / Referred By Referred To Procedures Contact Contact Emergency Medicine [facility] ergency Dept [address] [place] [address] Fax: Encounter Details Date Type Department Care Team Description 06/15/2020 Emergency ADC-Emergency Fareed Napoles, Ajit freq uently (Primary Dx); Department PAC Hypomagnesemia [address] [place], [place] [id number] Allergies Active Allergy Reactions Severity Noted Date Comments Sulfa (Sulfonamide Antibiotics) Unknown - See comments 06/15/2020 documented as of this encounter (statuses as of 06/15/2020) Medications No known medicationsdocumented as of this encounter (statuses as of 06/15/2020) Active Problems No known active problemsdocumented as of this encounter (statuses as of 06/15/2020) Social History Tobacco Use Types Packs/Day Years Used Date Never Assessed Sex Assigned at Date Recorded Not on file COVID-19 Exposure Response Date Recorded In the last month, have you been in contact with No / Unsure 06/15/2020 3:18 PM FORENSIC ANALYST someone who was confirmed or suspected to have Coronavirus / COVID-19? documented as of this encounter Last Filed Vital Signs Vital Sign Reading Time Taken Comments Blood Pressure 104/65 06/15/2020 8:22 PM FORENSIC ANALYST Pulse 66 06/15/2020 8:22 PM FORENSIC ANALYST Temperature 35.8 C (96.4 F) 06/15/2020 3:23 PM FORENSIC ANALYST Respiratory Rate 17 06/15/2020 8:22 PM FORENSIC ANALYST Oxygen Saturation 98% 06/15/2020 8:22 PM FORENSIC ANALYST Inhaled Oxygen Concentration - - Weight 81.6 kg (180 lb) 06/15/2020 3:21 PM FORENSIC ANALYST Height - - Body Mass Index - - documented in this encounter Discharge Instructions AttachmentsThe following attachments cannot be sent through Care Everywhere. Falls, Preventing, Moving Safely Using a Cane or Walker (Montenegrin)Hypomagnesemia, Discharge Instructions (Montenegrin)documented in this encounter ED Notes Maite Parekh RN - 06/15/2020 3:19 PM CSTPatient lives in assisted living facility. Lately she has appeared to be failing to thrive by other staff at home. She has chronic back pain that she is complaining about. Facility staff reported to EMS that patient has also been tripping and falling quite often. Patient is not complaining of pain besides her back. She is alert and Ox4. documented in this encounter Miscellaneous Notes ED Nurse Note - Rahel Solano RN - 06/15/2020 9:39 PM CSTPatient provided discharge instructions, AVS, Return precautions, and told to follow-up with PCP. Discharge instructions and results discussed with patient and her daughter. Patient verbalized understanding of discharge instructions and escorted to her daughter car via wheelchair by ED RN. Patient switched to her home portable oxygen brought up by daughter. D Nurse Note - Rahel Solano RN - 06/15/2020 7:10 PM CSTPatient orthostatic vitals Lying 130/78 HR-74 Sitting 114/80 HR-79 Standing 133/86 HR-77 D Nurse Note - Paco Melara RN - 06/15/2020 4:52 PM CSTTrudy Esteves - daughter [phone] Daughter reports recent thoracic fracture. NSIC ANALYST documented in this encounter Plan of Treatment Name Type Priority Associated Diagnoses Date/Ti me EKG-12 LEAD ROUTINE HEART STATION Routine Falls frequently 4:08 PM ONCE FORENSIC ANALYST Name Type Priority Associated Diagnoses Order S chedule EKG-12 LEAD ROUTINE HEART STATION Routine Falls frequently ONC E for 1 Occurrences ONCE starting 2020 until Health Maintenance Due Date Last Done Comments Depression Screening 1955 SARS-CoV-2 (COVID-19) Vaccine (1 of 2) 1959 DTaP,Tdap,and Td Vaccines (1 - Tdap) 1962 Zoster Recombinant Vaccine (SHINGRIX) (1 of 2) 1993 Medicare Wellness Visit 2008 Osteoporosis Screening 2008 PNEUMOCOCCAL VACCINES 65+ (1 of 1 - PPSV23) 2008 INFLUENZA VACCINE (#1) 2020 documented as of this encounter Procedures Procedure Name Priority Date/Time Associated Comments Diagnosis XR CHEST 1 VW STAT 06/15/2020 4:50 PM Falls frequently Res ults for this FORENSIC ANALYST procedure are i n the results section. URINALYSIS STAT 06/15/2020 4:38 PM Falls frequently Resu lts for this FORENSIC ANALYST procedure are i n the results section. CBC WITH DIFF STAT 06/15/2020 4:27 PM Falls frequently Res ults for this FORENSIC ANALYST procedure are i n the results section. COMP. METABOLIC STAT 06/15/2020 4:27 PM Falls frequently R esults for this PANEL (09360) FORENSIC ANALYST procedure are in the results section. TROPONIN I STAT 06/15/2020 4:27 PM Falls frequently Resu lts for this FORENSIC ANALYST procedure are i n the results section. MAGNESIUM STAT 06/15/2020 4:27 PM Falls frequently Resu lts for this FORENSIC ANALYST procedure are i n the results section. documented in this encounter Results XR CHEST 1 VW (06/15/2020 4:50 PM FORENSIC ANALYST) Specimen Impressions Performed At Impression: PACS/VR/DOSE 1. Left basilar subsegmental atelectasis versus scarring. 2. Cardiomegaly and atherosclerosis. RL: [id number] End of Report Narrative Performed At Ordering Physician: Fareed NAPOLES PACS/VR/DOSE History: Frequent falls Technique: Chest, single view Comparison: None Findings: There is linear subsegmental atelectasis or scarring w ithin the left lung base. The lungs are otherwise clear. No pleural effusi ons are evident. The heart is enlarged. There is tortuosity and atheroscler otic calcification of the thoracic aorta. No acute bony abnorm alities are evident. Procedure Note [facility], Radiant Results Inft User - 2020 6:13 PM FORENSIC ANALYST Ordering Physician: Fareed NAPOLES History: Frequent falls Technique: Chest, single view Comparison: None Findings: There is linear subsegmental atelectasis or scarring within the left lung base. The lungs are otherwise clear. No pleural effusions are evident. The heart is enlarged. There is tortuosity a nd atherosclerotic calcification of the thoracic aorta. No acute bony abnorm alities are evident. IMPRESSION Impression: 1. Left basilar subsegmental atelectasis versus scarring. 2. Cardiomegaly and atherosclerosis. RL: 460 End of Report Performing Organization Address City/State/Zipcode Phone Number PACS/VR/DOSE URINALYSIS (06/15/2020 4:38 PM FORENSIC ANALYST) Pathologist Sig nature APPEARANCE Clear Clear [facility] COLOR Yellow Yellow [facility] PH 8.0 4.8 - 8.0 [facility] SP GRAVITY 1.008 1.003 - 1.030 [facility] GLU U QUAL Normal Normal [facility] BLOOD Negative Negative [facility] KETONES 5 mg/dL (A) Negative [facility] PROTEIN Negative Negative [facility] UROBILIN Normal Normal [facility] BILIRUBIN Negative Negative [facility] NITRITE Negative Negative [facility] LEUK CHRISTIANO Negative Negative [facility] RBC/HPF 1 0 - 3 HPF [facility] WBC/HPF 1 0 - 5 HPF [facility] BACTERIA Few (A) Negative [facility] MUCOUS Slight (A) Negative LPF [facility] SQ EPITH <1 HPF [facility] TRANS EPI <1 <=1 HPF [facility] Specimen Urine - URINE, CATHETERIZED Performing Organization Address [facility] Phone Number [facility] CLIA: [id number] [place] [address] TROPONIN I (06/15/2020 4:27 PM FORENSIC ANALYST) Pathologist Sig nature TROPONIN I <0.012 <=0.034 ng/mL [facility] Specimen Blood - VENOUS Narrative Performed At Equal or Less than 0.034 ng/ml---Normal [facility] Note: Cardiac troponin begins to rise 3-4 hours after the onset of ischemia. Repeat in 4-6 hours if the sample was drawn within 3-4 hours of the onset of the symptom and found normal. Between 0.035 and 0.120 ng/mL--- Borderline. Questionable myocardial injury or necros is Note: Serial measurement may be necessary to confirm or exclude the diagnosis of myocardial injury or necrosis; Clinical correlation (symptoms, EKGs, imaging studies, and others) required; Repeat in 4-6 hours if clinically indicated. Equal or Higher than 0.121 ng/mL---Abnormal. Myocardial Injury or Necrosis Likely Biotin has been reported to cause a negative bias, interpret results relative to patient's use of biotin. Performing Organization Address [facility] Corporation[facility] Phone Number [facility] CLIA: [id number] [place] [address] MAGNESIUM (06/15/2020 4:27 PM FORENSIC ANALYST) Pathologist Sig nature MAGNESIUM 1.6 (L) 1.7 - 2.4 mg/dL [facility] Specimen Blood - VENOUS Performing Organization Address City/State/Zipcode Phone Number [facility] CLIA: [id number] [place], [place] [id number] LAB[address] COMP. METABOLIC PANEL (30390) (06/15/2020 4:27 PM FORENSIC ANALYST) [facility] nature NA 134 (L) 135 - 145 [facility] mmol/L [facility] K 3.7 3.5 - 5.0 [facility] mmol/L [facility] CL 94 (L) 98 - 108 mmol/L [facility] CO2 TOTAL 39 (H) 23 - 31 mmol/L [facility] AGAP 1 (L) 2 - 16 [facility] BUN 10 7 - 23 mg/dL [facility] GLUCOSE 87 70 - 110 mg/dL [facility] CREATININE 0.82 0.50 - 1.04 [facility] mg/dL [facility] TOTAL BILI 0.4 0.1 - 1.1 mg/dL [facility] CALCIUM 9.9 8.6 - 10.6 [facility] mg/dL [facility] T PROTEIN 5.6 (L) 6.3 - 8.2 g/dL [facility] ALBUMIN 3.2 (L) 3.5 - 5.0 g/dL [facility] ALK PHOS 52 34 - 122 U/L [facility] ALTv 7 5 - 35 U/L [facility] AST(SGOT) 20 13 - 40 U/L [facility] eGFR Calculation 67.8 mL/min/1.73m2 [facility] ([facility]AT[facility] Algerian) eGFR Calculation 82.1 mL/min/1.73m2 [facility] () [facility] Specimen Blood - VENOUS Narrative Performed At Association of Glomerular Filtration Rate (GFR) [facility] and Staging of Kidney Disease* + + +- + | GFR (mL/min/1.73 m2) | With Kidney Damage | Without Kidney Damage + + +- + | >90 | Stage one | Normal + + +- + | 60-89 | Stage two | Decreased GFR + + +- + | 30-59 | Stage three | Stage three + + +- + | 15-29 | Stage four | Stage four + + +- + | <15 (or dialysis) | Stage five | Stage five + + +- + *Each stage assumes the associated GFR level has been in effect for at least three months. Stages 1 to 5, with or without kidney disease, indicate chronic kidney disease. Notes: Determination of stages one and two (with eGFR >59mL/min/1.73 m2) requires estimation of kidney damage for at least three months as defined by structural or functional abnormalities of the kidney, manifested by either: Pathological abnormalities or Markers of kidney damage (including abnormalities in the composition of the blood or urine or abnormalities in imaging tests). Performing Organization Address City/State/Zipcode Phone Number [facility] CLIA: [id number] [place] [address] CBC WITH DIFF (06/15/2020 4:27 PM FORENSIC ANALYST) Pathologist Sig nature WBC 6.11 4.30 - 11.10 [facility] 10*3/L [facility] RBC 3.73 (L) 3.93 - 5.25 [facility] 10*6/L [facility] HGB 11.4 (L) 11.6 - 15.0 [facility] g/dL [facility] HCT 35.4 (L) 35.7 - 45.2 % [facility] MCV 94.9 80.6 - 95.5 fL [facility] MCH 30.6 25.9 - 32.8 pg [facility] MCHC 32.2 31.6 - 35.1 [facility] g/dL [facility] RDW-SD 57.1 (H) 39.0 - 49.9 fL [facility] RDW-CV 16.5 (H) 12.0 - 15.5 % [facility] PLT 248 166 - 358 [facility] 10*3/L [facility] MPV 9.6 9.5 - 12.9 fL [facility] NRBC/100 WBC 0.0 0.0 - 10.0 /100 [facility] WBCs [facility] NRBC x10^3 <0.01 10*3/L [facility] GRAN MAT (NEUT) % 65.3 % [facility] IMM GRAN % 1.60 % [facility] LYMPH % 15.9 % [facility] MONO % 14.9 % [facility] EOS % 1.6 % [facility] BASO % 0.7 % [facility] GRAN MAT x10^3(ANC) 3.99 1.88 - 7.09 [facility] 10*3/uL [facility] IMM GRAN x10^3 0.10 (H) 0.00 - 0.06 [facility] 10*3/uL [facility] LYMPH x10^3 0.97 (L) 1.32 - 3.29 [facility] 10*3/uL [facility] MONO x10^3 0.91 0.33 - 0.92 [facility] 10*3/uL [facility] EOS x10^3 0.10 0.03 - 0.39 [facility] 10*3/uL [facility] BASO x10^3 0.04 0.01 - 0.07 [place] [id number]*3/uL [facility] Specimen Blood - VENOUS Performing Organization Address City/State/Zipcode Phone Number [facility] CLIA: [id number] [place], [place] [id number] LAB[address]ATORY [address] documented in this encounter Visit Diagnoses Diagnosis Falls frequently - Primary Personal history of fall Hypomagnesemia Disorders of magnesium metabolism documented in this encounter Administered Medications Medication Order MAR Action Action Date Dose Rate Site acetaminophen (TYLENOL) tablet Given 06/15/2020 6:29 PM FORENSIC ANALYST 1,0 00 mg 1,000 mg 1,000 mg, Oral, ONCE, 1 dose, Pattie 06/15/20 at 1900, [place] magnesium sulfate in water 2 gram/50 mL (4 %) New Bag 7:11 PM FORENSIC ANALYST 2 g infusion 2 g 2 g, IV Piggyback, ONCE, 1 dose, Pattie 06/15/20 at 1945, Routine NaCl 0.9% (NS) bolus infusion 500 New Bag 06/15/2020 7:11 PM FORENSIC ANALYST 500 mL 999 mL/hr mL at 999 mL/hr, 500 mL, IV Infusion, ONCE, 1 dose, Pattie 06/15/20 at 1945, STAT documented in this encounter Insurance Payer Benefit Plan / Subscriber ID Effective Dates Phone Addre ss Type Group [employer] [id number] 2020-Presen Medicare Adv [place] t H[place] documented as of this encounter"
== END 2020-06-27 21:11 | disposition home or self-care (01) ==
LOC: ER 16:09
DX: Z04.3 Encounter for examination and observation following other accident (principal); Z20.822 Contact with and (suspected) exposure to COVID-19
CPT/HCPCS: 87088; 85025; 87086; 80048; 36415; 83735; 85610; 80076; 80164; 84484; 83880; 70450; 72125; 71045; U0003; 81003; 81015; 93005; 99285

== ENCOUNTER 2020-07-05 04:56 | Observation (INO) | payer OTHER ==
--- NOTE | 2020-07-05 06:11 | ER ---
Nurse's Notes [facility] Name: Hina Messina Age: 74 yrs Sex: Female : 1945 Arrival Date: 07/05/2020 Time: 04:59 Bed 30 Private MD: Martin Carter; Luis Alfredo Singh K Diagnosis: Hypoxemia;Chronic obstructive pulmonary disease, unspecified;Dependence on supplemental oxygen Presentation: 07/05 05:00 Chief complaint: EMS states: pt is a resident at [facility], has no power at this facility and has used all of her back up o2 tanks. EMS reports o2 sat reading low 80's on room air, placed to 2 lpm NC and o2 saturation improved to 98%, pt reports felt better with oxygen. Coronavirus screen: At this time, the client does not indicate any symptoms associated with coronavirus-19. Ebola Screen: Patient negative for fever greater than or equal to 101.5 degrees Fahrenheit, and additional compatible Ebola Virus Disease symptoms Patient denies exposure to infectious person. Patient denies travel to an Ebola-affected area in the 21 days before illness onset. No symptoms or risks identified at this time. Initial Sepsis Screen: Does the patient meet any 2 criteria? HR > 90 bpm. No. Patient's initial sepsis screen is negative. Does the patient have a suspected source of infection? No. Patient's initial sepsis screen is negative. Risk Assessment: Do you want to hurt yourself or someone else? Patient reports no desire to harm self or others. Onset of symptoms was July 05, 2020. Care prior to arrival: None. Transition of care: patient was not received from another setting of care. 05:00 Method Of Arrival: EMS: [facility] sg 05:00 Acuity: KESHAV 3 sg Historical: - Allergies: 05:04 ambien; sg 05:04 Codeine; sg 05:04 Demerol; sg 05:04 Latex, Natural Rubber; sg 05:04 Sulfa (Sulfonamide Antibiotics); sg 05:04 Valium; sg - Home Meds: 05:11 propranolol 40 mg Oral tab [Active]; cetirizine 10 mg Oral tab 1 tab once daily sg [Active]; citalopram 20 mg tab once daily [Active]; clonazepam 0.5 mg Oral tab [Active]; pantoprazole 40 mg Oral TbEC 1 tab once daily [Active]; prednisone 5 mg Oral tab once daily [Active]; risperidone 0.25 mg Oral tab [Active]; URIMAR-T 120-0.12-10.8 mg Oral tab [Active]; Ventolin HFA 90 mcg/actuation Nebulizer HFAA [Active]; xaralto 20mg nightly [Active]; - PMHx: 05:04 Anemia; Anxiety; Aortic Stenosis; Atrial Fib; COPD; Dementia; Depression; DVT; GERD; sg Glaucoma; Hyperlipidemia; Hypertension; ibs; manic episode; Microcytic anemia; Osteoporosis; SVT; - PSHx: 05:04 Hysterectomy; Appendectomy; sg - Immunization history:: Adult Immunizations up to date. - Social history:: Smoking status: Patient denies any tobacco usage or history of. - Family history:: not pertinent. - Hospitalizations: : No recent hospitalization is reported. Screenin:30 Abuse screen: Denies threats or abuse. Denies injuries from another. Nutritional sg screening: No deficits noted. Tuberculosis screening: No symptoms or risk factors identified. Never had TB. Fall Risk None identified. Assessment: 05:32 Reassessment: Patient appears in no apparent distress at this time. Patient and/or sg family updated on plan of care and expected duration. Pain level reassessed. 08:41 Reassessment: Pt states she wants to go home. Pt has been reoriented for necessity to ss stay in hospital until at least her residence obtains power again as she needs to be on continuous 02. General: Appears distressed, comfortable, Behavior is calm, cooperative. Pain: Denies pain. Neuro: Level of Consciousness is awake, alert. Neuro: Oriented to place. Cardiovascular: Capillary refill < 3 seconds is brisk in bilateral fingers Patient's skin is warm and dry. Respiratory: Airway is patent Respiratory effort is even, unlabored, Respiratory pattern is regular, symmetrical. GI: No signs and/or symptoms were reported involving the gastrointestinal system. Derm: Skin is. 09:11 Reassessment: Spoke with [facility] who states that they only have partial power at this time. Attempted to call daughter, Trudy. Left VM. 09:21 Reassessment: Dr. Dempsey at bedside. 11:00 Reassessment: Patient appears in no apparent distress at this time. Patient and/or ss family updated on plan of care and expected duration. Pain level reassessed. 11:45 Reassessment: Daughter here at bedside to take patient home. Discharge papers signed. ss Patient is very happy about going home. Vital Signs: 05:00 BP 148 / 89; Pulse 118; Resp 20; Temp 97.9; Pulse Ox 100% on 3 lpm NC; sg ED Course: 04:59 Patient arrived in ED. sg 05:00 Luis Alfredo Singh MD is Private Physician. sg 05:00 Martin Carter DO is Private Physician. sg 05:00 Maliha Morocho MD is Private Physician. sg 05:00 Arm band placed on. sg 05:02 Bright Zendejas MD is Attending Physician. rn 05:03 Triage completed. sg 05:06 Alexander Campo, JOEL is Primary Nurse. sg 05:28 EKG done, by ED staff, reviewed by Bright Zendejas MD. sg 05:35 XRAY Chest (1 view) In Process Unspecified. EDMS 06:07 Missed attempt(s): 22 gauge in right antecubital area. Bleeding controlled, band aid sg applied, catheter tip intact. 06:10 Braden Zendejas MD is Hospitalizing Provider. rn 06:49 Cristofer Dempsey MD is Hospitalizing Provider. rn 08:41 Patient has correct armband on for positive identification. Bed in low position. Call ss light in reach. Side rails up X2. Pulse ox on. NIBP on. Warm blanket given. 11:59 No provider procedures requiring assistance completed. Patient did not have IV access ss during this emergency room visit. Administered Medications: No medications were administered Outcome: 06:10 Decision to Hospitalize by Provider. rn 08:41 Condition: good ss 08:41 Instructed on the need for admit. 11:59 Admitted to ER Hold. Please see [facility] for further documentation. ss 12:00 Patient left the ED. ss Signatures: Dispatcher [employer] EDMS Alexander Campo, RN Bright Alegre MD MD rn Smirch, Shelby, RN RN ss
--- NOTE | 2020-07-05 06:11 | EDPHYS ---
Physician Documentation [facility] Name: Hina Messina Age: 74 yrs Sex: Female : 1945 Arrival Date: 07/05/2020 Time: 04:59 Bed 30 Private MD: Martin Carter; Luis Alfredo Singh K ED Physician Bright Zendejas HPI: 07/05 05:14 This 74 yrs old Female presents to ER via EMS with complaints of Ran out of rn Home o2. 05:14 The patient has shortness of breath at rest. Onset: The symptoms/episode began/occurred rn today. Duration: The symptoms are continuous. The patient's shortness of breath is aggravated by loss of oxygen supplementation, is alleviated by application of supplemental oxygen. Associated signs and symptoms: Pertinent positives: This patient does not have any pertinent positive signs or symptoms associated with shortness of breath. Pertinent negatives: non-productive cough, productive cough, fever, hemoptysis, loss of consciousness. Severity of symptoms: At their worst the symptoms were moderate in the emergency department the symptoms have improved. The patient has not experienced similar symptoms in the past. [facility] out of power, she is oxygen dependant, COPD, has not felt sick recently, no fever. Reports was feeling sob and sluggish, EMS report oxygen 83% upon their arrival, with mental status improvement and oxygen to 98% with supplemental oxygen. No chest pain. No other complaints. . Historical: - Allergies: 05:04 ambien; sg 05:04 Codeine; sg 05:04 Demerol; sg 05:04 Latex, Natural Rubber; sg 05:04 Sulfa (Sulfonamide Antibiotics); sg 05:04 Valium; sg - Home Meds: 05:11 propranolol 40 mg Oral tab [Active]; cetirizine 10 mg Oral tab 1 tab once daily sg [Active]; citalopram 20 mg tab once daily [Active]; clonazepam 0.5 mg Oral tab [Active]; pantoprazole 40 mg Oral TbEC 1 tab once daily [Active]; prednisone 5 mg Oral tab once daily [Active]; risperidone 0.25 mg Oral tab [Active]; URIMAR-T 120-0.12-10.8 mg Oral tab [Active]; Ventolin HFA 90 mcg/actuation Nebulizer HFAA [Active]; xaralto 20mg nightly [Active]; - PMHx: 05:04 Anemia; Anxiety; Aortic Stenosis; Atrial Fib; COPD; Dementia; Depression; DVT; GERD; sg Glaucoma; Hyperlipidemia; Hypertension; ibs; manic episode; Microcytic anemia; Osteoporosis; SVT; - PSHx: 05:04 Hysterectomy; Appendectomy; sg - Immunization history:: Adult Immunizations up to date. - Social history:: Smoking status: Patient denies any tobacco usage or history of. - Family history:: not pertinent. - Hospitalizations: : No recent hospitalization is reported. ROS: 05:14 Constitutional: Negative for fever, chills, and weight loss, Eyes: Negative for injury, rn pain, redness, and discharge, Neck: Negative for injury, pain, and swelling, Cardiovascular: Negative for chest pain, palpitations, and edema, Respiratory: Negative for pleuritic chest pain, Abdomen/GI: Negative for abdominal pain, nausea, vomiting, diarrhea, and constipation, Back: Negative for injury and pain, MS/Extremity: Negative for injury and deformity, Skin: Negative for injury, rash, and discoloration, Neuro: Negative for headache, numbness, tingling, and seizure. Exam: 05:14 Constitutional: This is a well developed, well nourished patient who is awake, alert, rn and in no acute distress. Head/Face: Normocephalic, atraumatic. ENT: MMM, no stridor Neck: Trachea midline, no masses palpated, and no cervical lymphadenopathy. Supple, full range of motion without nuchal rigidity, or vertebral point tenderness. No Meningismus. Cardiovascular: Tachycardic, irregular Respiratory: Mild tachypnea, faint wheezing bilaterally, no retractions Abdomen/GI: soft, non-tender MS/ Extremity: Pulses equal, no cyanosis. Neurovascular intact. Full, normal range of motion. Equal circumference. Neuro: Awake and alert, GCS 15, oriented to person, place, time, and situation. Vital Signs: 05:00 BP 148 / 89; Pulse 118; Resp 20; Temp 97.9; Pulse Ox 100% on 3 lpm NC; sg MDM: 05:02 Patient medically screened. rn 06:08 Differential diagnosis: Anxiety Reaction Chronic Obstructive Pulmonary Disease rn Myocardial Infarction pulmonary edema. Data reviewed: vital signs, nurses notes, EKG, radiologic studies, plain films, and as a result, I will admit patient. Counseling: I had a detailed discussion with the patient and/or guardian regarding: the historical points, exam findings, and any diagnostic results supporting the discharge/admit diagnosis, radiology results, the need for further work-up and treatment in the hospital. Response to treatment: the patient's symptoms have markedly improved after treatment, and as a result, I will admit patient. Admission orders: after a detailed discussion of the patient's condition and case, the admit orders are written by me. ED course: Pt will have to be admitted given oxygen dependence, mental status change when hypoxemic, no power at home, and went through multiple oxygen tanks at home and now has run out. Will observe to Dr. Dempsey. 07/05 05:03 Order name: CBC with Diff rn 07/05 05:03 Order name: Basic Metabolic Panel 07/05 05:03 Order name: Procalcitonin; Complete Time: 19:22 rn 07/05 05:04 Order name: CBC with Automated Diff; Complete Time: 19:22 EDMS 07/05 05:04 Order name: Basic Metabolic Panel; Complete Time: 19:22 EDMS 07/05 06:15 Order name: Troponin (emerg Dept Use Only); Complete Time: 19:22 rn 07/05 05:03 Order name: XRAY Chest (1 view) 07/05 05:03 Order name: IV Start; Complete Time: 05:04 rn 07/05 05:03 Order name: EKG; Complete Time: 05:04 rn 07/05 05:03 Order name: EKG - Nurse/Tech; Complete Time: 05:04 rn 07/05 05:04 Order name: Oxygen Per Protocol; Complete Time: 05:04 rn 07/05 08:19 Order name: CBC Smear Scan; Complete Time: 19:22 EDMS Administered Medications: No medications were administered Disposition: 07/05/20 06:10 Hospitalization ordered by Cristofer Dempsey for Observation. Preliminary diagnosis are Hypoxemia, Chronic obstructive pulmonary disease, unspecified, Dependence on supplemental oxygen. - Bed requested for Telemetry/MedSurg (observation). - Status is Observation. ss - Condition is Stable. - Problem is new. - Symptoms have improved. Signatures: Dispatcher [employer] EDMS Alexander Campo, RN Bright Alegre MD MD rn Smirch, Shelby, RN RN ss Corrections: (The following items were deleted from the chart) 06:49 06:08 ED course: Pt will have to be admitted given oxygen dependence, mental status rn change when hypoxemic, no power at home, and went through multiple oxygen tanks at home and now has run out. Will observe to Dr. Zendejas. . rn 06:49 06:10 Hospitalization Ordered by Braden Zendejas MD for Observation. Preliminary rn diagnosis is Hypoxemia; Chronic obstructive pulmonary disease, unspecified; Dependence on supplemental oxygen. Bed requested for Telemetry/MedSurg (observation). Status is Observation. Condition is Stable. Problem is new. Symptoms have improved. rn 12:00 06:49 07/05/2020 06:10 Hospitalization Ordered by Cristofer Dempsey MD for Observation. ss Preliminary diagnosis is Hypoxemia; Chronic obstructive pulmonary disease, unspecified; Dependence on supplemental oxygen. Bed requested for Telemetry/MedSurg (observation). Status is Observation. Condition is Stable. Problem is new. Symptoms have improved. rn
[2020-07-05 07:13] LABS: Absolute Lymphocytes (CBC) 1.9 K/uL (0.7-4.9); Basophils % 0.9 % (0-1.3); Hematocrit 35.3 % (36.0-45.0); Lymphocytes % 23.8 % (15.3-44.8); MPV 7.3 fL (7.6-11.3); RBC Red Blood Cell Count 3.81 M/uL (3.86-4.86)
[2020-07-05 07:17] LABS: BUN Blood Urea Nitrogen 10 mg/dL (7-18); Bicarbonate 30 mmol/L (21-32); Glucose Level 86 mg/dL (74-106); Potassium 3.8 mmol/L (3.5-5.1); Sodium Level 144 mmol/L (136-145)
[2020-07-05 08:18] LABS: Anisocytosis 1+; Blood Morphology Comment NOTED (NOT SEEN); Platelet Estimate ADEQ; White Blood Cell Scan OK (OK)
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
[2020-07-05 12:05] VITALS: BP 148/89; TEMP 97.9; O2SAT 100
--- NOTE | 2020-07-05 14:42 | RAD REPORT ---
EXAM DESCRIPTION: RAD - Chest Single View - 07/05/2020 5:36 am CLINICAL HISTORY: COPD TECHNIQUE: Frontal view of the chest. COMPARISON: 04/02/2020 FINDINGS: Lungs: Stable mild bilateral parenchymal scarring. No consolidation. Symmetrical vascula r pattern. Pleural space: No pneumothorax. No pleural effusion. Heart: Stable large cardiac shadow. Mediastinum: Small hiatal hernia noted. Bones/joints: No osseous destruction or sclerosis noted. Vasculature: Tortuous dilated aorta unchanged. IMPRESSION: Chronic changes as above. No acute disease. Electronically signed by: Davina Baumann MD 07/05/2020 5:44 AM CURTAIN MENDER Due to temporary technical issues with the PACS/Fluency reporting system, reports are being signed by the in house radiologist without review as a courtesy to ensure prompt reporting. The interpreting r adiologist is fully responsible for the content of the report.
== END 2020-07-05 12:01 | disposition home or self-care (01) ==
LOC: ER 04:56 → ERHOLD 06:56
PROVIDERS: ADMIT Internal Medicine; ATTEND Internal Medicine
DX: R09.02 Hypoxemia (principal); J44.9 Chronic obstructive pulmonary disease, unspecified; F03.90 Unspecified dementia, unspecified severity, without behavioral disturbance, psychotic disturbance, mood disturbance, and anxiety; I10 Essential (primary) hypertension; E78.5 Hyperlipidemia, unspecified; K21.9 Gastro-esophageal reflux disease without esophagitis; F31.9 Bipolar disorder, unspecified; I48.91 Unspecified atrial fibrillation; Z99.81 Dependence on supplemental oxygen; Z79.01 Long term (current) use of anticoagulants; Z79.82 Long term (current) use of aspirin; Z86.718 Personal history of other venous thrombosis and embolism; Z91.040 Latex allergy status; Z88.6 Allergy status to analgesic agent; Z88.2 Allergy status to sulfonamides; Z88.8 Allergy status to other drugs, medicaments and biological substances; Z82.3 Family history of stroke; Z80.9 Family history of malignant neoplasm, unspecified
CPT/HCPCS: 36415; 71045; 80048; 84145; 84484; 85025; 99285

== ENCOUNTER 2020-07-12 16:38 | Emergency (ER) | payer OTHER ==
--- OUTSIDE RECORDS SUMMARY | 2020-07-12 16:42 | XMS REPORT | Continuity of Care Document ---
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 TIA TIA Disease [facility] 00 [place] Meperidi Drug Active Pt [facility] Allergy 12-07 hallucina [facility] 00 [place] Latex Drug Active Itching [facility] Allergy 12-07 [facility]: [facility] 00 [place] Sulfa Drug Active Other (See Pt gets [facility] (Sulfona Allergy Comments) 12-07 really [facility] - mide 00:00: [facility] Antibiot 00 Center ics) Diazepam Drug Active Pt [facility] Allergy 12-07 tremors [facility] - 00:00: Medical 00 [place] Family History Family Member Diagnosis Comments Start Date Stop Date Source Natural mother Cancer [facility] Natural mother Osteoarthritis [facility] Natural sister Heart failure [facility] Natural sister Hyperlipidemia [facility] Natural sister Thyroid disease [facility] S t [facility] Natural father Hyperlipidemia [facility] Natural father Stroke [facility] Social History Social Habit Start Date Stop Date Quantity Comments Source Sex Assigned At [facility] Tobacco use and 2016-12-07 2016-12-[address] [facility] exposure 00:00:00 00:00:00 [facility] Alcohol intake 2016-12-07 2016-12-[address] [facility] - 00:00:00 00:00:00 non-drinker of Medical nter alcohol (finding) History of 2008-12-[address] [facility] - [facility] use [facility] Smoking Status Start Date Stop Date Source Former smoker 2016-12-07 00:00:00 2016-12-07 00:00:00 [facility] Medications Ordered Filled Start Stop Current Ordering Indication Dosage Frequency Signature Comments Components Source Medication Medication Date Date Medication? Clinician (SIG) Name Name atorvastati Yes hyperlipide 20mg QD Take [address] [facility] (LIPITOR) 12-08 huyen by mouth [facility] - 20 MG 19:06: daily. Medical tablet [address] [place] [address] pantoprazol Yes gastroesoph 40mg Q.5D Take 40 [...] - MG tablet 19:06: depression daily. Medical [address] [place] [address] metoprolol Yes hypertensio 25mg Q.5D Take [address] [facility] [address] (TOPROL-XL) 7-23 n by mouth 2 Mariana kes - 25 MG 24 hr 19:06: (two) Medic al tablet 07 times Center daily. cetirizine Yes urticaria 10mg QD Take [address] (ZYRTEC) 10 23 by mouth Luke [facility] - MG tablet 19:06: daily. Medica l [address] [place] [address] fluticasone Yes 1{spray Q.5D [address] [facility] [address] (FLONASE) 12-08 } Nasal [facility] - 50 19:06: route 2 Medical mcg/actuati 07 (two) Center on nasal times spray daily. Procedures This patient has no known procedures. Encounters Start End Encounter Admission Attending Care Care Encounter Source Date/Time Date/Time Type Type Clinicians Facility Department ID 2020-06-15 2020-06-15 Emergency Fareed Antony [facility] [id number] 15:18:00 21:42:00 Eun Rodriguez [id number] [place] [id number] [place] [id number] 2020-03-19 2020-03-31 Inpatient Zack [facility] SCU [id number] [place] 22:48:00 17:50:00 GERTRUDE Gonzaleza l [place] 2020-03-18 2020-03-19 Outpatient KINGSLEY SHAFFER [facility] TELE [id number] [place] 20:35:00 22:30:00 Medica l Center 2020-02-28 2020-03-18 [facility] [id number] [place] 19:45:00 21:24:00 GERTRUDE [facility] Results Test Description Test Time Test Comments [...] code = 95A) 60.8 ug/mL 50.0-100.0 URINE [id number] 09:57:00 Test Item Value Reference Range Interpretation Comments Culture Observations THREE OR MORE SPECIES (test code = COB1) OF BACTERIA ISOLATED. PROBABLE CONTAMINATION. Culture Observations IDENTIFICATION AND (test code = COB17) SUSCEPTIBILITY NOT INDICATED. RECOLLECTION RECOMMENDED BASIC METABOLIC [id number] 14:15:00 Test Item Value Reference Range Interpretation [...] (test code = RBCMOR) NORMAL CBC WITH [id number] 19:44:00 Test Item Value Reference Range Interpretation [...] = TD) 1+ NONE A BASIC METABOLIC [id number] 19:31:00 Test Item Value Reference Range Interpretation [...] = 8.8 mg/dL 8.3-9.5 09D) URINALYSIS WITH [id number] 13:30:00 Test Item Value Reference Range Interpretation [...] the FDA and the [employer] (CAP) are more stringent than those required for this test. Therefore, the result should be interpreted with caution and close attention to other clinical and epidemiological data VALPROIC ACID (DEPAKENE)2020-03-10 07:20:00 Test Item Value Reference Range Interpretation Comments VALP ACID (test code = 95A) 72.7 ug/mL 50.0-100.0 URINE [id number] 10:02:00 Test Item Value Reference Range Interpretation Comments Culture Observations THREE OR MORE SPECIES (test code = COB1) OF BACTERIA ISOLATED. PROBABLE CONTAMINATION. Culture Observations IDENTIFICATION AND (test code = COB17) SUSCEPTIBILITY NOT INDICATED. RECOLLECTION RECOMMENDED VALPROIC ACID (DEPAKENE)2020-03-06 06:28:00 Test Item Value Reference Range Interpretation Comments VALP ACID (test code = 95A) 38.0 ug/mL 50.0-100.0 LL PRO TIME AND [id number] 06:23:00 Test Item Value Reference Range Interpretation [...] Heparin. Order Code is ANTI-XA URINALYSIS WITH [id number] 19:30:00 Test Item Value Reference Range Interpretation [...] code = USPERM) /HPF NONE CBC WITH [id number] 15:46:00 Test Item Value Reference Range Interpretation [...] (test code = 1+ NONE A POLY) [id number] 06:09:00 Test Item Value Reference Range Interpretation Comments FOLATE (test code = A75) 7.4 ng/mL 3.1-17.5 [id number] 06:07:00 Test Item Value Reference Range Interpretation Comments MAGNESIUM (test code = 48A) 2.3 mg/dL 1.8-2.4 [id number] 06:06:00 Test Item Value Reference Range Interpretation Comments PREALBUMIN (test code = 08E) 13 mg/dL 18-38 L THYROID PANEL/SCREEN (TSH)2020-03-01 06:05:00 Test Item Value Reference Range Interpretation Comments TSH (test code = A57) 0.470 uIU/mL 0.358-3.740 LIPID [id number] 06:04:00 Test Item Value Reference Range Interpretation Comments CHOLESTROL (test code = 44A) 179 mg/dL 140-200 TRIGLYCERI (test code = 42B) 84 mg/dL <=149 HDL (test code = 83D) 66.0 mg/dL 40.0-60.0 H LDL (test code = 34B) 99 mg/dL <=99 CHL/HDL (test code = CHR) 2.7 0.0-3.4 [id number] 11:34:00 Test Item Value Reference Range Interpretation Comments Hb A1C % (test code 5.4 % 3.8-6.4 = HBA) A1C % (test code = HbA1c (% ) A1C) Reference Range Normal <5.7 Prediabetes 5.7-6.4 Diabetic >=6.5 CBC WITH [id number] 11:13:00 Test Item Value Reference Range Interpretation [...] = TARG) 1+ NONE A BASIC METABOLIC [id number] 06:09:00 Test Item Value Reference Range Interpretation [...] FOR DIALYSIS PATIEN TS. TSH/FREE T4 IF [id number] 06:06:00 Test Item Value Reference Range Interpretation Comments THYROID STIMULATING HORMONE 0.78 uIU/mL 0.35-4.94 (BEAKER) (test code = 772) CBC W/PLT COUNT & AUTO [id number] 05:30:00 Test Item Value Reference Range Interpretation [...] L 0.00-0.20 (test code = 417) 0.00SEDIMENTATION [id number] 14:36:00 Test Item Value Reference Range Interpretation Comments SEDIMENTATION RATE, ERYTHROCYTE 20 mm/HR 0-40 (BEAKER) (test code = 766) VITAMIN [id number] 11:02:00 Test Item Value Reference Range Interpretation Comments VITAMIN B12 (BEAKER) (test code = 219 pg/mL 213-816 774) HEMOGLOBIN [id number] 08:55:00 Test Item Value Reference Range Interpretation Comments HEMOGLOBIN A1C (BEAKER) (test code = 5.3 % 4.3-6.1 368) LIPID [id number] 06:23:00 Test Item Value Reference Range Interpretation [...] 130-159 High 160-189 Very High >=190BASIC METABOLIC [id number] 06:23:00 Test Item Value Reference Range Interpretation [...] PATIEN TS. CBC W/PLT COUNT & AUTO [id number] 06:08:00 Test Item Value Reference Range Interpretation [...]
[2020-07-12 17:12] LABS: Urine Blood TRACE (NEG); Urine Glucose NEGATIVE (NEG); Urine Protein NEGATIVE (NEG)
[2020-07-12 17:33] LABS: Urine Bacteria >50 /HPF (<20); Urine RBC <5 /HPF (NONE SEEN)
[2020-07-12 18:09] LABS: Absolute Lymphocytes (CBC) 0.8 K/uL (0.7-4.9); Hematocrit 35.8 % (36.0-45.0); Lymphocytes % 14.9 % (15.3-44.8); MPV 6.9 fL (7.6-11.3)
[2020-07-12 18:29] LABS: Potassium 4.1 mmol/L (3.5-5.1)
[2020-07-12 18:30] LABS: Protime INR 0.98
[2020-07-12] MEDS ORDERED: NITROFURAN MACRO 100 MG CAP PO ONE (18:46)
--- NOTE | 2020-07-12 19:03 | EDPHYS ---
Physician Documentation [facility] Name: Hina Messina Age: 75 yrs Sex: Female : 1945 Arrival Date: 07/12/2020 Time: 16:39 Bed 7 Private MD: ED Physician Bright Zendejas HPI: 07/12 17:34 This 75 yrs old Female presents to ER via EMS with complaints of Palpitations.rn 17:34 The patient presents with a history of heart racing. Context: The symptoms occur at rn rest. Onset: The symptoms/episode began/occurred at an unknown time. Duration: The patient or guardian reports multiple episodes. Modifying factors: The symptoms are aggravated by nothing. The symptoms are alleviated by nothing. Associated signs and symptoms: Pertinent negatives: anxiety, chest pain, fever, syncope. Severity of symptoms: At their worst the symptoms were mild in the emergency department the symptoms have improved. The patient has experienced similar episodes in the past. The patient has been recently seen by a physician:. Recently admitted to hospital for oxygen requirement and ran out of oxygen, sent home recently, returns today for palpitations and generalized weakness/fatigue. Does report increased urinary frequency. No chest pain/sob/abd pain. . Historical: - Allergies: 16:42 ambien; sv 16:42 Codeine; sv 16:42 Demerol; sv 16:42 Latex, Natural Rubber; sv 16:42 Sulfa (Sulfonamide Antibiotics); sv 16:42 Valium; sv - Home Meds: 18:41 albuterol sulfate 2.5 mg /3 mL (0.083 %) Inhl nebu 3 mL Q8h prn [Active]; cetirizine 10 sv mg Oral tab 1 tab once daily [Active]; clonazepam 0.5 mg Oral tab [Active]; divalproex 250 mg oral TbEC 1 tab 2 times per day [Active]; famotidine 10 mg Oral tab 2 times per day [Active]; ferrous sulfate 325 mg (65 mg iron) Oral tab daily [Active]; fluticasone 50 mcg/actuation nasal spsn 1 spray once daily [Active]; Megestrol Acetate 40 mg /1ml Oral 2 times per day [Active]; Flagyl 500 mg Oral tab 1 tab 3 times per day [Active]; midodrine 5 mg oral tab twice a day [Active]; mirtazapine 15 mg Oral tab nightly [Active]; Oyst-ruiz w/Vit D 500 mg-200 mg 1 tab BID [Active]; prednisone 5 mg Oral tab once daily [Active]; risperidone 0.25 mg Oral tab three times a day [Active]; senna 8.6 mg oral cap 2 caps nightly [Active]; trazodone 50 mg Oral tab 0.5 tab nightly [Active]; Trelegy ellipta 100-62.5 BLST w/DEV 1 puff INH daily [Active]; Vitamin B-12 1,000 mcg Oral TbER daily [Active]; Xarelto 15 mg oral tab daily [Active]; - PMHx: 16:42 Atrial Fib; Microcytic anemia; ibs; manic episode; Hyperlipidemia; Glaucoma; COPD; sv Anxiety; GERD; Hypertension; Depression; Dementia; DVT; Osteoporosis; SVT; Anemia; Aortic Stenosis; 18:41 Atherosclerosis; sv - PSHx: 16:42 Hysterectomy; Appendectomy; sv - Immunization history:: Adult Immunizations up to date. - Social history:: Smoking status: Patient denies any tobacco usage or history of. - Family history:: not pertinent. - Hospitalizations: : The patient was recently seen at [facility]. ROS: 17:34 Constitutional: Negative for fever, chills, and weight loss, Eyes: Negative for injury, rn pain, redness, and discharge, Neck: Negative for injury, pain, and swelling, Cardiovascular: Negative for chest pain, and edema, Respiratory: Negative for shortness of breath, cough, wheezing, and pleuritic chest pain, Abdomen/GI: Negative for abdominal pain, nausea, vomiting, diarrhea, and constipation, Back: Negative for injury and pain, : Negative for injury, bleeding, discharge, and swelling, MS/Extremity: Negative for injury and deformity, Skin: Negative for injury, rash, and discoloration, Neuro: Negative for headache, numbness, tingling, and seizure. Exam: 17:34 Constitutional: This is a well developed, well nourished patient who is awake, alert, rn and in no acute distress. Head/Face: Normocephalic, atraumatic. Eyes: Pupils equal round and reactive to light ENT: MMM Cardiovascular: Tachycardic, irregular, No pulse deficits. Respiratory: Speaking full sentences. No increased work of breathing, no retractions or nasal flaring. Abdomen/GI: soft, non-tender Skin: Warm, dry MS/ Extremity: Pulses equal, no cyanosis. Neurovascular intact. Full, normal range of motion. Equal circumference. Neuro: Awake and alert, GCS 15, oriented to person, place, and situation. Cranial nerves II-XII grossly intact. Motor strength 4/5 in all extremities. Sensory grossly intact. Vital Signs: 16:39 BP 110 / 88; Pulse 104; Resp 20; Temp 97.2; Pulse Ox 98% ; sv 17:42 BP 110 / 88; Pulse 99; Resp 14; Pulse Ox 100% on R/A; sv 18:28 Pulse 105; Resp 13; Pulse Ox 99% on 2 lpm NC; sv 19:23 BP 107 / 89; Pulse 110; Resp 18; Pulse Ox 99% ; ea 16:39 Pt wears home O2. sv MDM: 16:39 Patient medically screened. rn 19:02 Data reviewed: vital signs, nurses notes, lab test result(s), EKG, and as a result, I rn will discharge patient. Counseling: I had a detailed discussion with the patient and/or guardian regarding: the historical points, exam findings, and any diagnostic results supporting the discharge/admit diagnosis, lab results, the need for outpatient follow up, to return to the emergency department if symptoms worsen or persist or if there are any questions or concerns that arise at home. Response to treatment: the patient's symptoms have mildly improved after treatment, and as a result, I will discharge patient. Special discussion: I discussed with the patient/guardian in detail that at this point there is no indication for admission to the hospital. It is understood, however, that if the symptoms persist or worsen the patient needs to return immediately for re-evaluation. 07/12 16:40 Order name: Urine Culture rn 07/12 16:40 Order name: Urine Microscopic Only; Complete Time: 17:41 rn 07/12 16:44 Order name: CBC with Diff; Complete Time: 18:30 rn 07/12 16:44 Order name: Basic Metabolic Panel; Complete Time: 18:42 rn 07/12 16:44 Order name: Protime (+inr); Complete Time: 18:42 rn 07/12 16:44 Order name: Ptt, Activated; Complete Time: 18:42 rn 07/12 16:40 Order name: Urine Dipstick-Ancillary (obtain specimen); Complete Time: 17:30 rn 07/12 16:44 Order name: EKG; Complete Time: 16:45 rn 07/12 16:44 Order name: BNP; Complete Time: 18:42 rn 07/12 16:44 Order name: Procalcitonin; Complete Time: 18:56 rn 07/12 17:05 Order name: Urine Dipstick--Ancillary (enter results); Complete Time: 17:41 sp 07/12 16:44 Order name: EKG - Nurse/Tech; Complete Time: 16:56 rn Administered Medications: 18:41 Drug: Macrobid 100 mg Route: PO; 19:24 Follow up: Response: No adverse reaction ea 18:59 Drug: NS 0.9% 500 ml Route: IV; Rate: bolus; Site: right wrist; Disposition: 07/12/20 19:03 Discharged to Home. Impression: Urinary tract infection, site not specified. - Condition is Stable. - Discharge Instructions: Urinary Tract Infection, Adult. - Prescriptions for Macrobid 100 mg Oral Capsule - take 1 capsule by ORAL route every 12 hours for 10 days; 20 capsule. - Medication Reconciliation Form, Thank You Letter, Antibiotic Education, Prescription Opioid Use form. - Follow up: Private Physician; When: As needed; Reason: Recheck today's complaints, Re-evaluation by your physician. - Problem is new. - Symptoms have improved. Signatures: Dispatcher [employer] EDMS Shira Couch RN RN Karen Elder RN RN Bright Zendejas MD MD rn Roque, Raymond, RN RN rr5 Madina Sullivan RN, ea Corrections: (The following items were deleted from the chart) 20:01 19:03 07/12/2020 19:03 Discharged to Home. Impression: Urinary tract infection, site rr5 not specified. Condition is Stable. Forms are Medication Reconciliation Form, Thank You Letter, Antibiotic Education, Prescription Opioid Use. Follow up: Private Physician; When: As needed; Reason: Recheck today's complaints, Re-evaluation by your physician. Problem is new. Symptoms have improved. rn
--- NOTE | 2020-07-12 19:03 | ER ---
Nurse's Notes [facility] Name: Hina Messina Age: 75 yrs Sex: Female : 1945 Arrival Date: 07/12/2020 Time: 16:39 Bed 7 Private MD: Diagnosis: Urinary tract infection, site not specified Presentation: 07/12 16:39 Chief complaint: EMS states: called out by staff for pt c/o palpitations and sv hypotension. Vitals WNL HR has been in the 100s. Pt has been reporting urinary symptoms as well recently. Coronavirus screen: Client denies travel out of the [place] in the last 14 days. At this time, the client does not indicate any symptoms associated with coronavirus-19. Ebola Screen: No symptoms or risks identified at this time. Initial Sepsis Screen: Does the patient meet any 2 criteria? HR > 90 bpm. No. Patient's initial sepsis screen is negative. Does the patient have a suspected source of infection? No. Patient's initial sepsis screen is negative. Risk Assessment: Do you want to hurt yourself or someone else? Patient reports no desire to harm self or others. Onset of symptoms was July 12, 2020. 16:39 Method Of Arrival: EMS: [facility] sv 16:39 Acuity: KESHAV 3 sv Triage Assessment: 16:45 General: Appears in no apparent distress. comfortable, well groomed, well developed, sv Behavior is calm, cooperative, appropriate for age. Pain: Denies pain. Neuro: Level of Consciousness is awake, alert, obeys commands, Oriented to person, place, time, situation, Moves all extremities. Full function. Cardiovascular: Reports palpitations, earlier but not at this time. Respiratory: Airway is patent Respiratory effort is even, unlabored, Respiratory pattern is regular, symmetrical. : Reports urgency. Derm: Skin is pink, warm \T\ dry. Bruising that is dark purple, on right lateral anterior chest and right breast. Musculoskeletal: Range of motion: intact in all extremities. Historical: - Allergies: 16:42 ambien; sv 16:42 Codeine; sv 16:42 Demerol; sv 16:42 Latex, Natural Rubber; sv 16:42 Sulfa (Sulfonamide Antibiotics); sv 16:42 Valium; sv - Home Meds: 18:41 albuterol sulfate 2.5 mg /3 mL (0.083 %) Inhl nebu 3 mL Q8h prn [Active]; cetirizine 10 sv mg Oral tab 1 tab once daily [Active]; clonazepam 0.5 mg Oral tab [Active]; divalproex 250 mg oral TbEC 1 tab 2 times per day [Active]; famotidine 10 mg Oral tab 2 times per day [Active]; ferrous sulfate 325 mg (65 mg iron) Oral tab daily [Active]; fluticasone 50 mcg/actuation nasal spsn 1 spray once daily [Active]; Megestrol Acetate 40 mg /1ml Oral 2 times per day [Active]; Flagyl 500 mg Oral tab 1 tab 3 times per day [Active]; midodrine 5 mg oral tab twice a day [Active]; mirtazapine 15 mg Oral tab nightly [Active]; Oyst-ruiz w/Vit D 500 mg-200 mg 1 tab BID [Active]; prednisone 5 mg Oral tab once daily [Active]; risperidone 0.25 mg Oral tab three times a day [Active]; senna 8.6 mg oral cap 2 caps nightly [Active]; trazodone 50 mg Oral tab 0.5 tab nightly [Active]; Trelegy ellipta 100-62.5 BLST w/DEV 1 puff INH daily [Active]; Vitamin B-12 1,000 mcg Oral TbER daily [Active]; Xarelto 15 mg oral tab daily [Active]; - PMHx: 16:42 Atrial Fib; Microcytic anemia; ibs; manic episode; Hyperlipidemia; Glaucoma; COPD; sv Anxiety; GERD; Hypertension; Depression; Dementia; DVT; Osteoporosis; SVT; Anemia; Aortic Stenosis; 18:41 Atherosclerosis; sv - PSHx: 16:42 Hysterectomy; Appendectomy; sv - Immunization history:: Adult Immunizations up to date. - Social history:: Smoking status: Patient denies any tobacco usage or history of. - Family history:: not pertinent. - Hospitalizations: : The patient was recently seen at [facility]. Screenin:30 Abuse screen: Denies threats or abuse. Denies injuries from another. Nutritional sv screening: No deficits noted. Tuberculosis screening: No symptoms or risk factors identified. Fall Risk None identified. Assessment: 17:50 Reassessment: Patient appears in no apparent distress at this time. No changes from sv previously documented assessment. Patient and/or family updated on plan of care and expected duration. Pain level reassessed. Patient is alert, oriented x 3, equal unlabored respirations, skin warm/dry/pink. 18:48 Reassessment: pt assisted to bedside commode, daughter at bedside to assist, pt placed iw back in bed with assistance from daughter, waiting on lab results. 19:23 Reassessment: Patient and/or family updated on plan of care and expected duration. Pain ea level reassessed. Patient is alert, oriented x 3, equal unlabored respirations, skin warm/dry/pink. Pt awaiting on fluids to complete. 19:59 Reassessment: Patient and/or family updated on plan of care and expected duration. Pain ea level reassessed. Patient is alert, oriented x 3, equal unlabored respirations, skin warm/dry/pink. Pt left ED via wheelchair, daughter at facility for ride home tolerating well. Vital Signs: 16:39 BP 110 / 88; Pulse 104; Resp 20; Temp 97.2; Pulse Ox 98% ; sv 17:42 BP 110 / 88; Pulse 99; Resp 14; Pulse Ox 100% on R/A; sv 18:28 Pulse 105; Resp 13; Pulse Ox 99% on 2 lpm NC; sv 19:23 BP 107 / 89; Pulse 110; Resp 18; Pulse Ox 99% ; ea 16:39 Pt wears home O2. sv ED Course: 16:39 Patient arrived in ED. sv 16:39 Shira Couch, RN is Primary Nurse. sv 16:39 Bright Zendejas MD is Attending Physician. rn 16:40 Triage completed. sv 16:42 Arm band placed on. sv 16:50 Patient has correct armband on for positive identification. Placed in gown. Bed in low sv position. Call light in reach. Side rails up X2. upper shaper on. Pulse ox on. NIBP on. Door closed. Warm blanket given. Head of bed elevated. 17:00 Straight cath inserted, using sterile technique, 16 Fr. Specimen obtained. Returned sv clear yellow urine. Patient tolerated well. 17:35 Missed attempt(s): 22 gauge in left forearm. Bleeding controlled, band aid applied, sv catheter tip intact. 17:45 Missed attempt(s): 24 gauge in right forearm. Bleeding controlled, band aid applied, sv catheter tip intact. 17:50 Inserted saline lock: 24 gauge in right forearm, using aseptic technique. Blood sv collected. Flushed right forearm with 5 ml normal saline. 19:13 Primary Nurse role handed off by Shira Couch RN 20:01 Braden Portillo, RN is Primary Nurse. rr5 20:01 No provider procedures requiring assistance completed. IV discontinued, intact, ea bleeding controlled, No redness/swelling at site. Pressure dressing applied. Administered Medications: 18:41 Drug: Macrobid 100 mg Route: PO; sv 19:24 Follow up: Response: No adverse reaction ea 18:59 Drug: NS 0.9% 500 ml Route: IV; Rate: bolus; Site: right wrist; iw Outcome: 19:03 Discharge ordered by . rn 20:01 Patient left the ED. rr5 20:01 Discharged to home ambulatory. ea 20:01 Condition: stable 20:01 Discharge instructions given to patient, family, Instructed on discharge instructions, follow up and referral plans. medication usage, Demonstrated understanding of instructions, follow-up care, Prescriptions given X 1. Signatures: Shira Couch, Karen Grimaldo RN, RN RN Bright Zendejas MD MD rn Martinez, Eric em1 Madina Sullivan RN RN ea Roque, Raymond, RN RN rr5 Corrections: (The following items were deleted from the chart) 17:13 16:39 Chief complaint: EMS states: called out by staff for pt c/o palpitations. Vitals sv WNL HR has been in the 100s. sv 17:55 17:53 Missed attempt(s): 22 gauge in right forearm. em1 em1 18:03 17:53 Missed attempt(s): 22 gauge in left forearm. Bleeding controlled, band aid sv applied, catheter tip intact. em1 18:29 16:39 BP 110 / 88; Pulse 104bpm; Resp 20bpm; Pulse Ox 98%; Temp 97.2F; sv sv
[2020-07-12] MEDS ORDERED: NA CHLORIDE 0.9% 500 ML ONE (19:11)
[2020-07-12 21:24] VITALS: TEMP 97.2
[2020-07-12 21:26] VITALS: O2SAT 99
[2020-07-12 21:28] VITALS: BP 107/89
--- NOTE | 2020-07-13 05:37 | EKG ---
Test Date: 2020-07-12 Test Time: 16:44:47 Plans Examiner: NICHOLE MEASUREMENT RESULTS: Intervals: Rate: 107 SC: 146 QRSD: 68 QT: 322 QTc: 429 [place]: P: 20 SC: 146 QRS: -38 T: -13 INTERPRETIVE STATEMENTS: Sinus tachycardia Left axis deviation Septal infarct, age undetermined Abnormal ECG Compared to ECG 07/05/2020 05:24:41 Myocardial infarct finding now present ST (T wave) deviation no longer present Possible ischemia no longer present Electronically Signed On 07-13-20 05:35:26 WINDOWS MIGRATION TECHNICIAN by Edward Sherwood
== END 2020-07-12 20:01 | disposition home or self-care (01) ==
LOC: ER 16:38
DX: N39.0 Urinary tract infection, site not specified (principal); I48.91 Unspecified atrial fibrillation; K58.9 Irritable bowel syndrome, unspecified; E78.5 Hyperlipidemia, unspecified; H40.9 Unspecified glaucoma; J44.9 Chronic obstructive pulmonary disease, unspecified; F41.9 Anxiety disorder, unspecified; K21.9 Gastro-esophageal reflux disease without esophagitis; F32.9 Major depressive disorder, single episode, unspecified; F03.90 Unspecified dementia, unspecified severity, without behavioral disturbance, psychotic disturbance, mood disturbance, and anxiety; I10 Essential (primary) hypertension; Z86.718 Personal history of other venous thrombosis and embolism; M81.0 Age-related osteoporosis without current pathological fracture; I35.0 Nonrheumatic aortic (valve) stenosis; Z79.01 Long term (current) use of anticoagulants
CPT/HCPCS: 93005; 87088; 85025; 87086; 80048; 36415; 85610; 85730; 84145; 83880; 51702; 99284; J7040; 81003; 81015

== ENCOUNTER 2020-07-16 22:30 | Observation (INO) | payer OTHER ==
--- OUTSIDE RECORDS SUMMARY | 2020-07-16 22:35 | XMS REPORT | Continuity of Care Document ---
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 TIA TIA Disease [facility] 00 [place] Meperidi Drug Active Pt [facility] Allergy 12-07 hallucina [facility] 00 [place] Latex Drug Active Itching [facility] 12-07 [facility] 00:[facility]: [facility] 00 [place] Sulfa Drug Active Other (See Pt gets [facility] (Sulfona Allergy Comments) 12-07 really [facility] - mide 00:00: [facility] Antibiot 00 Center ics) Diazepam Drug Active Pt [facility] All[facility] 12-07 tremors [facility] - 00:[facility]: Medical 00 [place] Family History Family Member Diagnosis Comments Start Date Stop Date Source Natural mother Cancer [facility] Natural mother Osteoarthritis [facility] Natural sister Heart failure [facility] Natural sister Hyperlipidemia [facility] Natural sister Thyroid disease [facility] Natural father Hyperlipidemia [facility] Natural father Stroke [facility] Social History Social Habit Start Date Stop Date Quantity Comments Source Sex Assigned At [facility] Tobacco use and 2016-12-07 2016-12-07 Never used [facility] exposure 00:00:00 00:00:00 [facility] Alcohol intake 2016-12-07 2016-12-07 Current [facility] - 00:00:00 00:00:00 non-drinker of Medical nter alcohol (finding) History of 2008-12-07 Current smoker [facility] - tobacco use 00:00:00 [facility] Smoking Status Start Date Stop Date Source Former smoker 2016-12-07 00:00:00 2016-12-07 00:00:00 [facility] Medications Ordered Filled Start Stop Current Ordering Indication Dosage Frequency Signature Comments Components Source Medication Medication Date Date Medication? Clinician (SIG) Name Name atorvastati Yes hyperlipide 20mg QD Take [address] [facility] (LIPITOR) 12-08 huyen by mouth Luke [facility] - 20 MG 19:06: daily. Medical tablet [address] [place] [address] pantoprazol Yes gastroesoph 40mg Q.5D Take 40 [...] - MG tablet 19:06: depression daily. Medical [address] [place] [address] metoprolol Yes hypertensio 25mg Q.5D Take [address] (TOPROL-XL) 7-23 n by mouth 2 Mariana kes - 25 MG 24 hr 19:06: (two) Medic al tablet 07 times Center daily. cetirizine Yes urticaria 10mg QD Take [address] (ZYRTEC) 10 23 by mouth Luke s - MG tablet 19:06: daily. Medica l [address] [place] [address] fluticasone Yes 1{spray Q.5D [address] [facility] [address] (FLONASE) 12-08 } Nasal [facility] - 50 19:06: route 2 Medical mcg/actuati 07 (two) Center on nasal times spray daily. Procedures This patient has no known procedures. Encounters Start End Encounter Admission Attending Care Care Encounter Source Date/Time Date/Time Type Type Clinicians Facility Department ID 2020-06-15 2020-06-15 Emergency Fareed Antony [facility] [id number] 15:18:00 21:42:00 Eun Rodriguez [id number] Cari [id number] Snow [id number] 2020-03-19 2020-03-31 Inpatient Zack [facility] [id number] 22:48:00 17:50:00 GERTRUDE Gonzaleza l [place] 2020-03-18 2020-03-19 Outpatient KINGSLEY SHAFFER [facility] [place] [id number] [place] 20:35:00 22:30:00 Medica l Center 2020-02-28 2020-03-18 Inpatient Zack [facility] [id number] 19:45:00 21:24:00 GERTRUDE [facility] Results Test Description Test Time [...] code = 95A) 60.8 ug/mL 50.0-100.0 URINE [id number] 09:57:00 Test Item Value Reference Range Interpretation Comments Culture Observations THREE OR MORE SPECIES (test code = COB1) OF BACTERIA ISOLATED. PROBABLE CONTAMINATION. Culture Observations IDENTIFICATION AND (test code = COB17) SUSCEPTIBILITY NOT INDICATED. RECOLLECTION RECOMMENDED BASIC METABOLIC [id number] 14:15:00 Test Item Value Reference Range Interpretation [...] (test code = RBCMOR) NORMAL CBC WITH [id number] 19:44:00 Test Item Value Reference Range Interpretation [...] = TD) 1+ NONE A BASIC METABOLIC [id number] 19:31:00 Test Item Value Reference Range Interpretation [...] = 8.8 mg/dL 8.3-9.5 09D) URINALYSIS WITH [id number] 13:30:00 Test Item Value Reference Range Interpretation [...] the FDA and the [employer] the [place] [employer] (CAP) are more stringent than those required for this test. Therefore, the result should be interpreted with caution and close attention to other clinical and epidemiological data VALPROIC ACID (DEPAKENE)2020-03-10 07:20:00 Test Item Value Reference Range Interpretation Comments VALP ACID (test code = 95A) 72.7 ug/mL 50.0-100.0 URINE [id number] 10:02:00 Test Item Value Reference Range Interpretation Comments Culture Observations THREE OR MORE SPECIES (test code = COB1) OF BACTERIA ISOLATED. PROBABLE CONTAMINATION. Culture Observations IDENTIFICATION AND (test code = COB17) SUSCEPTIBILITY NOT INDICATED. RECOLLECTION RECOMMENDED VALPROIC ACID (DEPAKENE)2020-03-06 06:28:00 Test Item Value Reference Range Interpretation Comments VALP ACID (test code = 95A) 38.0 ug/mL 50.0-100.0 LL PRO TIME AND [id number] 06:23:00 Test Item Value Reference Range Interpretation [...] Heparin. Order Code is ANTI-XA URINALYSIS WITH [id number] 19:30:00 Test Item Value Reference Range Interpretation [...] code = USPERM) /HPF NONE CBC WITH [id number] 15:46:00 Test Item Value Reference Range Interpretation [...] (test code = 1+ NONE A POLY) [id number] 06:09:00 Test Item Value Reference Range Interpretation Comments FOLATE (test code = A75) 7.4 ng/mL 3.1-17.5 [id number] 06:07:00 Test Item Value Reference Range Interpretation Comments MAGNESIUM (test code = 48A) 2.3 mg/dL 1.8-2.4 [id number] 06:06:00 Test Item Value Reference Range Interpretation Comments PREALBUMIN (test code = 08E) 13 mg/dL 18-38 L THYROID PANEL/SCREEN (TSH)2020-03-01 06:05:00 Test Item Value Reference Range Interpretation Comments TSH (test code = A57) 0.470 uIU/mL 0.358-3.740 LIPID [id number] 06:04:00 Test Item Value Reference Range Interpretation Comments CHOLESTROL (test code = 44A) 179 mg/dL 140-200 TRIGLYCERI (test code = 42B) 84 mg/dL <=149 HDL (test code = 83D) 66.0 mg/dL 40.0-60.0 H LDL (test code = 34B) 99 mg/dL <=99 CHL/HDL (test code = CHR) 2.7 0.0-3.4 [id number] 11:34:00 Test Item Value Reference Range Interpretation Comments Hb A1C % (test code 5.4 % 3.8-6.4 = HBA) A1C % (test code = HbA1c (% ) A1C) Reference Range Normal <5.7 Prediabetes 5.7-6.4 Diabetic >=6.5 CBC WITH [id number] 11:13:00 Test Item Value Reference Range Interpretation [...] = TARG) 1+ NONE A BASIC METABOLIC [id number] 06:09:00 Test Item Value Reference Range Interpretation [...] FOR DIALYSIS PATIEN TS. TSH/FREE T4 IF [id number] 06:06:00 Test Item Value Reference Range Interpretation Comments THYROID STIMULATING HORMONE 0.78 uIU/mL 0.35-4.94 (BEAKER) (test code = 772) CBC W/PLT COUNT & AUTO [id number] 05:30:00 Test Item Value Reference Range Interpretation [...] L 0.00-0.20 (test code = 417) 0.00SEDIMENTATION [id number] 14:36:00 Test Item Value Reference Range Interpretation Comments SEDIMENTATION RATE, ERYTHROCYTE 20 mm/HR 0-40 (BEAKER) (test code = 766) VITAMIN [id number] 11:02:00 Test Item Value Reference Range Interpretation Comments VITAMIN B12 (BEAKER) (test code = 219 pg/mL 213-816 774) HEMOGLOBIN [id number] 08:55:00 Test Item Value Reference Range Interpretation Comments HEMOGLOBIN A1C (BEAKER) (test code = 5.3 % 4.3-6.1 368) LIPID [id number] 06:23:00 Test Item Value Reference Range Interpretation [...] 130-159 High 160-189 Very High >=190BASIC METABOLIC [id number] 06:23:00 Test Item Value Reference Range Interpretation [...] PATIEN TS. CBC W/PLT COUNT & AUTO [id number] 06:08:00 Test Item Value Reference Range Interpretation [...]
[2020-07-16 23:14] LABS: Absolute Lymphocytes (CBC) 1.5 K/uL (0.7-4.9); Hematocrit 38.7 % (36.0-45.0); Lymphocytes % 23.3 % (15.3-44.8); RBC Red Blood Cell Count 4.02 M/uL (3.86-4.86)
[2020-07-16] MEDS ORDERED: ACETAMINOPHEN 500 MG TAB ONE (23:23)
[2020-07-16 23:35] LABS: Potassium 3.9 mmol/L (3.5-5.1); Troponin (Emerg Dept Use Only) 0.07 ng/mL (0.0-0.045)
[2020-07-17 00:10] LABS: Protime INR 1.46
--- NOTE | 2020-07-17 01:33 | ER ---
Nurse's Notes [facility] Name: Hina Messina Age: 75 yrs Sex: Female : 1945 Arrival Date: 07/16/2020 Time: 22:31 Bed 5 Private MD: Diagnosis: Fall due to bumping against object;Elevated Tropnin Level Presentation: 07/16 22:33 Chief complaint: EMS states: Pt from [facility] fell backwards hitting her head, Pt wh stated she lost her balance but denies LOC. Pt stated she was able to break her fall. Pt C/O weakness on both legs stating she is already on therapy. Pt is taking blood thinners. Care prior to arrival: None. Mechanism of Injury: Fall. Trauma event details: Injury occurred in the [facility]. 22:33 Acuity: KESHAV 3 22:33 Method Of Arrival: EMS: [facility] 22:38 Coronavirus screen: Client denies travel out of the [place] in the last 14 days. At this wh time, the client does not indicate any symptoms associated with coronavirus-19. Ebola Screen: Patient negative for fever greater than or equal to 101.5 degrees Fahrenheit, and additional compatible Ebola Virus Disease symptoms Patient denies exposure to infectious person. Initial Sepsis Screen: Does the patient meet any 2 criteria? HR > 90 bpm. Does the patient have a suspected source of infection? No. Patient's initial sepsis screen is negative. Risk Assessment: Do you want to hurt yourself or someone else? Patient reports no desire to harm self or others. Onset of symptoms was July 16, 2020. Trauma Activation: Physician: ED Physician; Name: ; Notified At: 22:35; Arrived At: Physician: General Surgeon; Name: ; Notified At: 22:35; Arrived At: Physician: Radiology; Name: ; Notified At: 22:35; Arrived At: Physician: Respiratory; Name: ; Notified At: 22:35; Arrived At: Physician: Lab; Name: ; Notified At: 22:35; Arrived At: Historical: - Allergies: 22:45 ambien; 22:45 Codeine; 22:45 Demerol; 22:45 Latex, Natural Rubber; 22:45 Sulfa (Sulfonamide Antibiotics); 22:45 Valium; - Home Meds: 22:45 albuterol sulfate 2.5 mg /3 mL (0.083 %) Inhl nebu 3 mL Q8H PRN [Active]; cetirizine 10 wh mg Oral tab 1 tab once daily [Active]; citalopram 20 mg tab once daily [Active]; clonazepam 0.5 mg Oral tab [Active]; divalproex 250 mg Oral TbEC 1 tab 2 times per day [Active]; famotidine 10 mg Oral tab 2 times per day [Active]; ferrous sulfate 325 mg (65 mg iron) Oral tab daily [Active]; Flagyl 500 mg Oral tab 1 tab 3 times per day [Active]; fluticasone 50 mcg/actuation nasal spsn 1 spray once daily [Active]; Megestrol Acetate 40 mg /1ml Oral 2 times per day [Active]; midodrine 5 mg Oral tab twice a day [Active]; mirtazapine 15 mg Oral tab nightly [Active]; Oyst-ruiz w/Vit D 500 mg-200 mg 1 tab BID [Active]; pantoprazole 40 mg Oral TbEC 1 tab once daily [Active]; prednisone 5 mg Oral tab once daily [Active]; propranolol 40 mg Oral tab [Active]; risperidone 0.25 mg Oral tab three times a day [Active]; senna 8.6 mg Oral cap 2 caps nightly [Active]; trazodone 50 mg Oral tab 0.5 tab nightly [Active]; Trelegy ellipta 100-62.5 BLST w/DEV 1 puff INH daily [Active]; URIMAR-T 120-0.12-10.8 mg Oral tab [Active]; Ventolin HFA 90 mcg/actuation Nebulizer HFAA [Active]; Vitamin B-12 1,000 mcg Oral TbER daily [Active]; Xarelto 15 mg Oral tab daily [Active]; - PMHx: 22:45 Anemia; Anxiety; Aortic Stenosis; ATHEROSCLEROSIS; Atrial Fib; COPD; Dementia; Depression; DVT; GERD; Glaucoma; Hyperlipidemia; Hypertension; ibs; manic episode; Microcytic anemia; Osteoporosis; SVT; - Immunization history:: Adult Immunizations up to date. - Immunization history: Last tetanus immunization: unknown. - Social history:: Smoking status: Patient/guardian denies using. Screenin:37 Abuse screen: Denies threats or abuse. Denies injuries from another. Nutritional wh screening: No deficits noted. Tuberculosis screening: No symptoms or risk factors identified. Fall Risk Fall in past 12 months (25 points). Primary Survey: 22:38 NO uncontrolled hemorrhage observed. A: The patient is alert. Airway: patent. wh Breathing/Chest: Respiratory pattern: regular, Respiratory effort: spontaneous, unlabored. Circulation: Skin color: pink. Disability Alert. Exposure/Environment: All clothing and personal items were removed. Forensic evidence collection is not deemed to be indicated at this time. Items placed in patient belonging bag. There is no evidence of uncontrolled external bleeding. 23:59 Reassessment Airway Airway Patent Breathing/Chest Respiratory pattern Regular mg2 Respiratory effort Spontaneous Unlabored Breath sounds Clear Circulation Color [place] Disability Alert. Secondary Survey: 07/17 01:26 HEENT: No deficits noted. Gastrointestinal: No deficits noted. : No deficits noted. mg2 Musculoskeletal: Circulation, motion, and sensation intact. Capillary refill < 3 seconds. Assessment: 07/16 22:41 General: Appears in no apparent distress. comfortable, Behavior is calm, cooperative. mg2 Pain: Complains of pain in head. Neuro: Level of Consciousness is awake, alert, obeys commands, Oriented to person, place, time, situation. EENT: No signs and/or symptoms were reported regarding the EENT system. Cardiovascular: Capillary refill < 3 seconds Patient's skin is warm and dry. Respiratory: Airway is patent Respiratory effort is even, unlabored, Respiratory pattern is regular, symmetrical. GI: No signs and/or symptoms were reported involving the gastrointestinal system. : No signs and/or symptoms were reported regarding the genitourinary system. Derm: Skin is intact, is healthy with good turgor, Skin is pink, warm \T\ dry. normal. Musculoskeletal: Circulation, motion, and sensation intact. Capillary refill < 3 seconds. 07/17 00:00 Reassessment: daughter contacted- jessica herr - [phone]. mg2 01:48 Reassessment: Patient appears in no apparent distress at this time. dr seble Lu-hospitalist came and examined the patient. advised for admission. 03:12 Reassessment: Patient appears in no apparent distress at this time. Patient and/or mg2 family updated on plan of care and expected duration. Pain level reassessed. Patient is alert, oriented x 3, equal unlabored respirations, skin warm/dry/pink. Vital Signs: 07/16 22:37 BP 127 / 109; Pulse 113; Resp 18; Temp 97.4; Pulse Ox 100% on 2 lpm NC; wh 23:59 BP 123 / 83; Pulse 102; Resp 18; Pulse Ox 100% on 2 lpm NC; mg2 03/ 01:26 BP 120 / 82; Pulse 90; Resp 18; Pulse Ox 100% on 2 lpm NC; mg2 03:13 BP 130 / 82; Pulse 103; Resp 18; Pulse Ox 98% on 2 lpm NC; mg2 04:25 BP 109 / 71; Pulse 84; Resp 18; Temp 97.4; Pulse Ox 98% on 0.5 lpm NC; mg2 04:29 BP 117 / 74 Supine; Pulse 86; Resp 18; Pulse Ox 100% on 0.5 lpm NC; mg2 04:31 BP 133 / 85 Sitting; Pulse 90; Resp 18; Pulse Ox 99% on 0.5 lpm NC; mg2 04:35 BP 107 / 81 Standing; Pulse 115; Resp 18; Pulse Ox 98% on 0.5 lpm NC; mg2 Ephraim Coma Score: 07/16 22:37 Eye Response: spontaneous(4). Verbal Response: oriented(5). Motor Response: obeys wh commands(6). Total: 15. Trauma Score (Adult): 22:37 Eye Response: spontaneous(1); Verbal Response: oriented(1); Motor Response: obeys wh commands(2); Systolic BP: > 89 mm Hg(4); Respiratory Rate: 10 to 29 per min(4); Ephraim Score: 15; Trauma Score: 12 ED Course: 22:31 Patient arrived in ED. cl3 22:32 Kevin Hay MD is Attending Physician. mh7 22:35 Triage completed. wh 22:40 Paco Florian RN is Primary Nurse. mg2 22:41 Patient has correct armband on for positive identification. mg2 22:43 No provider procedures requiring assistance completed. mg2 22:45 Arm band placed on right wrist. wh 22:45 Oxygen administration via nasal cannula \T\ 2L/min. Thermoregulation: warm blanket given wh to patient. 23:00 Inserted saline lock: 22 gauge in left forearm, using aseptic technique. Blood mg2 collected. 23:18 CT Head Brain wo Cont In Process Unspecified. EDMS 07/17 00:30 Chest Single View XRAY In Process Unspecified. EDMS 01:24 COVID swab sent to lab. Patient admitted, IV remains in place. mg2 01:31 Hunter Lu MD is Hospitalizing Provider. [facility] 03:13 bus monitor on. Pulse ox on. NIBP on. Door closed. Warm blanket given. Cleaned of mg2 incontinence. Administered Medications: 07/16 23:12 Drug: Tylenol 1000 mg Route: PO; mg2 07/17 01:48 Follow up: Response: No adverse reaction mg2 Intake: 01:26 PO: 0ml; Total: 0ml. mg2 Outcome: 01:32 Decision to Hospitalize by Provider. mh7 04:25 Admitted to Tele accompanied by tech, via wheelchair, room 423, with oxygen, with mg2 chart, Report called to JOEL Alva 04:25 Condition: stable 04:25 Instructed on the need for admit, Demonstrated understanding of instructions. 04:26 Patient's length of stay in the Emergency Department was greater than 2 hours. mg2 04:38 Patient left the ED. mg2 Signatures: Dispatcher [employer] Nicole Childs, RN JOEL Paco Florian RN RN mg2 Nury Kim3 Kevin Hay MD MD 7
--- NOTE | 2020-07-17 01:33 | EDPHYS ---
Physician Documentation [facility] Name: Hina Messina Age: 75 yrs Sex: Female : 1945 Arrival Date: 07/16/2020 Time: 22:31 Bed 5 Private MD: ED Physician Kevin Hay HPI: 07/16 22:59 This 75 yrs old Female presents to ER via EMS with complaints of Fall Injury. [facility] 22:59 Details of fall: The patient fell from an upright position, while walking, while using 7 new walker. Onset: The symptoms/episode began/occurred just prior to arrival, today. Associated injuries: The patient sustained injury to the head, contusion, tenderness. Severity of symptoms: At their worst the symptoms were mild, earlier today, in the emergency department the symptoms have improved, moderately. States that she was using her new walker which she is not used to yet and tripped and fell hitting her head on the ground. Denies any LOC or other complaints. Denies any symptoms prior to falling including chest pain, headache, abdominal pain, SOB, nausea, vomiting, dizziness, numbness/tingling, or weakness.. Historical: - Allergies: 22:45 ambien; wh 22:45 Codeine; wh 22:45 Demerol; 22:45 Latex, Natural Rubber; 22:45 Sulfa (Sulfonamide Antibiotics); 22:45 Valium; wh - Home Meds: 22:45 albuterol sulfate 2.5 mg /3 mL (0.083 %) Inhl nebu 3 mL Q8H PRN [Active]; cetirizine 10 wh mg Oral tab 1 tab once daily [Active]; citalopram 20 mg tab once daily [Active]; clonazepam 0.5 mg Oral tab [Active]; divalproex 250 mg Oral TbEC 1 tab 2 times per day [Active]; famotidine 10 mg Oral tab 2 times per day [Active]; ferrous sulfate 325 mg (65 mg iron) Oral tab daily [Active]; Flagyl 500 mg Oral tab 1 tab 3 times per day [Active]; fluticasone 50 mcg/actuation nasal spsn 1 spray once daily [Active]; Megestrol Acetate 40 mg /1ml Oral 2 times per day [Active]; midodrine 5 mg Oral tab twice a day [Active]; mirtazapine 15 mg Oral tab nightly [Active]; Oyst-ruiz w/Vit D 500 mg-200 mg 1 tab BID [Active]; pantoprazole 40 mg Oral TbEC 1 tab once daily [Active]; prednisone 5 mg Oral tab once daily [Active]; propranolol 40 mg Oral tab [Active]; risperidone 0.25 mg Oral tab three times a day [Active]; senna 8.6 mg Oral cap 2 caps nightly [Active]; trazodone 50 mg Oral tab 0.5 tab nightly [Active]; Trelegy ellipta 100-62.5 BLST w/DEV 1 puff INH daily [Active]; URIMAR-T 120-0.12-10.8 mg Oral tab [Active]; Ventolin HFA 90 mcg/actuation Nebulizer HFAA [Active]; Vitamin B-12 1,000 mcg Oral TbER daily [Active]; Xarelto 15 mg Oral tab daily [Active]; - PMHx: 22:45 Anemia; Anxiety; Aortic Stenosis; ATHEROSCLEROSIS; Atrial Fib; COPD; Dementia; wh Depression; DVT; GERD; Glaucoma; Hyperlipidemia; Hypertension; ibs; manic episode; Microcytic anemia; Osteoporosis; SVT; - Immunization history:: Adult Immunizations up to date. - Immunization history: Last tetanus immunization: unknown. - Social history:: Smoking status: Patient/guardian denies using. ROS: 22:59 Constitutional: Negative for fever, chills, and weight loss, Eyes: Negative for injury, mh7 pain, redness, and discharge, ENT: Negative for injury, pain, and discharge, Neck: Negative for injury, pain, and swelling, Cardiovascular: Negative for chest pain, palpitations, and edema, Respiratory: Negative for shortness of breath, cough, wheezing, and pleuritic chest pain, Abdomen/GI: Negative for abdominal pain, nausea, vomiting, diarrhea, and constipation, Back: Negative for injury and pain, : Negative for injury, bleeding, discharge, and swelling, MS/Extremity: Negative for injury and deformity, Skin: Negative for injury, rash, and discoloration, Neuro: Negative for headache, weakness, numbness, tingling, and seizure, Psych: Negative for depression, anxiety, suicide ideation, homicidal ideation, and hallucinations, Allergy/Immunology: Negative for hives, rash, and allergies, Endocrine: Negative for neck swelling, polydipsia, polyuria, polyphagia, and marked weight changes, Hematologic/Lymphatic: Negative for swollen nodes, abnormal bleeding, and unusual bruising. Exam: 22:59 Constitutional: This is a well developed, well nourished patient who is awake, alert, mh7 and in no acute distress. 22:59 Eyes: Pupils equal round and reactive to light, extra-ocular motions intact. Lids and lashes normal. Conjunctiva and sclera are non-icteric and not injected. Cornea within normal limits. Periorbital areas with no swelling, redness, or edema. ENT: Nares patent. No nasal discharge, no septal abnormalities noted. Tympanic membranes are normal and external auditory canals are clear. Oropharynx with no redness, swelling, or masses, exudates, or evidence of obstruction, uvula midline. Mucous membranes moist. 22:59 Neck: Trachea midline, no thyromegaly or masses palpated, and no cervical lymphadenopathy. Supple, full range of motion without nuchal rigidity, or vertebral point tenderness. No Meningismus. Chest/axilla: Normal chest wall appearance and motion. Nontender with no deformity. No lesions are appreciated. 22:59 Respiratory: Lungs have equal breath sounds bilaterally, clear to auscultation and percussion. No rales, rhonchi or wheezes noted. No increased work of breathing, no retractions or nasal flaring. Abdomen/GI: Soft, non-tender, with normal bowel sounds. No distension or tympany. No guarding or rebound. No evidence of tenderness throughout. Back: No spinal tenderness. No costovertebral tenderness. Full range of motion. Skin: Warm, dry with normal turgor. Normal color with no rashes, no lesions, and no evidence of cellulitis. MS/ Extremity: Pulses equal, no cyanosis. Neurovascular intact. Full, normal range of motion. Neuro: Awake and alert, GCS 15, oriented to person, place, time, and situation. Cranial nerves II-XII grossly intact. Motor strength 5/5 in all extremities. Sensory grossly intact. Cerebellar exam normal. Normal gait. Psych: Awake, alert, with orientation to person, place and time. Behavior, mood, and affect are within normal limits. 22:59 Head/face: Noted is tenderness, that is mild, of the top of head. 22:59 ENT: TM's: hemotympanum, is not appreciated. 22:59 Cardiovascular: Rate: tachycardic, Rhythm: regular, Pulses: no pulse deficits are appreciated, Heart sounds: normal, normal S1and S2, Edema: is not appreciated, JVD: is not appreciated. Vital Signs: 22:37 BP 127 / 109; Pulse 113; Resp 18; Temp 97.4; Pulse Ox 100% on 2 lpm NC; wh 23:59 BP 123 / 83; Pulse 102; Resp 18; Pulse Ox 100% on 2 lpm NC; mg2 07/17 01:26 BP 120 / 82; Pulse 90; Resp 18; Pulse Ox 100% on 2 lpm NC; mg2 03:13 BP 130 / 82; Pulse 103; Resp 18; Pulse Ox 98% on 2 lpm NC; mg2 04:25 BP 109 / 71; Pulse 84; Resp 18; Temp 97.4; Pulse Ox 98% on 0.5 lpm NC; mg2 04:29 BP 117 / 74 Supine; Pulse 86; Resp 18; Pulse Ox 100% on 0.5 lpm NC; mg2 04:31 BP 133 / 85 Sitting; Pulse 90; Resp 18; Pulse Ox 99% on 0.5 lpm NC; mg2 04:35 BP 107 / 81 Standing; Pulse 115; Resp 18; Pulse Ox 98% on 0.5 lpm NC; mg2 Ephraim Coma Score: 07/16 22:37 Eye Response: spontaneous(4). Verbal Response: oriented(5). Motor Response: obeys wh commands(6). Total: 15. Trauma Score (Adult): 22:37 Eye Response: spontaneous(1); Verbal Response: oriented(1); Motor Response: obeys wh commands(2); Systolic BP: > 89 mm Hg(4); Respiratory Rate: 10 to 29 per min(4); Ephraim Score: 15; Trauma Score: 12 MDM: 07/17 01:29 Differential diagnosis: abrasion, closed head injury, contusion, fracture. Differential mh7 diagnosis: syncope, near syncope. Data reviewed: vital signs, nurses notes, EMS record, old medical records, lab test result(s), cardiac enzymes, CBC, electrolytes, urinalysis, EKG, radiologic studies, CT scan, plain films. Data interpreted: Pulse oximetry: on room air is 100 %. Interpretation: normal. Counseling: I had a detailed discussion with the patient and/or guardian regarding: the historical points, exam findings, and any diagnostic results supporting the discharge/admit diagnosis, lab results, radiology results, the need for further work-up and treatment in the hospital. Response to treatment: the patient's symptoms have markedly improved after treatment. 01:32 Patient medically screened. [facility] 07/16 22:44 Order name: Basic Metabolic Panel [facility] 07/16 22:44 Order name: CBC with Diff [facility] 07/16 22:44 Order name: Type And Screen [facility] 07/16 22:44 Order name: Protime (+inr); Complete Time: 00:54 [facility] 07/16 22:44 Order name: Ptt, Activated; Complete Time: 00:54 [facility] 07/16 22:44 Order name: Basic Metabolic Panel; Complete Time: 00:11 EDPR 07/16 22:44 Order name: CBC with Automated Diff; Complete Time: 00:11 EDPR 07/16 22:44 Order name: Type and Screen [facility] 07/16 23:10 Order name: Troponin (Emerg Dept Use Only); Complete Time: 00:11 EDPR 07/17 00:30 Order name: COVID-19 : Document "Date of Symptom Onset" if Symptomatic.: Inhouse 07/17 01:44 Order name: Troponin I [facility] 07/17 01:44 Order name: Troponin I [facility] 07/16 22:44 Order name: Labs collected and sent; Complete Time: 23:03 [facility] 07/16 22:44 Order name: CT Head Brain wo Cont [facility] 07/16 22:44 Order name: EKG - Nurse/Tech; Complete Time: 22:50 [facility] 07/17 00:12 Order name: Chest Single View XRAY [facility] 07/17 01:44 Order name: CONS Pharmacy Consult [facility] 07/17 01:44 Order name: CONS Physician Consult [facility] 07/17 01:44 Order name: Heart Healthy [facility] 07/17 01:44 Order name: ERT ORTHOSTATIC V/S [facility] 07/17 02:19 Order name: SARS-COV-2 RT PCR EDMS Administered Medications: 07/16 23:12 Drug: Tylenol 1000 mg Route: PO; [facility] 07/17 01:48 Follow up: Response: No adverse reaction mg2 Disposition: 07/17/20 01:32 Hospitalization ordered by Hunter Lu for Observation. Preliminary diagnosis are Fall due to bumping against object, Elevated Tropnin Level. - Bed requested for Telemetry/MedSurg (observation). - Status is Observation. mg2 - Condition is Stable. - Problem is new. - Symptoms have improved. Signatures: Dispatcher [employer] EDPR Bety Myers RN RN Nicole Peter RN RN Paco Florian RN RN [facility] Kevin Hay MD MD 7 Corrections: (The following items were deleted from the chart) 07/16 23:09 22:59 TROPONIN (EMERG DEPT USE ONLY)+[id number].[email or web address] ordered. EDPR EDMS 07/17 01:34 00:31 CORONAVIRUS ordered. EDPR EDPR 04:05 01:32 Hospitalization Ordered by Hunter Lu MD for Observation. Preliminary mw diagnosis is Fall due to bumping against object; Elevated Tropnin Level. Bed requested for Telemetry/MedSurg (observation). Status is Observation. Condition is Stable. Problem is new. Symptoms have improved. mh7 04:38 04:05 07/17/2020 01:32 Hospitalization Ordered by Hunter Lu MD for Observation. mg2 Preliminary diagnosis is Fall due to bumping against object; Elevated Tropnin Level. Bed requested for Telemetry/MedSurg (observation). Status is Observation. Condition is Stable. Problem is new. Symptoms have improved. mw
--- NOTE | 2020-07-17 01:35 | P.HP ---
Certification for Inpatient Patient admitted to: Observation With expected LOS: <2 Midnights Patient will require the following post-hospital care: None Practitioner: I am a practitioner with admitting privileges, knowledge of patient current condition, hospital course, and medical plan of care. Services: Services provided to patient in accordance with Admission requirements found in Title 42 Section 412.3 of the Code of Federal Regulations Patient History Date of Service: 07/17/20 Reason for admission: Fall History of Present Illness: 75-year-old female with past medical history of COPD on chronic home O2, hypertension, Alzheimer's dementia, atrial fibrillation on chronic anticoagulation with [facility] senior living resident since the last 1 year admitted after she sustained a for that the senior living today with suspected head injury. Patient admits to intermittent dizziness on standing and ambulating. She denies any loss of consciousness. She denies any head injury. On arrival in the ED head CT was negative for any acute findings. She EKG was also unremarkable in sinus tachycardia with significantly improved. Patient was noted with asymptomatic elevated troponin of 0.07. She denies any chest pain or shortness of breath now. She has been admitted for rule out acute coronary syndrome. Allergies codeine [Codeine] Allergy (Mild, Verified 07/27/19 22:34) Hives/Rash diazepam [From Valium] Allergy (Mild, Verified 07/27/19 22:34) Hives/Rash meperidine HCl [From Demerol] Allergy (Mild, Verified 07/27/19 22:34) Hives Sulfa (Sulfonamide Antibiotics) [Sulfa(Sulfonamide Antibiotics)] Allergy (Mild, Verified 07/27/19 22:34) Nausea/Vomiting latex Allergy (Verified 07/27/19 22:34) Hives/Rash Latex, Natural Rubber Allergy (Verified 07/27/19 22:34) Itching Home Medications: Acetaminophen [Tylenol Extra Strength] 500 mg PO BID 07/27/19 Albuterol Sulfate [Proair Respiclick] 2 puff IH DAILY PRN 07/27/19 Cetirizine HCl [Zyrtec*] 5 mg PO DAILY 07/27/19 Citalopram Hydrobromide [Citalopram HBr] 20 mg PO DAILY 07/27/19 Fluticasone [Flonase 50MCG Nasal Garrett*] 1 sprays NS DAILY PRN 07/27/19 Fluticasone/Umeclidin/Vilanter [Trelegy Ellipta 100-62.5-25] 2 puff IH DAILY 07/27/19 Metoprolol Tartrate 25 mg PO DAILY 07/27/19 Rivaroxaban [Xarelto] 20 mg PO BEDTIME 07/27/19 predniSONE [Prednisone] 5 mg PO DAILY 07/27/19 Aspirin [Aspirin EC 81 MG] 81 mg PO DAILY #30 tablet. 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 -: HYSTERECTOMY -: APPENDECTOMY - Family History Father -: Stroke Mother -: Cancer - Social History Alcohol use: No CD- Drugs: No Caffeine use: Yes Place of Residence: Assisted Review of Systems 10-point ROS is otherwise unremarkable Physical Examination - Physical Exam General: Alert, In no apparent distress, Oriented x3 HEENT: Atraumatic, Normocephalic, PERRLA Neck: Supple, 2+ carotid pulse no bruit, JVD not distended Respiratory: Clear to auscultation bilaterally, Normal air movement Cardiovascular: Normal pulses, Regular rate/rhythm, Normal S1 S2, Edema Gastrointestinal: Normal bowel sounds, Soft and benign, Non-distended, No ascites, No tenderness Musculoskeletal: No clubbing, Swelling Integumentary: No rashes, No breakdown Neurological: Normal speech, Normal strength at 5/5 x4 extr, Cranial nerves 3-12 intact - Studies Laboratory Data (last 24 hrs) 07/16/20 23:46: PT 16.9 H, INR 1.46, APTT 29.0 07/16/20 23:00: WBC 6.50 D, Hgb 12.5, Hct 38.7, Plt Count 308 D 07/16/20 23:00: Sodium 140, Potassium 3.9, BUN 13, Creatinine 0.75, Glucose 84 Imagings Data: Head CT reviewed EKG shows sinus tachy no ST segment changes Assessment and Plan - Problems (Diagnosis) (1) Fall Current Visit: Yes Status: Acute (2) Troponin level elevated Current Visit: Yes Status: Acute (3) Dementia Current Visit: No Status: Acute Qualifiers: (4) Supraventricular tachycardia Onset Date: 09/25/15 Current Visit: No Status: Acute (5) COPD (chronic obstructive pulmonary disease) Onset Date: 11/01/15 Current Visit: No Status: Chronic - Advance Directives Does patient have a Living Will: Yes Does patient have a Durable POA for Healthcare: Yes Physician Review Additional Text: # falls-may be due to orthostatic hypotension obtain orthostatic vital Borderline low blood pressure now but stable May need decreasing Toprol-currently on 25 mg daily Continue on midodrine-increased dosage # atrial fib/SVT in-rate controlled now, continue Eliquis # dementia-stable # elevated troponin-mild elevated to 0.07, follow trend # advanced directive-discussed with patient, she states she is DNR # disposition-can discharge back to senior living in a.m. if negative increasing troponin
[2020-07-17] MEDS ORDERED: ONDANSETRON 4 MG/2 ML VIAL IV PRN (01:37)
[2020-07-17] MEDS ORDERED: ALBUTEROL 2.5 MG/3 ML NEB SOL NEB PRN (01:37)
[2020-07-17] MEDS ORDERED: MORPHINE 2 MG/ML SYR IV PRN (01:37)
[2020-07-17 05:21] VITALS: BMI 24.0
--- NOTE | 2020-07-17 08:17 | RAD REPORT ---
EXAM DESCRIPTION: RAD - Chest Single View - 07/17/2020 12:29 am CLINICAL HISTORY: TRAUMA, fall, chest pain COMPARISON: July 05 TECHNIQUE: AP portable chest image was obtained 07/17/2020 12:29 am . FINDINGS: No pulmonary contusion or focal lung parenchymal process seen. Chronic interstitial lung p attern matches comparison. Large hiatal hernia matches comparison. Heart and vasculature are normal. No measurable pleural effusion and no pneumothorax. No acute bony abnormality seen. No acute aortic f inding. Vascular tortuosity accentuates the mediastinum. IMPRESSION: No acute cardiopulmonary process. Chronic interstitial pattern matches comparison.
[2020-07-17] MEDS ORDERED: ASPIRIN EC 81 MG TAB PO SCH (09:00)
--- NOTE | 2020-07-17 11:06 | P.DS ---
Admission Date: 07/17/20 Discharge Date: 07/17/20 Primary Care Provider: [facility] Disposition: TRANSFER TO LONG-TERM Discharge Condition: GOOD Reason for Admission: Fall Consultations: Cardiology-Dr. Sherwood Procedures: COVID: Negative Medical problem list: Fall COPD on chronic steroid and oxygen Atrial fibrillation on chronic anti coagulation therapy-Xarelto Bipolar disorder GERD Orthostatic hypotension on midodrine Dementia Brief History of Present Illness: 75-year-old female [facility] Patient with underlying history of COPD on chronic oxygen/steroid, hypertension, Alzheimer's dementia, GERD, bipolar disorder, atrial fibrillation on chronic anti coagulation therapy-Xarelto. No head injury noted. CT head unremarkable. EKG unremarkable. Patient had slight elevation in troponin at 0.07. This improved to 0.06. No chest pain or shortness of breath noted. Patient was admitted for observation. Hospital Course: Patient presented [facility] a [facility]. Patient was evaluated in the emergency room. CT head unremarkable. Chest x-ray unremarkable. Patient had slight elevation in troponin. This improved. Patient was seen and evaluated by Cardiology. Cardiology recommended no further intervention. Orthostatics stable. Patient with underlying history of COPD on chronic oxygen/steroid, atrial fibrillation on chronic anti coagulation therapy, bipolar disorder, dem entia, GERD. Patient stable to return back [facility]. Fall precautions in place. At discharge patient will continue with her home medications including Trelegy 1 puff daily, albuterol 2 puffs 3 times a day as needed for shortness of breath, prednisone 5 mg daily, Xarelto 15 mg daily, Risperdal 0.25 mg 3 times a day, trazodone 50 mg at bedtime, Remeron 15 mg at bedtime, Midodrine 5 mg 1 pill twice daily, iron 1 pill daily, Pepcid 1 pill daily, Depakote 250 mg 1 pill twice daily, vitamin-B 12, Clonazepam to be used as needed for anxiety and Zyrtec. [facility]. Recommend fall precautions. Patient may benefit with physical therapy at the facility. Patient has advanced directives. Patient is do not resuscitate. Vital Signs/Physical Exam: Temp Pulse Resp BP Pulse Ox 97.4 F 96 H 18 131/71 94 07/17/20 08:00 07/17/20 08:00 07/17/20 08:00 07/17/20 08:00 07/17/20 08:00 General: Alert, In no apparent distress, Oriented x3, Cooperative HEENT: Atraumatic Neck: Supple Respiratory: Clear to auscultation bilaterally, Normal air movement Cardiovascular: Normal pulses, Regular rate/rhythm Gastrointestinal: Normal bowel sounds, No tenderness, No masses, No rebound, No guarding Neurological: Normal speech, Normal strength at 5/5 x4 extr, Normal tone, Dementia Laboratory Data at Discharge: WBC 6.50 K/uL (4.3-10.9) D 07/16/20 23:00 Hgb 12.5 g/dL (12.0-15.0) 07/16/20 23:00 Hct 38.7 % (36.0-45.0) 07/16/20 23:00 Plt Count 308 K/uL (152-406) D 07/16/20 23:00 PT 16.9 SECONDS (9.5-12.5) H 07/16/20 23:46 INR 1.46 07/16/20 23:46 APTT 29.0 SECONDS (24.3-36.9) 07/16/20 23:46 Sodium 140 mmol/L (136-145) 07/16/20 23:00 Potassium 3.9 mmol/L (3.5-5.1) 07/16/20 23:00 BUN 13 mg/dL (7-18) 07/16/20 23:00 Creatinine 0.75 mg/dL (0.55-1.3) 07/16/20 23:00 Glucose 84 mg/dL (74-106) 07/16/20 23:00 Troponin I 0.06 ng/mL (0.0-0.045) H 07/17/20 06:55 Home Medications: Acetaminophen 1 tab PO Q8H PRN 07/17/20 Albuterol Sulfate [Albuterol Sulfate 0.083% Neb Soln] 1 vial IH Q8H PRN 07/17/20 Cetirizine HCl [Zyrtec] 1 tab PO DAILY 07/17/20 Cyanocobalamin [Vitamin B-12*] 1 tab PO DAILY 07/17/20 Divalproex Sodium 1 tab PO BID 07/17/20 Famotidine 0.5 tab PO BID 07/17/20 Ferrous Sulfate 1 tab PO DAILY 07/17/20 Fluticasone Propionate [Armonair Digihaler] 1 inhaler IH DAILY 07/17/20 Fluticasone/Umeclidin/Vilanter [Trelegy Ellipta 100-62.5-25] 1 puff IH DAILY 07/17/20 Lactose-Reduced Food [Ensure Original] 1 can PO TID 07/17/20 Midodrine HCl [Proamatine*] 1 tab PO BID 07/17/20 Mirtazapine [Remeron*] 1 tab PO BEDTIME 07/17/20 Nitrofurantoin Monohyd/M-Cryst [Nitrofurantoin Cherry-Mcr 100 mg] 1 tab PO BID 07/17/20 Ondansetron HCl 1 tab PO BID PRN 07/17/20 Rivaroxaban [Xarelto*] 1 tab PO DAILY 07/17/20 Sennosides [Senna] 2 tab PO BEDTIME 07/17/20 Trazodone [Desyrel*] 1 tab PO BEDTIME 07/17/20 clonazePAM [Clonazepam] 1 tab PO Q12H PRN 07/17/20 predniSONE [Prednisone] 1 tab PO DAILY 07/17/20 risperiDONE [Risperidone] 1 tab PO TID 07/17/20 Physician Discharge Instructions: Okay [facility]. Patient [facility]. Patient was evaluated in the emergency room. CT head unremarkable. Chest x-ray unremarkable. Patient had slight elevation in troponin. This improved. Patient was seen and evaluated by Cardiology. Cardiology recommended no further intervention. Orthostatics stable. Patient with underlying history of COPD on chronic oxygen/steroid, atrial fibrillation on chronic anti coagulation therapy, bipolar disorder, dementia, GERD. Patient stable to return back [facility] the [facility]. Fall precautions in place. At discharge patient will continue with her home medications including Trelegy 1 puff daily, albuterol 2 puffs 3 times a day as needed for shortness of breath, prednisone 5 mg daily, Xarelto 15 mg daily, Risperdal 0.25 mg 3 times a day, trazodone 50 mg at bedtime, Remeron 15 mg at bedtime, Midodrine 5 mg 1 pill twice daily, iron 1 pill daily, Pepcid 1 pill daily, Depakote 250 mg 1 pill twice daily, vitamin-B 12, Clonazepam to be used as needed for anxiety and Zyrtec. [facility]. Recommend fall precautions. Patient may benefit with physical therapy at the facility. Patient has advanced directives. Patient is do not resuscitate. Diet: AHA Activity: Fall precautions Followup: Unknown,U [Primary Care Provider] - Time spent managing pt's care (in minutes): 55
--- NOTE | 2020-07-17 11:46 | RAD REPORT ---
EXAM DESCRIPTION: CT - Head Brain Wo Cont - 07/17/2020 5:43 am CLINICAL HISTORY: Fell backwards, hit back of head, headache TECHNIQUE: Contiguous axial CT images obtained through the brain without IV contrast. Coronal and sa gittal reformatted images were provided. This exam was performed according to our departmental dose-optimization program, which includes autom ated exposure control, adjustment of the mA and/or kV according to patient size and/or use of iterati ve reconstruction technique. COMPARISON: 06/27/2020 FINDINGS: Brain: Mild to moderate cerebral atrophy and mild bilateral periventricular and subcortica l white matter low-attenuation most compatible with chronic microvascular angiopathy similar to the p rior. No focal mass effect. Izquierdo-white matter differentiation is within normal limits. No hemorrhage. Ventricles: No ventriculomegaly or midline shift. Extra-axial spaces: No extra-axial collection or hemorrhage. Paranasal sinuses and mastoid air cells: Well-aerated Vessels: There is atherosclerotic disease of the internal carotid arteries bilaterally. Bones: Unremarkable Soft tissues: Unremarkable IMPRESSION: 1. No acute intracranial or extra-axial abnormality. 2. Other findings as above. Electronically signed by: Thaddeus Clemons MD 07/16/2020 11:26 PM SOA ENGINEER Due to temporary technical issues with the PACS/Fluency reporting system, reports are being signed by the in house radiologist without review as a courtesy to ensure prompt reporting. The interpreting r adiologist is fully responsible for the content of the report.
[2020-07-17 16:03] VITALS: BP 135/83; TEMP 96.7; O2SAT 96
--- NOTE | 2020-07-17 17:09 | EKG ---
Test Date: 2020-07-16 Test Time: 22:48:55 Waiter/Waitress Informal: MEASUREMENT RESULTS: Intervals: Rate: 109 FL: 136 QRSD: 72 QT: 334 QTc: 449 [place]: P: 59 FL: 136 QRS: -55 T: 8 INTERPRETIVE STATEMENTS: Sinus tachycardia Left anterior fascicular block Nonspecific ST abnormality Abnormal ECG Compared to ECG 07/12/2020 16:44:47 Left anterior fascicular block now present ST (T wave) deviation now present Left-axis deviation no longer present Myocardial infarct finding no longer present Electronically Signed On 07-17-20 17:06:12 METER SHOP SUPERVISOR by Edward Sherwood
--- NOTE | 2020-07-18 10:04 | CON ---
Date of Consultation: 07/17/2020 Reason For Consultation: Congestive heart failure. History Of Present Illness: Ms. Feliciano is a 75-year-old woman, who had seen in the office in the past. She has had COVID since April and still testing positive for COVID. Came in with chest pain with pedal edema, orthopnea, shortness of breath consistent with congestive heart failure. She denies any nausea, vomiting, diaphoresis. She denies any palpitations or syncope. She denies any fever or chills. Her EKG was nonspecific. Chest x-ray was actually negative. She was COVID positive. Her glucose is 280. By the time I saw her, she already improved after IV Lasix, though. Past Medical History: Include asthma, diabetes, hypertension. Allergies: NONE. Medications: Include inhalers, steroid, aspirin, insulin, metoprolol, and Zocor. Review of Systems: Negative. Social History: Negative. Family History: Noncontributory. Physical Examination: Vital Signs: Stable. She was afebrile. General: She was in no acute distress. By the time I saw her, she was in sinus rhythm, afebrile. HEENT: Negative. Neck: Supple with no bruit. Chest: Reveals some rales in both bases. Cardiac: Revealed a regular rhythm and rate with an S4 gallop. No murmurs or rubs. Abdomen: Benign. Extremities: Revealed 1+ edema. Diagnostic Data: As stated earlier. Impression And Plan: 1. Possible acute diastolic congestive heart failure. I think the patient is already on metoprolol. I think we need to add Lasix to her regimen. Echocardiogram is pending. I think she needs to have an outpatient MPI in the very near future because of her chest pain. Her chest pain sounds more pleuritic, however. She does have many risk factors for heart disease including diabetes, hypertension, and dyslipidemia. 2. Her other problems include diabetes that is poorly controlled. 3. Hypertension, well controlled. 4. COVID. She is on antibiotic. She is on inhalers and steroid. 5. Asthma. Ms. Feliciano diuresed well and comfortable with her going home after her echocardiogram. I will make arrangement for her to have an outpatient stress test and an appointment in the very near future. LIAN/ADAIR Voice ID: [id number] Report ID: [id number] KELVIN
--- NOTE | 2020-07-18 10:37 | CON ---
Date of Consultation: 07/17/2020 Reason For Consultation: Elevated troponin. History Of Present Illness: Siddharth is a 75-year-old woman. She has many medical problems, fell do wn. I am not so sure why the troponin was ordered but it was 0.06. The patient actually denied any chest pain. She has chronic shortness of breath. She has COPD. She is dependent on oxygen at home. Denies PND, orthopnea or pedal edema. Denies any syncope. Denies any chills. Denies any chest pa in, nausea, or vomiting, diaphoresis. She was told that her negative workup was negative except for a troponin of 0.06. She has moderate aortic stenosis with normal ejection fraction by echocardiograp hy a year ago. The patient has been feeling like she cannot take care of herself where she is right now, she is an assisted living. [facility] a [facility] whe re she can be taken care of much more aggressively. She is having difficulty with daily activities w ith taking her own medicines and taking care of herself. moving worker consultation was obtained. Past Medical History: Includes; 1.COPD that is oxygen dependent. 2.Aortic stenosis that is moderate. 3.History of DVT in the past. 4.Chronic anemia. 5.Hypertension. 6.Coronary artery disease. 7.Paroxysmal atrial fibrillation for which she takes Xarelto. 8.Dyslipidemia. 9.History of SVT in the past. 10.Depression. Allergies: SHE IS ALLERGIC TO SULFA, CODEINE, AND MORPHINE. SHE IS ALSO ALLERGIC TO VALIUM, DEMEROL , AND LATEX. Home Medications: Include inhalers, iron supplements, propanolol, Protonix and Xarelto. Review of Systems: Negative. Social History: Negative. Family History: Noncontributory. Physical Examination: Vital Signs: Stable. She was afebrile. HEENT: Negative. Neck: Supple. No bruit. Chest: Clear. Cardiac: Revealed a regular rhythm and rate with aortic stenosis, murmur. No gallops or rubs. Abdomen: Benign. Extremities: Revealed no clubbing, cyanosis. She has trace edema. Diagnostic Data: As stated earlier. Impression And Plan: 1.Elevated troponin secondary to demand ischemia from chronic obstructive pulmonary disease and general surgery physician assistant phoebe anemia. No need for cardiac workup. 2.Moderate aortic stenosis. 3.History of deep venous thrombosis. 4.Chronic anemia. 5.Hypertension. 6.Coronary artery disease. 7.Paroxysmal atrial fibrillation. 8.Dyslipidemia. 9.History of supraventricular tachycardia. 10.Depression. The patient is on appropriate medical therapy. I would not change her medicines for now. I would co ntinue her Protonix and Xarelto, propanolol inhalers as well as iron. Her aortic stenosis is not bad enough for intervention. moving worker consultation was obtained to try to move Ms. Messina to a [facility] skilled facility. This will be discussed in detail with Pedro Acuna. ILAN/ADAIR Voice ID: [id number] Report ID: [id number]
== END 2020-07-17 18:14 ==
LOC: ER 22:30 → ERHOLD 07-17 01:45 → 4TH 07-17 04:24
PROVIDERS: ADMIT Internal Medicine; ATTEND Family Medicine
DX: Z04.3 Encounter for examination and observation following other accident (principal); Z20.822 Contact with and (suspected) exposure to COVID-19; Z86.16 Personal history of COVID-19; J44.9 Chronic obstructive pulmonary disease, unspecified; Z99.81 Dependence on supplemental oxygen; I48.0 Paroxysmal atrial fibrillation; Z79.01 Long term (current) use of anticoagulants; F31.9 Bipolar disorder, unspecified; K21.9 Gastro-esophageal reflux disease without esophagitis; I95.1 Orthostatic hypotension; G30.9 Alzheimer's disease, unspecified; F02.80 Dementia in other diseases classified elsewhere, unspecified severity, without behavioral disturbance, psychotic disturbance, mood disturbance, and anxiety; Z79.52 Long term (current) use of systemic steroids; R42 Dizziness and giddiness; E78.5 Hyperlipidemia, unspecified; I10 Essential (primary) hypertension; Z86.718 Personal history of other venous thrombosis and embolism; R77.8 Other specified abnormalities of plasma proteins; I47.1 Supraventricular tachycardia; I35.0 Nonrheumatic aortic (valve) stenosis; D64.9 Anemia, unspecified; R94.31 Abnormal electrocardiogram [ECG] [EKG]
CPT/HCPCS: 93005; 85025; 80048; 36415; 86900; 86850; 85610; 86901; 85730; 84484 ×3; 70450; 71045; 99285; U0003; G0378

== ENCOUNTER 2020-10-11 09:10 | Emergency (ER) | payer OTHER ==
[2012-02-04 08:37] VITALS: BP 141/96
[2020-10-11] MEDS ORDERED: EPINEPHrine 1 MG/10 ML SYR IV ONE (09:11)
[2020-10-11] MEDS ORDERED: D50W 25 GM/50 ML SYRINGE IV ONE (09:11)
--- OUTSIDE RECORDS SUMMARY | 2020-10-11 09:13 | XMS REPORT | Continuity of Care Document ---
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 TIA TIA Disease Active [facility] 00 [place] Meperidi Drug Active Pt [facility] Allergy 12-07 hallucina [facility] 00 [place] Latex Drug Active Itching [facility] All[facility] 12-07 [facility] - 00:[facility]: [facility] 00 [place] Sulfa Drug Active Other (See Pt gets [facility] (Sulfona Allergy Comments) 12-07 really [facility] - mide 00:00: [facility] Antibiot 00 Center ics) Diazepam Drug Active Pt [facility] All[facility] 12-07 tremors [facility] - 00:00: Medical 00 [place] Family History Family Member Diagnosis Comments Start Date Stop Date Source Natural mother Cancer [facility] Natural mother Osteoarthritis [facility] Natural sister Heart failure [facility] Natural sister Hyperlipidemia [facility] Natural sister Thyroid disease [facility] S t [facility] Natural father Hyperlipidemia [facility] Natural father Stroke [facility] Social History Social Habit Start Date Stop Date Quantity Comments Source Sex Assigned At [facility] Tobacco use and 2016-12-07 2016-12-[address] [facility] exposure 00:00:00 00:00:00 [facility] Alcohol intake 2016-12-07 2016-12-07 Current [facility] - 00:00:00 00:00:00 non-drinker of Medical nter alcohol (finding) History of 2008-12-07 Current smoker [facility] - tobacco use 00:[facility]:00 [facility] Smoking Status Start Date Stop Date Source Former smoker 2016-12-07 00:00:00 2016-12-07 00:00:00 [facility] Medications Ordered Filled Start Stop Current Ordering Indication Dosage Frequency Signature Comments Components Source Medication Medication Date Date Medication? Clinician (SIG) Name Name atorvastati Yes hyperlipide 20mg QD Take [address] [facility] (LIPITOR) 12-08 huyen by mouth Luke [facility] - 20 MG 19:06: daily. Medical tablet [address] [place] [address] pantoprazol Yes gastroesoph 40mg Q.5D Take 40 [...] - MG tablet 19:06: depression daily. Medical [address] [place] [address] metoprolol Yes hypertensio 25mg Q.5D Take [address] (TOPROL-XL) 7-23 n by mouth 2 Mariana kes - 25 MG 24 hr 19:06: (two) Medic al tablet 07 times Center daily. cetirizine Yes urticaria 10mg QD Take [address] (ZYRTEC) 10 23 by mouth Luke [facility] - MG tablet 19:06: daily. Medica l [address] [place] [address] fluticasone Yes 1{spray Q.5D [address] [facility] (FLONASE) 12-08 } Nasal [facility] - 50 19:06: route 2 Medical mcg/actuati 07 (two) Center on nasal times spray daily. Procedures This patient has no known procedures. Encounters Start End Encounter Admission Attending Care Care Encounter Source Date/Time Date/Time Type Type Clinicians Facility Department ID 2020-06-15 2020-06-15 Emergency Fareed Antony [facility] [id number] 15:18:00 21:42:00 Eun Rodriguez [id number] [place] [id number] [place] [id number] 2020-03-19 2020-03-31 Inpatient Zack ONTIVEROS [facility] SCU [id number] [place] 22:48:00 17:50:00 GERTRUDE Gonzaleza l [place] 2020-03-18 2020-03-19 Outpatient KINGSLEY SHAFFER [facility] TELE [id number] [place] 20:35:00 22:30:00 Medica l Center 2020-02-28 2020-03-18 In[facility] [id number] [place] 19:45:00 21:24:00 GERTRUDE [facility] Results Test Description Test Time Test [...] code = 95A) 60.8 ug/mL 50.0-100.0 URINE [id number] 09:57:00 Test Item Value Reference Range Interpretation Comments Culture Observations THREE OR MORE SPECIES (test code = COB1) OF BACTERIA ISOLATED. PROBABLE CONTAMINATION. Culture Observations IDENTIFICATION AND (test code = COB17) SUSCEPTIBILITY NOT INDICATED. RECOLLECTION RECOMMENDED BASIC METABOLIC [id number] 14:15:00 Test Item Value Reference Range Interpretation [...] (test code = RBCMOR) NORMAL CBC WITH [id number] 19:44:00 Test Item Value Reference Range Interpretation [...] = TD) 1+ NONE A BASIC METABOLIC [id number] 19:31:00 Test Item Value Reference Range Interpretation [...] = 8.8 mg/dL 8.3-9.5 09D) URINALYSIS WITH [id number] 13:30:00 Test Item Value Reference Range Interpretation [...] the FDA and the [employer] (CAP) are more stringent than those required for this test. Therefore, the result should be interpreted with caution and close attention to other clinical and epidemiological data VALPROIC ACID (DEPAKENE)2020-03-10 07:20:00 Test Item Value Reference Range Interpretation Comments VALP ACID (test code = 95A) 72.7 ug/mL 50.0-100.0 URINE [id number] 10:02:00 Test Item Value Reference Range Interpretation Comments Culture Observations THREE OR MORE SPECIES (test code = COB1) OF BACTERIA ISOLATED. PROBABLE CONTAMINATION. Culture Observations IDENTIFICATION AND (test code = COB17) SUSCEPTIBILITY NOT INDICATED. RECOLLECTION RECOMMENDED VALPROIC ACID (DEPAKENE)2020-03-06 06:28:00 Test Item Value Reference Range Interpretation Comments VALP ACID (test code = 95A) 38.0 ug/mL 50.0-100.0 LL PRO TIME AND [id number] 06:23:00 Test Item Value Reference Range Interpretation [...] Heparin. Order Code is ANTI-XA URINALYSIS WITH [id number] 19:30:00 Test Item Value Reference Range Interpretation [...] code = USPERM) /HPF NONE CBC WITH [id number] 15:46:00 Test Item Value Reference Range Interpretation [...] (test code = 1+ NONE A POLY) [id number] 06:09:00 Test Item Value Reference Range Interpretation Comments FOLATE (test code = A75) 7.4 ng/mL 3.1-17.5 [id number] 06:07:00 Test Item Value Reference Range Interpretation Comments MAGNESIUM (test code = 48A) 2.3 mg/dL 1.8-2.4 [id number] 06:06:00 Test Item Value Reference Range Interpretation Comments PREALBUMIN (test code = 08E) 13 mg/dL 18-38 L THYROID PANEL/SCREEN (TSH)2020-03-01 06:05:00 Test Item Value Reference Range Interpretation Comments TSH (test code = A57) 0.470 uIU/mL 0.358-3.740 LIPID [id number] 06:04:00 Test Item Value Reference Range Interpretation Comments CHOLESTROL (test code = 44A) 179 mg/dL 140-200 TRIGLYCERI (test code = 42B) 84 mg/dL <=149 HDL (test code = 83D) 66.0 mg/dL 40.0-60.0 H LDL (test code = 34B) 99 mg/dL <=99 CHL/HDL (test code = CHR) 2.7 0.0-3.4 [id number] 11:34:00 Test Item Value Reference Range Interpretation Comments Hb A1C % (test code 5.4 % 3.8-6.4 = HBA) A1C % (test code = HbA1c (% ) A1C) Reference Range Normal <5.7 Prediabetes 5.7-6.4 Diabetic >=6.5 CBC WITH [id number] 11:13:00 Test Item Value Reference Range Interpretation [...] = TARG) 1+ NONE A BASIC METABOLIC [id number] 06:09:00 Test Item Value Reference Range Interpretation [...] FOR DIALYSIS PATIEN TS. TSH/FREE T4 IF [id number] 06:06:00 Test Item Value Reference Range Interpretation Comments THYROID STIMULATING HORMONE 0.78 uIU/mL 0.35-4.94 (BEAKER) (test code = 772) CBC W/PLT COUNT & AUTO [id number] 05:30:00 Test Item Value Reference Range Interpretation [...] L 0.00-0.20 (test code = 417) 0.00SEDIMENTATION [id number] 14:36:00 Test Item Value Reference Range Interpretation Comments SEDIMENTATION RATE, ERYTHROCYTE 20 mm/HR 0-40 (BEAKER) (test code = 766) VITAMIN [id number] 11:02:00 Test Item Value Reference Range Interpretation Comments VITAMIN B12 (BEAKER) (test code = 219 pg/mL 213-816 774) HEMOGLOBIN [id number] 08:55:00 Test Item Value Reference Range Interpretation Comments HEMOGLOBIN A1C (BEAKER) (test code = 5.3 % 4.3-6.1 368) LIPID [id number] 06:23:00 Test Item Value Reference Range Interpretation [...] 130-159 High 160-189 Very High >=190BASIC METABOLIC [id number] 06:23:00 Test Item Value Reference Range Interpretation [...] PATIEN TS. CBC W/PLT COUNT & AUTO [id number] 06:08:00 Test Item Value Reference Range Interpretation [...]
--- NOTE | 2020-10-11 09:44 | EDPHYS ---
Physician Documentation [facility] Name: Hina Messina Age: 75 yrs Sex: Female : 1945 Arrival Date: 10/11/2020 Time: 09:11 Bed 3 Private MD: ED Physician Henok Quevedo HPI: 10/11 09:30 This 75 yrs old Female presents to ER via EMS with complaints of CPR. pkl 09:30 Preceding the arrest, the patient Patent found unresponsive at [facility]. Unknown pkl down time. Patient last seen awake at 7.15 AM. CPR initiated by EMS. Continued for 28 mins. Historical: - Allergies: 09:19 ambien; sv 09:19 Codeine; sv 09:19 Demerol; sv 09:19 Latex, Natural Rubber; sv 09:19 Sulfa (Sulfonamide Antibiotics); sv 09:19 Valium; sv - PMHx: 09:19 Anemia; Depression; Glaucoma; Dementia; Hyperlipidemia; DVT; GERD; ATHEROSCLEROSIS; sv Hypertension; Microcytic anemia; manic episode; ibs; COPD; Atrial Fib; Aortic Stenosis; Anxiety; Osteoporosis; SVT; - Immunization history:: Adult Immunizations unknown. - Social history:: Smoking status: unknown. ROS: 09:30 Unable to obtain ROS due to comatose state, patient is on ventilator. pkl Exam: 09:30 ENT: Nares patent. No nasal discharge, no septal abnormalities noted. Tympanic pkl membranes are normal and external auditory canals are clear. Oropharynx with no redness, swelling, or masses, exudates, or evidence of obstruction, uvula midline. Mucous membranes moist. 09:30 Eyes: Pupils: are fixed and dilated. 09:30 Neuro: Orientation: unable to test, the patient is intubated, Motor: unable to test, pkl the patient is intubated, . MDM: 09:30 Patient medically screened. pkl 09:30 Data reviewed: vital signs, nurses notes. ED course: Daughter requested no CPR. Patient pkl pronounced at 9.13 AM. Administered Medications: No medications were administered Disposition: 09:30 . pkl Disposition: Patient pronounced on 10/11/20 09:13 by Henok Quevedo. Impression: Cardio- respiratory arrest. - Released to Home. Signatures: Iza, ShiraJOEL meléndez RN, Pin, MD MD pkl Leal, Jahala, RN RN jl7 Corrections: (The following items were deleted from the chart) 11:04 09:43 10/11/2020 09:43 Patient pronounced on 10/11/2020 at 09:13 by Henok Quevedo. alvaro Impression: Cardio- respiratory arrest. Released to Home. christianne
--- NOTE | 2020-10-11 09:44 | ER ---
Nurse's Notes [facility] Name: Hina Messina Age: 75 yrs Sex: Female : 1945 Arrival Date: 10/11/2020 Time: 09:11 Bed 3 Private MD: Diagnosis: Cardio- respiratory arrest Presentation: 10/11 09:05 Chief complaint: EMS states: called out by [facility] staff for unresponsive, staff sv checked on her at 0715 and was ok and around 0830 staff noted that she was unresponsive. CPR started by ME staff 5 mins [employer] of EMS. No shocks given, ETT-7.5, IO L leg, BS-208. ME staff reported recent changes to her psych meds. Care prior to arrival: Oral intubation, IV initiated. Glucose check: 208. Compressions began prior to arrival. 09:05 Method Of Arrival: EMS: [facility] sv 09:05 Acuity: KESHAV 1 sv 09:05 Coronavirus screen: At this time, unable to obtain information related to travel sv outside the [place] Ebola Screen: Unable to complete the Ebola screening because: Patient is unresponsive. Risk Assessment: Do you want to hurt yourself or someone else? Unable to obtain. Onset of symptoms was October 11, 2020. 09:20 Initial Sepsis Screen: Does the patient meet any 2 criteria? No. Patient's initial sv sepsis screen is negative. Does the patient have a suspected source of infection? No. Patient's initial sepsis screen is negative. Historical: - Allergies: 09:19 ambien; sv 09:19 Codeine; sv 09:19 Demerol; sv 09:19 Latex, Natural Rubber; sv 09:19 Sulfa (Sulfonamide Antibiotics); sv 09:19 Valium; sv - PMHx: 09:19 Anemia; Depression; Glaucoma; Dementia; Hyperlipidemia; DVT; GERD; ATHEROSCLEROSIS; sv Hypertension; Microcytic anemia; manic episode; ibs; COPD; Atrial Fib; Aortic Stenosis; Anxiety; Osteoporosis; SVT; - Immunization history:: Adult Immunizations unknown. - Social history:: Smoking status: unknown. Screenin:27 Abuse screen: . Nutritional screening: . Tuberculosis screening: . jl7 Assessment: 09:05 CPR assessment: unresponsive, no respiratory effort, intubated, Ambu ventilation, sv cyanotic. Cardiac rhythm is PEA. General: Behavior is unresponsive. Respiratory: Airway via oral intubation. Derm: Skin is mottled. 09:07 Reassessment: CPR paused, pulse check-PEA, CPR resumed. sv 09:09 Reassessment: CPR paused, pulse check-PEA. Pt's daughter stated that the pt is a DNR sv and wants nothing more to be done. Dr Quevedo at the bedside and speaking with the daughter. 09:12 Reassessment: Dr Quevedo using the US to see a pulse. PEA. Time of 09. sv 10:05 Reassessment: [facility] called by myself, and spoke with [facility] [place]. Pt is not a sv candidate. ED Course: 09:11 Patient arrived in ED. ds1 09:14 Tasha Wilkins RN is Primary Nurse. jl7 09:17 Triage completed. sv 09:20 Arm band placed on. sv 09:27 notified [facility] dispatch to have the placing judge called. bd 09:27 . jl7 09:30 Henok Quevedo MD is Attending Physician. pkl 09:43 Henok Quevedo MD is Pronouncing Provider. pktrisha Administered Medications: No medications were administered Outcome: 09:13 Outcome Patient sv 09:13 Condition: 11:04 Patient left the ED. jl7 Signatures: Davina Jimenez Stephanie RN JOEL Henok Quevedo MD MD pkl [place], Demi ds1 Tasha Wilkins RN RN jl7
== END 2020-10-11 11:04 | disposition expired ==
LOC: ER 09:10
DX: I46.9 Cardiac arrest, cause unspecified (principal); J44.9 Chronic obstructive pulmonary disease, unspecified; F32.9 Major depressive disorder, single episode, unspecified; H40.9 Unspecified glaucoma; F03.90 Unspecified dementia, unspecified severity, without behavioral disturbance, psychotic disturbance, mood disturbance, and anxiety; E78.5 Hyperlipidemia, unspecified; Z86.718 Personal history of other venous thrombosis and embolism; K21.9 Gastro-esophageal reflux disease without esophagitis; I10 Essential (primary) hypertension; I48.91 Unspecified atrial fibrillation; I35.0 Nonrheumatic aortic (valve) stenosis; F41.9 Anxiety disorder, unspecified; M81.0 Age-related osteoporosis without current pathological fracture; D50.9 Iron deficiency anemia, unspecified; K58.9 Irritable bowel syndrome, unspecified
CPT/HCPCS: 92950; 99285; J0171